=== PATIENT | female | born 1980 | race Caucasian/White ===

== ENCOUNTER 2022-11-21 17:46 | Inpatient (IN) | payer OTHER ==
[2022-11-21] MEDS ORDERED: LIDOCAINE 4% PATCH ONE (18:54)
--- NOTE | 2022-11-21 19:06 | RAD REPORT ---
EXAM DESCRIPTION: RAD - Lumbar Spine 3 Views - 11/21/2022 6:43 pm CLINICAL HISTORY: Pain, mid back, radiating to lower abdomen COMPARISON: None. FINDINGS: A three-view lumbar spine examination was performed. Lumbar bodies are normal in height and alignment. No fracture or acute bony process seen. No disc spa ce narrowing. No other significant findings. IMPRESSION: No acute abnormality of the lumbar spine.
[2022-11-21 19:25] LABS: Urine Blood Negative (Negative); Urine Glucose Negative (Negative); Urine Protein Trace (Negative); Urine Specific Gravity >=1.030 (1.005-1.030)
[2022-11-21] MEDS ORDERED: MORPHINE 4 MG/ML SYR ONE (19:28)
[2022-11-21] MEDS ORDERED: KETOROLAC 30 MG/ML INJ ONE (19:28)
[2022-11-21 19:56] LABS: Urine Bacteria <20 /HPF (<20); Urine Crystals Unidentified Few /HPF (None Seen); Urine Mucus 1+ /HPF (None Seen); Urine RBC <5 /HPF (None Seen)
[2022-11-21] MEDS ORDERED: NA CHLORIDE 0.9% 1,000 ML ONE (20:02)
[2022-11-21 20:29] LABS: Absolute Lymphocytes (CBC) 1.3 K/uL (0.7-4.9); Hematocrit 39.1 % (36.0-45.0); Lymphocytes % 6.7 % (15.3-44.8); MCV 84.4 fL (80-100); MPV 7.9 fL (7.6-11.3); RBC Red Blood Cell Count 4.63 M/uL (3.86-4.86)
[2022-11-21 20:44] LABS: Albumin 3.4 g/dL (3.4-5.0); Bilirubin Total 0.2 mg/dL (0.2-1.0); Potassium 4.1 mmol/L (3.5-5.1); Protein, Total 7.4 g/dL (6.4-8.2)
--- NOTE | 2022-11-21 21:32 | RAD REPORT ---
EXAM DESCRIPTION: CT - Abdomen Pelvis W Contrast - 11/21/2022 9:05 pm CLINICAL HISTORY: FLANK PAIN COMPARISON: CT ABD PELVIS W CONTRAST dated 03/09/2014; ABDOMEN 1 VIEW KUB dated 03/12/2014 TECHNIQUE: Thin cut axial CT imaging of the abdomen and pelvis was performed following intravenous a dministration of 95 mL Isovue 300. Multiplanar reformats were generated and reviewed. All CT scans are performed using dose optimization technique as appropriate and may include automated exposure control or mA/KV adjustment according to patient size. FINDINGS: Lobulated left lower lobe infrahilar centrally located 4.7 x 3.9 centimeter mass, incomple tely included. A calcified posterior left lower lobe 12 millimeter granuloma is stable. The liver demonstrates at least 2 hypoattenuating parenchymal lesions, the largest involving segment 4B anteriorly, measuring 2 centimeter in greatest axial diameter. The spleen demonstrates 2 subcapsul ar hypoattenuating small lesions, the largest near the inferior pole measuring 1 centimeter. The panc reas show no suspicious findings. Status post cholecystectomy. No evidence of intra or extrahepatic b iliary ductal dilation. . Symmetric renal function is seen with no hydronephrosis or suspicious renal mass. No dilated bowel loops or bowel wall thickening. No free air, free fluid or inflammatory stranding. N o hernia, mass or bulky lymphadenopathy. The urinary bladder is without significant finding. No suspicious bony findings. Linear sclerotic focus along the lateral left eighth rib is stable. IMPRESSION: Left lower lobe infrahilar 4.7 centimeter mass, incompletely imaged, concerning for a domonique ng malignancy. At least 2 hypoattenuating hepatic lesions, concerning for metastatic disease. Two splenic hypoattenuating lesions, indeterminate, although they could also represent metastatic les ions. The findings were communicated to Kevin Sylvester on 11/21/2022 at 21:25 hours.
--- NOTE | 2022-11-21 21:41 | EDPHYS ---
Physician Documentation [facility] Name: Mike Cornejo Age: 42 yrs Sex: Female : 1980 Arrival Date: 11/21/2022 Time: 17:47 Bed 2 Private MD: ED Physician Rohit Pope HPI: 11/21 18:25 This 42 yrs old Female presents to ER via Wheelchair with complaints of Low Back Pain. cp 18:25 The patient presents with pain that is acute, with no known mechanism of injury. The cp symptoms are located in the low back. The pain radiates to the lower abdomen bilaterally. The problem was sustained from unknown cause. 18:25 Onset: The symptoms/episode began/occurred this morning, and became worse today. cp 18:25 Associated signs and symptoms: Pertinent positives: lower abdomen pain, Pertinent cp negatives: constipation, fever, incontinence, numbness, tingling, urinary retention, weakness. Severity of symptoms: in the emergency department the symptoms are unchanged, despite home interventions. 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 - Social history:: Smoking status: Patient reports the use of cigarette tobacco products, smokes one-half pack cigarettes per day, Patient uses street drugs, marijuana, Patient/guardian denies using alcohol. ROS: 18:30 Constitutional: Negative for body aches, chills, fever, poor PO intake. cp 18:30 Eyes: Negative for injury, pain, redness, and discharge. cp 18:30 ENT: Negative for drainage from ear(s), ear pain, sore throat, difficulty swallowing, difficulty handling secretions. 18:30 Cardiovascular: Negative for chest pain, edema, palpitations. 18:30 Respiratory: Negative for cough, shortness of breath, wheezing. 18:30 Abdomen/GI: Positive for radiating pain to lower abdomen bilaterally, Negative for vomiting, diarrhea, constipation, bowel incontinence. 18:30 Back: Positive for pain at rest, pain with movement, of the low back area. 18:30 : Negative for urinary symptoms, difficulty urinating, bladder incontinence. 18:30 Neuro: Negative for altered mental status, dizziness, headache, numbness, tingling, weakness. 18:30 All other systems are negative. cp Exam: 18:45 Constitutional: The patient appears in no acute distress, alert, awake, non-toxic, well cp developed, well nourished, uncomfortable. 18:45 Head/Face: Normocephalic, atraumatic. cp 18:45 Eyes: Periorbital structures: appear normal, Conjunctiva: normal, Sclera: no appreciated abnormality, Lids and lashes: appear normal, bilaterally. 18:45 ENT: External ear(s): are unremarkable, Nose: is normal, Mouth: Lips: moist, Oral mucosa: moist, Posterior pharynx: is normal, airway is patent, no erythema, no exudate. 18:45 Neck: ROM/movement: is normal, is supple, without pain, no range of motions limitations. 18:45 Chest/axilla: Inspection: normal. 18:45 Cardiovascular: Rate: tachycardic, Rhythm: regular, Edema: is not appreciated, JVD: is not appreciated. 18:45 Respiratory: the patient does not display signs of respiratory distress, Respirations: normal, no use of accessory muscles, no retractions, labored breathing, is not present, Breath sounds: are clear throughout, no decreased breath sounds, no stridor, no wheezing. 18:45 Abdomen/GI: Inspection: abdomen appears normal, Bowel sounds: active, all quadrants, Palpation: soft, in all quadrants, moderate abdominal tenderness, in the right lower quadrant and left lower quadrant. 18:45 Back: pain, that is severe, of the low back area, ROM is painful, with all movement. 18:45 Skin: cellulitis, is not appreciated, no rash present. 18:45 Neuro: Orientation: to person, place \T\ time. Mentation: is normal, Motor: moves all fours, strength is normal, Sensation: is normal, Deep tendon reflexes are 2+ (normal) in the right patellar, right Achilles, left patellar and left Achilles. Vital Signs: 17:54 BP 146 / 117; Pulse 112; Resp 18; Temp 98.5(TE); Pulse Ox 99% on R/A; Weight 64.41 kg; ld1 Height 5 ft. 2 in. (157.48 cm); Pain 10/10; 18:43 BP 128 / 96; Pulse 89; Pulse Ox 100% on R/A; ap3 19:34 BP 133 / 86; Pulse 96; Resp 18 S; Pulse Ox 100% on R/A; as6 21:29 BP 131 / 91; Pulse 100; Resp 17 S; Pulse Ox 98% on R/A; as6 22:30 BP 129 / 87; Pulse 84; Resp 17; Pulse Ox 100% on R/A; ll3 17:54 Body Mass Index 25.97 (64.41 kg, 157.48 cm) ld1 MDM: 18:01 Patient medically screened. 21:40 Data reviewed: vital signs, nurses notes. 21:40 I considered the following discharge prescriptions or medication management in the emergency department Medications were administered in the Emergency Department. See NOV. 11/21 18:18 Order name: Urine Microscopic Only; Complete Time: 20:23 11/21 20:23 Interpretation: Reviewed. 11/21 19:25 Order name: Urine Dipstick-Ancillary; Complete Time: 19:39 [facility] 11/21 19:39 Interpretation: Normal except: UKET Trace; UPROT Trace; UNIT Positive. 11/21 19:47 Order name: CBC with Diff; Complete Time: 20:53 11/21 20:54 Interpretation: Reviewed. 11/21 19:47 Order name: CMP 11/21 19:47 Order name: Lipase 11/21 20:54 Interpretation: Abnormal: LIP 396. 11/21 21:38 Order name: SARS RAPID ds4 11/21 18:18 Order name: XRAY Lumbar Spine (3 Views); Complete Time: 19:39 11/21 19:47 Order name: CT Abd/Pelvis - IV Contrast Only; Complete Time: 21:37 11/21 21:39 Order name: COVID-19/FLU A+B 11/21 22:38 Order name: Lipid Profile EDSC 11/21 18:18 Order name: Urine Dipstick-Ancillary (obtain specimen); Complete Time: 19:26 11/21 18:18 Order name: Urine Test (obtain specimen); Complete Time: 19:26 11/21 19:47 Order name: IV Saline Lock; Complete Time: 20:12 cp 11/21 19:47 Order name: Labs collected and sent; Complete Time: 20:12 cp Administered Medications: 18:52 Drug: Lidoderm Patch 5 % (700 mg/patch) 1 patches Route: Topical; Site: affected area; ap3 19:30 Drug: Ketorolac 30 mg Route: IM; Site: left ventrogluteal; as6 22:53 Follow up: Response: No adverse reaction; Marked relief of symptoms ll3 19:30 Drug: morphine 4 mg Route: IM; Site: left ventrogluteal; as6 22:53 Follow up: Response: No adverse reaction ll3 20:13 Drug: NS 0.9% 1000 ml Route: IV; Rate: 1 bolus; Site: left antecubital; ll3 22:12 Drug: Rocephin (cefTRIAXone) 1 grams Route: IV; Rate: calculated rate; Site: left ll3 antecubital; 22:43 Drug: NS 0.9% 1000 ml Route: IV; Rate: 1 bolus; Site: left antecubital; ll3 22:43 Drug: NS 0.9% 1000 ml Route: IV; Rate: 1000 ml; Site: left antecubital; ll3 Disposition: 11/22 09:54 Co-signature as Attending Physician, Rohit SAUCEDO was immediately available on-site ms3 in the Emergency Department for consultation in the care of the patient. Disposition Summary: 11/21/22 21:40 Hospitalization Ordered Hospitalization Status: Inpatient Admission cp Location: Telemetry/[facility] (Inpatient) cp Condition: Fair cp Problem: new cp Symptoms: have improved cp Bed/Room Type: Standard cp Room Assignment: [facility](11/21/22 22:38) Provider: Ld Neal(11/22/22 00:19) cp Diagnosis - Other acute pancreatitis without necrosis or infection cp Forms: - Medication Reconciliation Form cp - SBAR form cp Signatures: Dispatcher [employer] Meenu Shelley RN RN mw Attema, Lee, ENGINEERING AID-C ENGINEERING AID-Cla1 Candelario Meeks PA PA cp Eveline Holm RN RN ap3 Rohit Pope DO DO ms3 Yani Solo RN RN ld1 Vicente Diamond RN RN as6 Loubet, Lynsea, RN RN ll3 Corrections: (The following items were deleted from the chart) 11/21 22:38 22:31 LIPID PROFILE+C.LAB.GEOFFZ ordered. EDMS EDMS 22:38 21:40 cp mw 11/22 00:19 11/21 21:40 Parveen Carrasco cp cp
--- NOTE | 2022-11-21 21:41 | ER ---
Nurse's Notes [facility] Name: Mike Cornejo Age: 42 yrs Sex: Female : 1980 Arrival Date: 11/21/2022 Time: 17:47 Bed 2 Private MD: Diagnosis: Other acute pancreatitis without necrosis or infection Presentation: 11/21 17:54 Chief complaint: Patient states: Went to urgent care last night for bronchitis - ld1 received steroid shot. Pt c/o pain to mid back - radiates to lower abdomen. Pt states "I wonder if this is related to the steroid shot I got.". Coronavirus screen: At this time, the client does not indicate any symptoms associated with coronavirus-19. Ebola Screen: No symptoms or risks identified at this time. Initial Sepsis Screen: Does the patient meet any 2 criteria? No. Patient's initial sepsis screen is negative. Does the patient have a suspected source of infection? No. Patient's initial sepsis screen is negative. Risk Assessment: Do you want to hurt yourself or someone else? Patient reports no desire to harm self or others. Onset of symptoms was November 21, 2022. 17:54 Method Of Arrival: Wheelchair ld1 17:54 Acuity: YING 4 ld1 Triage Assessment: 17:58 General: Appears in no apparent distress. uncomfortable, Behavior is cooperative, ld1 anxious. Pain: Complains of pain in lumbar area Pain radiates to right lower quadrant and left lower quadrant Pain currently is 10 out of 10 on a pain scale. Quality of pain is described as throbbing, Pain began 1 day ago. Is intermittent. EENT: No signs and/or symptoms were reported regarding the EENT system. Neuro: Level of Consciousness is awake, alert, obeys commands, Oriented to person, place, time, situation. Cardiovascular: Capillary refill < 3 seconds Patient's skin is warm and dry. Rhythm is sinus tachycardia. Respiratory: Airway is patent Respiratory effort is even, unlabored. GI: Abdomen is flat, non-distended. : No signs and/or symptoms were reported regarding the genitourinary system. Derm: No signs and/or symptoms reported regarding the dermatologic system. Musculoskeletal: No signs and/or symptoms reported regarding the musculoskeletal system. 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 - Social history:: Smoking status: Patient reports the use of cigarette tobacco products, smokes one-half pack cigarettes per day, Patient uses street drugs, marijuana, Patient/guardian denies using alcohol. Screenin:11 [facility] ED Fall Risk Assessment (Adult) History of falling in the last 3 months, ap3 including since admission No falls in past 3 months (0 pts). Abuse screen: Denies threats or abuse. Nutritional screening: No deficits noted. Tuberculosis screening: No symptoms or risk factors identified. Assessment: 18:16 General: Appears uncomfortable, Behavior is crying, restless. Pain: Complains of pain ap3 in low back area Pain radiates to right lower quadrant and left lower quadrant Pain began gradually, 1 day ago. Neuro: Level of Consciousness is awake, alert, obeys commands, Oriented to person, place, time, situation. Cardiovascular: Patient's skin is warm and dry. Respiratory: Airway is patent Respiratory effort is even, unlabored, Respiratory pattern is regular, symmetrical. 19:34 Pain: Complains of pain in low back area and left lower quadrant and right lower as6 quadrant and back and lumbar area. Respiratory: Respiratory effort is even, unlabored. Vital Signs: 17:54 BP 146 / 117; Pulse 112; Resp 18; Temp 98.5(TE); Pulse Ox 99% on R/A; Weight 64.41 kg; ld1 Height 5 ft. 2 in. (157.48 cm); Pain 10/10; 18:43 BP 128 / 96; Pulse 89; Pulse Ox 100% on R/A; ap3 19:34 BP 133 / 86; Pulse 96; Resp 18 S; Pulse Ox 100% on R/A; as6 21:29 BP 131 / 91; Pulse 100; Resp 17 S; Pulse Ox 98% on R/A; as6 22:30 BP 129 / 87; Pulse 84; Resp 17; Pulse Ox 100% on R/A; ll3 17:54 Body Mass Index 25.97 (64.41 kg, 157.48 cm) ld1 ED Course: 17:47 Patient arrived in ED. am2 17:52 Candelario Meeks PA is PHCP. cp 17:52 Rohit Pope DO is Attending Physician. cp 17:58 Triage completed. ld1 17:58 Arm band placed on right wrist. ld1 18:00 Eveline Holm, RN is Primary Nurse. ap3 18:11 Patient has correct armband on for positive identification. Bed in low position. Call ap3 light in reach. Side rails up X 1. Adult w/ patient. Pulse ox on. NIBP on. 18:50 XRAY Lumbar Spine (3 Views) In Process Unspecified. EDMS 20:12 Initial lab(s) drawn, by me, sent to lab. Inserted saline lock: 20 gauge in left ll3 antecubital area, using aseptic technique. Blood collected. Missed attempt(s): 20 gauge in right antecubital area. 21:07 CT Abd/Pelvis - IV Contrast Only In Process Unspecified. EDMS 21:39 Parveen Carrasco FNP-C is Hospitalizing Provider. cp 23:04 No provider procedures requiring assistance completed. Patient admitted, IV remains in ll3 place. 11/22 00:19 Ld Neal MD is Hospitalizing Provider. cp Administered Medications: 02 18:52 Drug: Lidoderm Patch 5 % (700 mg/patch) 1 patches Route: Topical; Site: affected area; ap3 19:30 Drug: Ketorolac 30 mg Route: IM; Site: left ventrogluteal; as6 22:53 Follow up: Response: No adverse reaction; Marked relief of symptoms ll3 19:30 Drug: morphine 4 mg Route: IM; Site: left ventrogluteal; as6 22:53 Follow up: Response: No adverse reaction ll3 20:13 Drug: NS 0.9% 1000 ml Route: IV; Rate: 1 bolus; Site: left antecubital; ll3 22:12 Drug: Rocephin (cefTRIAXone) 1 grams Route: IV; Rate: calculated rate; Site: left ll3 antecubital; 22:43 Drug: NS 0.9% 1000 ml Route: IV; Rate: 1 bolus; Site: left antecubital; ll3 22:43 Drug: NS 0.9% 1000 ml Route: IV; Rate: 1000 ml; Site: left antecubital; ll3 Medication: 18:11 VIS not applicable for this client. ap3 Outcome: 21:40 Decision to Hospitalize by Provider. cp 23:04 Admitted to Tele accompanied by nurse, via wheelchair, room 430, with chart, Report ll3 called to JAE Bautista 23:04 Condition: stable 23:04 Instructed on the need for admit, Demonstrated understanding of instructions. 23:31 Patient left the ED. ll3 11/22 00:21 Patient left the ED. kd3 Signatures: Dispatcher [employer] EDMS Candelario Meeks PA PA cp Eveline Garg am2 Eveline Holm RN RN ap3 Yani Solo RN RN ld1 Vicente Diamond RN RN as6 Tushar Cook RN RN ll3 Yuly Foster RN RN kd3 Corrections: (The following items were deleted from the chart) 11/21 17:59 17:54 BP 204 / 179; Pulse 112bpm; Resp 18bpm; Pulse Ox 99% RA; Temp 98.5F Temporal; ld1 64.41 kg; Height 5 ft. 2 in.; BMI: 25.9; Pain 10/10; ld1
[2022-11-21] MEDS ORDERED: CEFTRIAXONE 1000 MG/VIAL ONE (22:11)
[2022-11-21 22:31] LABS: SARS-COV-2 RT PCR NEGATIVE (NEGATIVE)
--- NOTE | 2022-11-21 22:42 | P.HP ---
Certification for Inpatient Patient admitted to: Observation With expected LOS: <2 Midnights Patient will require the following post-hospital care: None Practitioner: I am a practitioner with admitting privileges, knowledge of patient current condition, hospital course, and medical plan of care. Services: Services provided to patient in accordance with Admission requirements found in Title 42 Section 412.3 of the Code of Federal Regulations Patient History Date of Service: 11/21/22 Reason for admission: Acute pancreatitis, lung mass History of Present Illness: 42-year-old female with history of previous brain tumor with excision which was determined to be benign presented to the emergency department today with complaints of back pain radiating to lower abdomen. She reports that she was seen yesterday in urgent care and prescribed oral antibiotics for otitis media/sinus infection, began having back/abdominal pain today. She was evaluated here in the emergency department her labs were significant for moderate elevation in lipase 396normal range 13-75 leukocytosis with blood cell count 18.9 CT abdomen pelvis was performed with IV contrast which revealed left lower lobe infrahilar 4.7 cm mass, incompletely imaged, concerning for lung malignancy. At least 2 hypoattenuating hepatic lesions concerning for metastatic disease. 2 splenic hypoattenuating lesions indeterminate although they could also represent metastatic disease. On exam patient has mild upper abdominal tenderness, lipase greater than 3 times upper limit of normal. ED provider wishes to admit under observation for acute pancreatitis. Patient denies alcohol use, has had previous cholecystectomy. No intrahepatic dilatation noted on CT, LFTs normal. Will obtain lipid panel, admit under observation. Discussed abnormal CT findings including suspected metastatic lung cancer at length with patient, will obtain dedicated CT of chest for further evaluation, consult pulmonology during hospitalization. Allergies sulfamethoxazole [From Bactrim] Allergy (Mild, Verified 03/03/12 10:40) Hives/Rash trimethoprim [From Bactrim] Allergy (Mild, Verified 03/03/12 10:40) Hives/Rash tramadol Allergy (Verified 03/12/14 15:55) Hives/Rash Home Medications: Ibuprofen 800 mg PO TIDP PRN 03/12/14 Ciprofloxacin HCl [Cipro] 500 mg PO BID #20 tablet 03/18/14 Hydrocodone 5/APAP 325 [[place] 5/325*] 1 - 2 tab PO Q6HP PRN #30 tab 03/18/14 metroNIDAZOLE [Flagyl*] 500 mg PO QID #40 tablet 03/18/14 - Past Medical/Surgical History Diabetic: No -: ovarian cyst -: uterine fibroids -: endometriosis -: Brain massbenign -: appy -: tito -: tonsillectomy -: D&C -: right knee sx -: Brain massbenign Psychosocial/ Personal History: Patient is employed at a [employer], lives at home with her boyfriend. - Family History Mother Notes: COPD - Social History Smoking Status: Current every day smoker Counseled patient to stop smoking for: less than 10 minutes Alcohol use: Yes CD- Drugs: No Caffeine use: No Place of Residence: Home Review of Systems 10-point ROS is otherwise unremarkable Gastrointestinal: Abdominal Pain Musculoskeletal: Back Pain Physical Examination - Physical Exam General: Alert, In no apparent distress, Oriented x3 HEENT: Atraumatic, PERRLA, Mucous membr. moist/pink, EOMI, Sclerae nonicteric Neck: Supple, 2+ carotid pulse no bruit, No LAD, Without JVD or thyroid abnormality Respiratory: Clear to auscultation bilaterally, Normal air movement Cardiovascular: Regular rate/rhythm, Normal S1 S2 Gastrointestinal: Tenderness (Mild epigastric tenderness) Musculoskeletal: No tenderness Integumentary: No rashes Neurological: Normal speech, Normal strength at 5/5 x4 extr, Normal tone, Normal affect - Studies Laboratory Data (last 24 hrs) 11/21/22 22:30: Triglycerides Cancelled, Cholesterol Cancelled, HDL Cholesterol Cancelled, Cholesterol/HDL Ratio Cancelled 11/21/22 20:08: Sodium 138, Potassium 4.1, BUN 17, Creatinine 0.95, Glucose 146 H, Total Bilirubin 0.2, AST 22, ALT 25, Alkaline Phosphatase 99, Lipase 396 H 11/21/22 20:08: WBC 18.90 H, Hgb 13.2, Hct 39.1, Plt Count 314 Assessment and Plan - Plan Assessment: Epigastric pain, concern for acute pancreatitis Incidental CT findings concerning for metastatic lung disease Plan: Epigastric pain, concern for acute pancreatitis NPO, IVF, as needed pain medications, trend lipase. Patient with previous cholecystectomy, denies alcohol use. Obtain lipid panel. Mild tenderness on exam no CT findings indicating acute pancreatitis. Likely advance diet as tolerated tomorrow. Incidental CT findings concerning for metastatic lung disease Discussed at length with patient, provided with results from CT scan, pulmonology to be consulted. Dedicated CT chest ordered. DVT PPX: Lovenox Code status: Full Discharge Plan: Home Plan to discharge in: 24 Hours - Advance Directives Does patient have a Living Will: No Does patient have a Durable POA for Healthcare: No - Code Status/Comfort Care Code Status Assessed: Yes (Full code) Critical Care: No Time Spent Managing Pts Care (In Minutes): 70
[2022-11-21] MEDS ORDERED: NA CHLORIDE 0.9% 2,000 ML ONE (22:43)
[2022-11-21] MEDS ORDERED: MORPHINE 2 MG/ML SYR IV PRN (23:09)
[2022-11-21 23:44] VITALS: BMI 28.8
[2022-11-21] MEDS: Ringers Lactate 1,000 ML IV SCH (23:46)
[2022-11-22] MEDS: MORPHINE 2 MG/ML SYR IV PRN ×5 (00:07→18:41)
[2022-11-22] MEDS: Ringers Lactate 1,000 ML IV SCH ×3 (05:51→19:05)
[2022-11-22 05:57] LABS: Absolute Lymphocytes (CBC) 1.5 K/uL (0.7-4.9); Hematocrit 34.3 % (36.0-45.0); Lymphocytes % 9.5 % (15.3-44.8); MCV 84.9 fL (80-100); MPV 7.9 fL (7.6-11.3); RBC Red Blood Cell Count 4.04 M/uL (3.86-4.86)
[2022-11-22 06:25] LABS: Albumin 2.7 g/dL (3.4-5.0); Bilirubin Total 0.2 mg/dL (0.2-1.0); Potassium 4.1 mmol/L (3.5-5.1); Protein, Total 6.1 g/dL (6.4-8.2); Thyroid Stimulating Hormone 0.515 uIU/mL (0.358-3.740)
[2022-11-22] MEDS ORDERED: INFLUENZA VACCINE (for 6+ mo) 0.5 ML DOSE IMVAC ONE (08:00)
--- NOTE | 2022-11-22 08:19 | RAD REPORT ---
EXAM DESCRIPTION: CT - Thorax Wo Con - 11/21/2022 11:25 pm CLINICAL HISTORY: Eval lung mass COMPARISON: Abdomen Pelvis W Contrast dated 11/21/2022; CT ABD PELVIS W CONTRAST dated 03/09/2014 TECHNIQUE: Axial thin cut images of the chest were obtained without IV contrast. Multiplanar reforma ts were generated and reviewed. All CT scans are performed using dose optimization technique as appropriate and may include automated exposure control or mA/KV adjustment according to patient size. FINDINGS: Re- demonstration of a dominant lobulated left infrahilar 4.8 centimeter mass. Focus of ca lcification present along its medial margin. Segmental atelectasis of the left lower lobe at the base . A nodular peripheral left lower lobe 1.8 centimeter nodule is noted. Both findings are new since a prior abdominal CT of 2013. No pleural thickening or pleural effusion. No pneumothorax. No significant aortic or pulmonary artery findings. Assessment is limited in the absence of IV contra st, however moderately bulky left hilar nodes are suspected, associated with some dystrophic calcific ations. The left perihilar 8 millimeter calcific nodule is also noted. Prominent mediastinal lymph no kwadwo, the largest in the subcarinal zone, measuring 3.8 x 2.7 centimeter. Additional bulky nodes in th e pretracheal and prevascular zones, with the largest latter zone michele mass measuring 3.4 x 2.1 cent imeter. No chest wall mass or abnormal axillary lymphadenopathy. Evaluation of the solid abdominal structures again reveals hypoattenuating lesions of the liver, bett er evaluated on the preceding contrast-enhanced abdominal CT. Contrast excretion is seen in the upper urinary tracts. Status post cholecystectomy. . IMPRESSION: Re- demonstration of a dominant left infrahilar 4.8 centimeter mass. Bulky left hilar and mediastinal adenopathy as above. A left lower lobe 1.8 centimeter satellite nodu lar opacity is also noted. Findings raise concern for a primary lung malignancy with metastatic adenopathy, although evaluation is somewhat limited by absence of IV contrast. The presence of coarse calcifications in the vicinity of the masses and lymph nodes would also raise concern for calcifying metastases, granulomas, and oth er benign neoplastic processes, as differential considerations. Given the central location of the jeanette rivera mass, please consider soft tissue sampling through a bronchoscopic approach. Upper abdominal structures were evaluated separately noted a preceding CT abdomen and pelvis of the s marily day.
[2022-11-22] MEDS ORDERED: ENOXAPARIN 40 MG/0.4 ML SQ SCH (09:00)
[2022-11-22 09:48] LABS: Protime INR 1.08
--- NOTE | 2022-11-22 12:16 | P.CNS ---
Date of Consult: 11/22/22 Chief Complaint: Acute pancreatitis, lung mass History of Present Illness: Patient is 42 years of age admitted with cough was found to have a left lower lobe mass possible mets to the liver and active smoker she also complained of lower abdominal discomfort no prior history of cardiopulmonary problem Allergies sulfamethoxazole [From Bactrim] Allergy (Mild, Verified 11/21/22 23:48) Hives/Rash trimethoprim [From Bactrim] Allergy (Mild, Verified 11/21/22 23:48) Hives/Rash tramadol Allergy (Verified 11/21/22 23:48) Hives/Rash Home Medications: NK [No Home Meds] 11/21/22 - Past Medical/Surgical History Diabetic: No -: ovarian cyst -: uterine fibroids -: endometriosis -: Brain massbenign -: appy -: tito -: tonsillectomy -: D&C -: right knee sx -: Brain massbenign Psychosocial/ Personal History: Patient is employed at a [employer], lives at home with her boyfriend. - Family History Mother Notes: COPD - Social History Smoking Status: Current every day smoker Alcohol use: No CD- Drugs: No Caffeine use: No Place of Residence: Home Review of Systems 10-point ROS is otherwise unremarkable Gastrointestinal: Abdominal Pain (Dominantly lower) Physical Examination Temp Pulse Resp BP Pulse Ox 97.2 F 76 17 133/80 97 11/22/22 08:00 11/22/22 08:00 11/22/22 09:18 11/22/22 08:00 11/22/22 09:18 General: Alert, In no apparent distress, Oriented x3 Neck: Supple Respiratory: Clear to auscultation bilaterally Cardiovascular: No edema, Regular rate/rhythm, Normal S1 S2 Gastrointestinal: Tenderness (Minimal tenderness in the epigastric) Laboratory Data (last 24 hrs) 11/21/22 22:30: Triglycerides Cancelled, Cholesterol Cancelled, HDL Cholesterol Cancelled, Cholesterol/HDL Ratio Cancelled 11/21/22 20:08: Sodium 138, Potassium 4.1, BUN 17, Creatinine 0.95, Glucose 146 H, Total Bilirubin 0.2, AST 22, ALT 25, Alkaline Phosphatase 99, Triglycerides 116, Cholesterol 153, HDL Cholesterol 44, Cholesterol/HDL Ratio 3.48, Lipase 396 H 02/27/23 20:08: WBC 18.90 H, Hgb 13.2, Hct 39.1, Plt Count 314 - Problems (1) Lung cancer Current Visit: Yes Status: Acute Plan: Patient is a very large left lower lobe mass with possible mets to the liver recommend liver biopsy first if nondiagnostic and proceed to bronchoscopy patient has acute symptoms of cough may have an underlying infection agree with antibiotics her white count is elevated recently went to urgent care and was treated with antibiotic and steroid Kristin's reviewed mildly elevated lipase no evidence of pancreatitis on the CT scan can advance to liquid diet vital signs stable patient was prescribed Augmentin and promethazine Qualifiers: Laterality: left
[2022-11-22] MEDS: AMOX/K CLAV 500 MG TAB PO SCH ×2 (13:26→19:50)
--- NOTE | 2022-11-22 13:43 | RAD REPORT ---
EXAM DESCRIPTION: US - Liver Only - 11/22/2022 1:12 pm CLINICAL HISTORY: Liver mass FINDINGS: Examination was performed to assess if an ultrasound-guided liver biopsy can be performed. 2.4 centimeter hypo to isoechoic lesion is present within the medial segment left lobe corresponding to the CT abnormality. IMPRESSION: 2.4 centimeter hepatic mass likely metastasis. Ultrasound-guided core biopsy will be per formed November 23, 2022
[2022-11-22] MEDS: ONDANSETRON 4 MG/2 ML VIAL IV PRN (14:41)
[2022-11-22] MEDS: HYDROCODONE/APAP 5/325 MG TAB PO PRN (14:45)
[2022-11-22] MEDS ORDERED: HYDROMORPHONE HCL 0.5 MG/0.5 ML INJ IV ONE (19:38)
--- NOTE | 2022-11-22 22:50 | P.PN ---
Date of Service: 11/22/22 Subjective: no significant change continues with lower abdominal pain mild epigastric tenderness ROS: A complete review of systems was performed and is negative except as mentioned above Physical Exam: Gen: AOx3, uncomfortable appearing HEENT: normal conjunctiva, sclera anicteric CV: regular rate & rhythm, no edema Pulm: non-labored respirations, clear bilaterally Abd: soft, mild TTP in epigastrium MSK: mild TTP in b/l paraspinal muscles Neuro: normal speech, normal affect, moves all extremities vitals reviewed Problem List Epigastric pain, concern for acute pancreatitis Incidental CT findings concerning for metastatic lung disease Epigastric pain, concern for acute pancreatitis IVF, as needed pain medications, trend lipase. Patient with previous cholecystectomy, denies alcohol use. Obtain lipid panel. Mild tenderness on exam no CT findings indicating acute pancreatitis. Likely advance diet as tolerated tomorrow. Incidental CT findings concerning for metastatic lung disease Discussed at length with patient, provided with results from CT scan, pulmonology consulted. Dedicated CT chest ordered. liver mass biopsy ordered - to be done tomorrow Code: full Dispo: home, ~24-48hrs
[2022-11-23] MEDS: MORPHINE 2 MG/ML SYR IV PRN ×2 (00:03→05:14)
[2022-11-23] MEDS: ONDANSETRON 4 MG/2 ML VIAL IV PRN ×4 (00:03→19:24)
[2022-11-23] MEDS: Ringers Lactate 1,000 ML IV SCH ×3 (04:15→09:23)
[2022-11-23 05:22] LABS: Absolute Lymphocytes (CBC) 1.5 K/uL (0.7-4.9); Hematocrit 34.6 % (36.0-45.0); Lymphocytes % 19.1 % (15.3-44.8); MCV 84.2 fL (80-100); MPV 7.7 fL (7.6-11.3); RBC Red Blood Cell Count 4.11 M/uL (3.86-4.86)
[2022-11-23 05:42] LABS: Albumin 2.6 g/dL (3.4-5.0); Bilirubin Total 0.3 mg/dL (0.2-1.0); Potassium 3.8 mmol/L (3.5-5.1); Protein, Total 5.9 g/dL (6.4-8.2)
[2022-11-23] MEDS: AMOX/K CLAV 500 MG TAB PO SCH ×2 (08:35→19:29)
[2022-11-23] MEDS: MORPHINE 4 MG/ML SYR IV PRN ×3 (09:23→19:23)
--- NOTE | 2022-11-23 09:52 | P.PN ---
Date of Service: 11/23/22 Subjective: no significant change continues with lower abdominal pain mild epigastric tenderness lower back pain/tenderness ROS: A complete review of systems was performed and is negative except as mentioned above Physical Exam: Gen: AOx3, uncomfortable appearing HEENT: normal conjunctiva, sclera anicteric CV: regular rate & rhythm, no edema Pulm: non-labored respirations, clear bilaterally Abd: soft, mild TTP in epigastrium MSK: tendernes in SI joint area, CALLIE testing with worsening pain Neuro: normal speech, normal affect, moves all extremities vitals reviewed Problem List Epigastric pain, concern for acute pancreatitis Incidental CT findings concerning for metastatic lung disease SI Joint pain bilaterally vs sciatica elevated LFTs Epigastric pain, concern for acute pancreatitis IVF, as needed pain medications, trend lipase. Patient with previous cholecystectomy, denies alcohol use. Mild tenderness on exam no CT findings indicating acute pancreatitis less likely acute pancreatitis Incidental CT findings concerning for metastatic lung disease Discussed at length with patient, provided with results from CT scan, pulmonology consulted. Dedicated CT chest ordered. liver mass biopsy ordered - to be done tomorrow patient with bilateral tenderness in SI Joint area reports h/o sciatica - in past feels very similar to this, but currently is 5 times more severe than anytime before elevated LFTs likely from metastasis GI consulted Code: full Dispo: home, ~48hrs
[2022-11-23] MEDS ORDERED: LIDOCAINE 4% PATCH TOP ONE (19:38)
[2022-11-23] MEDS ORDERED: POTASSIUM CL SA 10 MEQ TAB PO ONE (21:00)
[2022-11-23] MEDS ORDERED: PROMETHAZINE INJ 25 MG/ML AMP IV ONE (23:02)
[2022-11-24] MEDS: MORPHINE 4 MG/ML SYR IV PRN ×4 (02:15→19:32)
[2022-11-24] MEDS: Ringers Lactate 1,000 ML IV SCH ×2 (02:17→23:38)
[2022-11-24 04:21] LABS: Absolute Lymphocytes (CBC) 1.1 K/uL (0.7-4.9); Hematocrit 36.9 % (36.0-45.0); Lymphocytes % 12.6 % (15.3-44.8); MCV 84.7 fL (80-100); MPV 8.3 fL (7.6-11.3); RBC Red Blood Cell Count 4.36 M/uL (3.86-4.86)
[2022-11-24 04:38] LABS: Albumin 2.6 g/dL (3.4-5.0); Bilirubin Total 1.6 mg/dL (0.2-1.0); Potassium 4.1 mmol/L (3.5-5.1); Protein, Total 6.2 g/dL (6.4-8.2)
[2022-11-24] MEDS: ONDANSETRON 4 MG/2 ML VIAL IV PRN (05:41)
[2022-11-24] MEDS ORDERED: MIDAZOLAM HCL 2 MG/2 ML INJ ONE (08:56)
[2022-11-24] MEDS ORDERED: FLUMAZENIL 0.1 MG/ML (5 mL VIAL) IV ONE (08:57)
[2022-11-24] MEDS ORDERED: NALOXONE 0.4 MG/ML VIAL ONE (08:57)
[2022-11-24] MEDS ORDERED: FENTANYL CITR 100 MCG/2 ML ONE (08:57)
[2022-11-24] MEDS: AMOX/K CLAV 500 MG TAB PO SCH (09:00)
[2022-11-24] MEDS ORDERED: NA CHLORIDE 0.9% 500 ML ONE (09:15)
--- NOTE | 2022-11-24 10:01 | RAD REPORT ---
EXAM DESCRIPTION: US - Liver Biopsy Procedure - 11/24/2022 9:42 am CLINICAL HISTORY: SUSPECTED MALIG. COMPARISON: Abdomen Pelvis W Contrast dated 11/21/2022 FINDINGS: Preoperative diagnosis: Liver mass. Post operative diagnosis: Same. Conscious Sedation: 2 milligram Versed, 50 microgram fentanyl. 30 minutes of bawr-rg-oats time Fluoroscopy time: None Contrast used: None Estimated blood loss: Minimal Specimens:5 core samples obtained Ultrasound-guided core biopsy of the suspicious mass in the left hepatic lobe. The lesion was difficu lt to appreciate on ultrasound and partially obscured by the overlying rib. Five samples were obtaine d. One sample in particular had a shi fragment that should be satisfactory for diagnosis. . IMPRESSION: Ultrasound-guided core biopsy of a suspicious left hepatic lobe lesion. No immediate com plications.
--- NOTE | 2022-11-24 12:27 | P.PN ---
Date of Service: 11/24/22 Subjective: no significant change continues with lower abdominal pain, lower back pain mild epigastric/RUQ tenderness Nausea, Hungry ROS: A complete review of systems was performed and is negative except as mentioned above Physical Exam: Gen: AOx3, uncomfortable appearing HEENT: normal conjunctiva, sclera anicteric CV: regular rate & rhythm, no edema Pulm: non-labored respirations, clear bilaterally Abd: soft, mild TTP in RUQ and epigastrium MSK: tendernes in SI joint area Neuro: normal speech, normal affect, moves all extremities vitals reviewed Problem List Epigastric pain, concern for acute pancreatitis Incidental CT findings concerning for metastatic lung disease SI Joint pain bilaterally vs sciatica elevated LFTs, hyperbilirubinemia Epigastric pain, concern for acute pancreatitis IVF, as needed pain medications, trend lipase. Patient with previous cholecystectomy, denies alcohol use. Mild tenderness on exam no CT findings indicating acute pancreatitis less likely acute pancreatitis advance diet lipase downtrending Incidental CT findings concerning for metastatic lung disease Discussed at length with patient, provided with results from CT scan, pulmonology consulted. Dedicated CT chest ordered. liver mass biopsy done 11/23 patient with bilateral tenderness in SI Joint area reports h/o sciatica - in past feels very similar to this, but currently is 5 times more severe than anytime before PT consulted MRI ordered elevated LFTs likely from augmentin, possibly metastasis GI consulted - agreed with dc'ing augmentin, no need for MRCP at this time Increased pain medication Code: full Dispo: home, ~48hrs
[2022-11-24] MEDS: HYDROCODONE/APAP 5/325 MG TAB PO PRN (23:19)
[2022-11-24 23:43] VITALS: O2SAT 95
[2022-11-25] MEDS: MORPHINE 4 MG/ML SYR IV PRN ×5 (02:23→21:41)
[2022-11-25] MEDS: ONDANSETRON 4 MG/2 ML VIAL IV PRN (02:25)
[2022-11-25 04:01] LABS: Protime INR 1.15
[2022-11-25 04:02] LABS: Absolute Lymphocytes (CBC) 1.3 K/uL (0.7-4.9); MCV 84.1 fL (80-100); MPV 8.2 fL (7.6-11.3); RBC Red Blood Cell Count 4.16 M/uL (3.86-4.86)
[2022-11-25 04:29] LABS: Albumin 2.4 g/dL (3.4-5.0); Bilirubin Direct 0.3 mg/dL (0-0.2); Bilirubin Total 0.6 mg/dL (0.2-1.0); Magnesium 1.9 mg/dL (1.6-2.4); Phosphorus 3.1 mg/dL (2.5-4.9); Potassium 3.7 mmol/L (3.5-5.1); Protein, Total 6.2 g/dL (6.4-8.2)
[2022-11-25] MEDS ORDERED: LORazepam 2 MG/ML VIAL IV PRN (05:56)
[2022-11-25] MEDS ORDERED: POTASSIUM CL SA 10 MEQ TAB PO ONE (08:00)
--- NOTE | 2022-11-25 09:56 | RAD REPORT ---
EXAM DESCRIPTION: MRI - Pelvis W/Wo Cont - 11/25/2022 9:43 am CLINICAL HISTORY: lower back pain, SI tenderness COMPARISON: No comparisons TECHNIQUE: MRI of the pelvis was obtained with without contrast. FINDINGS: Multiple osseous lesions are identified within the bony pelvis, spine, sacrum, and proxima l femurs. A left iliac lesion for example measures 3.1 cm. A right intertrochanteric femur lesion sneha sures 1.6 cm. A right femoral neck lesion measures 11 millimeters. A left femoral neck lesion measure s 18 millimeters. No fractures identified. Over 20 lesions are identified. No inguinal lymphadenopathy. No pelvic masses. No bowel obstruction identified. Bladder is unremarkab le. IMPRESSION: Numerous osseous metastatic lesions within the bony pelvis and proximal femurs. Lesions are present in both femoral necks that could predispose to pathologic fractures. No acute fracture id entified.
--- NOTE | 2022-11-25 10:04 | RAD REPORT ---
EXAM DESCRIPTION: MRI - Spine Lumbar W/Wo Cont - 11/25/2022 9:43 am CLINICAL HISTORY: back pain COMPARISON: CT dated 11/21/2022. TECHNIQUE: Sagittal T1-weighted, T2-weighted and T2-STIR weighted sequences were obtained. Axial T1- weighted and heavily T2-weighted sequences were obtained through the lumbar disc levels. Sagittal and axial post-contrast. T1-weighted images were obtained following 16ml on Gd contrast material. FINDINGS: No acute fractures identified. Osseous metastatic disease is identified. All of the L2 luis tebral body is involved. Additional lesions are present at L1, L3, L4, L5, and within the sacrum. A s mall broad-based disc bulge with posterior annular fissure and ligamentum flavum and facet hypertroph y is present at L4-5 that results in mild central spinal stenosis. No high-grade central spinal steno sis identified. No epidural extension of tumor. 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
--- NOTE | 2022-11-25 10:47 | P.PN ---
Date of Service: 11/25/22 Subjective: no significant change continues with lower abdominal pain, lower back pain R shoulder pain mild epigastric/RUQ tenderness Nausea, Hungry ROS: A complete review of systems was performed and is negative except as mentioned above Physical Exam: Gen: AOx3, uncomfortable appearing HEENT: normal conjunctiva, sclera anicteric CV: regular rate & rhythm, no edema Pulm: non-labored respirations, clear bilaterally Abd: soft, mild TTP in RUQ and epigastrium MSK: tenderness in SI joint area Neuro: normal speech, normal affect, moves all extremities vitals reviewed Problem List Epigastric pain, concern for acute pancreatitis abdominal and lower back pain, secondary to metastatic disease SI Joint pain bilaterally vs sciatica elevated LFTs, hyperbilirubinemia Epigastric pain, concern for acute pancreatitis IVF, as needed pain medications, trend lipase. Patient with previous cholecystectomy, denies alcohol use. less suspicious for acute pancreatitis, patient with minimal epigastric tenderness; lipase mildly elevated, improved advane diet as tolerated Incidental CT findings concerning for metastatic lung disease Discussed at length with patient, provided with results from CT scan, pulmonology consulted. Dedicated CT chest liver mass biopsy done 11/23 patient with bilateral tenderness in SI Joint area reports h/o sciatica - in past feels very similar to this, but currently is 5 times more severe than anytime before PT consulted MRI showed over 20 metastatic lesions in lumbar spine, bones, pelvis, lower back, femur Oncology consulted - recommends pain control f/u in office next week, nothing else to do at this time from oncology perspective beyond pain control until tissue results return recommends 25mcg fentanyl, ibuprofen scheduled uptitrate pain meds consider consult Dr. Mckeon if no improvement by monday elevated LFTs likely from augmentin, metastasis found GI consulted - agreed with dc'ing augmentin, no need for MRCP at this time Increased pain medication Code: full Dispo: home, ~48hrs
[2022-11-25] MEDS: HYDROCODONE/APAP 10/325 TAB PO PRN ×2 (11:20→23:57)
[2022-11-25] MEDS: Ringers Lactate 1,000 ML IV SCH (12:46)
[2022-11-25] MEDS ORDERED: FENTANYL 25 MCG/PATCH TD SCH (23:15)
[2022-11-26] MEDS: IBUPROFEN 400 MG TAB PO SCH ×4 (00:37→17:48)
[2022-11-26] MEDS: MORPHINE 4 MG/ML SYR IV PRN ×3 (00:39→10:22)
[2022-11-26 05:44] LABS: Albumin 2.2 g/dL (3.4-5.0); Bilirubin Total 0.3 mg/dL (0.2-1.0); Magnesium 1.9 mg/dL (1.6-2.4)
[2022-11-26] MEDS: HYDROCODONE/APAP 10/325 TAB PO PRN ×3 (06:05→21:16)
[2022-11-26] MEDS: Ringers Lactate 1,000 ML IV SCH ×2 (06:06→15:38)
--- NOTE | 2022-11-26 07:21 | P.PN ---
Date of Service: 11/26/22 Subjective: mild epigastric/RUQ tenderness lower abdominal pain manageable; described at 04/03 ambulatory this morning reports itchy skin "all over" ROS: A complete review of systems was performed and is negative except as mentioned above Physical Exam: Gen: AOx3, uncomfortable appearing HEENT: normal conjunctiva, sclera anicteric CV: regular rate & rhythm, no edema Pulm: non-labored respirations, clear bilaterally Abd: soft, mild TTP in RUQ and epigastrium MSK: tenderness in SI joint area Neuro: normal speech, normal affect, moves all extremities vitals reviewed Problem List Epigastric pain, concern for acute pancreatitis abdominal and lower back pain, secondary to metastatic disease SI Joint pain bilaterally vs sciatica elevated LFTs, hyperbilirubinemia Epigastric pain, concern for acute pancreatitis IVF, as needed pain medications, trend lipase. Patient with previous cholecystectomy, denies alcohol use. less suspicious for acute pancreatitis, patient with minimal epigastric tenderness; lipase mildly elevated, improved advance diet as tolerated Incidental CT findings concerning for metastatic lung disease Discussed at length with patient, provided with results from CT scan, pulmonology consulted. Dedicated CT chest liver mass biopsy done 11/23 patient with bilateral tenderness in SI Joint area reports h/o sciatica - in past feels very similar to this, but currently is 5 times more severe than anytime before PT consulted MRI showed over 20 metastatic lesions in lumbar spine, bones, pelvis, lower back, femur Oncology consulted - recommends pain control f/u in office next week, nothing else to do at this time from oncology perspective beyond pain control until tissue results return recommends 25mcg fentanyl, ibuprofen scheduled uptitrate pain meds consider consult Dr. Mckeon if no improvement by monday elevated LFTs likely from augmentin, metastasis found GI consulted - agreed with dc'ing augmentin, no need for MRCP at this time Increased pain medication Itchiness possibly from pain medicine Code: full Dispo: home, ~24hrs
[2022-11-26] MEDS: DIPHENHYDRAMINE 25 MG TAB/CAP PO PRN ×2 (11:52→18:47)
[2022-11-26] MEDS: POLYETHYL GLY 3350 17 GM/DOSE PO SCH (20:43)
[2022-11-27] MEDS: IBUPROFEN 400 MG TAB PO SCH ×2 (02:47→05:25)
[2022-11-27] MEDS: HYDROCODONE/APAP 10/325 TAB PO PRN ×2 (04:30→11:20)
[2022-11-27] MEDS: ONDANSETRON 4 MG/2 ML VIAL IV PRN (04:30)
[2022-11-27] MEDS: Ringers Lactate 1,000 ML IV SCH (04:35)
[2022-11-27] MEDS: POLYETHYL GLY 3350 17 GM/DOSE PO SCH (09:00)
[2022-11-27] MEDS ORDERED: POTASSIUM CL SA 10 MEQ TAB PO ONE (09:00)
[2022-11-27 09:10] VITALS: BP 93/60; TEMP 97.1
[2022-11-27] MEDS: DIPHENHYDRAMINE 25 MG TAB/CAP PO PRN (11:20)
--- NOTE | 2022-11-27 13:02 | P.DS ---
Admission Date: 11/22/22 Discharge Date: 11/27/22 Disposition: ROUTINE DISCHARGE Reason for Admission: Acute pancreatitis, lung mass Consultations: Oncology - Dr. Palacios Pulmonary - Dr. Quarles Gastrointestinal - Dr. Matthews Brief History of Present Illness: 42-year-old female with history of previous brain tumor with excision which was determined to be benign presented to the emergency department today with complaints of back pain radiating to lower abdomen. She reports that she was seen yesterday in urgent care and prescribed oral antibiotics for otitis media/sinus infection, began having back/abdominal pain today. She was evaluated here in the emergency department her labs were significant for moderate elevation in lipase 396normal range 13-75 leukocytosis with blood cell count 18.9 CT abdomen pelvis was performed with IV contrast which revealed left lower lobe infrahilar 4.7 cm mass, incompletely imaged, concerning for lung malignancy. At least 2 hypoattenuating hepatic lesions concerning for metastatic disease. 2 splenic hypoattenuating lesions indeterminate although they could also represent metastatic disease. On exam patient has mild upper abdominal tenderness, lipase greater than 3 times upper limit of normal. ED provider wishes to admit under observation for acute pancreatitis. Patient denies alcohol use, has had previous cholecystectomy. No intrahepatic dilatation noted on CT, LFTs normal. Will obtain lipid panel, admit under observation. Discussed abnormal CT findings including suspected metastatic lung cancer at length with patient, will obtain dedicated CT of chest for further evaluation, consult pulmonology during hospitalization. Hospital Course: Problem List Epigastric pain, concern for acute pancreatitis abdominal and lower back pain, secondary to metastatic disease SI Joint pain bilaterally vs sciatica elevated LFTs, hyperbilirubinemia Patient presented with nausea/abdominal pain and severe lower back pain. Initial concern for infection, however she was found to have a lung mass with metastatic lesions to liver, lumbar spine, pelvic bones, and femur. A biopsy of the liver lesion was performed and result pending. She had mild elevation of her LFTs which was felt secondary to Augmentin. Dr. Matthews (GI) was consulted. These levels improved after discontinuation of the Augmentin. Oncology (Dr. Nieto), was consulted. Advised follow up in her office later this week after biopsy results are back to further review options / treatment plan. Follow up: PCP within 3-[address] Nieto (Oncology) within the next 1-2 weeks. To review biopsy results GI - Dr. Matthews - in 1 month Prescriptions for Fentanyl patch, norco, and zofran were sent to her pharmacy. Recommend daily stool softer, +/- laxative as needed. Vital Signs/Physical Exam: Temp Pulse Resp BP Pulse Ox 97.1 F 84 16 93/60 97 11/27/22 08:00 11/27/22 08:00 11/27/22 11:20 11/27/22 08:00 11/27/22 11:20 Physical Exam: Gen: AOx3, uncomfortable appearing HEENT: normal conjunctiva, sclera anicteric CV: regular rate & rhythm, no edema Pulm: non-labored respirations, clear bilaterally Abd: soft, mild TTP in RUQ and epigastrium MSK: tenderness in SI joint area Neuro: normal speech, normal affect, moves all extremities Laboratory Data at Discharge: WBC 8.30 K/uL (4.3-10.9) 11/25/22 03:07 Hgb 11.9 g/dL (12.0-15.0) L 11/25/22 03:07 Hct 35.0 % (36.0-45.0) L 11/25/22 03:07 Plt Count 202 K/uL (152-406) 11/25/22 03:07 PT 12.6 SECONDS (9.5-12.5) H 11/25/22 03:07 INR 1.15 11/25/22 03:07 Sodium 136 mmol/L (136-145) 11/26/22 04:01 Potassium 3.9 mmol/L (3.5-5.1) 11/27/22 04:34 BUN 6 mg/dL (7-18) L 11/26/22 04:01 Creatinine 0.62 mg/dL (0.55-1.02) 11/26/22 04:01 Glucose 117 mg/dL (74-106) H 11/26/22 04:01 Phosphorus 4.0 mg/dL (2.5-4.9) 11/26/22 04:01 Magnesium 1.9 mg/dL (1.6-2.4) 11/26/22 04:01 Total Bilirubin 0.3 mg/dL (0.2-1.0) 11/26/22 04:01 AST 33 U/L (15-37) 11/26/22 04:01 ALT 110 U/L (13-56) H 11/26/22 04:01 Alkaline Phosphatase 245 U/L (45-117) H 11/26/22 04:01 Triglycerides Cancelled 11/21/22 22:30 Cholesterol Cancelled 11/21/22 22:30 HDL Cholesterol Cancelled 11/21/22 22:30 Cholesterol/HDL Ratio Cancelled 11/21/22 22:30 Lipase 171 U/L (13-75) H 11/24/22 03:19 Home Medications: Hydrocodone 10/APAP 325 [Gay 10/325*] 1 tab PO Q8H PRN 10 Days #30 tab 11/27/22 Ondansetron [Zofran] 4 mg PO Q8H PRN #30 tab 11/27/22 fentaNYL [Fentanyl] 25 mcg TD Q3D 30 Days #10 patch 11/27/22 New Medications: fentaNYL [Fentanyl] 25 mcg TD Q3D 30 Days #10 patch Hydrocodone 10/APAP 325 [Gay 10/325*] 1 tab PO Q8H PRN 10 Days #30 tab PRN Reason: Pain Scale 5-7 (Moderate) Ondansetron [Zofran] 4 mg PO Q8H PRN #30 tab PRN Reason: Nausea / Vomiting Physician Discharge Instructions: Patient presented with nausea/abdominal pain and severe lower back pain. Initial concern for infection, however she was found to have a lung mass with metastatic lesions to liver, lumbar spine, pelvic bones, and femur. A biopsy of the liver lesion was performed and result pending. She had mild elevation of her LFTs which was felt secondary to Augmentin. Dr. Matthews (GI) was consulted. These levels improved after discontinuation of the Augmentin. Oncology (Dr. Nieto), was consulted. Advised follow up in her office later this week after biopsy results are back to further review options / treatment plan. Follow up: PCP within 3-[address] Nieto (Oncology) within the next 1-2 weeks. To review biopsy results GI - Dr. Matthews - in 1 month Prescriptions for Fentanyl patch, norco, and zofran were sent to her pharmacy. Recommend daily stool softer, +/- laxative as needed. Followup: Rahel Jara MD [ACTIVE - CAN ADMIT] - (Call to schedule appointment) Scott Galan DO [Primary Care Provider] - (Call to schedule appointment) Ronald Matthews MD [ASSOCIATE-ACTIVE - CAN ADMIT] - (Call to schedule appointment) Time spent managing pt's care (in minutes): 45
== END 2022-11-27 12:00 | disposition home or self-care (01) | DRG 436 ==
LOC: ER 17:46 → 4TH 22:51 → OBSVTOIN 11-22 16:15
PROVIDERS: ADMIT Hospitalist; ATTEND Hospitalist
DX: C78.7 Secondary malignant neoplasm of liver and intrahepatic bile duct (principal); C34.32 Malignant neoplasm of lower lobe, left bronchus or lung; C79.51 Secondary malignant neoplasm of bone; C79.49 Secondary malignant neoplasm of other parts of nervous system; M54.32 Sciatica, left side; M54.31 Sciatica, right side; M89.9 Disorder of bone, unspecified; E80.6 Other disorders of bilirubin metabolism; F17.210 Nicotine dependence, cigarettes, uncomplicated; T36.0X5A Adverse effect of penicillins, initial encounter; T36.1X5A Adverse effect of cephalosporins and other beta-lactam antibiotics, initial encounter; R79.89 Other specified abnormal findings of blood chemistry; R91.8 Other nonspecific abnormal finding of lung field; Z88.5 Allergy status to narcotic agent; Z88.1 Allergy status to other antibiotic agents; Z90.49 Acquired absence of other specified parts of digestive tract; Z28.310 Unvaccinated for COVID-19; Z79.899 Other long term (current) drug therapy; Z20.822 Contact with and (suspected) exposure to COVID-19
CPT/HCPCS: 0240U; 36415; 47000; 71250; 72100; 72158; 72197; 74177; 76705; 80053; 80061; 81003; 81015; 82248; 83690; 83735; 84100; 84132; 84439; 84443; 85025; 85610; 88307; 96372; 96374; 97110; 97161; 99285; A9577; G0378; J1170; J1650; J2001; J2250; J2270; J2310; J2405; J2550; J3010; J7030; J7040; J7120; Q9967

== ENCOUNTER 2022-12-06 10:25 | Emergency (ER) | payer OTHER ==
--- OUTSIDE RECORDS SUMMARY | 2022-12-06 10:27 | XMS REPORT | Continuity of Care Document ---
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 94 ON 00:00:00 STANDARD Problems Condition Condition Condition Status Onset Resolution Last Treating Co mments Source Name Details Category Date Date Treatment Clinician Date Mass of Mass of Disease Active Maria Ines left lung left lung 3-10 Seyb old 00:00: - 00 Externa l 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 [facility] Allergies, Adverse Reactions, Alerts Allergy Allergy Status Severity Reaction(s) Onset Inactive Treating Comm ents Source Name Type Date Date Clinician Na Propensi Active Rash Maria Ines Benzoate ty to 5-27 Seybold -Sulfame adverse 00:00: - thoxazol reaction 00 Pain Management Specialist a e-Trimet s l hoprim Sulfamet Propensi Active Hives Maria Ines hoxazole ty to 1-25 Seybold adverse 00:00: - reaction 00 Externa s l Social History Social Habit Start Date Stop Date Quantity Comments Source History of tobacco Cigarette Smoker Maria Ines Baltazar - use External Cigarettes smoked 2022-12-02 2022-12-02 Maria Ines Ledesma - current (pack per 00:00:00 00:00:00 Externa l day) - Reported Cigarette 2022-12-02 2022-12-02 Maria Ines Ledesma - pack-years 00:00:00 00:00:00 External Tobacco use and 2022-12-02 2022-12-02 Smokeless tobacco Ke bar Manzanaresgueritajanette - exposure 00:00:00 00:00:00 non-user External Alcohol intake 2022-12-02 2022-12-02 Ex-drinker Maria Ines matamoros - 00:00:00 00:00:00 (finding) External Education 2022-12-02 2022-12-02 14 Maria Ines Ledesma - 00:00:00 00:00:00 External Sex [birth year] At [birth year] Maria Ines fonseca - 00:00:00 00:00:00 External Smoking Status Start Date Stop Date Source Ex-smoker 2022-12-02 00:00:00 2022-12-02 00:00:00 Maria Ines burch - External Medications Ordered Filled Start Stop Current Ordering Indication Dosage Frequency Signature Comments Components Source Medication Medication Date Date Medication? Clinician (SIG) Name Name Ondansetron Yes [id number] 4mg QD Take 1 Maria Ines (ZOFRAN) 4 3-10 tablet (4 Seyb old MG oral 00:00: mg total) - TABLET 00 by mouth Externa DISPERSIBLE daily as l needed for nausea HYDROcodone Yes [id number] 1{tbl} Q.5D Take 1 Maria Ines -Acetaminop 3-10 tablet by Riana matamoros hen 10-325 00:00: mouth 2 - MG oral 00 times Externa Tablet daily as l needed for pain Fentanyl 25 Yes [id number] 1{patch Place 1 Maria Ines MCG/HR 3-10 } patch onto Seybold transdermal 00:00: the skin - PATCH 72 HR 00 every 72 Exte rna hours l Cetirizine Yes [id number] 10mg Take 1 Maria Ines HCl (ZyrTEC 3-10 capsule Seybo ld Allergy) 10 00:00: (10 mg - MG oral 00 total) by Externa Capsule mouth l daily Famotidine Yes [id number] 20mg Take 1 Maria Ines (Pepcid) 20 3-10 tablet (20 Se ybold MG oral 00:00: mg total) - tablet 00 by mouth 2 Externa times l daily Fentanyl 25 2022- No APPLY 1 Ke lsey MCG/HR 3-06 03-10 PATCH TO Seybold transdermal 00:00: 00:00 SKIN EVERY - PATCH 72 HR 00 :00 3 DAYS FOR Ex terna CANCER l PAIN HYDROcodone 2022- No Kelse y -Acetaminop 3-05 03-10 Seybold hen 10-325 00:00: 00:00 - MG oral 00 :00 Externa Tablet l Ondansetron 2022- No Cinthya y (ZOFRAN) 4 3-05 03-10 Seybold MG oral 00:00: 00:00 - TABLET 00 :00 Externa DISPERSIBLE l Vital Signs Vital Name Observation Time Observation Value Comments Source Systolic blood 2022-12-02 22:08:00 134 mm[Hg] Maria Ines Manzanaresybold - pressure External Diastolic blood 2022-12-02 22:08:00 79 mm[Hg] Cinthya pitts Seybold - pressure External Heart rate 2022-12-02 22:08:00 90 /min Maria Ines burch - External Body temperature 2022-12-02 22:08:00 36.5 Anastasiia Anika breen Seybold - External Respiratory rate 2022-12-02 22:08:00 14 /min Anika Albertoold - External Body height 2022-12-02 22:08:00 157.5 cm Maria Ines burch - External Body weight 2022-12-02 22:08:00 72.394 kg Maria Ines burch - External BMI 2022-12-02 22:08:00 29.19 kg/m2 Maria Ines burch - External Oxygen saturation in 2022-12-02 22:08:00 99 /min Maria Ines Ledesma - Arterial blood by External Pulse oximetry Procedures This patient has no known procedures. Encounters Start End Encounter Admission Attending Care Care Encounter Source Date/Time Date/Time Type Type Clinicians Facility Department ID 2022-12-09 2022-12-09 Outpatient MARIA INES PIERCE [id number] Maria Ines 16:30:00 16:30:00 ESPINOZA Seybol d 2022-12-06 2022-12-06 Outpatient TJ RICHARDROBERSON [id number] Maria Ines 14:40:00 14:40:00 Seybol d 2022-12-06 2022-12-06 Outpatient GROUPMARIA INES [id number] Maria Ines 00:00:00 00:00:00 MARIA INES Seybol d 2022-12-06 2022-12-06 Outpatient MARIA INES PIERCE [id number] Maria Ines 00:00:00 00:00:00 ESPINOZA Seybol d 2022-12-05 2022-12-05 Outpatient MARIA INES PIERCE [id number] Maria Ines 00:00:00 00:00:00 ESPINOZA Seybol d 2022-12-05 2022-12-05 Outpatient MARIA INES SPANN [id number] Maria Ines 00:00:00 00:00:00 Seybol d 2022-12-05 2022-12-05 Outpatient MARIA INES PIERCE [id number] Maria Ines 00:00:00 00:00:00 ESPINOZA Seybol d 2022-12-02 2022-12-02 Outpatient MARIA INES PIERCE [id number] Maria Ines 16:30:00 16:30:00 ESPINOZA Seybol d 2022-11-30 2022-11-30 Outpatient MARIA INES PIERCE [id number] Maria Ines 00:00:00 00:00:00 ESPINOZA Seybol d 2022-11-28 2022-11-28 Outpatient MARIA INES SPANN [id number] Maria Ines 00:00:00 00:00:00 Seybol d 2022-11-25 2022-11-25 Outpatient MARIA INES PIERCE [id number] Maria Ines 00:00:00 00:00:00 ESPINOZA Seybol d 2022-11-25 2022-11-25 Outpatient MARIA INES SPANN [id number] Maria Ines 00:00:00 00:00:00 Seybol d 2022-11-24 2022-11-24 Outpatient MARIA INES PIERCE [id number] Maria Ines 00:00:00 00:00:00 ESPINOZA Seybol d 2022-11-23 2022-11-23 Outpatient MARIA INES SPANN [id number] Maria Ines 00:00:00 00:00:00 Seybol d 2022-11-22 2022-11-22 Outpatient GROUPMARIA INES [id number] Maria Ines 00:00:00 00:00:00 MARIA INES myles Results This patient has no known results.
[2022-12-06] MEDS ORDERED: MORPHINE 4 MG/ML SYR ONE (11:10)
[2022-12-06] MEDS ORDERED: ONDANSETRON 4 MG (ODT) TAB ONE (11:11)
[2022-12-06] MEDS ORDERED: KETOROLAC 30 MG/ML INJ ONE (11:24)
--- NOTE | 2022-12-06 12:53 | ER ---
Nurse's Notes [facility] Name: Mike Cornejo Age: 42 yrs Sex: Female : 1980 Arrival Date: 12/06/2022 Time: 10:26 Bed 14 Private MD: Scott Galan Diagnosis: Neoplasm related pain (acute) (chronic) Presentation: 12/06 10:32 Chief complaint: Bilateral hip and low back pain x 2 days. Coronavirus screen: At this hb time, the client does not indicate any symptoms associated with coronavirus-19. Ebola Screen: No symptoms or risks identified at this time. Initial Sepsis Screen: Does the patient meet any 2 criteria? No. Patient's initial sepsis screen is negative. Does the patient have a suspected source of infection? No. Patient's initial sepsis screen is negative. Risk Assessment: Do you want to hurt yourself or someone else? Patient reports no desire to harm self or others. Onset of symptoms was December 05, 2022. 10:32 Method Of Arrival: Ambulatory hb 10:34 Acuity: YING 4 hb Historical: - Allergies: 10:34 Bactrim; hb 11:25 Morphine; ph - PMHx: 10:34 BRAIN TUMOR; hb 11:25 Lung Mass; ph - PSHx: 10:34 Appendectomy; Brain tumor surgery; Cholecystectomy; Tonsillectomy; hb - Immunization history:: Adult Immunizations up to date. - Social history:: Smoking status: Patient reports the use of cigarette tobacco products. Screenin:30 [facility] ED Fall Risk Assessment (Adult) History of falling in the last 3 months, ph including since admission No falls in past 3 months (0 pts) Confusion or Disorientation No (0 pts) Intoxicated or Sedated No (0 pts). Abuse screen: Denies threats or abuse. Denies injuries from another. Nutritional screening: No deficits noted. Tuberculosis screening: No symptoms or risk factors identified. Assessment: 11:26 General: Appears in no apparent distress. uncomfortable, Behavior is calm, cooperative, ph appropriate for age. Pain: Complains of pain in back, left hip and right hip. Neuro: Level of Consciousness is awake, alert, obeys commands, Oriented to person, place, time, situation. 12:10 General: Appears in no apparent distress. uncomfortable, Behavior is calm, cooperative, eh3 appropriate for age. Pain: Complains of pain in lumbar area, left low back and right low back and right hip and left hip. Neuro: Level of Consciousness is awake, alert, obeys commands, Oriented to person, place, time, situation. Cardiovascular: Capillary refill < 3 seconds Patient's skin is warm and dry. Respiratory: Airway is patent Respiratory effort is even, unlabored, Respiratory pattern is regular, symmetrical. GI: No signs and/or symptoms were reported involving the gastrointestinal system. Abdomen is round non-distended. : No signs and/or symptoms were reported regarding the genitourinary system. EENT: No signs and/or symptoms were reported regarding the EENT system. Derm: Skin is pink, warm \T\ dry. Musculoskeletal: Circulation, motion, and sensation intact. Range of motion: intact in all extremities. Vital Signs: 10:32 BP 157 / 107; Pulse 125; Resp 18; Temp 97.1; Pulse Ox 100% on R/A; Weight 72.57 kg; hb Height 5 ft. 6 in. ; Pain 10/10; 11:28 BP 141 / 89; Pulse 118; Resp 18; Pulse Ox 98% on R/A; ph 12:10 BP 118 / 69; Pulse 80; Resp 18; Temp 98.4(O); Pulse Ox 96% on R/A; eh3 10:32 Body Mass Index 25.82 (72.57 kg, 167.64 cm) hb 10:32 Pain Scale: Adult hb ED Course: 10:26 Patient arrived in ED. mr 10:27 Scott Galan DO is Private Physician. mr 10:29 Mari[facility]-C [facility]. kb 10:29 John Neal MD is Attending Physician. kb 10:34 Triage completed. hb 10:34 Arm band placed on. hb 10:41 Alejandra Israel, JAE is Primary Nurse. ph 11:32 Patient has correct armband on for positive identification. Bed in low position. Call ph light in reach. Side rails up X 1. Pulse ox on. NIBP on. 12:10 Door closed. Noise minimized. Lights dimmed. Warm blanket given. eh3 Administered Medications: 11:18 Not Given (Patient Refused): morphine IM 4 mg IM once kb 11:26 Drug: Ondansetron PO 4 mg Route: PO; ph 12:45 Follow up: Response: No adverse reaction 3 11:26 Drug: Ketorolac IM 30 mg Route: IM; Site: left deltoid; ph 12:45 Follow up: Response: Pain is unchanged, physician notified eh3 Medication: 11:33 VIS not applicable for this client. ph Outcome: 12:53 Discharge ordered by MD. bowen Signatures: Mariama Méndez, JUANITA JARRETT-Juanita Hernandez Alejandra Israel RN RN Sarah Church RN RN Esperanza Israel RN RN 3
--- NOTE | 2022-12-06 12:53 | EDPHYS ---
Physician Documentation [facility] Name: Mike Cornejo Age: 42 yrs Sex: Female : 1980 Arrival Date: 12/06/2022 Time: 10:26 Bed 14 Private MD: Scott Galan ED Physician John Neal Historical: - Allergies: 12/06 10:34 Bactrim; hb 11:25 Morphine; ph - PMHx: 10:34 BRAIN TUMOR; hb 11:25 Lung Mass; ph - PSHx: 10:34 Appendectomy; Brain tumor surgery; Cholecystectomy; Tonsillectomy; hb - Immunization history:: Adult Immunizations up to date. - Social history:: Smoking status: Patient reports the use of cigarette tobacco products. Vital Signs: 10:32 BP 157 / 107; Pulse 125; Resp 18; Temp 97.1; Pulse Ox 100% on R/A; Weight 72.57 kg; hb Height 5 ft. 6 in. ; Pain 10/10; 11:28 BP 141 / 89; Pulse 118; Resp 18; Pulse Ox 98% on R/A; ph 12:10 BP 118 / 69; Pulse 80; Resp 18; Temp 98.4(O); Pulse Ox 96% on R/A; eh3 10:32 Body Mass Index 25.82 (72.57 kg, 167.64 cm) hb 10:32 Pain Scale: Adult hb MDM: 10:35 Patient medically screened. kb Administered Medications: 11:18 Not Given (Patient Refused): morphine IM 4 mg IM once kb 11:26 Drug: Ondansetron PO 4 mg Route: PO; ph 12:45 Follow up: Response: No adverse reaction 3 11:26 Drug: Ketorolac IM 30 mg Route: IM; Site: left deltoid; ph 12:45 Follow up: Response: Pain is unchanged, physician notified 3 Disposition Summary: 12/06/22 12:53 Discharge Ordered Location: Home kb Condition: Stable kb Diagnosis - Neoplasm related pain (acute) (chronic) kb Followup: kb - With: Emergency Department - When: As needed - Reason: Worsening of condition Followup: kb - With: Private Physician - When: 2 - 3 days - Reason: Recheck today's complaints, Continuance of care, Re-evaluation by your physician Discharge Instructions: - Discharge Summary Sheet kb - Musculoskeletal Pain kb Forms: - Medication Reconciliation Form kb - Thank You Letter kb - Antibiotic Education kb - Prescription Opioid Use kb Signatures: Mariama Méndez FNP-C FNP-Alejandra Sesay RN RN Sarah Church, RN RN Esperanza Israel RN eh3
[2022-12-06] MEDS ORDERED: DIAZEPAM 5 MG TABLET ONE (13:22)
[2022-12-06 18:05] VITALS: TEMP 98.4
[2022-12-06 18:54] VITALS: BP 115/68; O2SAT 97
== END 2022-12-06 13:28 | disposition home or self-care (01) ==
LOC: ER 10:25
DX: G89.3 Neoplasm related pain (acute) (chronic) (principal); Z72.0 Tobacco use; Z88.1 Allergy status to other antibiotic agents; Z88.5 Allergy status to narcotic agent
CPT/HCPCS: 96372; 99283; Q0162

== ENCOUNTER 2023-01-20 11:12 | Emergency (ER) | payer OTHER ==
--- OUTSIDE RECORDS SUMMARY | 2023-01-20 11:23 | XMS REPORT | Continuity of Care Document ---
:1980 Author Organization [facility] t Address [address] [facility] [address] [place] [address] Care Team Providers Name Role Phone ESPINOZA PIERCE Attending Clinician Unavailable MUKUND INTERIANO Attending Clinician Unavailable LAURA GRIFFIN Attending Clinician Unavailable LAB90 Attending Clinician Unavailable LAB39 Attending Clinician Unavailable RICHARD SPENCER Attending Clinician Unavailable [facility] Attending Clinician Unavailabl e Payers Payer Name Policy Type Policy Number Effective Date Expiration Date Gaby teresa [facility] 9 [id number] 2022 00:00:00 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 [facility] Allergies, Adverse Reactions, Alerts Allergy Allergy Status Severity Reaction(s) Onset Inactive Treating Comm ents Source Name Type Date Date Clinician Morphine Propensi Active Queenie ty to 3-14 Seybold adverse 00:00: - reaction 00 Externa s l Na Propensi Active Rash Queenie Benzoate ty to 5-27 Seybold -Sulfame adverse 00:00: - thoxazol reaction 00 [employer] a e-Trimet s l hoprim Sulfamet Propensi Active Hives Queenie hoxazole ty to 1-25 Seybold adverse 00:00: - reaction 00 Externa s l Social History Social Habit Start Date Stop Date Quantity Comments Source History of tobacco Cigarette Smoker Queenie Ledesma - use External Alcohol intake 2022-12-22 2022-12-22 Ex-drinker Queenie matamoros - 00:00:00 00:00:00 (finding) External Cigarettes smoked 2022-12-02 2022-12-02 Queenie Ledesma - current (pack per 00:00:00 00:00:00 Externa l day) - Reported Cigarette 2022-12-02 2022-12-02 Queenie Ledesma - pack-years 00:00:00 00:00:00 External Tobacco use and 2022-12-02 2022-12-02 Smokeless tobacco Ke bar Ledesma - exposure 00:00:00 00:00:00 non-user External Education 2022-12-02 2022-12-02 14 Queenie Ledesma - 00:00:00 00:00:00 External Sex Ass[birth year] At [birth year] Queenie fonseca - 00:00:00 00:00:00 External Smoking Status Start Date Stop Date Source Ex-smoker 2022-12-02 00:00:00 2022-12-02 00:00:00 Queenie burch - External Medications Ordered Filled Start Stop Current Ordering Indication Dosage Frequency Signature Comments Components Source Medication Medication Date Date Medication? Clinician (SIG) Name Name Sertraline Yes [id number] 25mg Take 1 K elsey HCl 25 MG 3-30 tablet (25 Seyb old oral Tablet 00:00: mg total) - 00 by mouth Externa daily l Dexamethaso Yes Queenie ne 3-20 Seybold (DECADRON) 00:00: - 4 MG oral 00 Externa tablet l Calcitonin, Yes 1{spray Use 1 Ke bar [place], 200 3-20 } spray in Seyb old UNIT/ACT 00:00: one - nasal 00 nostril Externa Solution daily l Naloxone Yes Use as Queenie (Narcan) 4 3-20 directed, Seyb old MG/0.1ML 00:00: May be - nasal 00 repeated Externa Liquid if needed l Calcitonin, Yes 1{spray Use 1 Ke abr [place], 200 3-20 } spray in Seyb old UNIT/ACT 00:00: one - nasal 00 nostril Externa Solution daily l Naloxone Yes Use as Queenie (Narcan) 4 3-20 directed, Seyb old MG/0.1ML 00:00: May be - nasal 00 repeated Externa Liquid if needed l Diclofenac Yes Queenie Sodium 75 3-14 Seybold MG oral 00:00: - Tablet 00 Externa Delayed l Response diazePAM 5 0 2022- No Queenie MG oral 3-14 03-30 Seybold Tablet 00:00: 00:00 - 00 :00 Externa l Ondansetron 0 Yes [id number] 4mg QD Take 1 Queenie (ZOFRAN) 4 3-10 tablet (4 Seyb old MG oral 00:00: mg total) - TABLET 00 by mouth Externa DISPERSIBLE daily as l needed for nausea HYDROcodone 0 Yes [id number] 1{tbl} Q.5D Take 1 Queenie -Acetaminop 3-10 tablet by Riana matamoros hen 10-325 00:00: mouth 2 - MG oral 00 times Externa Tablet daily as l needed for pain Fentanyl 25 Yes [id number] 1{patch Place 1 Queenie MCG/HR 3-10 } patch onto Seybold transdermal 00:00: the skin - PATCH 72 HR 00 every 72 Exte rna hours l Cetirizine 0 Yes [id number] 10mg Take 1 Queenie HCl (ZyrTEC 3-10 capsule Seybo ld Allergy) 10 00:00: (10 mg - MG oral 00 total) by Externa Capsule mouth l daily Famotidine 2022-0 Yes [id number] 20mg Take 1 Queenie (Pepcid) 20 3-10 tablet (20 Se ybold MG oral 00:00: mg total) - tablet 00 by mouth 2 Externa times l daily Ondansetron 2022-0 Yes [id number] 4mg QD Take 1 Queenie (ZOFRAN) 4 3-10 tablet (4 Seyb old MG oral 00:00: mg total) - TABLET 00 by mouth Externa DISPERSIBLE daily as l needed for nausea HYDROcodone 2022-0 Yes [id number] 1{tbl} Q.5D Take 1 Queenie -Acetaminop 3-10 tablet by [employer] hen 10-325 00:00: mouth 2 - MG oral 00 times Externa Tablet daily as l needed for pain Fentanyl 25 2022-0 Yes [id number] 1{patch Place 1 Queenie MCG/HR 3-10 } patch onto Seybold transdermal 00:00: the skin - PATCH 72 HR 00 every 72 Exte rna hours l Cetirizine 2022-0 Yes [id number] 10mg Take 1 Queenie HCl (ZyrTEC 3-10 capsule Seybo ld Allergy) 10 00:00: (10 mg - MG oral 00 total) by Externa Capsule mouth l daily Famotidine 2022-0 Yes [id number] 20mg Take 1 Queenie (Pepcid) 20 3-10 tablet (20 Se ybold MG oral 00:00: mg total) - tablet 00 by mouth 2 Externa times l daily Ondansetron 2022-0 Yes [id number] 4mg QD Take 1 Queenie (ZOFRAN) 4 3-10 tablet (4 Seyb old MG oral 00:00: mg total) - TABLET 00 by mouth Externa DISPERSIBLE daily as l needed for nausea HYDROcodone 2022-0 Yes [id number] 1{tbl} Q.5D Take 1 Queenie -Acetaminop 3-10 tablet by [employer] hen 10-325 00:00: mouth 2 - MG oral 00 times Externa Tablet daily as l needed for pain Fentanyl 25 2022-0 Yes [id number] 1{patch Place 1 Queenie MCG/HR 3-10 } patch onto Seybold transdermal 00:00: the skin - PATCH 72 HR 00 every 72 Exte rna hours l Cetirizine Yes [id number] 10mg Take 1 Queenie HCl (ZyrTEC 3-10 capsule Seybo ld Allergy) 10 00:00: (10 mg - MG oral 00 total) by Externa Capsule mouth l daily Famotidine Yes [id number] 20mg Take 1 Queenie (Pepcid) 20 3-10 tablet (20 Se ybold [...] :00 Externa Tablet l Ondansetron 2022- No Cabrerase y (ZOFRAN) 4 3-05 03-10 Seybold MG oral 00:00: 00:00 - TABLET 00 :00 Externa DISPERSIBLE l Vital Signs Vital Name Observation Time Observation Value Comments Source Systolic blood 2022-12-22 15:42:00 126 mm[Hg] Queenie Seybold - pressure External Diastolic blood 2022-12-22 15:42:00 73 mm[Hg] Cinthya pitts Seybold - pressure External Heart rate 2022-12-22 15:42:00 106 /min Queenie burch - External Body temperature 2022-12-22 15:42:00 36.44 Anastasiia Anika ey Seybold - External Respiratory rate 2022-12-22 15:42:00 14 /min Anika ey Seybold - External Body height 2022-12-22 15:42:00 157.5 cm Queenie breenbozee - External Body weight 2022-12-22 15:42:00 68.947 kg Queenie breenbold - External BMI 2022-12-22 15:42:00 27.80 kg/m2 Queenie burch - External Oxygen saturation in 2022-12-22 15:42:00 99 /min Queenie Ledesma - Arterial blood by External Pulse oximetry Systolic blood 2022-12-12 14:53:00 124 mm[Hg] Queenie Seybold - pressure External Diastolic blood 2022-12-12 14:53:00 82 mm[Hg] Kelse y Seybold - pressure External Heart rate 2022-12-12 14:53:00 72 /min Queenie S eybold - External Respiratory rate 2022-12-12 14:53:00 16 /min Anika ey Seybold - External Body height 2022-12-12 14:53:00 157.5 cm Queenie S eybold - External Body weight 2022-12-12 14:53:00 71.668 kg Queenie S eybold - External BMI 2022-12-12 14:53:00 28.90 kg/m2 Queenie S eybold - External Body height 2022-12-02 22:08:00 157.5 cm Queenie S eybold - External Body weight 2022-12-02 22:08:00 72.394 kg Queenie S eybold - External BMI 2022-12-02 22:08:00 29.19 kg/m2 Queenie S eybold - External Oxygen saturation in 2022-12-02 22:08:00 99 /min Queenie Ledesma - Arterial blood by External Pulse oximetry Systolic blood 2022-12-02 22:08:00 134 mm[Hg] Queenie Seybold - pressure External Diastolic blood 2022-12-02 22:08:00 79 mm[Hg] Cinthya y Seybold - pressure External Heart rate 2022-12-02 22:08:00 90 /min Queenie S eybold - External Body temperature 2022-12-02 22:08:00 36.5 Anastasiia Anika ey Seybold - External Respiratory rate 2022-12-02 22:08:00 14 /min Anika ey Seybold - External Procedures This patient has no known procedures. Encounters Start End Encounter Admission Attending Care Care Encounter Source Date/Time Date/Time Type Type Clinicians Facility Department ID 2023-02-14 2023-02-14 Outpatient QUEENIE PIERCE [id number] Queenie 14:45:00 14:45:00 ESPINOZA Seybol d 2023-02-14 2023-02-14 Outpatient JAYDON QUEENIE QUEENIE [id number] Queenie 09:15:00 09:15:00 AHMED Seybol d 2023-01-19 2023-01-19 Outpatient PREMIKE QUEENIE SPANN [id number] Queenie 15:15:00 15:15:00 ESPINOZA Seybol d 2023-01-16 2023-01-16 Outpatient JAYDON QUEENIE SPANN [id number] Queenie 00:00:00 00:00:00 AHMED Seybol d 2023-01-09 2023-01-09 Outpatient JAYDON QUEENIE SPANN [id number] Queenie 00:00:00 00:00:00 AHMED Seybol d 2023-01-02 2023-01-02 Outpatient PREMIKE QUEENIE SPANN [id number] Queenie 00:00:00 00:00:00 ESPINOZA Seybol d 2022-12-24 2022-12-24 Outpatient QUEENIE SPANN [id number] Queenie 00:00:00 00:00:00 Seybol d 2022-12-22 2022-12-22 Outpatient PREZAS QUEENIE SPANN [id number] Queenie 11:00:00 11:00:00 ESPINOZA Seybol d 2022-12-21 2022-12-21 Outpatient PREZAGaby QUEENIE SPANN [id number] Queenie 00:00:00 00:00:00 ESPINOZA Seybol d 2022-12-21 2022-12-21 Outpatient GRIFFINQUEENIE [id number] Queenie 00:00:00 00:00:00 ADRYENE Seybol d 2022-12-19 2022-12-19 Outpatient LAB90 QUEENIE SPANN [id number] Queenie 10:25:00 10:25:00 Seybol d 2022-12-14 2022-12-14 Outpatient PREZAQUEENIE Griffin [id number] Queenie 00:00:00 00:00:00 ESPINOZA Seybol d 2022-12-14 2022-12-14 Outpatient QUEENIE SPANN [id number] Queenie 00:00:00 00:00:00 Seybol d 2022-12-12 2022-12-12 Outpatient LAB39 QUEENIE SPANN [id number] Queenie 10:30:00 10:30:00 Seybol d 2022-12-12 2022-12-12 Outpatient JAYDON, QUEENIE SPANN [id number] Queenie 09:45:00 09:45:00 AHMED Seybol d 2022-12-09 2022-12-09 Outpatient PREZAS, QUEENIE SPANN [id number] Queenie 16:30:00 16:30:00 ESPINOZA Seybol d 2022-12-09 2022-12-09 Outpatient PREZAS, QUEENIE SPANN [id number] Queenie 00:00:00 00:00:00 ESPINOZA Seybol d 2022-12-07 2022-12-07 Outpatient QUEENIE SPANN [id number] Queenie 00:00:00 00:00:00 Seybol d 2022-12-06 2022-12-06 Outpatient RICHARD SPENCER [id number] Queenie 14:40:00 14:40:00 Seybol d 2022-12-06 2022-12-06 Outpatient GROUP, QUEENIE SPANN [id number] Queenie 00:00:00 00:00:00 QUEENIE Seybol d 2022-12-06 2022-12-06 Outpatient PREZAS, QUEENIE SPANN [id number] Queenie 00:00:00 00:00:00 ESPINOZA Seybol d 2022-12-06 2022-12-06 Outpatient ADMASERENAENRIQUE, QUEENIE SPANN [id number] Queenie 00:00:00 00:00:00 AHMED Seybol d 2022-12-05 2022-12-05 Outpatient PREZAS, QUEENIE SPANN [id number] Queenie 00:00:00 00:00:00 ESPINOZA Seybol d 2022-12-05 2022-12-05 Outpatient QUEENIE SPANN [id number] Queenie 00:00:00 00:00:00 Seybol d 2022-12-05 2022-12-05 Outpatient PREZAS, QUEENIE SPANN [id number] Queenie 00:00:00 00:00:00 ESPINOZA Seybol d 2022-12-02 2022-12-02 Outpatient QUEENIE PIERCE [id number] Queenie 16:30:00 16:30:00 ESPINOZA Seybol d 2022-11-30 2022-11-30 Outpatient QUEENIE PIERCE [id number] Queenie 00:00:00 00:00:00 ESPINOZA Seybol d 2022-11-28 2022-11-28 Outpatient QUEENIE SPANN [id number] Queenie 00:00:00 00:00:00 Seybol d 2022-11-25 2022-11-25 Outpatient QUEENIE PIERCE [id number] Queenie 00:00:00 00:00:00 ESPINOZA Seybol d 2022-11-25 2022-11-25 Outpatient QUEENIE SPANN [id number] Queenie 00:00:00 00:00:00 Seybol d 2022-11-24 2022-11-24 Outpatient QUEENIE PIERCE [id number] Queenie 00:00:00 00:00:00 ESPINOZA Seybol d 2022-11-23 2022-11-23 Outpatient QUEENIE SPANN [id number] Queenie 00:00:00 00:00:00 Seybol d 2022-11-22 2022-11-22 Outpatient GROUPQUEENIE [id number] Queenie 00:00:00 00:00:00 QUEENIE Manzanaresyblinh myles Results This patient has no known results.
[2023-01-20 12:14] LABS: Absolute Lymphocytes (CBC) 1.3 K/uL (0.7-4.9); Hematocrit 27.9 % (36.0-45.0); Lymphocytes % 10.1 % (15.3-44.8); MCV 83.4 fL (80-100); MPV 7.1 fL (7.6-11.3); RBC Red Blood Cell Count 3.35 M/uL (3.86-4.86)
[2023-01-20] MEDS ORDERED: NA CHLORIDE 0.9% 1,000 ML ONE (12:21)
[2023-01-20] MEDS ORDERED: ONDANSETRON 4 MG/2 ML VIAL ONE (12:21)
[2023-01-20] MEDS ORDERED: KETOROLAC 30 MG/ML INJ ONE (12:21)
--- NOTE | 2023-01-20 12:21 | RAD REPORT ---
EXAM DESCRIPTION: CT - Abdomen Pelvis W Contrast - 01/20/2023 12:10 pm CLINICAL HISTORY: NAUSEA / VOMITING COMPARISON: Abdomen Pelvis W Contrast dated 11/21/2022; CT ABD PELVIS W CONTRAST dated 03/09/2014 TECHNIQUE: Thin cut axial CT imaging of the abdomen and pelvis was performed following intravenous a dministration of 95 mL Isovue 300. Multiplanar reformats were generated and reviewed. All CT scans are performed using dose optimization technique as appropriate and may include automated exposure control or mA/KV adjustment according to patient size. FINDINGS: No suspicious findings in the lung bases. Calcified left lower lobe ovoid 1.7 centimeter n odule is stable. Thickening/atelectasis along the lower aspect of the left major fissure is stable. The liver demonstrates interval decrease in size of the anterior subcapsular segment 4B hypoattenuati ng lesion, now measuring 8 millimeter, previously measured 2 centimeter while the second subcapsular segment 4B hypoattenuating lesion measuring 1 centimeter more inferiorly and posteriorly on axial praveena ge 28 is stable. Adrenal glands, Spleen, and pancreas show no suspicious findings. A subcapsular flui d density 1 centimeter ovoid cystic lesion at the inferior margin of the spleen is stable. The puncta te hypoattenuating lesion in the subcapsular anterior aspect of the spleen is no longer visualized. G allbladder was surgically removed. No intra or extrahepatic biliary ductal dilation. Symmetric renal function is seen with no hydronephrosis or suspicious renal mass. No dilated bowel loops or bowel wall thickening. No free air, free fluid or inflammatory stranding. N o hernia, mass or bulky lymphadenopathy. The urinary bladder is without significant finding. No suspicious bony findings. IMPRESSION: No acute intra-abdominal process. Interval decrease in size of the largest segment 4B hepatic hypoattenuating lesion, now measuring 8 m illimeter. A 1 centimeter lesion more inferior to this is stable in size. An anterior sub centimeter hypoattenuating splenic lesion is no longer visualized. Other stable findings as above.
[2023-01-20 12:29] LABS: Albumin 3.5 g/dL (3.4-5.0); Bilirubin Total 0.5 mg/dL (0.2-1.0); Protein, Total 7.3 g/dL (6.4-8.2)
[2023-01-20 13:03] LABS: Blood Morphology Comment NOTED (NOT SEEN); Platelet Estimate ADEQ; Polychromasia 1+
[2023-01-20] MEDS ORDERED: PROMETHAZINE INJ 25 MG/ML AMP ONE (15:07)
--- NOTE | 2023-01-20 15:59 | ER ---
Nurse's Notes [facility] Name: Mike Cornejo Age: 42 yrs Sex: Female : 1980 Arrival Date: 01/20/2023 Time: 11:12 Bed 3 Private MD: Diagnosis: Dental infection;Nausea with vomiting, unspecified;Lung cancer Presentation: 01/20 11:35 Chief complaint: Patient states: N/V X 1 day. No fever. Unable to keep food and fluids ld1 down. Coronavirus screen: At this time, the client does not indicate any symptoms associated with coronavirus-19. Ebola Screen: No symptoms or risks identified at this time. Initial Sepsis Screen: Does the patient meet any 2 criteria? No. Patient's initial sepsis screen is negative. Does the patient have a suspected source of infection? No. Patient's initial sepsis screen is negative. Risk Assessment: Do you want to hurt yourself or someone else? Patient reports no desire to harm self or others. Onset of symptoms was January 20, 2023 at 11:36. 11:35 Method Of Arrival: Wheelchair ld1 11:35 Acuity: YING 3 ld1 Triage Assessment: 11:35 General: Appears in no apparent distress. comfortable, Behavior is calm, cooperative, ld1 appropriate for age. Pain: Denies pain. EENT: No signs and/or symptoms were reported regarding the EENT system. Neuro: Level of Consciousness is awake, alert, obeys commands, Oriented to person, place, time, situation. Cardiovascular: Capillary refill < 3 seconds Patient's skin is warm and dry. Rhythm is sinus tachycardia. Respiratory: Airway is patent Respiratory effort is even, unlabored. GI: Abdomen is round non-distended, Reports nausea, vomiting. : No signs and/or symptoms were reported regarding the genitourinary system. Derm: No signs and/or symptoms reported regarding the dermatologic system. Musculoskeletal: No signs and/or symptoms reported regarding the musculoskeletal system. Historical: - Allergies: 11:35 Bactrim; ld1 11:35 Morphine; ld1 11:35 tramadol; ld1 - PMHx: 11:35 BRAIN TUMOR; Lung mass; ld1 - PSHx: 11:35 Appendectomy; Brain tumor surgery; Cholecystectomy; Tonsillectomy; ld1 - Immunization history:: Adult Immunizations up to date, Client reports having NOT received the Covid vaccine. - Social history:: Smoking status: Patient denies any tobacco usage or history of. Patient/guardian denies using alcohol. Screenin:15 [facility] ED Fall Risk Assessment (Adult) History of falling in the last 3 months, bp including since admission No falls in past 3 months (0 pts). Abuse screen: Denies threats or abuse. Denies injuries from another. Nutritional screening: No deficits noted. Tuberculosis screening: No symptoms or risk factors identified. Assessment: 12:15 General: SEE TRIAGE NOTE. PT ARRIVED FROM CT. bp 14:54 Reassessment: Patient appears in no apparent distress at this time. Patient and/or ph family updated on plan of care and expected duration. Pain level reassessed. Pt asleep. 16:59 Reassessment: PT DC HOME VIA WC WITH FAMILY. bp Vital Signs: 11:35 BP 129 / 93; Pulse 111; Resp 18; Temp 97.7(O); Pulse Ox 100% on R/A; Weight 73.03 kg; ld1 Height 5 ft. 2 in. ; Pain 6/10; 12:15 BP 140 / 98; Pulse 90; Resp 16; Pulse Ox 98% ; bp 14:54 BP 144 / 94; Pulse 108; Resp 18; Pulse Ox 100% on R/A; ph 16:59 BP 112 / 81; Pulse 100; Resp 16; Pulse Ox 99% ; bp 11:35 Body Mass Index 29.45 (73.03 kg, 157.48 cm) ld1 11:35 Pain Scale: Adult ld1 ED Course: 11:14 Patient arrived in ED. ld1 11:17 Rohit Pope DO is Attending Physician. ms3 11:35 Arm band placed on right wrist. ld1 11:36 Triage completed. ld1 12:08 Note: pt in ct, 24 g diffusics to rt [employer] and labs collected and sent by nafisa in ct. 12:10 El Adam, RN is Primary Nurse. bp 12:13 CT Abd/Pelvis - IV Contrast Only In Process Unspecified. EDMS 12:15 Patient has correct armband on for positive identification. Bed in low position. Call bp light in reach. Side rails up X2. Adult w/ patient. 12:23 Inserted saline lock: 24 gauge in right forearm, using aseptic technique. Blood bp collected. 16:59 No provider procedures requiring assistance completed. IV discontinued, intact, bp bleeding controlled, No redness/swelling at site. Pressure dressing applied. Administered Medications: 12:22 Drug: NS 0.9% IV 1000 ml Route: IV; Rate: 1 bolus; Site: right forearm; bp 17:00 Follow up: IV Status: Completed infusion; IV Intake: 1000ml bp 12:22 Drug: TORadol - Ketorolac IVP 15 mg Route: IVP; Site: right forearm; bp 16:01 Follow up: Response: No adverse reaction bp 12:22 Drug: Ondansetron IVP 4 mg Route: IVP; Site: right forearm; bp 16:02 Follow up: Response: No adverse reaction bp 15:05 Drug: Promethazine IM 25 mg Route: IM; Site: left deltoid; bp 16:01 Follow up: Response: No adverse reaction bp Medication: 12:15 VIS not applicable for this client. bp Intake: 17:00 IV: 1000ml; Total: 1000ml. bp Outcome: 15:58 Discharge ordered by ms3 16:59 Discharged to home via wheelchair, with family. bp 16:59 Condition: stable 16:59 Discharge instructions given to patient, Instructed on discharge instructions, follow up and referral plans. medication usage, Demonstrated understanding of instructions, follow-up care, medications, Prescriptions given X 2. 17:00 Patient left the ED. bp Signatures: Dispatcher [employer] Nafisa Walker Patricia, RN RN ph Peltier, Brian, RN RN bp Rohit Pope DO DO ms3 Yani Pope RN RN ld1
--- NOTE | 2023-01-20 15:59 | EDPHYS ---
Physician Documentation [facility] Name: Mike Cornejo Age: 42 yrs Sex: Female : 1980 Arrival Date: 01/20/2023 Time: 11:12 Bed 3 Private MD: ED Physician Rohit Pope HPI: 01/20 11:40 This 42 yrs old Female presents to ER via Wheelchair with complaints of ms3 Nausea/Vomiting, Swelling All Over. 11:40 42-year-old female with past medical history of small cell lung cancer presents for ms3 nausea and vomiting that began yesterday. Patient also has noted swelling over hands, face, ankles. Patient states she saw Dr. Nieto yesterday and her hemoglobin was 8. Patient is also noted right-sided dental swelling that began 2 days ago. Patient denies pain. Patient states she is having severe nausea.. Historical: - Allergies: 11:35 Bactrim; ld1 11:35 Morphine; ld1 11:35 tramadol; ld1 - PMHx: 11:35 BRAIN TUMOR; Lung mass; ld1 - PSHx: 11:35 Appendectomy; Brain tumor surgery; Cholecystectomy; Tonsillectomy; ld1 - Immunization history:: Adult Immunizations up to date, Client reports having NOT received the Covid vaccine. - Social history:: Smoking status: Patient denies any tobacco usage or history of. Patient/guardian denies using alcohol. ROS: 11:40 Constitutional: Negative for fever, and chills. Neck: Negative for injury, pain, and ms3 swelling, Cardiovascular: Negative for chest pain, and palpitations. Respiratory: Negative for shortness of breath, cough, wheezing, and pleuritic chest pain. 11:40 MS/Extremity: Negative for injury and deformity, Skin: Negative for injury, rash, and discoloration. 11:40 Abdomen/GI: Positive for nausea, vomiting. 11:40 All other systems are negative. Exam: 11:40 Constitutional: This is a well developed, well nourished patient who is awake, alert, ms3 and in no acute distress. Head/Face: Normocephalic, atraumatic. Neck: Trachea midline, no cervical lymphadenopathy. Supple, full range of motion without nuchal rigidity, or vertebral point tenderness. No Meningismus. Chest/axilla: Normal chest wall appearance and motion. Nontender with no deformity. Respiratory: Lungs have equal breath sounds bilaterally, clear to auscultation and percussion. No rales, rhonchi or wheezes noted. No increased work of breathing, no retractions or nasal flaring. Abdomen/GI: Soft, non-tender, with normal bowel sounds. No distension or tympany. No guarding or rebound. No evidence of tenderness throughout. 11:40 Skin: Warm, dry with normal turgor. Normal color with no rashes, no lesions, and no evidence of cellulitis. MS/ Extremity: Pulses equal, no cyanosis. Neurovascular intact. Full, normal range of motion. 11:40 Cardiovascular: Rate: tachycardic, Rhythm: regular, Pulses: no pulse deficits are appreciated, Heart sounds: normal. Vital Signs: 11:35 BP 129 / 93; Pulse 111; Resp 18; Temp 97.7(O); Pulse Ox 100% on R/A; Weight 73.03 kg; ld1 Height 5 ft. 2 in. ; Pain 6/10; 12:15 BP 140 / 98; Pulse 90; Resp 16; Pulse Ox 98% ; bp 14:54 BP 144 / 94; Pulse 108; Resp 18; Pulse Ox 100% on R/A; ph 16:59 BP 112 / 81; Pulse 100; Resp 16; Pulse Ox 99% ; bp 11:35 Body Mass Index 29.45 (73.03 kg, 157.48 cm) ld1 11:35 Pain Scale: Adult ld1 MDM: 11:32 Patient medically screened. ms3 11:40 Differential diagnosis: Nonspecific abd pain, viral gastroenteritis, gastroenteritis, ms3 dehydration. 16:51 Data reviewed: vital signs, nurses notes, lab test result(s), radiologic studies, and ms3 as a result, I will discharge patient. I considered the following discharge prescriptions or medication management in the emergency department Medications were administered in the Emergency Department. See MAR. Independent interpretation of the following test(s) in the Emergency Department EKG: See my EKG interpretation above panel monitor: rate is 94 beats/min, Rhythm is normal sinus rhythm, regular, with no ectopy, Interpretation: normal rate, normal rhythm. Counseling: I had a detailed discussion with the patient and/or guardian regarding: the historical points, exam findings, and any diagnostic results supporting the discharge/admit diagnosis, lab results, radiology results, the need for outpatient follow up, to return to the emergency department if symptoms worsen or persist or if there are any questions or concerns that arise at home. ED course: On reevaluation patient is improved, alert and orient x4, no apparent distress, nontoxic-appearing. Patient to follow-up with her primary care physician in 2 to 3 days. Patient understands agrees with plan. All questions were answered. Return precautions discussed include worsening symptoms, or any other concerns. 01/20 11:31 Order name: CBC with Diff; Complete Time: 14:25 ms3 01/20 11:31 Order name: CMP; Complete Time: 12:32 ms3 01/20 11:31 Order name: Lipase; Complete Time: 12:32 ms3 01/20 12:16 Order name: Manual Differential; Complete Time: 14:25 EDMS 01/20 11:31 Order name: CT Abd/Pelvis - IV Contrast Only; Complete Time: 12:29 ms3 01/20 11:31 Order name: IV Saline Lock; Complete Time: 12:13 ms3 01/20 11:31 Order name: Labs collected and sent; Complete Time: 12:13 ms3 Administered Medications: 12:22 Drug: NS 0.9% IV 1000 ml Route: IV; Rate: 1 bolus; Site: right forearm; bp 17:00 Follow up: IV Status: Completed infusion; IV Intake: 1000ml bp 12:22 Drug: TORadol - Ketorolac IVP 15 mg Route: IVP; Site: right forearm; bp 16:01 Follow up: Response: No adverse reaction bp 12:22 Drug: Ondansetron IVP 4 mg Route: IVP; Site: right forearm; bp 16:02 Follow up: Response: No adverse reaction bp 15:05 Drug: Promethazine IM 25 mg Route: IM; Site: left deltoid; bp 16:01 Follow up: Response: No adverse reaction bp Disposition Summary: 01/20/23 15:58 Discharge Ordered Location: Home ms3 Condition: Stable ms3 Diagnosis - Dental infection ms3 - Nausea with vomiting, unspecified ms3 - Lung cancer ms3 Followup: ms3 - With: Private Physician - When: 2 - 3 days - Reason: Recheck today's complaints Discharge Instructions: - Discharge Summary Sheet ms3 Forms: - Medication Reconciliation Form ms3 - Thank You Letter ms3 - Antibiotic Education ms3 - Prescription Opioid Use ms3 Prescriptions: - promethazine 25 mg Rectal suppository - insert 1 suppository by RECTAL route every 4 to 6 hours as needed for nausea ms3 and vomiting; 15 suppository; Refills: 0, Product Selection Permitted - penicillin V potassium 500 mg Oral tablet - take 1 tablet by ORAL route 4 times per day for 10 days; 40 tablet; Refills: 0, ms3 Product Selection Permitted Signatures: Dispatcher MedHost lE Zapata, RN RN Rohit Claudio DO DO ms3 Yani Pope RN RN ld1
[2023-01-20 17:44] VITALS: TEMP 97.7
[2023-01-20 17:58] VITALS: BP 112/81; O2SAT 99
== END 2023-01-20 17:00 | disposition home or self-care (01) ==
LOC: ER 11:12
DX: K04.7 Periapical abscess without sinus (principal); C34.90 Malignant neoplasm of unspecified part of unspecified bronchus or lung; Z88.1 Allergy status to other antibiotic agents; Z88.5 Allergy status to narcotic agent
CPT/HCPCS: 85025; 36415; 83690; 80053; 74177; Q9967; J2550; J2405; J7030

== ENCOUNTER 2023-02-06 11:55 | Emergency (ER) | payer OTHER ==
--- OUTSIDE RECORDS SUMMARY | 2023-02-06 12:07 | XMS REPORT | Continuity of Care Document ---
:1980 Author Organization [facility] t Address [address] [place] [address] Care Team Providers Name Role Phone ESPINOZA PIERCE Attending Clinician Unavailable MUKUND INTERIANO Attending Clinician Unavailable LAURA GRIFFIN Attending Clinician Unavailable LAB90 Attending Clinician Unavailable LAB39 Attending Clinician Unavailable RICHARD SPENCER Attending Clinician Unavailable [facility]ENIE [facility] Attending Clinician Unavailabl e Payers Payer Name Policy Type Policy Number Effective Date Expiration Date aGby teresa [facility] 9 [id number] 2022 00:00:00 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 [facility] Allergies, Adverse Reactions, Alerts Allergy Allergy Status Severity Reaction(s) Onset Inactive Treating Comm ents Source Name Type Date Date Clinician Morphine Propensi Active Queenie ty to 3-14 Seybold adverse 00:00: - reaction 00 Externa s l Na Propensi Active Rash Queenie Benzoate ty to 5-27 Seybold -Sulfame adverse 00:00: - thoxazol reaction 00 Escrow Manager a e-Trimet s l hoprim Sulfamet Propensi [...] Medication? Clinician (SIG) Name Name Sertraline Yes [id number] 25mg Take 1 K elsey HCl 25 MG 3-30 tablet (25 Seyb old oral Tablet 00:00: mg total) - 00 by mouth Externa daily l Dexamethaso Yes Queenie ne 3-20 Seybold (DECADRON) 00:00: - 4 MG oral 00 Externa tablet l Calcitonin, Yes 1{spray Use 1 Ke bar [place], 200 3-20 } spray in Seyb old UNIT/ACT 00:00: one - nasal 00 nostril Externa Solution daily l Naloxone Yes Use as Queenie (Narcan) 4 3-20 directed, Seyb old MG/0.1ML 00:00: May be - nasal 00 repeated Externa Liquid if needed l Calcitonin, Yes 1{spray Use 1 Ke bar [place], 200 3-20 } spray in Seyb old [...] 00 :00 Externa l Ondansetron 0 Yes [id number] 4mg QD Take 1 Queenie (ZOFRAN) 4 3-10 tablet (4 Seyb old MG oral 00:00: mg total) - TABLET 00 by mouth Externa DISPERSIBLE daily as l needed for nausea HYDROcodone 0 Yes [id number] 1{tbl} Q.5D Take 1 Queenie -Acetaminop 3-10 tablet by Nelly matamoros hen 10-325 00:00: mouth 2 - MG oral 00 times Externa Tablet daily as l needed for pain Fentanyl 25 Yes [id number] 1{patch Place 1 Queenie MCG/HR 3-10 } patch onto Seybold transdermal 00:00: the skin - PATCH 72 HR 00 every 72 Exte rna hours l Cetirizine 0 Yes [id number] 10mg Take 1 Queenie HCl (ZyrTEC 3-10 capsule Seybo ld Allergy) 10 00:00: (10 mg - MG oral 00 total) by Externa Capsule mouth l daily Famotidine 2022-0 Yes [id number] 20mg Take 1 Queenie (Pepcid) 20 3-10 tablet (20 Se ybold MG oral 00:00: mg total) - tablet 00 by mouth 2 Externa times l daily Ondansetron 2022-0 Yes [id number] 4mg QD Take 1 Queenie (ZOFRAN) 4 3-10 tablet (4 Seyb old MG oral 00:00: mg total) - TABLET 00 by mouth Externa DISPERSIBLE daily as l needed for nausea HYDROcodone 2022-0 Yes [id number] 1{tbl} Q.5D Take 1 Queenie -Acetaminop 3-10 tablet by [employer] hen 10-325 00:00: mouth 2 - MG oral 00 times Externa Tablet daily as l needed for pain Fentanyl 25 2022-0 Yes [id number] 1{patch Place 1 Queenie MCG/HR 3-10 } patch onto Seybold transdermal 00:00: the skin - PATCH 72 HR 00 every 72 Exte rna hours l Cetirizine 2022-0 Yes [id number] 10mg Take 1 Queenie HCl (ZyrTEC 3-10 capsule Seybo ld Allergy) 10 00:00: (10 mg - MG oral 00 total) by Externa Capsule mouth l daily Famotidine 2022-0 Yes [id number] 20mg Take 1 Queenie (Pepcid) 20 3-10 tablet (20 Se ybold MG oral 00:00: mg total) - tablet 00 by mouth 2 Externa times l daily Ondansetron 2022-0 Yes [id number] 4mg QD Take 1 Queenie (ZOFRAN) 4 3-10 tablet (4 Seyb old MG oral 00:00: mg total) - TABLET 00 by mouth Externa DISPERSIBLE daily as l needed for nausea HYDROcodone 2022-0 Yes [id number] 1{tbl} Q.5D Take 1 Queenie -Acetaminop 3-10 tablet by [employer] hen 10-325 00:00: mouth 2 - MG oral 00 times Externa Tablet daily as l needed for pain Fentanyl 25 2022-0 Yes [id number] 1{patch Place 1 Queenie MCG/HR 3-10 } patch onto Seybold transdermal 00:00: the skin - PATCH 72 HR 00 every 72 Exte rna hours l Cetirizine Yes [id number] 10mg Take 1 Queenie HCl (ZyrTEC 3-10 capsule Seybo ld Allergy) 10 00:00: (10 mg - MG oral 00 total) by Externa Capsule mouth l daily Famotidine Yes [id number] 20mg Take 1 Queenie (Pepcid) 20 3-10 [...] saturation in 2022-12-22 15:42:00 99 /min Queenie Remyjanette - Arterial blood by External Pulse oximetry Systolic blood 2022-12-12 14:53:00 124 mm[Hg] Queenie Seybold - pressure External Diastolic blood 2022-12-12 14:53:00 82 mm[Hg] Cabrerase y Seybold - pressure External Heart rate 2022-12-12 14:53:00 72 /min Queenie S eybold - External Respiratory rate 2022-12-12 14:53:00 16 /min Anika ey Seybold - External Body height 2022-12-12 14:53:00 157.5 cm Queenie S eybold - External Body weight 2022-12-12 14:53:00 71.668 kg Queenie Griffin eybold - External BMI 2022-12-12 14:53:00 28.90 kg/m2 Queenie S eybold - External Diastolic blood 2022-12-02 22:08:00 79 mm[Hg] Cinthya y Seybold - pressure External Heart rate 2022-12-02 22:08:00 90 /min Queenie S eybold - External Body temperature 2022-12-02 22:08:00 36.5 Anastasiia Anika ey Seybold - External Respiratory rate 2022-12-02 22:08:00 14 /min Anika ey Seybold - External Body height 2022-12-02 22:08:00 157.5 cm Queenie S eybold - External Body weight 2022-12-02 22:08:00 72.394 kg Queenie Griffin eybold - External BMI 2022-12-02 22:08:00 29.19 kg/m2 Queenie Griffin eybold - External Oxygen saturation in 2022-12-02 22:08:00 99 /min Queenie Ledesma - Arterial blood by External Pulse oximetry Systolic blood 2022-12-02 22:08:00 134 mm[Hg] Queenie Ledesma - pressure External Procedures This patient has no known procedures. Encounters Start End Encounter Admission Attending Care Care Encounter Source Date/Time Date/Time Type Type Clinicians Facility Department ID 2023-02-14 2023-02-14 Outpatient QUEENIE PIERCE [id number] Queenie 14:45:00 14:45:00 ESPINOZA Seybol d 2023-02-14 2023-02-14 Outpatient SEWIELAM, QUEENIENELLY SPANN [id number] [place] 09:15:00 09:15:00 AHMED Seybol d 2023-02-05 2023-02-05 Outpatient PREZAS, QUEENIE SPANN [id number] [place] 00:00:00 00:00:00 ESPINOZA Seybol d 2023-01-31 2023-01-31 Outpatient SEWIELAM, QUEENIE SPANN [id number] [place] 00:00:00 00:00:00 AHMED Seybol d 2023-01-31 2023-01-31 Outpatient PREZAS, QUEENIE SPANN [id number] [place] 00:00:00 00:00:00 ESPINOZA Seybol d 2023-01-20 2023-01-20 Outpatient PREZAS, QUEENIE SPANN [id number] [place] 00:00:00 00:00:00 ESPINOZA Seybol d 2023-01-19 2023-01-19 Outpatient PREZAS, QUEENIE SPANN [id number] [place] 15:15:00 15:15:00 ESPINOZA Seybol d 2023-01-16 2023-01-16 Outpatient SEWIELAM, QUEENIE SPANN [id number] [place] 00:00:00 00:00:00 AHMED Seybol d 2023-01-09 2023-01-09 Outpatient SEWIELAM, QUEENIE SPANN [id number] [place] 00:00:00 00:00:00 AHMED Seybol d 2023-01-02 2023-01-02 Outpatient PREZAS, QUEENIE SPANN [id number] [place] 00:00:00 00:00:00 ESPINOZA Seybol d 2022-12-24 2022-12-24 Outpatient QUEENIE SPANN [id number] [place] 00:00:00 00:00:00 Seybol d 2022-12-22 2022-12-22 Outpatient PREZAS, QUEENIE SPANN [id number] [place] 11:00:00 11:00:00 ESPINOZA Seybol d 2022-12-21 2022-12-21 Outpatient PREZASQUEENIE [id number] [place] 00:00:00 00:00:00 ESPINOZA Seybol d 2022-12-21 2022-12-21 Outpatient GRIFFIN, QUEENIE SPANN [id number] [place] 00:00:00 00:00:00 ADRYENE Seybol d 2022-12-19 2022-12-19 Outpatient LAB90 QUEENIE SPANN [id number] [place] 10:25:00 10:25:00 Seybol d 2022-12-14 2022-12-14 Outpatient PREZAS, QUEENIE SPANN [id number] [place] 00:00:00 00:00:00 ESPINOZA Seybol d 2022-12-14 2022-12-14 Outpatient QUEENIE SPANN [id number] [place] 00:00:00 00:00:00 Seybol d 2022-12-12 2022-12-12 Outpatient LAB39 QUEENIE SPANN [id number] [place] 10:30:00 10:30:00 Seybol d 2022-12-12 2022-12-12 Outpatient [facility], QUEENIE SPANN [id number] [place] 09:45:00 09:45:00 AHMED Seybol d 2022-12-09 2022-12-09 Outpatient PREZAS, QUEENIE SPANN [id number] [place] 16:30:00 16:30:00 ESPINOZA Seybol d 2022-12-09 2022-12-09 Outpatient PREZAS, QUEENIE SPANN [id number] [place] 00:00:00 00:00:00 ESPINOZA Seybol d 2022-12-07 2022-12-07 Outpatient QUEENIE SPANN [id number] [place] 00:00:00 00:00:00 Seybol d 2022-12-06 2022-12-06 Outpatient RICHARD SPENCER [id number] [place] 14:40:00 14:40:00 Seybol d 2022-12-06 2022-12-06 Outpatient GROUP, QUEENIE SPANN [id number] [place] 00:00:00 00:00:00 QUEENIE Seybol d 2022-12-06 2022-12-06 Outpatient PREZAQUEENIE Griffin [id number] [place] 00:00:00 00:00:00 ESPINOZA Seybol d 2022-12-06 2022-12-06 Outpatient SEWIELAM, QUEENIE SPANN [id number] [place] 00:00:00 00:00:00 AHMED Seybol d 2022-12-05 2022-12-05 Outpatient PREZAS, QUEENIE SPANN [id number] [place] 00:00:00 00:00:00 ESPINOZA Seybol d 2022-12-05 2022-12-05 Outpatient QUEENIE SPANN [id number] [place] 00:00:00 00:00:00 Seybol d 2022-12-05 2022-12-05 Outpatient PREZAS, QUEENIE SPANN [id number] [place] 00:00:00 00:00:00 ESPINOZA Seybol d 2022-12-02 2022-12-02 Outpatient PREZAS, QUEENIE SPANN [id number] [place] 16:30:00 16:30:00 ESPINOZA Seybol d 2022-11-30 2022-11-30 Outpatient PREZAS, QUEENIE SPANN [id number] [place] 00:00:00 00:00:00 ESPINOZA Seybol d 2022-11-28 2022-11-28 Outpatient QUEENIE SPANN [id number] [place] 00:00:00 00:00:00 Seybol d 2022-11-25 2022-11-25 Outpatient PREZAS, QUEENIE SPANN [id number] [place] 00:00:00 00:00:00 ESPINOZA Seybol d 2022-11-25 2022-11-25 Outpatient QUEENIE SPANN [id number] [place] 00:00:00 00:00:00 Seybol d 2022-11-24 2022-11-24 Outpatient PREZAS, QUEENIE SPANN [id number] [place] 00:00:00 00:00:00 ESPINOZA Seybol d 2022-11-23 2022-11-23 Outpatient QUEENIE SPANN [id number] [place] 00:00:00 00:00:00 Seybol d 2022-11-22 2022-11-22 Outpatient GROUP, QUEENIE SPANN [id number] [place] 00:00:00 00:00:00 QUEENIE Seybol d Results This patient has no known results.
--- NOTE | 2023-02-06 13:08 | RAD REPORT ---
EXAM DESCRIPTION: RAD - Forearm Left - 02/06/2023 12:55 pm CLINICAL HISTORY: Pain;Swelling COMPARISON: No comparisons FINDINGS: Moderate soft tissue swelling affects the left forearm. No fracture, dislocation or aggres sive marrow lesion.
--- NOTE | 2023-02-06 13:10 | RAD REPORT ---
EXAM DESCRIPTION: US - Upper Ext Artery Uni Hebert - 02/06/2023 12:53 pm CLINICAL HISTORY: left arm swelling Pain and swelling COMPARISON: UPPER EXTREMITY VENOUS UNILATE dated 02/06/2023 FINDINGS: Arterial Doppler was performed of the left upper extremity arterial system. No significant flow abnormality seen. Left radial artery was somewhat limited in assessment. IMPRESSION: No significant arterial flow abnormality left upper extremity arterial system.
--- NOTE | 2023-02-06 13:11 | RAD REPORT ---
EXAM DESCRIPTION: US - Extremity Nonvascular Complete - 02/06/2023 12:53 pm CLINICAL HISTORY: left arm swelling COMPARISON: Upper Ext Artery Uni Hebert dated 02/06/2023 TECHNIQUE: Real-time sonographic evaluation of the area of interest was performed. FINDINGS: In the area of redness left posterior forearm there is a superficial thrombosed vein prese nt. Elsewhere no suspicious finding seen. IMPRESSION: Superficial thrombosed vein in the soft tissues at the area of interest. No pathologic fluid collections.
--- NOTE | 2023-02-06 13:16 | RAD REPORT ---
EXAM DESCRIPTION: US - UPPER EXTREMITY VENOUS UNILATE - 02/06/2023 12:53 pm CLINICAL HISTORY: Pain;Swelling Pain and swelling COMPARISON: No comparisons FINDINGS: Left upper extremity venous system was interrogated with Doppler technique. Normal flow, c ompressibility and augmentation was noted. There is no DVT present. IMPRESSION: No evidence of left upper extremity deep venous thrombosis.
[2023-02-06 13:20] LABS: Absolute Lymphocytes (CBC) 0.9 K/uL (0.7-4.9); Hematocrit 24.4 % (36.0-45.0); Lymphocytes % 20.9 % (15.3-44.8); MCV 88.3 fL (80-100); MPV 7.7 fL (7.6-11.3); RBC Red Blood Cell Count 2.76 M/uL (3.86-4.86)
[2023-02-06 13:41] LABS: Protime INR 0.92
[2023-02-06 13:53] LABS: White Blood Cell Scan OK (OK)
[2023-02-06 13:54] LABS: Anisocytosis 1+; Blood Morphology Comment NOTED (NOT SEEN); Platelet Estimate ADEQ
--- NOTE | 2023-02-06 13:56 | EDPHYS ---
Physician Documentation [facility] Name: Mike Cornejo Age: 42 yrs Sex: Female : 1980 Arrival Date: 02/06/2023 Time: 11:55 Bed 17 Private MD: ED Physician John Neal HPI: 02/06 12:10 This 42 yrs old Female presents to ER via Unassigned with complaints of Arm swelling. rn 12:10 The patient or guardian complains of pain, swelling. The complaints affect the dorsal rn aspect of left forearm. Onset: The symptoms/episode began/occurred 5 day(s) ago. Modifying factors: The symptoms are alleviated by nothing. the symptoms are aggravated by movement, touching area. Associated signs and symptoms: Pertinent positives: erythema, pain, swelling, Pertinent negatives: fever. Severity of symptoms: At their worst the symptoms were mild, in the emergency department the symptoms are unchanged. The patient has not experienced similar symptoms in the past. The patient has been recently seen by a physician:. Pt reports left arm swelling and redness, began last week, seen by Dr. Nieto and prescribed abx, not improving. No trauma. No hx of dvt/PE. . 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 - Social history:: Smoking status: . - Family history:: not pertinent. - Hospitalizations: : No recent hospitalization is reported. ROS: 12:10 Constitutional: Negative for fever, chills, and weight loss, Cardiovascular: Negative rn for chest pain, palpitations, and edema, Respiratory: Negative for shortness of breath, cough, wheezing, and pleuritic chest pain, Abdomen/GI: Negative for abdominal pain, nausea, vomiting, diarrhea, and constipation, MS/Extremity: + left arm swelling and pain Skin: + redness LUE Neuro: Negative for headache, weakness, numbness, tingling, and seizure. Exam: 12:10 Constitutional: This is a well developed, well nourished patient who is awake, alert, rn and in no acute distress. Head/Face: Normocephalic, atraumatic. Cardiovascular: Regular rate and rhythm. No pulse deficits. Respiratory: No increased work of breathing, no retractions or nasal flaring. Skin: + redness with induration left distal dorsal forearm, no fluctuance, no streaking MS/ Extremity: Pulses equal, no cyanosis. Neurovascular intact. No bony tenderness, + tender to palpation. Neuro: Awake and alert, GCS 15 Vital Signs: 12:22 BP 123 / 81; Pulse 95; Resp 16; Pulse Ox 100% on R/A; iw 14:55 BP 113 / 90; Pulse 92; Resp 16; Pulse Ox 100% on R/A; db MDM: 12:00 Patient medically screened. rn 13:53 Differential diagnosis: contusion, cellulitis, DVT, superficial thrombophlebitis. Data rn reviewed: vital signs, nurses notes, radiologic studies, plain films, ultrasound, and as a result, I will discharge patient. Counseling: I had a detailed discussion with the patient and/or guardian regarding: the historical points, exam findings, and any diagnostic results supporting the discharge/admit diagnosis, radiology results, the need for outpatient follow up, to return to the emergency department if symptoms worsen or persist or if there are any questions or concerns that arise at home. Special discussion: I discussed with the patient/guardian in detail that at this point there is no indication for admission to the hospital. It is understood, however, that if the symptoms persist or worsen the patient needs to return immediately for re-evaluation. ED course: U/S neg for DVT or arterial insufficiency. u/s shows superficial venous thrombus. No fracture. Patient reports blown vein at that location 3 weeks ago. Will dc home with heat and elevation, anti-inflammatories, and will complete abx given by Dr. Nieto. Return precautions given and understood. . 02/06 12:08 Order name: CBC with Diff; Complete Time: 13:56 rn 02/06 12:08 Order name: Basic Metabolic Panel; Complete Time: 13:56 rn 02/06 12:08 Order name: Protime (+inr); Complete Time: 13:56 rn 02/06 12:08 Order name: Ptt, Activated; Complete Time: 13:56 rn 02/06 13:24 Order name: CBC Smear Scan; Complete Time: 13:56 EDMS 02/06 12:13 Order name: XRAY Forearm LEFT; Complete Time: 13:26 rn 02/06 12:21 Order name: UPPER EXTREMITY VENOUS UNILATE; Complete Time: 13:26 EDMS 02/06 12:21 Order name: Upper Ext Artery Uni Hebert; Complete Time: 13:26 EDMS 02/06 12:22 Order name: Extremity Nonvascular Complete; Complete Time: 13:26 EDMS 02/06 12:08 Order name: IV Start; Complete Time: 13:13 rn Administered Medications: No medications were administered Disposition Summary: 02/06/23 13:55 Discharge Ordered Location: Home rn Problem: new rn Symptoms: have improved rn Condition: Stable rn Diagnosis - Acute embolism and thrombosis of superficial veins of left upper extremity rn Followup: rn - With: Private Physician - When: As needed - Reason: Recheck today's complaints, Re-evaluation by your physician Discharge Instructions: - Discharge Summary Sheet rn - Thrombophlebitis rn Forms: - Medication Reconciliation Form rn - Thank You Letter rn - Antibiotic nocturnist physician - Prescription Opioid Use rn Signatures: Dispatcher [employer] EDMS Lyudmila Dey RN John Sanchez MD MD rn Oliver, Kathy, RN RN ko1 Corrections: (The following items were deleted from the chart) 12:21 12:09 Extremity Venous Uni Ltd+US.RAD.BRZ ordered. EDMS EDMS 12: 12:09 Lower Extremity Artery Uni Ltd+US.RAD.BRZ ordered. EDMS EDMS 12: 12:09 Extrmty Nonvasular Limited+US.RAD.BRZ ordered. EDMS EDMS
--- NOTE | 2023-02-06 13:56 | ER ---
Nurse's Notes [facility] [place] Name: Mike Cornejo Age: 42 yrs Sex: Female : 1980 Arrival Date: 02/06/2023 Time: 11:55 Bed 17 Private MD: Diagnosis: Acute embolism and thrombosis of superficial veins of left upper extremity Presentation: 02/06 12:22 Chief complaint: Patient states: left arm pain and swelling since , has been on iw abx , not getting better, currently on chemo for lung cancer. Coronavirus screen: At this time, the client does not indicate any symptoms associated with coronavirus-19. Ebola Screen: Patient negative for fever greater than or equal to 101.5 degrees Fahrenheit, and additional compatible Ebola Virus Disease symptoms Patient denies exposure to infectious person. Patient denies travel to an Ebola-affected area in the 21 days before illness onset. No symptoms or risks identified at this time. Initial Sepsis Screen: Does the patient meet any 2 criteria? No. Patient's initial sepsis screen is negative. Does the patient have a suspected source of infection? No. Patient's initial sepsis screen is negative. Risk Assessment: Do you want to hurt yourself or someone else? Patient reports no desire to harm self or others. 12:22 Method Of Arrival: Ambulatory iw 12:22 Acuity: YING 3 iw 14:56 Onset of symptoms was February 02, 2023. 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 - Social history:: Smoking status: . - Family history:: not pertinent. - Hospitalizations: : No recent hospitalization is reported. Screenin:00 [facility] ED Fall Risk Assessment (Adult) History of falling in the last 3 months, ko1 including since admission No falls in past 3 months (0 pts) Confusion or Disorientation No (0 pts) Intoxicated or Sedated No (0 pts) Impaired Gait No (0 pts) Mobility Assist Device Used No (0 pt) Altered Elimination No (0 pt) Score/Fall Risk Level 0 - 2 = Low Risk Oriented to surroundings, Maintained a safe environment, Educated pt \T\ family on fall prevention, incl call for assistance when getting out of bed, Assessed \T\ reinforced patient's understanding of fall precautions, Provided non-skid footwear, Hourly rounding (assess needs \T\ fall precautionary measures) done, Used ambulatory aids as needed (educated on \T\ assisted with), Used gait belt as appropriate. Abuse screen: Denies threats or abuse. Denies injuries from another. Nutritional screening: No deficits noted. Tuberculosis screening: No symptoms or risk factors identified. Assessment: 13:00 General: Appears in no apparent distress. uncomfortable, Behavior is calm, cooperative, ko1 appropriate for age. Pain: Complains of pain in dorsal aspect of left forearm. Neuro: No deficits noted. Cardiovascular: No deficits noted. Respiratory: No deficits noted. GI: No deficits noted. : No deficits noted. EENT: No deficits noted. Derm: Reports pain. Musculoskeletal: No deficits noted. 14:55 Reassessment: Patient appears in no apparent distress at this time. Patient and/or db family updated on plan of care and expected duration. Pain level reassessed. Patient is alert, oriented x 3, equal unlabored respirations, skin warm/dry/pink. General: Appears in no apparent distress. comfortable. Vital Signs: 12:22 BP 123 / 81; Pulse 95; Resp 16; Pulse Ox 100% on R/A; iw 14:55 BP 113 / 90; Pulse 92; Resp 16; Pulse Ox 100% on R/A; db ED Course: 11:58 Patient arrived in ED. mr 12:00 John Neal MD is Attending Physician. rn 12:08 Lyudmila Dey, JAE is Primary Nurse. iw 12:23 Triage completed. iw 12:23 Arm band placed on. iw 12:55 UPPER EXTREMITY VENOUS UNILATE In Process Unspecified. EDMS 12:55 Upper Ext Artery Uni Hebert In Process Unspecified. EDMS 12:55 Extremity Nonvascular Complete In Process Unspecified. EDMS 12:56 XRAY Forearm LEFT In Process Unspecified. EDMS 13:00 Patient has correct armband on for positive identification. Bed in low position. Call ko1 light in reach. Side rails up X 1. Pulse ox on. NIBP on. Door closed. Noise minimized. Lights dimmed. Warm blanket given. 13:00 Missed attempt(s): 22 gauge in right forearm. Bleeding controlled, band aid applied, ko1 catheter tip intact. 13:13 Protime (+inr) Sent. ko1 13:13 Ptt, Activated Sent. ko1 13:13 Basic Metabolic Panel Sent. ko1 13:13 CBC with Diff Sent. ko1 14:55 Ijeoma Cherry, RN is Primary Nurse. db 14:55 No provider procedures requiring assistance completed. Patient did not have IV access db during this emergency room visit. Administered Medications: No medications were administered Medication: 14:55 VIS not applicable for this client. db Outcome: :55 Discharge ordered by . rn 14:55 Discharged to home ambulatory. db 14:55 Condition: stable 14:55 Discharge instructions given to patient, Instructed on discharge instructions, follow up and referral plans. 14:57 Patient left the ED. db Signatures: Dispatcher [employer] GAUTAMMT Juanita Razo Irene, RN John Sanchez MD MD rn Oliver, Kathy, RN RN ko Ijeoma Cherry, RN RN db
[2023-02-06 15:16] VITALS: O2SAT 100
[2023-02-06 15:17] VITALS: BP 113/90
== END 2023-02-06 14:57 | disposition home or self-care (01) ==
LOC: ER 11:55
DX: I82.612 Acute embolism and thrombosis of superficial veins of left upper extremity (principal); Z88.3 Allergy status to other anti-infective agents; Z88.5 Allergy status to narcotic agent; Z90.49 Acquired absence of other specified parts of digestive tract
CPT/HCPCS: 36415; 76881; 80048; 85025; 85610; 85730; 93931; 93971; 99284

== ENCOUNTER 2023-02-08 00:33 | Emergency (ER) | payer OTHER ==
--- OUTSIDE RECORDS SUMMARY | 2023-02-08 00:37 | XMS REPORT | Continuity of Care Document ---
:1980 Author Organization [facility] t Address [address] [place] [address] Care Team Providers Name Role Phone ESPINOZA PIERCE Attending Clinician Unavailable MUKUND INTERIANO Attending Clinician Unavailable LAURA GRIFFIN Attending Clinician Unavailable LAB90 Attending Clinician Unavailable LAB39 Attending Clinician Unavailable RICHARD SPENCER Attending Clinician Unavailable [facility]ENIE [facility] Attending Clinician Unavailabl e Payers Payer Name Policy Type Policy Number Effective Date Expiration Date Gaby teresa [facility] 9 [id number] 2022 00:00:00 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 [facility] Allergies, Adverse Reactions, Alerts Allergy Allergy Status Severity Reaction(s) Onset Inactive Treating Comm ents Source Name Type Date Date Clinician Morphine Propensi Active Queenie ty to 3-14 Seybold adverse 00:00: - reaction 00 Externa s l Na Propensi Active Rash Queenie Benzoate ty to 5-27 Seybold -Sulfame adverse 00:00: - thoxazol reaction 00 Non Destructive Testing Supervisor a e-Trimet s l hoprim Sulfamet Propensi [...] non-user External Education 2022-12-02 2022-12-02 14 Queenie Ledemsa - 00:00:00 00:00:00 External Sex Ass[birth year] At [birth year] Queenie fonseca - 00:00:00 00:00:00 External Smoking Status Start Date Stop Date Source Ex-smoker 2022-12-02 00:00:00 2022-12-02 00:00:00 Queenie burch - External Medications Ordered Filled Start Stop Current Ordering Indication Dosage Frequency Signature Comments Components Source Medication Medication Date Date Medication? Clinician (SIG) Name Name Sertraline Yes [id number] 25mg Take 1 K elsey HCl 25 MG 3-30 tablet (25 Seyb old oral Tablet 00:00: mg total) - 00 by mouth Externa daily l Dexamethaso Yes Queenie ne 3-20 Seybold (DECADRON) 00:00: - 4 MG oral 00 Externa tablet l Calcitonin, Yes 1{spray Use 1 Ke bar [place], 200 3-20 } spray in Seyb old UNIT/ACT 00:00: one - nasal 00 nostril Externa Solution daily l Naloxone Yes Use as Queenie (Narcan) 4 3-20 directed, Seyb old MG/0.1ML 00:00: May be - nasal 00 repeated Externa Liquid if needed l Calcitonin, Yes 1{spray Use 1 Ke bar [place], 200 3-20 } spray in Seyb old [...] l Response diazePAM 5 0 2022- No Uqeenie MG oral 3-14 03-30 Seybold Tablet 00:00: 00:00 - 00 :00 Externa l Ondansetron 0 Yes [id number] 4mg QD Take 1 Queenie (ZOFRAN) 4 3-10 tablet (4 Seyb old MG oral 00:00: mg total) - TABLET 00 by mouth Externa DISPERSIBLE daily as l needed for nausea HYDROcodone 0 Yes [id number] 1{tbl} Q.5D Take 1 Queenie -Acetaminop 3-10 tablet by Riana matamoros hen 10-325 00:00: mouth 2 - MG oral 00 times Externa Tablet daily as l needed for pain Fentanyl 25 Yes [id number] 1{patch Place 1 Queenie MCG/HR 3-10 } patch onto Seybold transdermal 00:00: the skin - PATCH 72 HR 00 every 72 Exte rna hours l Cetirizine 0 Yes [id number] 10mg Take 1 Queenie HCl (ZyrTEC 3-10 capsule Seybo ld Allergy) 10 00:00: (10 mg - MG oral 00 total) by Externa Capsule mouth l daily Famotidine 2022-0 Yes [id number] 20mg Take 1 Queenie (Pepcid) 20 3-10 tablet (20 Se ybold MG oral 00:00: mg total) - tablet 00 by mouth 2 Externa times l daily Ondansetron 2022-0 Yes [id number] 4mg QD Take 1 Queenie (ZOFRAN) 4 3-10 tablet (4 Seyb old MG oral 00:00: mg total) - TABLET 00 by mouth Externa DISPERSIBLE daily as l needed for nausea HYDROcodone 2022-0 Yes [id number] 1{tbl} Q.5D Take 1 Queenie -Acetaminop 3-10 tablet by [employer] hen 10-325 00:00: mouth 2 - MG oral 00 times Externa Tablet daily as l needed for pain Fentanyl 25 2022-0 Yes [id number] 1{patch Place 1 Queenie MCG/HR 3-10 } patch onto Seybold transdermal 00:00: the skin - PATCH 72 HR 00 every 72 Exte rna hours l Cetirizine 2022-0 Yes [id number] 10mg Take 1 Queenie HCl (ZyrTEC 3-10 capsule Seybo ld Allergy) 10 00:00: (10 mg - MG oral 00 total) by Externa Capsule mouth l daily Famotidine 2022-0 Yes [id number] 20mg Take 1 Queenie (Pepcid) 20 3-10 tablet (20 Se ybold MG oral 00:00: mg total) - tablet 00 by mouth 2 Externa times l daily Ondansetron 2022-0 Yes [id number] 4mg QD Take 1 Queenie (ZOFRAN) 4 3-10 tablet (4 Seyb old MG oral 00:00: mg total) - TABLET 00 by mouth Externa DISPERSIBLE daily as l needed for nausea HYDROcodone 2022-0 Yes [id number] 1{tbl} Q.5D Take 1 Queenie -Acetaminop 3-10 tablet by [employer] hen 10-325 00:00: mouth 2 - MG oral 00 times Externa Tablet daily as l needed for pain Fentanyl 25 2022-0 Yes [id number] 1{patch Place 1 Queenie MCG/HR 3-10 } patch onto Seybold transdermal 00:00: the skin - PATCH 72 HR 00 every 72 Exte rna hours l Cetirizine Yes [id number] 10mg Take 1 Queenie HCl (ZyrTEC 3-10 capsule Seybo ld Allergy) 10 00:00: (10 mg - MG oral 00 total) by Externa Capsule mouth l daily Famotidine Yes [id number] 20mg Take 1 Queenie (Pepcid) 20 3-10 [...] saturation in 2022-12-22 15:42:00 99 /min Queenie Manzanaresgueritajanette - Arterial blood by External Pulse oximetry Systolic blood 2022-12-12 14:53:00 124 mm[Hg] Queenie Seybold - pressure External Diastolic blood 2022-12-12 14:53:00 82 mm[Hg] Kelse y Seybold - pressure External Heart rate 2022-12-12 14:53:00 72 /min Queenie S eybold - External Respiratory rate 2022-12-12 14:53:00 16 /min Anika ey Seybold - External Body height 2022-12-12 14:53:00 157.5 cm Queenie Griffin eybold - External Body weight 2022-12-12 14:53:00 71.668 kg Queenie Griffin eybold - External BMI 2022-12-12 14:53:00 28.90 kg/m2 Queenie S eybold - External Systolic blood 2022-12-02 22:08:00 134 mm[Hg] Queenie Seybold - pressure External Diastolic blood 2022-12-02 22:08:00 79 mm[Hg] Cabrerase y Seybold - pressure External Heart rate 2022-12-02 22:08:00 90 /min Queenie Griffin eybold - External Body temperature 2022-12-02 22:08:00 36.5 Anastasiia Anika ey Seybold - External Respiratory rate 2022-12-02 22:08:00 14 /min Anika ey Seybold - External Body height 2022-12-02 22:08:00 157.5 cm Queenie Griffin eybold - External Body weight 2022-12-02 22:08:00 72.394 kg Queenie Griffin eybold - External BMI 2022-12-02 22:08:00 29.19 kg/m2 Queenie Griffin eybold - External Oxygen saturation in 2022-12-02 22:08:00 99 /min Queenie Albertojanette - Arterial blood by External Pulse oximetry Procedures This patient has no known procedures. Encounters Start End Encounter Admission Attending Care Care Encounter Source Date/Time Date/Time Type Type Clinicians Facility Department ID 2023-02-14 2023-02-14 Outpatient QUEENIE PIERCE [id number] Queenie 14:45:00 14:45:00 ESPINOZA Seybol d 2023-02-14 2023-02-14 Outpatient SEWIELAM, QUEENIE SPANN [id number] [place] 09:15:00 09:15:00 AHMED Seybol d 2023-02-07 2023-02-07 Outpatient PREZAS, QUEENIE SPANN [id number] [place] 00:00:00 00:00:00 ESPINOZA Seybol d 2023-02-05 2023-02-05 Outpatient PREZAS, QUEENIE SPANN [id number] [place] 00:00:00 00:00:00 ESPINOZA Seybol d 2023-01-31 2023-01-31 Outpatient SEWIELAM, QUEENIE SPANN [id number] [place] 00:00:00 00:00:00 AHMED Seybol d 2023-01-31 2023-01-31 Outpatient PREZAS, QUEENIE SPANN [id number] [place] 00:00:00 00:00:00 ESPINOZA Seybol d 2023-01-20 2023-01-20 Outpatient PREZAS, QUEENIE SPANN [id number] [place] 00:00:00 00:00:00 ESPINOZA Seybol d 2023-01-19 2023-01-19 Outpatient PREZAS, QUEENIE SPANN [id number] [place] 15:15:00 15:15:00 ESPINOZA Seybol d 2023-01-16 2023-01-16 Outpatient SEWIELAM, QUEENIE SPANN [id number] [place] 00:00:00 00:00:00 AHMED Seybol d 2023-01-09 2023-01-09 Outpatient SEWIELAM, QUEENIE SPANN [id number] [place] 00:00:00 00:00:00 AHMED Seybol d 2023-01-02 2023-01-02 Outpatient PREZAS, QUEENIE SPANN [id number] [place] 00:00:00 00:00:00 ESPINOZA Seybol d 2022-12-24 2022-12-24 Outpatient QUEENIE SPANN [id number] [place] 00:00:00 00:00:00 Seybol d 2022-12-22 2022-12-22 Outpatient PREZAS, QUEENIE SPANN [id number] [place] 11:00:00 11:00:00 ESPINOZA Seybol d 2022-12-21 2022-12-21 Outpatient PREZAS, QUEENIE SPANN [id number] [place] 00:00:00 00:00:00 ESPINOZA Seybol d 2022-12-21 2022-12-21 Outpatient GRIFFIN, QUEEINE SPANN [id number] [place] 00:00:00 00:00:00 ADRYENE Seybol d 2022-12-19 2022-12-19 Outpatient LAB90 QUEENIE SPANN [id number] [place] 10:25:00 10:25:00 Seybol d 2022-12-14 2022-12-14 Outpatient PREZAS, QUEENIE SPANN [id number] [place] 00:00:00 00:00:00 ESPINOZA Seybol d 2022-12-14 2022-12-14 Outpatient QUEENIE SPANN [id number] [place] 00:00:00 00:00:00 Seybol d 2022-12-12 2022-12-12 Outpatient LAB39 QUEENIE SPANN [id number] [place] 10:30:00 10:30:00 Seybol d 2022-12-12 2022-12-12 Outpatient [facility], QUEENIE SPANN [id number] [place] 09:45:00 09:45:00 AHMED Seybol d 2022-12-09 2022-12-09 Outpatient PREZAS, QUEENIE SPANN [id number] [place] 16:30:00 16:30:00 ESPINOZA Seybol d 2022-12-09 2022-12-09 Outpatient PREZASQUEENIE [id number] [place] 00:00:00 00:00:00 ESPINOZA Seybol d 2022-12-07 2022-12-07 Outpatient QUEENIE SPANN [id number] [place] 00:00:00 00:00:00 Seybol d 2022-12-06 2022-12-06 Outpatient RICHARD SPENCER [id number] [place] 14:40:00 14:40:00 Seybol d 2022-12-06 2022-12-06 Outpatient GROUP, QUEENIE SPANN [id number] [place] 00:00:00 00:00:00 QUEENIE Seybol d 2022-12-06 2022-12-06 Outpatient PREZAS QUEENIE SPANN [id number] [place] 00:00:00 00:00:00 ESPINOZA Seybol d 2022-12-06 2022-12-06 Outpatient SEWIELAM, QUEENIE SPANN [id number] [place] 00:00:00 00:00:00 AHMED Seybol d 2022-12-05 2022-12-05 Outpatient PREZASQUEENIE [id number] [place] 00:00:00 00:00:00 ESPINOZA Seybol d 2022-12-05 2022-12-05 Outpatient QUEENIE SPANN [id number] [place] 00:00:00 00:00:00 Seybol d 2022-12-05 2022-12-05 Outpatient PREZASQUEENIE [id number] [place] 00:00:00 00:00:00 ESPINOZA Seybol d 2022-12-02 2022-12-02 Outpatient PREZASQUEENIE [id number] [place] 16:30:00 16:30:00 ESPINOZA Seybol d 2022-11-30 2022-11-30 Outpatient PREZASQUEENIE [id number] [place] 00:00:00 00:00:00 ESPINOZA Seybol d 2022-11-28 2022-11-28 Outpatient QUEENIE SPANN [id number] [place] 00:00:00 00:00:00 Seybol d 2022-11-25 2022-11-25 Outpatient PREZASQUEENIE [id number] [place] 00:00:00 00:00:00 ESPINOZA Seybol d 2022-11-25 2022-11-25 Outpatient QUEENIE SPANN [id number] [place] 00:00:00 00:00:00 Seybol d 2022-11-24 2022-11-24 Outpatient PREZASQUEENIE [id number] [place] 00:00:00 00:00:00 ESPINOZA Seybol d 2022-11-23 2022-11-23 Outpatient QUEENIE SPANN [id number] [place] 00:00:00 00:00:00 Seybol d 2022-11-22 2022-11-22 Outpatient GROUP, QUEENIE SPANN [id number] [place] 00:00:00 00:00:00 QUEENIE myles Results This patient has no known results.
[2023-02-08] MEDS ORDERED: KETOROLAC 30 MG/ML INJ ONE (01:04)
[2023-02-08 01:35] LABS: Absolute Lymphocytes (CBC) 1.4 K/uL (0.7-4.9); Hematocrit 24.6 % (36.0-45.0); Lymphocytes % 20.9 % (15.3-44.8); MCV 89.5 fL (80-100); MPV 7.4 fL (7.6-11.3); RBC Red Blood Cell Count 2.75 M/uL (3.86-4.86)
[2023-02-08 02:04] LABS: Potassium 3.9 mEq/L (3.5-5.1)
--- NOTE | 2023-02-08 02:28 | ER ---
Nurse's Notes [facility] [place] Name: Mike Cornejo Age: 42 yrs Sex: Female : 1980 Arrival Date: 02/08/2023 Time: 00:33 Bed 18 Private MD: Diagnosis: Phlebitis and thrombophlebitis of other sites-left upper extremity;Anemia, unspecified Presentation: 02/08 00:51 Chief complaint: Patient states: My L arm hurts, I have some knots on it, they are aa9 hurting. I was DX with cellulitis on and started antibiotics that didn't work. I have some new knots that have developed this morning. Coronavirus screen: Vaccine status: Patient reports being unvaccinated. Ebola Screen: No symptoms or risks identified at this time. Initial Sepsis Screen: Does the patient meet any 2 criteria? No. Patient's initial sepsis screen is negative. Does the patient have a suspected source of infection? Yes: Other: skin. Risk Assessment: Do you want to hurt yourself or someone else? Patient reports no desire to harm self or others. Onset of symptoms was February 08, 2023. 00:51 Method Of Arrival: Ambulatory aa9 00:51 Acuity: YING 3 aa9 Triage Assessment: 00:54 General: Appears uncomfortable, ill, Behavior is calm, cooperative. Pain: Complains of aa9 pain in Left forearm Pain radiates to upper L arm Pain currently is 8 out of 10 on a pain scale. Neuro: Level of Consciousness is awake, alert, obeys commands, Oriented to person, place, time, situation. Cardiovascular: Patient's skin is warm and dry. Respiratory: Airway is patent Respiratory effort is even, unlabored. GI: No signs and/or symptoms were reported involving the gastrointestinal system. Derm: Skin is intact, is healthy with good turgor, Skin temperature is left forearm is warm to touch. Musculoskeletal: Swelling present in left forearm. Historical: - Allergies: 00:53 Bactrim; aa9 00:53 Morphine; aa9 00:53 tramadol; aa9 - PMHx: 00:53 BRAIN TUMOR; Lung mass; aa9 - PSHx: 00:53 Appendectomy; Brain tumor surgery; Cholecystectomy; Tonsillectomy; aa9 - Immunization history:: Client reports having NOT received the Covid vaccine. - Social history:: Smoking status: Patient denies any tobacco usage or history of. Screenin:43 [facility] ED Fall Risk Assessment (Adult) History of falling in the last 3 months, aa9 including since admission No falls in past 3 months (0 pts). Abuse screen: Denies threats or abuse. Denies injuries from another. Nutritional screening: No deficits noted. Tuberculosis screening: No symptoms or risk factors identified. Assessment: 01:18 Reassessment: Patient appears in no apparent distress at this time. Patient and/or aa9 family updated on plan of care and expected duration. Pain level reassessed. Patient is alert, oriented x 3, equal unlabored respirations, skin warm/dry/pink. 02:43 Reassessment: Patient appears in no apparent distress at this time. Patient and/or aa9 family updated on plan of care and expected duration. Pain level reassessed. Patient is alert, oriented x 3, equal unlabored respirations, skin warm/dry/pink. Vital Signs: 00:51 BP 170 / 94; Pulse 97; Resp 18; Temp 99; Pulse Ox 100% on R/A; Weight 71.21 kg (R); aa9 Height 5 ft. 2 in. (R); Pain 8/10; 01:18 BP 139 / 95; Pulse 95; Pulse Ox 100% on R/A; aa9 02:43 BP 132 / 85; Pulse 92; Resp 18; Temp 98.9; Pulse Ox 99% on R/A; aa9 00:51 Body Mass Index 28.72 (71.21 kg, 157.48 cm) aa9 00:51 Pain Scale: Adult aa9 ED Course: 00:36 Patient arrived in ED. ja2 00:38 Candelario Meeks PA is PHCP. cp 00:38 Ovidio Sandoval MD is Attending Physician. cp 00:51 Liya Spence RN is Primary Nurse. aa9 00:53 Triage completed. aa9 00:56 Arm band placed on. aa9 01:15 Missed attempt(s): 22 gauge in right forearm. aa9 01:18 Patient has correct armband on for positive identification. Call light in reach. Side aa9 rails up X 1. Pulse ox on. NIBP on. 01:18 Basic Metabolic Panel Sent. aa9 01:18 CBC with Diff Sent. aa9 02:02 Inserted saline lock: 20 gauge in right upper arm, using aseptic technique. Blood as6 collected. ultrasound guided, long catheter. 02:08 UPPER EXTREMITY VENOUS UNILATE In Process Unspecified. EDMS 02:08 PT-INR Sent. aa9 02:08 Manual Differential Sent. aa9 02:43 No provider procedures requiring assistance completed. IV discontinued, intact, aa9 bleeding controlled, No redness/swelling at site. Pressure dressing applied. Administered Medications: 02:08 Drug: Ketorolac IVP 15 mg Route: IVP; Site: right upper arm; aa9 02:30 Follow up: Response: No adverse reaction aa9 Medication: 02:43 VIS not applicable for this client. aa9 Outcome: 02:28 Discharge ordered by . cp 02:43 Discharged to home ambulatory. aa9 02:43 Condition: stable 02:43 Discharge instructions given to patient, Instructed on discharge instructions, follow up and referral plans. Demonstrated understanding of instructions, follow-up care. 02:44 Patient left the ED. aa9 Signatures: Dispatcher [employer] EDMS Candelario Meeks PA PA cp Alexander, Jessica ja2 Slawson, Ashby, RN RN as6 Liya Spence, RN RN aa9
--- NOTE | 2023-02-08 02:29 | EDPHYS ---
Physician Documentation [facility] Name: Mike Cornejo Age: 42 yrs Sex: Female : 1980 Arrival Date: 02/08/2023 Time: 00:33 Bed 18 Private MD: ED Physician Ovidio Sandoval HPI: 02/08 00:55 This 42 yrs old Female presents to ER via Ambulatory with complaints of ARM SWELLING. cp 00:55 The patient or guardian complains of pain, that is acute, swelling, tenderness. The cp complaints affect the left forearm. Context: resulted from unknown cause. Onset: The symptoms/episode began/occurred last week. 00:55 Patient reports with initial swelling she was seen by pcp who prescribed Keflex cp antibiotic due to concern for cellulitis. No improvement so she was seen in this ED yesterday and US performed that showed superficial thrombus. Patient concerned that swelling worse today. Historical: - Allergies: 00:53 Bactrim; aa9 00:53 Morphine; aa9 00:53 tramadol; aa9 - PMHx: 00:53 BRAIN TUMOR; Lung mass; aa9 - PSHx: 00:53 Appendectomy; Brain tumor surgery; Cholecystectomy; Tonsillectomy; aa9 - Immunization history:: Client reports having NOT received the Covid vaccine. - Social history:: Smoking status: Patient denies any tobacco usage or history of. ROS: 01:00 MS/extremity: Positive for erythema, pain, swelling, tenderness, of the left forearm, cp Negative for injury or acute deformity, decreased range of motion. 01:00 Constitutional: Negative for body aches, chills, fever, poor PO intake. cp 01:00 Cardiovascular: Negative for chest pain, palpitations. 01:00 Respiratory: Negative for cough, shortness of breath, wheezing. 01:00 Neuro: Negative for altered mental status, headache, weakness. cp 01:00 All other systems are negative. cp Exam: 01:05 Constitutional: The patient appears in no acute distress, alert, awake, non-toxic, well cp developed, well nourished, uncomfortable. 01:05 Head/Face: Normocephalic, atraumatic. cp 01:05 Eyes: Periorbital structures: appear normal, Conjunctiva: normal, no exudate, no injection, Sclera: no appreciated abnormality, Lids and lashes: appear normal, bilaterally. 01:05 ENT: External ear(s): are unremarkable, Nose: is normal, Mouth: Lips: moist, Oral mucosa: moist, Posterior pharynx: is normal, airway is patent, no erythema, no exudate. 01:05 Chest/axilla: Inspection: normal. 01:05 Cardiovascular: Rate: normal, Pulses: Pulses are 2+ in left radial artery. 01:05 Respiratory: the patient does not display signs of respiratory distress, Respirations: normal, no use of accessory muscles, no retractions, labored breathing, is not present, Breath sounds: are clear throughout, no decreased breath sounds, no stridor, no wheezing. 01:05 Abdomen/GI: Exam negative for discomfort, distension, guarding, Inspection: abdomen appears normal. 01:05 Musculoskeletal/extremity: Extremities: noted in the left forearm: pain, swelling, tenderness, the left hand and left forearm Sensation intact. 01:05 Skin: mild erythema noted left forearm. Vital Signs: 00:51 BP 170 / 94; Pulse 97; Resp 18; Temp 99; Pulse Ox 100% on R/A; Weight 71.21 kg (R); aa9 Height 5 ft. 2 in. (R); Pain 8/10; 01:18 BP 139 / 95; Pulse 95; Pulse Ox 100% on R/A; aa9 02:43 BP 132 / 85; Pulse 92; Resp 18; Temp 98.9; Pulse Ox 99% on R/A; aa9 00:51 Body Mass Index 28.72 (71.21 kg, 157.48 cm) aa9 00:51 Pain Scale: Adult aa9 MDM: 00:48 Patient medically screened. cp 02:28 Data reviewed: vital signs, nurses notes, lab test result(s), radiologic studies, cp ultrasound. 02:28 Differential diagnosis: dvt, cellulitis, abscess. Consideration of cp Admission/Observation Escalation of care including admission/observation considered. I considered the following discharge prescriptions or medication management in the emergency department Medications were administered in the Emergency Department. See MAR. Care significantly affected by the following chronic conditions: Cancer. Counseling: I had a detailed discussion with the patient and/or guardian regarding: the historical points, exam findings, and any diagnostic results supporting the discharge/admit diagnosis, lab results, radiology results, to return to the emergency department if symptoms worsen or persist or if there are any questions or concerns that arise at home. Response to treatment: the patient's symptoms have markedly improved after treatment. ED course: tech reports no change noted with today's US vs yesterday. Continue current treatment and f/u with PCP. 02/08 00:55 Order name: Basic Metabolic Panel; Complete Time: 02:21 cp 02/08 02:28 Interpretation: Normal except: CL 108; GFR 82. cp 02/08 00:55 Order name: CBC with Diff cp 02/08 02:28 Interpretation: Normal except: RBC 2.75; HGB 8.2; HCT 24.6; PLT 140; RDW 21.3; MPV 7.4. 02/08 01:40 Order name: Manual Differential EDOH 02/08 01:40 Order name: PT-INR cp 02/08 00:55 Order name: US Extremity Venous Unilateral Ltd cp 02/08 00:58 Order name: UPPER EXTREMITY VENOUS UNILATE EDOH 02/08 00:55 Order name: EKG; Complete Time: 00:55 cp 02/08 00:55 Order name: Cardiac monitoring; Complete Time: 01:18 cp 02/08 00:55 Order name: EKG - Nurse/Tech; Complete Time: 01:17 cp 02/08 00:55 Order name: IV Saline Lock; Complete Time: 02:02 cp 02/08 00:55 Order name: Labs collected and sent; Complete Time: 01:17 cp 02/08 00:55 Order name: O2 Per Protocol; Complete Time: 01:18 cp 02/08 00:55 Order name: O2 Sat Monitoring; Complete Time: 01:18 cp 02/08 02:28 Order name: Sling; Complete Time: 02:43 cp Administered Medications: 02:08 Drug: Ketorolac IVP 15 mg Route: IVP; Site: right upper arm; aa9 02:30 Follow up: Response: No adverse reaction aa9 Disposition: 01:33 Co-signature as Attending Physician, Ovidio Sandoval MD I agree with the assessment sp4 and plan of care. I reviewed the patient's care provided by the Advanced Practice Provider and agree with the diagnosis and treatment plan. Disposition Summary: 02/08/23 02:28 Discharge Ordered Location: Home cp Problem: an ongoing problem cp Symptoms: have improved cp Condition: Stable cp Diagnosis - Phlebitis and thrombophlebitis of other sites - left upper extremity cp - Anemia, unspecified cp Followup: cp - With: Private Physician - When: 1 - 2 days - Reason: Recheck today's complaints Discharge Instructions: - Discharge Summary Sheet cp - Anemia cp - Thrombophlebitis cp Forms: - Medication Reconciliation Form cp - Thank You Letter cp - Antibiotic Education cp - Prescription Opioid Use cp Signatures: Dispatcher [employer] EDMS Candelario Meeks PA PA cp Avalos, Aylin RN RN aa9 Ovidio Sandoval MD MD sp4
[2023-02-08 02:52] LABS: Protime INR 0.93
[2023-02-08 02:54] LABS: Anisocytosis 1+; Blood Morphology Comment NOTED (NOT SEEN); Platelet Estimate ADEQ; Polychromasia 1+
[2023-02-08 03:28] VITALS: BP 132/85; TEMP 98.9; O2SAT 99
--- NOTE | 2023-02-08 10:31 | RAD REPORT ---
EXAM DESCRIPTION: US Duplex Left Upper Extremity Veins CLINICAL HISTORY: Pain; Swelling TECHNIQUE: Real-time duplex ultrasound scan of the left upper extremity veins integrating B-mode two -dimensional vascular structure, Doppler spectral analysis, color flow Doppler imaging and compressio n. COMPARISON: No relevant prior studies available. FINDINGS: Deep veins: Unremarkable. No DVT in the internal jugular, subclavian, axillary, brachi al, radial or ulnar veins. The veins demonstrate normal color flow, are normally compressible, with normal phasic flow and/or augmentation response. Superficial veins: Intraluminal thrombus with lack of compressibility and no flow involving a later al superficial forearm vein, presumably the cephalic. The remaining portions of the cephalic vein a s well as the basilic vein are patent. Soft tissues: No acute findings. IMPRESSION: 1. No evidence for deep venous thrombosis within the left upper extremity. 2. Superficial thrombosis at the level of the forearm. Electronically signed by: Kushal Balderas MD 02/08/2023 2:48 AM CDT Due to temporary technical issues with the PACS/Fluency reporting system, reports are being signed by the in house radiologist without review as a courtesy to ensure prompt reporting. The interpreting r adiologist is fully responsible for the content of the report.
--- NOTE | 2023-02-08 11:45 | EKG ---
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
== END 2023-02-08 02:44 | disposition home or self-care (01) ==
LOC: ER 00:33
DX: I80.8 Phlebitis and thrombophlebitis of other sites (principal); D64.9 Anemia, unspecified; Z88.1 Allergy status to other antibiotic agents; Z88.5 Allergy status to narcotic agent
CPT/HCPCS: 36415; 80048; 85025; 85610; 93005; 93971

== ENCOUNTER 2023-02-21 10:24 | Day surgery (SDC) | payer OTHER ==
[2023-02-21 11:30] LABS: Potassium 3.6 mEq/L (3.5-5.1)
[2023-02-21] MEDS ORDERED: Ringers Lactate 1,000 ML IV ONE (11:32)
[2023-02-21] MEDS ORDERED: CEFAZOLIN SODIUM 1 GM/VIAL ONE (11:32)
--- NOTE | 2023-02-21 12:42 | RAD REPORT ---
EXAM DESCRIPTION: US - UPPER EXTREMITY VENOUS UNILATE - 02/21/2023 12:18 pm CLINICAL HISTORY: left arm swelling. COMPARISON: February 08, 2023 FINDINGS: Partial resolution in the cephalic vein thrombus forearm since the prior exam Left internal jugular vein, left subclavian vein, left axillary vein, left brachial vein, left basil ic, left ulnar and left radial veins demonstrate phasic signal. The veins are compressible. Doppler demonstrates good flow. Grayscale, color and spectral analysis performed on all vessels IMPRESSION: Partial resolution in the cephalic vein thrombus
[2023-02-21] MEDS ORDERED: BUPIVACAINE 0.25% PF 10 ML VIAL ONE (13:10)
[2023-02-21] MEDS ORDERED: NS 0.9% VIAL 20 ML ONE (13:10)
[2023-02-21] MEDS ORDERED: HEPARIN 5000 UNIT/ML 1 ML VIAL ONE (13:10)
[2023-02-21] MEDS ORDERED: FENTANYL CITR 100 MCG/2 ML ONE (13:15)
[2023-02-21] MEDS ORDERED: propofoL 200 MG/20 ML VIAL IV ONE (13:15)
[2023-02-21] MEDS ORDERED: ONDANSETRON 4 MG/2 ML VIAL ONE (13:15)
[2023-02-21] MEDS ORDERED: LIDOCAINE 2% MPF 5 ML VIAL ONE (13:15)
[2023-02-21] MEDS ORDERED: MIDAZOLAM HCL 2 MG/2 ML INJ ONE (13:16)
--- NOTE | 2023-02-21 14:38 | P.OP ---
Preoperative diagnosis: Need for Chemotherapy Postoperative diagnosis: Need for Chemotherapy Primary procedure: Placement of RIGHT internal jugular port a cath Secondary procedure: ultrasound and flouroscopy used with interpretation Anesthesia: GETA + Local, Estimated blood loss: <10cc Specimen: None Findings: Dark nonpulsatile blood returned, position confirmed Complications: None Implants: Port a cath Transferred to: Recovery Room Condition: Good
[2023-02-21] MEDS ORDERED: dexAMETHasone 10 MG/ML VIAL ONE (14:44)
[2023-02-21] MEDS ORDERED: KETOROLAC 30 MG/ML INJ ONE (14:44)
--- NOTE | 2023-02-21 15:01 | RAD REPORT ---
EXAM DESCRIPTION: RAD - Fluoroscopy <1 Hour - 02/21/2023 2:42 pm CLINICAL HISTORY: Device placement central venous catheter placement FINDINGS: A central venous catheter was placed into the superior vena cava. 20 fluoroscopic spot praveena ges are submitted. Fluoroscopy time .4 minutes The examination was performed by Dr. Shannon
[2023-02-21] MEDS: HYDROMORPHONE HCL 1 MG/ML INJ ONE ×4 (15:04→15:27)
--- NOTE | 2023-02-21 15:11 | RAD REPORT ---
EXAM DESCRIPTION: LIENShabbirt Single View02/21/2023 3:02 pm CLINICAL HISTORY: Device placement/central venous catheter placement IMPRESSION: Central venous catheter with its tip in the superior vena cava No pneumothorax
--- NOTE | 2023-02-21 15:22 | OP ---
Date of Procedure: 02/21/2023 Surgeon: Pio Shannon MD, Preoperative Diagnosis: Need for chemotherapy/small cell lung cancer. Postoperative Diagnosis: Need for chemotherapy/small cell lung cancer. Procedure Performed: Placement of a right internal jugular Port-A-Cath using ultrasound fluoroscopic guidance with interpretation intraoperatively. Anesthesia: General endotracheal plus local with 0.25% Marcaine. Estimated Blood Loss: Less than 10 cc. Specimen: None. Findings: 1.Dark nonpulsatile blood return. 2.Position confirmed with fluoroscopy. Complications: None. Implants: The patient has had implant of a Port-A-Cath. Disposition: The patient was transferred to the recovery room in good condition. Procedure In Detail: After informed consent was obtained, the patient was brought to the operating r oom, prepped and draped in the usual sterile fashion after adequate anesthesia was achieved. The pat ient was placed in steep Trendelenburg position. Ultrasound was utilized to cannulate the right inte rnal jugular vein using a microintroducer set and a microwire was advanced at this point. Position w as confirmed on fluoroscopy into the superior vena cava and into the right atrium. At this point, I made a small piyush incision overlying the insertion point. I then placed the microintroducer sheath a nd removed the microwire at this point and under fluoroscopic guidance, I advanced a guidewire quite easily without evidence of complication. The wire remained in place at this point and the introducer sheath position was confirmed using fluoroscopic guidance. At this point, I anesthetized the tract on the right chest wall including an area for placement of the Port-A-Cath down through subcutaneous tissues using 0.25% Marcaine at the mid incision in this area of the chest wall and using a tunneling device to tunnel the catheter over the collarbone and through the insertion site of the right neck. At this point, the catheter was clipped into place and I sized it appropriately at this point. I th en introduced the introducer sheath using Seldinger technique over the wire after removing the microi ntroducer sheath at this point and under fluoroscopic guidance advanced the catheter into the right a trium. At this point, the catheter remained in place and under fluoroscopic guidance, I pulled the c atheter back after the introducer sheath was removed to the position of the SVC at this point. I the n trimmed the catheter appropriately with the lock collar on and attached the appropriate Port-A-Cath port. At this point, I flushed it with saline, which was flushed quite easily. At this point, posi tion was confirmed once again under fluoroscopic guidance. I then secured the Port-A-Cath to the jamari st wall using 2-0 Prolene sutures in an interrupted fashion. I then irrigated the area, confirmed po sition 1 last time, and flushed the port with 3 cc of heparin super flush at this point and flushed q uite easily at this point and was functional. At this point, the area of the neck and the port was i rrigated copiously and the neck incision was closed with a single interrupted nylon suture and a ster ile dressing placed over top. The Port-A-Cath site was then irrigated once again and closed with int errupted 3-0 Vicryl suture in a deep dermal plane as well as subcutaneous 4-0 Monocryl in a running f ashion. Dermabond placed over top. The patient tolerated the procedure well without evidence of com plication and transferred to PACU in good condition. All counts were correct at the end of the case. ROSA/ALTONL Voice ID: [id number] Report ID: [id number]
[2023-02-21] MEDS ORDERED: HYDROCODONE/APAP 7.5/325 MG TAB ONE (16:05)
[2023-02-21 17:23] VITALS: BP 111/84; TEMP 96.8; O2SAT 100
--- NOTE | 2023-02-22 07:07 | EKG ---
Test Date: 2023-02-21 Test Time: 10:48:18 Security Agent: GEOFF MEASUREMENT RESULTS: Intervals: Rate: 95 NV: 102 QRSD: 70 QT: 356 QTc: 447 [place]: P: 25 NV: 102 QRS: 34 T: 48 INTERPRETIVE STATEMENTS: Sinus rhythm with short NV Possible Left atrial enlargement Borderline ECG Compared to ECG 02/08/2023 01:04:29 Short NV interval now present ST (T wave) deviation no longer present Electronically Signed On 02-22-23 07:06:34 CDT by Abdirahman Geller
== END 2023-02-21 17:00 | disposition home or self-care (01) ==
LOC: OR 10:24
PROVIDERS: ATTEND Surgery
PROC: 0JH60WZ Insertion of Totally Implantable Vascular Access Device into Chest Subcutaneous Tissue and Fascia, Open Approach (ICD-10-PCS; principal; 2023-02-21 13:00)
DX: C34.32 Malignant neoplasm of lower lobe, left bronchus or lung (principal); D64.9 Anemia, unspecified; H91.8X1 Other specified hearing loss, right ear; Z79.01 Long term (current) use of anticoagulants; Z79.899 Other long term (current) drug therapy; Z88.2 Allergy status to sulfonamides; Z88.5 Allergy status to narcotic agent; Z87.891 Personal history of nicotine dependence
CPT/HCPCS: 93005; 80048; 36415; 81025; 71045; 76000; 93971; 36561; J1644 ×2; A4216; J2704; J2001; J2250; J3010; J1100; J1170 ×2; J2405; J7120; J0690; C1788

== ENCOUNTER 2023-03-14 12:01 | Emergency (ER) | payer OTHER ==
--- OUTSIDE RECORDS SUMMARY | 2023-03-14 12:08 | XMS REPORT | Continuity of Care Document ---
:1980 Author Organization [facility] t Address [address] [place] [address] Care Team Providers Name Role Phone ESPINOZA PIERCE Attending Clinician Unavailable MUKUND INTERIANO Attending Clinician Unavailable LAURA GRIFFIN Attending Clinician Unavailable LAB90 Attending Clinician Unavailable LAB39 Attending Clinician Unavailable RICHARD SPENCER Attending Clinician Unavailable [facility] Attending Clinician Unavailabl e Payers Payer Name Policy Type Policy Number Effective Date Expiration Date Gaby teresa [facility] 9 [id number] 2022 00:00:00 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 [facility] Allergies, Adverse Reactions, Alerts Allergy Allergy Status Severity Reaction(s) Onset Inactive Treating Comm ents Source Name Type Date Date Clinician Morphine Propensi Active Queenie ty to 3-14 Seybold adverse 00:00: - reaction 00 Externa s l Na Propensi Active Rash Queenie Benzoate ty to 5-27 Seybold -Sulfame adverse 00:00: - thoxazol reaction 00 International Controller a e-Trimet s l hoprim Sulfamet Propensi [...] Medication? Clinician (SIG) Name Name Sertraline Yes [id number] 25mg Take 1 K elsey HCl 25 MG 3-30 tablet (25 Seyb old oral Tablet 00:00: mg total) - 00 by mouth Externa daily l Dexamethaso Yes Queenie ne 3-20 Seybold (DECADRON) 00:00: - 4 MG oral 00 Externa tablet l Calcitonin, Yes 1{spray Use 1 Ke bar [place], 200 3-20 } spray in Seyb old UNIT/ACT 00:00: one - nasal 00 nostril Externa Solution daily l Naloxone Yes Use as Queenie (Narcan) 4 3-20 directed, Seyb old MG/0.1ML 00:00: May be - nasal 00 repeated Externa Liquid if needed l Calcitonin, Yes 1{spray Use 1 Ke bar [place], 200 3-20 } spray in Seyb old [...] 00 :00 Externa l Ondansetron 0 Yes [id number] 4mg QD Take 1 Queenie (ZOFRAN) 4 3-10 tablet (4 Seyb old MG oral 00:00: mg total) - TABLET 00 by mouth Externa DISPERSIBLE daily as l needed for nausea HYDROcodone 0 Yes [id number] 1{tbl} Q.5D Take 1 Queenie -Acetaminop 3-10 tablet by Ej matamoros hen 10-325 00:00: mouth 2 - MG oral 00 times Externa Tablet daily as l needed for pain Fentanyl 25 Yes [id number] 1{patch Place 1 Queenie MCG/HR 3-10 } patch onto Seybold transdermal 00:00: the skin - PATCH 72 HR 00 every 72 Exte rna hours l Cetirizine 0 Yes [id number] 10mg Take 1 Queenie HCl (ZyrTEC 3-10 capsule Seybo ld Allergy) 10 00:00: (10 mg - MG oral 00 total) by Externa Capsule mouth l daily Famotidine 2022-0 Yes [id number] 20mg Take 1 Queenie (Pepcid) 20 3-10 tablet (20 Se ybold MG oral 00:00: mg total) - tablet 00 by mouth 2 Externa times l daily Ondansetron 2022-0 Yes [id number] 4mg QD Take 1 Queenie (ZOFRAN) 4 3-10 tablet (4 Seyb old MG oral 00:00: mg total) - TABLET 00 by mouth Externa DISPERSIBLE daily as l needed for nausea HYDROcodone 2022-0 Yes [id number] 1{tbl} Q.5D Take 1 Queenie -Acetaminop 3-10 tablet by [employer] Desktop hen 10-325 00:00: mouth 2 - MG oral 00 times Externa Tablet daily as l needed for pain Fentanyl 25 2022-0 Yes [id number] 1{patch Place 1 Queenie MCG/HR 3-10 } patch onto Seybold transdermal 00:00: the skin - PATCH 72 HR 00 every 72 Exte rna hours l Cetirizine 2022-0 Yes [id number] 10mg Take 1 Queenie HCl (ZyrTEC 3-10 capsule Seybo ld Allergy) 10 00:00: (10 mg - MG oral 00 total) by Externa Capsule mouth l daily Famotidine 2022-0 Yes [id number] 20mg Take 1 Queenie (Pepcid) 20 3-10 tablet (20 Se ybold MG oral 00:00: mg total) - tablet 00 by mouth 2 Externa times l daily Ondansetron 2022-0 Yes [id number] 4mg QD Take 1 Queenie (ZOFRAN) 4 3-10 tablet (4 Seyb old MG oral 00:00: mg total) - TABLET 00 by mouth Externa DISPERSIBLE daily as l needed for nausea HYDROcodone 2022-0 Yes [id number] 1{tbl} Q.5D Take 1 Queenie -Acetaminop 3-10 tablet by [employer] Desktop hen 10-325 00:00: mouth 2 - MG oral 00 times Externa Tablet daily as l needed for pain Fentanyl 25 2022-0 Yes [id number] 1{patch Place 1 Queenie MCG/HR 3-10 } patch onto Seybold transdermal 00:00: the skin - PATCH 72 HR 00 every 72 Exte rna hours l Cetirizine Yes [id number] 10mg Take 1 Queenie HCl (ZyrTEC 3-10 capsule Seybo ld Allergy) 10 00:00: (10 mg - MG oral 00 total) by Externa Capsule mouth l daily Famotidine Yes [id number] 20mg Take 1 Queenie (Pepcid) 20 3-10 [...] saturation in 2022-12-22 15:42:00 99 /min Queenie Segueritajanette - Arterial blood by External Pulse oximetry [...] Date/Time Type Type Clinicians Facility Department ID 2023-03-14 2023-03-14 Outpatient QUEENIE PIERCE [id number] Queenie 14:15:00 14:15:00 ESPINOZA Seybol d 2023-02-17 2023-02-17 Outpatient SEWIELAM, QUEENIE SPANN [id number] [place] 00:00:00 00:00:00 AHMED Seybol d 2023-02-14 2023-02-14 Outpatient PREZAS, QUEENIE SPANN [id number] [place] 14:45:00 14:45:00 ESPINOZA Seybol d 2023-02-14 2023-02-14 Outpatient SEWIELAM, QUEENIE SPANN [id number] [place] 09:15:00 09:15:00 AHMED Seybol d 2023-02-13 2023-02-13 Outpatient PREZAS, QUEENIE SPANN [id number] [place] 00:00:00 00:00:00 ESPINOZA Seybol d 2023-02-10 2023-02-10 Outpatient PREZAS, QUEENIE SPANN [id number] [place] 00:00:00 00:00:00 ESPINOZA Seybol d 2023-02-10 2023-02-10 Outpatient PREZAS, QUEENIE SPANN [id number] [place] 00:00:00 00:00:00 ESPINOZA Seybol d 2023-02-10 2023-02-10 Outpatient PREZAS, QUENEIE SPANN [id number] [place] 00:00:00 00:00:00 ESPINOZA Seybol d 2023-02-10 2023-02-10 Outpatient QUEENIE SPANN [id number] [place] 00:00:00 00:00:00 Seybol d 2023-02-07 2023-02-07 Outpatient PREZAS, QUEENIE SPANN [id number] [place] 00:00:00 00:00:00 ESPINOZA Seybol d 2023-02-05 2023-02-05 Outpatient PREZAS, QUEENIE SPANN [id number] [place] 00:00:00 00:00:00 ESPINOZA Seybol d 2023-01-31 2023-01-31 Outpatient SEWIELAM, QUEENIE SPANN [id number] [place] 00:00:00 00:00:00 AHMED Seybol d 2023-01-31 2023-01-31 Outpatient PREZAS, QUEENIE SPANN [id number] [place] 00:00:00 00:00:00 ESPINOZA Seybol d 2023-01-20 2023-01-20 Outpatient PREZAQUEENIE Griffin [id number] [place] 00:00:00 00:00:00 ESPINOZA Seybol d 2023-01-19 2023-01-19 Outpatient PREZAQUEENIE Griffin [id number] [place] 15:15:00 15:15:00 ESPINOZA Seybol d 2023-01-16 2023-01-16 Outpatient SEWQUEENIE FREITAS [id number] [place] 00:00:00 00:00:00 AHMED Seybol d 2023-01-09 2023-01-09 Outpatient QUEENIE INTERIANO [id number] [place] 00:00:00 00:00:00 AHMED Seybol d 2023-01-02 2023-01-02 Outpatient PREZAQUEENIE Griffin [id number] [place] 00:00:00 00:00:00 ESPINOZA Seybol d 2022-12-24 2022-12-24 Outpatient QUEENIE SPANN [id number] [place] 00:00:00 00:00:00 Seybol d 2022-12-22 2022-12-22 Outpatient PREZAQUEENIE Griffin [id number] [place] 11:00:00 11:00:00 ESPINOZA Seybol d 2022-12-21 2022-12-21 Outpatient PREZAQUEENIE Griffin [id number] [place] 00:00:00 00:00:00 ESPINOZA Seybol d 2022-12-21 2022-12-21 Outpatient GRIFFINQUEENIE [id number] [place] 00:00:00 00:00:00 ADRYENE Seybol d 2022-12-19 2022-12-19 Outpatient LAB90 QUEENIE SPANN [id number] [place] 10:25:00 10:25:00 Seybol d 2022-12-14 2022-12-14 Outpatient PREZAQUEENIE Griffin [id number] [place] 00:00:00 00:00:00 ESPINOZA Seybol d 2022-12-14 2022-12-14 Outpatient QUEENIE SPANN [id number] [place] 00:00:00 00:00:00 Seybol d 2022-12-12 2022-12-12 Outpatient LAB39 QUEENIE SPANN [id number] [place] 10:30:00 10:30:00 Seybol d 2022-12-12 2022-12-12 Outpatient SEWIELAM, QUEENIE SPANN [id number] [place] 09:45:00 09:45:00 AHMED Seybol d 2022-12-09 2022-12-09 Outpatient PREZAS, QUEENIE SPANN [id number] [place] 16:30:00 16:30:00 ESPINOZA Seybol d 2022-12-09 2022-12-09 Outpatient PREZASQUEENIE [id number] [place] 00:00:00 00:00:00 ESPINOZA Seybol d 2022-12-07 2022-12-07 Outpatient QUEENIE SPANN [id number] [place] 00:00:00 00:00:00 Seybol d 2022-12-06 2022-12-06 Outpatient RICHARD SPENCER [id number] [place] 14:40:00 14:40:00 Seybol d 2022-12-06 2022-12-06 Outpatient GROUP, QUEENIE SPANN [id number] [place] 00:00:00 00:00:00 QUEENIE Seybol d 2022-12-06 2022-12-06 Outpatient PREZAS, QUEENIE SPANN [id number] [place] 00:00:00 00:00:00 ESPINOZA Seybol d 2022-12-06 2022-12-06 Outpatient SEWIELAM, QUEENIE SPANN [id number] [place] 00:00:00 00:00:00 AHMED Seybol d 2022-12-05 2022-12-05 Outpatient PREZAS, QUEENIE SPANN [id number] [place] 00:00:00 00:00:00 ESPINOZA Seybol d 2022-12-05 2022-12-05 Outpatient QUEENIE SPANN [id number] [place] 00:00:00 00:00:00 Seybol d 2022-12-05 2022-12-05 Outpatient PREZAS, QUEENIE SPANN [id number] [place] 00:00:00 00:00:00 ESPINOZA Seybol d 2022-12-02 2022-12-02 Outpatient QUEENIE PIERCE [id number] [place] 16:30:00 16:30:00 ESPINOZA Seybol d 2022-11-30 2022-11-30 Outpatient QUEENIE PIERCE [id number] [place] 00:00:00 00:00:00 ESPINOZA Seybol d 2022-11-28 2022-11-28 Outpatient QUEENIE SPANN [id number] [place] 00:00:00 00:00:00 Seybol d 2022-11-25 2022-11-25 Outpatient QUEENIE PIERCE [id number] [place] 00:00:00 00:00:00 ESPINOZA Seybol d 2022-11-25 2022-11-25 Outpatient QUEENIE SPANN [id number] [place] 00:00:00 00:00:00 Seybol d 2022-11-24 2022-11-24 Outpatient QUEENIE PIERCE [id number] [place] 00:00:00 00:00:00 ESPINOZA Seybol d 2022-11-23 2022-11-23 Outpatient QUEENIE SPANN [id number] [place] 00:00:00 00:00:00 Seybol d 2022-11-22 2022-11-22 Outpatient GROUPQUEENIE [id number] [place] 00:00:00 00:00:00 QUEENIE Seybol d Results This patient has no known results.
[2023-03-14] MEDS ORDERED: ACETAMINOPHEN 500 MG TAB ONE (12:57)
[2023-03-14] MEDS ORDERED: NA CHLORIDE 0.9% 1,000 ML ONE (12:57)
[2023-03-14] MEDS ORDERED: ONDANSETRON 4 MG/2 ML VIAL ONE ×2 (12:57→19:30)
[2023-03-14 13:07] LABS: Absolute Lymphocytes (CBC) 1.1 K/uL (0.7-4.9); Hematocrit 30.9 % (36.0-45.0); Lymphocytes % 24.6 % (15.3-44.8); MCV 91.1 fL (80-100); MPV 6.5 fL (7.6-11.3); RBC Red Blood Cell Count 3.39 M/uL (3.86-4.86)
[2023-03-14 13:26] LABS: Albumin 3.6 g/dL (3.4-5.0); Bilirubin Total 0.3 mg/dL (0.2-1.0); Protein, Total 7.2 g/dL (6.4-8.2)
[2023-03-14 13:28] LABS: Potassium 3.7 mEq/L (3.5-5.1)
[2023-03-14] MEDS ORDERED: THIAMINE HCL 100 MG, FOLIC ACID 1 MG, MULTIVITAMINS INJ 10 ML in NA CHLORIDE 0.9% 1,000 ML IV ONE (16:00)
[2023-03-14] MEDS ORDERED: KETOROLAC 30 MG/ML INJ ONE (16:29)
--- NOTE | 2023-03-14 17:49 | ER ---
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 Coronavirus screen: At this time, the client does not indicate any symptoms associated with coronavirus-19. Ebola Screen: Patient negative for fever greater than or equal to 101.5 degrees Fahrenheit, and additional compatible Ebola Virus Disease symptoms Patient denies exposure to infectious person. Patient denies travel to an Ebola-affected area in the 21 days before illness onset. No symptoms or risks identified at this time. Initial Sepsis Screen: Does the patient meet any 2 criteria? No. Patient's initial sepsis screen is negative. Does the patient have a suspected source of infection? No. Patient's initial sepsis screen is negative. Risk Assessment: Do you want to hurt yourself or someone else? Patient reports no desire to harm self or others. Onset of symptoms was March 13, 2023. 12:09 Method Of Arrival: Wheelchair iw 12:09 Acuity: YING 3 iw Historical: - Allergies: 12:10 Bactrim; iw 12:10 Morphine; iw 12:10 tramadol; iw - PMHx: 12:10 BRAIN TUMOR; Lung mass; iw - PSHx: 12:10 Appendectomy; Brain tumor surgery; Cholecystectomy; Tonsillectomy; iw - Immunization history:: Adult Immunizations unknown. - Social history:: Smoking status: . Screenin:48 [facility] ED Fall Risk Assessment (Adult) History of falling in the last 3 months, db including since admission No falls in past 3 months (0 pts) Confusion or Disorientation No (0 pts) Intoxicated or Sedated No (0 pts) Impaired Gait No (0 pts) Mobility Assist Device Used No (0 pt) Altered Elimination No (0 pt) Score/Fall Risk Level 0 - 2 = Low Risk Oriented to surroundings, Maintained a safe environment. Abuse screen: Denies threats or abuse. Denies injuries from another. Nutritional screening: No deficits noted. Tuberculosis screening: No symptoms or risk factors identified. Assessment: 13:30 Reassessment: Patient appears in no apparent distress at this time. Patient and/or db family updated on plan of care and expected duration. Pain level reassessed. Patient is alert, oriented x 3, equal unlabored respirations, skin warm/dry/pink. General: Appears in no apparent distress. comfortable, Behavior is calm, cooperative. Neuro: Level of Consciousness is awake, alert, obeys commands, Oriented to person, place, time, situation. 14:44 Reassessment: Patient appears in no apparent distress at this time. Patient and/or db family updated on plan of care and expected duration. Pain level reassessed. Patient is alert, oriented x 3, equal unlabored respirations, skin warm/dry/pink. pending pharmacy for banana bag medication. Pain:. 19:15 General: Appears comfortable, Behavior is calm, cooperative. Pain: Denies pain. Neuro: ha1 Level of Consciousness is awake, alert, obeys commands, Oriented to person, place, time, situation. Cardiovascular: Patient's skin is warm and dry. Respiratory: Airway is patent Respiratory effort is even, unlabored, Respiratory pattern is regular, symmetrical. GI: Abdomen is flat, non-distended, Reports nausea. : No signs and/or symptoms were reported regarding the genitourinary system. Derm: Skin is pink, warm \T\ dry. Musculoskeletal: Circulation, motion, and sensation intact. Range of motion: intact in all extremities. 20:15 Reassessment: Patient and/or family updated on plan of care and expected duration. Pain ha1 level reassessed. Patient is alert, oriented x 3, equal unlabored respirations, skin warm/dry/pink. Patient states feeling better. Patient states symptoms have improved. Vital Signs: 12:09 BP 133 / 105; Pulse 106; Resp 19; Pulse Ox 100% on R/A; Weight 72.57 kg; Height 5 ft. 2 iw in. ; Pain 8/10; 13:30 BP 138 / 91; Pulse 84; Resp 16; Pulse Ox 100% on R/A; db 14:00 BP 138 / 7; Pulse 85; Resp 16; Pulse Ox 100% on R/A; db 14:30 BP 134 / 88; Pulse 96; Resp 16; Pulse Ox 100% on R/A; db 15:30 BP 144 / 98; Pulse 104; Resp 18; Temp 98.8(O); Pulse Ox 100% on R/A; db 16:00 BP 131 / 94; Pulse 88; Resp 18; Pulse Ox 100% ; db 17:00 BP 131 / 85; Pulse 93; Resp 18; Pulse Ox 100% on R/A; db 19:00 BP 152 / 106; Pulse 98; Resp 20 S; Pulse Ox 100% on R/A; ha1 20:15 BP 156 / 100; Pulse 90; Resp 19 S; Pulse Ox 100% on R/A; ha1 12:09 Body Mass Index 29.26 (72.57 kg, 157.48 cm) iw 12:09 Pain Scale: Adult iw ED Course: 12:02 Patient arrived in ED. am2 12:05 Ramy Spence MD is Attending Physician. kdr 12:10 Triage completed. iw 12:10 Arm band placed on. iw 12:55 Inserted saline lock: 22 gauge in right forearm, using aseptic technique. Blood mb9 collected. 13:02 CMP Sent. mb9 13:02 CBC with Diff Sent. mb9 14:37 Ijeoma Cherry, RN is Primary Nurse. db 14:48 Patient has correct armband on for positive identification. Bed in low position. Call db light in reach. Side rails up X 1. Pulse ox on. NIBP on. 18:08 CT Head Brain wo Cont In Process Unspecified. EDMS 18:49 Attending Physician role handed off by Ramy Spence MD [facility] 18:49 Candelario Bustamante MD is Attending Physician. [facility] 19:05 Initial transfer [facility]. Dr Bustamante spoke with Kathryn Begum. [facility] 19:13 Physician and Hospital approval by Dr. Lakeshia Bynum and Esperanza Begum, [facility]. 4B room 1 4018. 19:47 Contacted [facility]. Stated that the ETA would be an hour. 1 19:47 Contacted [facility] stated that the EA would be 20-30 mins. ah1 20:34 No provider procedures requiring assistance completed. Patient transferred, IV remains ha1 in place. Administered Medications: 12:55 Drug: NS 0.9% IV 1000 ml Route: IV; Rate: 1 bolus; Site: right forearm; mb9 12:56 Drug: Ondansetron IVP 4 mg Route: IVP; Site: right forearm; mb9 12:58 Drug: Acetaminophen PO 1000 mg Route: PO; mb9 16:20 Drug: Banana Bag - (NS 0.9% IV 1000 ml, foLIC Acid IVPB 1 mg, Thiamine IV 100 mg, db Multivitamin IV 1 amp) Route: IV; Rate: calculated rate; Site: right forearm; 16:27 Drug: Ketorolac IVP 15 mg Route: IVP; Site: right forearm; db 18:31 Drug: [place] PO 10 mg-325 mg 1 tabs Route: PO; db 19:27 Drug: Ondansetron IVP 4 mg Route: IVP; Site: right forearm; ha1 20:36 Follow up: Response: No adverse reaction; Nausea is decreased ha1 19:35 Drug: Decadron - Dexamethasone IVP 10 mg Route: IVP; Site: right forearm; nj1 20:36 Follow up: Response: No adverse reaction ha1 19:35 Drug: Famotidine IVP 20 mg Route: IVP; Site: right forearm; nj1 20:36 Follow up: Response: No adverse reaction ha1 Medication: 20:35 VIS not applicable for this client. ha1 Outcome: 17:48 Discharge ordered by MD. kdr 18:55 ER care complete, transfer ordered by MD. [facility] 20:34 Transferred by ground EMS Transfer form completed. Note: [facility]. ha1 20:34 Condition: stable 20:34 Discharge instructions given to patient, family, Instructed on the need for transfer, Demonstrated understanding of instructions. 20:36 Patient left the ED. ha1 Signatures: Dispatcher [employer] EDCandelario Garzon MD MD cha Rittger, Kevin, MD MD kdr Williams, Irene RN Eveline Perkins Heidy, RN RN ha1 Ijeoma Cherry RN RN db Breneman, Mary Beth, RN RN mb9 Renetta Oneal RN RN nj1 Ramon Mike [facility] Corrections: (The following items were deleted from the chart) 13:03 12:55 NS 0.9% IV 1000 ml IV at 1 bolus in left forearm mb9 mb9
--- NOTE | 2023-03-14 17:49 | EDPHYS ---
Physician Documentation [facility] Name: Mike Cornejo Age: 42 yrs Sex: Female : 1980 Arrival Date: 03/14/2023 Time: 12:01 Bed 20 Private MD: ED Physician Candelario Bustamante HPI: 03/14 13:57 This 42 yrs old Female presents to ER via Wheelchair with complaints of dehydration. kdr 13:57 Patient states that she has been vomiting and unable to keep anything down for the last kdr 24 hours. She states she feels very dehydrated. She also complains of a slight headache. Otherwise she is awake and alert and appropriate and nontoxic-appearing. Onset: The symptoms/episode began/occurred yesterday. Severity of symptoms: At their worst the symptoms were moderate severe just prior to arrival, in the emergency department the symptoms are unchanged. The patient has experienced similar episodes in the past, a few times. The patient has not recently seen a physician. Historical: - Allergies: 12:10 Bactrim; iw 12:10 Morphine; iw 12:10 tramadol; iw - PMHx: 12:10 BRAIN TUMOR; Lung mass; iw - PSHx: 12:10 Appendectomy; Brain tumor surgery; Cholecystectomy; Tonsillectomy; iw - Immunization history:: Adult Immunizations unknown. - Social history:: Smoking status: . ROS: 13:57 Constitutional: Negative for fever, chills, and weight loss, Eyes: Negative for injury, kdr pain, redness, and discharge, ENT: Negative for injury, pain, and discharge, Neck: Negative for injury, pain, and swelling, Cardiovascular: Negative for chest pain, palpitations, and edema, Respiratory: Negative for shortness of breath, cough, wheezing, and pleuritic chest pain, Abdomen/GI: Negative for abdominal pain, nausea, vomiting, diarrhea, and constipation, Back: Negative for injury and pain, : Negative for injury, bleeding, discharge, and swelling, MS/Extremity: Negative for injury and deformity, Skin: Negative for injury, rash, and discoloration, Psych: Negative for depression, anxiety, suicide ideation, homicidal ideation, and hallucinations, Allergy/Immunology: Negative for hives, rash, and allergies, Endocrine: Negative for neck swelling, polydipsia, polyuria, polyphagia, and marked weight changes, Hematologic/Lymphatic: Negative for swollen nodes, abnormal bleeding, and unusual bruising. 13:57 Abdomen/GI: Positive for nausea and vomiting, nausea, vomiting, abdominal cramps, Negative for diarrhea, constipation, abdominal distension. 13:57 Neuro: Positive for weakness. Exam: 13:57 Constitutional: This is a well developed, well nourished patient who is awake, alert, kdr and in no acute distress. Head/Face: Normocephalic, atraumatic. Eyes: Pupils equal round and reactive to light, extra-ocular motions intact. Lids and lashes normal. Conjunctiva and sclera are non-icteric and not injected. Cornea within normal limits. Periorbital areas with no swelling, redness, or edema. Neck: Trachea midline, no thyromegaly or masses palpated, and no cervical lymphadenopathy. Supple, full range of motion without nuchal rigidity, or vertebral point tenderness. No Meningismus. Chest/axilla: Normal chest wall appearance and motion. Nontender with no deformity. No lesions are appreciated. Cardiovascular: Regular rate and rhythm with a normal S1 and S2. No gallops, murmurs, or rubs. Normal PMI, no JVD. No pulse deficits. Respiratory: Lungs have equal breath sounds bilaterally, clear to auscultation and percussion. No rales, rhonchi or wheezes noted. No increased work of breathing, no retractions or nasal flaring. Abdomen/GI: Soft, non-tender, with normal bowel sounds. No distension or tympany. No guarding or rebound. No evidence of tenderness throughout. Back: No spinal tenderness. No costovertebral tenderness. Full range of motion. Skin: Warm, dry with normal turgor. Normal color with no rashes, no lesions, and no evidence of cellulitis. MS/ Extremity: Pulses equal, no cyanosis. Neurovascular intact. Full, normal range of motion. Neuro: Awake and alert, GCS 15, oriented to person, place, time, and situation. Cranial nerves II-XII grossly intact. Motor strength 5/5 in all extremities. Sensory grossly intact. Cerebellar exam normal. Normal gait. Psych: Awake, alert, with orientation to person, place and time. Behavior, mood, and affect are within normal limits. 13:57 Chest/axilla: Inspection: Patient has a well-healed access port in her right anterior upper chest wall. Vital Signs: 12:09 BP 133 / 105; Pulse 106; Resp 19; Pulse Ox 100% on R/A; Weight 72.57 kg; Height 5 ft. 2 iw in. ; Pain 8/10; 13:30 BP 138 / 91; Pulse 84; Resp 16; Pulse Ox 100% on R/A; db 14:00 BP 138 / 7; Pulse 85; Resp 16; Pulse Ox 100% on R/A; db 14:30 BP 134 / 88; Pulse 96; Resp 16; Pulse Ox 100% on R/A; db 15:30 BP 144 / 98; Pulse 104; Resp 18; Temp 98.8(O); Pulse Ox 100% on R/A; db 16:00 BP 131 / 94; Pulse 88; Resp 18; Pulse Ox 100% ; db 17:00 BP 131 / 85; Pulse 93; Resp 18; Pulse Ox 100% on R/A; db 19:00 BP 152 / 106; Pulse 98; Resp 20 S; Pulse Ox 100% on R/A; ha1 20:15 BP 156 / 100; Pulse 90; Resp 19 S; Pulse Ox 100% on R/A; ha1 12:09 Body Mass Index 29.26 (72.57 kg, 157.48 cm) iw 12:09 Pain Scale: Adult iw MDM: 13:57 Data reviewed: vital signs, nurses notes, lab test result(s). kdr 17:48 Patient medically screened. kdr 03/14 12:35 Order name: CBC with Diff; Complete Time: 15:42 kdr 03/14 12:35 Order name: CMP; Complete Time: 15:42 kdr 03/14 17:33 Order name: CT Head Brain wo Cont; Complete Time: 18:45 kdr Administered Medications: 12:55 Drug: NS 0.9% IV 1000 ml Route: IV; Rate: 1 bolus; Site: right forearm; mb9 12:56 Drug: Ondansetron IVP 4 mg Route: IVP; Site: right forearm; mb9 12:58 Drug: Acetaminophen PO 1000 mg Route: PO; mb9 16:20 Drug: Banana Bag - (NS 0.9% IV 1000 ml, foLIC Acid IVPB 1 mg, Thiamine IV 100 mg, db Multivitamin IV 1 amp) Route: IV; Rate: calculated rate; Site: right forearm; 16:27 Drug: Ketorolac IVP 15 mg Route: IVP; Site: right forearm; db 18:31 Drug: [place] PO 10 mg-325 mg 1 tabs Route: PO; db 19:27 Drug: Ondansetron IVP 4 mg Route: IVP; Site: right forearm; ha1 20:36 Follow up: Response: No adverse reaction; Nausea is decreased ha1 19:35 Drug: Decadron - Dexamethasone IVP 10 mg Route: IVP; Site: right forearm; nj1 20:36 Follow up: Response: No adverse reaction ha1 19:35 Drug: Famotidine IVP 20 mg Route: IVP; Site: right forearm; nj1 20:36 Follow up: Response: No adverse reaction ha1 Disposition Summary: 03/14/23 18:55 Transfer Ordered Reason: Higher level of care miguel a Condition: Fair(03/14/23 18:55) miguel a Problem: new(03/14/23 18:55) miguel a Symptoms: have worsened(03/14/23 18:55) miguel a Transfer Location: [facility]-System(03/14/23 19:05) miguel a Accepting Physician: TO [facility], NEURO(03/14/23 20:36) ha1 Diagnosis - Headache miguel a - Abnormal brain scan - RIGHT CEREBELLAR PONTINE ANGLE MASS WITH BRAINSTEM miguel a COMPRESSION WITH MILD HYDROCEPHALUS - Vomiting(03/14/23 18:55) miguel a Forms: - Medication Reconciliation Form miguel a - SBAR form miguel a Signatures: Dispatcher [employer] EDMS Mariama Méndez, JUANITA CRIMPING MACHINE OPERATOR FOR [employer] Candelario Bustamante MD MD cha Rittger, Kevin, MD MD kdr Williams, Irene, RN RN iw Ayala, Heidy RN RN ha1 Ijeoma Cherry RN RN Juanita Paz RN RN mb9 Renetta Oneal RN RN nj1 Corrections: (The following items were deleted from the chart) 18:49 17:48 Home kdr miguel a 18:49 17:48 new kdr miguel a 18:49 17:48 have improved kdr miguel a 18:49 17:48 Stable kdr miguel a 18:49 17:48 Dehydration kdr miguel a 18:49 17:48 Vomiting kdr miguel a 18:49 17:48 Weakness kdr miguel a 18:55 18:55 TO [facility], NEURO miguel a miguel a 19:05 18:55 [facility] miguel a miguel a 19:05 18:55 TO [facility], NEURO miguel a miguel a 20:36 19:05 TO [facility], NEURO miguel a ha1
[2023-03-14] MEDS ORDERED: HYDROCODONE/APAP 10/325 TAB ONE (18:06)
--- NOTE | 2023-03-14 18:18 | RAD REPORT ---
EXAM DESCRIPTION: CT - Head Brain Wo Cont - 03/14/2023 6:06 pm CLINICAL HISTORY: Headache December 2022 COMPARISON: December 2022 TECHNIQUE: Computed axial tomography of the head was obtained. IV contrast was not requested. All CT scans are performed using dose optimization technique as appropriate and may include automated exposure control or mA/KV adjustment according to patient size. FINDINGS: An intracranial bleed is not seen Postsurgical changes right skull Patient has a known enlarged right cerebellar pontine angle mass. It compresses the brainstem, fourth ventricle and aqueduct of Sylvius. Mild dilatation of third and lateral ventricles No extra-axial fluid collection Fluid within the sinuses/ mastoids is not seen. 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
[2023-03-14] MEDS ORDERED: FAMOTIDINE 20 MG/2 ML VIAL IV ONE (19:37)
[2023-03-14] MEDS ORDERED: dexAMETHasone 10 MG/ML VIAL ONE (19:37)
[2023-03-14 21:13] VITALS: O2SAT 100
[2023-03-14 21:21] VITALS: TEMP 98.8
[2023-03-14 21:29] VITALS: BP 156/100
== END 2023-03-14 20:36 | disposition short-term general hospital (02) ==
LOC: ER 12:01
DX: R94.02 Abnormal brain scan (principal); G93.5 Compression of brain; G93.89 Other specified disorders of brain; R11.2 Nausea with vomiting, unspecified; Z86.011 Personal history of benign neoplasm of the brain; Z88.1 Allergy status to other antibiotic agents; Z88.5 Allergy status to narcotic agent
CPT/HCPCS: 85025; 36415; 80053; 70450; J3411; J1100; J2405 ×2; J7030 ×2

== ENCOUNTER 2023-07-22 02:43 | Emergency (ER) | payer OTHER ==
[~2023-07-22 02:43] MED LIST: MIDAZOLAM HCL 2 MG/2 ML INJ ONE
--- OUTSIDE RECORDS SUMMARY | 2023-07-22 02:55 | XMS REPORT | Continuity of Care Document ---
:1980 Author Organization [facility] t Address [address] [facility] [address] [place] [address] Care Team Providers Name Role Phone Scott Galan Primary Care Physician ARTURO IBARRA Attending Clinician Unavailable ARTURO IBARRA Attending Clinician Unavailable DONNA LLANOS I. Attending Clinician Unavailable George Pickens MD Attending Clinician GEORGE PICKENS Attending Clinician Unavailable MUKUND INTERIANO Attending Clinician Unavailable Doctor Unassigned, [place] Attending Clinician Unavailable SCOTT GALAN Attending Clinician Unavailable Alida CALHOUN, Lyla Martinez Attending Clinician [phone] MD EDITH Attending Clinician Unavailable EL SILVA Attending Clinician Unavailable GRANT CURTIS Attending Clinician Unavailable QUEENIE DE LEÓN MEDICAL Attending Clinician Unavailpatricia Silva MD, El Attending Clinician Hieu GERARDO, Barrera Eldridge Attending Clinician Nicole Jennings LVN Attending Clinician JOSEFA CHAVES Attending Clinician Unavailable JOSEFA CHAVES Attending Clinician Unavailable Sophia GERARDO, Riana Attending Clinician Praveen GERARDO, Jonathan Attending Clinician Shari GERARDO, Wing Attending Clinician Call, [facility] Phone Attending Clinician Unavailable Nicolas ROWE, Carlota Sands Attending Clinician LAURA GRIFFIN Attending Clinician Unavailable LAB90 Attending Clinician Unavailable LAB39 Attending Clinician Unavailable RICHARD SPENCER Attending Clinician Unavailable MIKALA CHASE Attending Clinician Unavailable PRAVEEN BASILIO Attending Clinician Unavailable ARTURO IBARRA Admitting Clinician Unavailable DONNA LLANOS I. 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 00:00:00 [place] [facility] [facility] [place] [id number] 2018 2019 WOMEN 00:00:00 00:00:00 MEDICAID SSI PENDING 2019 2019 PENDING 00:00:00 00:00:00 MEDICAID 365 [id number] 2018 2018 VENDOR 00:00:00 00:00:00 Problems Condition Condition Condition Status Onset Resolution Last Treating Co mments Source Name Details Category Date Date Treatment Clinician Date Metastasis Metastasis Disease Active 2022-[address] [facility]11 [facility]: [place] [address] Center Acute Acute Disease Active Univers intractabl intractabl 7-08 it y of e e 00:00: [place] headache, headache, 00 [facility] carmen unspecifie unspecifie Br anch d headache d headache type type Obesity Obesity Disease Active Univers (BMI (BMI 7-08 ity of 30-39.9) 30-39.9) 00:00: [place] [address] Medical Branch 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 [facility] Allergies, Adverse Reactions, Alerts Allergy Allergy Status Severity Reaction(s) Onset Inactive Treating Comm ents Source Name Type Date Date Clinician Sulfamet Propensi Active 2022-[address] [facility] [address] hoxazole ty to 0-04 [facility] -Trimeth adverse 00:00: Medical oprim reaction 00 Center s Morphine Propensi Active 2022-[address] [facility] ty to 0-04 [facility] adverse 00:00: Medical reaction 00 Center s Tramadol Propensi Active 2022-[address] [facility] ty to 0-04 [facility] adverse 00:00: Medical reaction 00 Center s SULFAMET Allergy Active 2022-[address] [facility] HOXAZOLE 0-04 [facility] -TRIMETH 00:00: Medical OPRIM 00 Center MORPHINE Allergy Active 2022-[address] [facility] 0-04 [facility] 00:[facility]: Medical 00 Center TRAMADOL Allergy Active 2022-[address] 0-04 [facility] 00:[facility]: Medical 00 Center TRAMADOL DRUG Active Hives 2022- Univers INGREDI 6-20 ity of 00:00: [place] 00 Medical Branch MORPHINE DRUG Active Hives 2022- Univers INGREDI 6-20 ity of 00:00: [place] 00 Medical Branch Morphine Propensi Active Hives 0 Univer s ty to 6-20 ity of adverse 00:00: [place] reaction 00 Medical s Branch Tramadol Propensi Active Hives Univer s ty to 6-20 ity of adverse 00:00: [place] reaction 00 Medical s Branch Morphine Propensi Active Queenie ty to 3-14 Seybold adverse 00:00: - reaction 00 Externa s l Na Propensi Active Rash [place] Benzoate ty to 5-27 Seybold -Sulfame adverse 00:00: - thoxazol reaction 00 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 Maintenance a e-Trimet s l hoprim Sulfamet Propensi Active Hives 2019-0 [place] hoxazole ty to 1-25 Seybold adverse 00:00: - reaction 00 Externa s l SULFAMET DRUG Active Med Hives 2019-0 Univers HOXAZOLE INGREDI -25 ity of 00:00: [place] 00 Medical Branch Sulfamet Drug Active Hives 2019-0 Univers hoxazole Allergy -25 ity of 00:00: [place] 00 Medical Branch Social History Social Habit Start Date Stop Date Quantity Comments Source Gender identity [facility] [place] [facility] Sexual orientation [facility] [place] [facility] History of tobacco Passive smoker Un iversity of use [place] [facility] History SDOH University o f Alcohol Std Drinks [place] [facility] History SDOH University o f Alcohol Binge [place] [facility] al Branch History SDOH Social Unive rsity of Connections Get [place] Med ical Together Branch History SDOH Social Unive rsity of Connections [facility] Medical Branch History SDOH Social Unive rsity of Connections [place] [facility] Membership Branch History SDOH Social Unive rsity of Connections [place] [facility] Meetings Branch History SDOH 2023-03-16 2023-03-16 1 University o f Alcohol Frequency 00:00:00 00:00:00 [place] M edical Branch History SDOH Social 2023-03-16 2023-03-16 5 Unive rsity of Connections Phone 00:00:00 00:00:00 [place] M edical Branch History SDOH Social 2023-03-16 2023-03-16 8 Unive rsity of Connections Living 00:00:00 00:00:00 [place] [facility] History SDOH 2023-03-16 2023-03-16 0 University o f Physical Activity 00:00:00 00:00:00 [place] M edical DPW Branch History SDOH 2023-03-16 2023-03-16 0 University o f Physical Activity 00:00:00 00:00:00 [facility] edical MPS Branch History SDOH 2023-03-16 2023-03-16 5 University o f Financial 00:00:00 00:00:00 [place] [facility] History SDOH Food 2023-03-16 2023-03-16 1 Univers ity of Worry 00:00:00 00:00:00 [place] [facility] History SDGA Food 2023-03-16 2023-03-16 1 Univers ity of Scarcity 00:00:00 00:00:00 [place] [facility] History SDGA 2023-03-16 2023-03-16 2 University o f Transport Med 00:00:00 00:00:00 [place] Medic al Branch History SDGA 2023-03-16 2023-03-16 2 University o f Transport Non-Med 00:00:00 00:00:00 [place] M edical Branch History SDGA 2023-03-16 2023-03-16 2 University o f Housing Unable to 00:00:00 00:00:00 [place] M edical Pay Branch History [facility] 2023-03-16 2023-03-16 1 University o f Housing Places 00:00:00 00:00:00 [place] Medi carmen Lived Branch History [facility] 2023-03-16 2023-03-16 2 University o f Housing Homeless 00:00:00 00:00:00 [place] Me dical Last Year Branch Tobacco use and 2023-03-14 2023-03-14 Smokeless Universit y of exposure 00:00:00 00:00:00 tobacco non-user [facility] dical Branch Alcohol intake 2022-12-22 2022-12-22 Ex-drinker Queenie matamoros - 00:00:00 00:00:00 (finding) External Cigarettes smoked 2022-12-02 2022-12-02 Queenie Ledesma - current (pack per 00:00:00 00:00:00 Externa l day) - Reported Cigarette 2022-12-02 2022-12-02 Queenie Ledesma - pack-years 00:00:00 00:00:00 External Education 2022-12-02 2022-12-02 14 Queenie Ledesma - 00:00:00 00:00:00 External History of Social 2019-04-04 2019-04-04 Univers ity of function 00:00:00 00:00:00 [facility] Sex Assigned At [address] [facility] [address] [facility] 00:00:00 00:00:00 Medical Center Smoking Status Start Date Stop Date Source Ex-smoker 2023-03-14 00:00:00 2023-03-14 00:00:00 [facility] Medications Ordered Filled Start Stop Current Ordering Indication Dosage Frequency Signature Comments Components Source Medication Medication Date Date Medication? Clinician (SIG) Name Name Hong 2022-09- Yes Take [address] [facility] [address] ne 0-25 11-04 tablet (6 [facility] (DECADRON) 00:00: 23:59 mg total) M edical 6 MG tablet 00 :00 by mouth Cent er daily with breakfast for 5 days, THEN 0.5 tablets (3 mg total) daily with breakfast for 5 days. dexAMETHaso 2022-09- No Metastasis 6mg Take [address] [facility] [address] ne 0-18 10-25 to brain tablet (6 [facility] (DECADRON) 00:00: 00:00 (HCC) mg total) Medical 6 MG tablet 00 :00 by mouth 2 Ce nter (two) times daily with breakfast and dinner. memantine 2022-09 Yes Metastasis 5mg Take [address] [facility] (NAMENDA) 5 0-12 to brain tablet (5 [facility] MG tablet 00:00: (HCC) mg total) Nc dical 00 by mouth Center as directed Start by taking one tablet by mouth a day for one week. Week 2 take one tablet by mouth twice a day for one week. Week 3 Take one table by mouth in the morning and two tablets in the evening for one week.. dexAMETHaso 2022-09 No Metastasis 4mg Take [address] [facility] ne 0-11 10-18 to brain tablet (4 [facility] (DECADRON) 00:00: 00:00 (HCC) mg total) Medical 4 MG tablet 00 :00 by mouth 2 Ce nter (two) times daily with breakfast and dinner. memantine 2022-09- No Metastasis 5mg Take [address] [facility] (NAMENDA) 5 0-11 10-12 to brain tablet (5 [facility] MG tablet 00:00: 00:00 (HCC) mg total) M edical 00 :00 by mouth Center as directed for 21 days Take 1 tablet by mouth for one week. Week 2: Take one tablet by mouth twice a day for a week. Week 3: Take one tablet by mouth in the morning and two tablets in the evening for one week.. LORazepam 2023-0 Yes Patient to [facility] (ATIVAN) 1 06-20 take one [facility] MG tablet 00:00: tablet Medica l [address] [place] [address] simon 30 minutes prior to radiation therapy or MRI for claustroph obia.. docusate 0 Yes Take by Univer s sodium 8-11 mouth ity of (COLACE 08:22: daily. [place] ORAL) 54 Medical Branch butalb/acet 0 Yes Take by Uni vers aminophen/c 8-11 mouth ity of affeine 08:22: every 4 [place] (FIORICET 54 (four) Medical ORAL) hours as Branch needed. VITAMIN E 0 Yes Take by Unive rs ACETATE 8-11 mouth. ity of ORAL 08:22: [place] [address] Medical Branch FENBENDAZOL Yes Univer s E, BULK, 8-11 ity of MISC 08:22: [place] [address] Medical Branch turmeric Yes Univers (CURCUMIN 8-11 ity of MISC) 08:22: [place] [address] Medical Branch docusate 0 Yes Take by Univer s sodium 8-11 mouth ity of (COLACE 08:22: daily. [place] ORAL) 54 Medical Branch butalb/acet 0 Yes Take by Uni vers aminophen/c 8-11 mouth ity of affeine 08:22: every 4 [place] (FIORICET 54 (four) Medical ORAL) hours as Branch needed. VITAMIN E 0 Yes Take by Unive rs ACETATE 8-11 mouth. ity of ORAL 08:22: [place] [address] Medical Branch FENBENDAZOL 0 Yes Univer s E, BULK, 8-11 ity of MISC 08:22: [place] [address] Medical Branch turmeric 0 Yes Univers (CURCUMIN 8-11 ity of MISC) 08:22: [place] [address] Medical Branch docusate 0 Yes Take by Univer s sodium 8-11 mouth ity of (COLACE 08:22: daily. [place] ORAL) 54 Medical Branch butalb/acet 0 Yes Take by Uni vers aminophen/c 8-11 mouth ity of affeine 08:22: every 4 [place] (FIORICET 54 (four) Medical ORAL) hours as Branch needed. VITAMIN E 2023-0 Yes Take by Unive rs ACETATE 8-11 mouth. ity of ORAL 08:22: [place] [address] Medical Branch FENBENDAZOL Yes Univer s E, BULK, 8-11 ity of MISC 08:22: [place] [address] Medical Branch turmeric Yes Univers (CURCUMIN 8-11 ity of MISC) 08:22: [place] [address] Medical Branch docusate Yes Take by Univer s sodium 8-11 mouth ity of (COLACE 08:22: daily. [place] ORAL) Medical Branch butalb/acet Yes Take by Uni vers aminophen/c 8-11 mouth ity of affeine 08:22: every 4 [place] (FIORICET 54 (four) Medical ORAL) hours as Branch needed. VITAMIN E Yes Take by Unive rs ACETATE 8-11 mouth. ity of ORAL 08:22: [place] [address] Medical Branch FENBENDAZOL Yes Univer s E, BULK, 8-11 ity of MISC 08:22: [place] [address] Medical Branch turmeric Yes Univers (CURCUMIN 8-11 ity of MISC) 08:22: [place] [address] Medical Branch white Yes [id number] .5[in_u Place 0.5 Univers petrolatum- 8-11 100 s] Inches in ity of mineral oiL 00:00: [place] 83-15 % 00 at Medical ophthalmic bedtime. Branc h ointment artificial Yes [id number] 1[drp] Place 1 Univers tears, 8-11 100 Drop in ity of hypromellos 00:00: [place] e, 0.3 % 00 every 8 Medical ophthalmic (eight) Branch gel hours. white Yes [id number] .5[in_u Place 0.5 Univers petrolatum- 8-11 100 s] Inches in ity of mineral oiL 00:00: right [place] 83-15 % 00 at Medical ophthalmic bedtime. Branc h ointment artificial Yes [id number] 1[drp] Place 1 Univers tears, 8-11 100 Drop in ity of hypromellos 00:00: [place] e, 0.3 % 00 every 8 Medical ophthalmic (eight) Branch gel hours. white Yes [id number] .5[in_u Place 0.5 Univers petrolatum- 8-11 100 s] Inches in ity of mineral oiL 00:00: right [place] 83-15 % 00 at Medical ophthalmic bedtime. Branc h ointment artificial Yes [id number] 1[drp] Place 1 Univers tears, 811 100 Drop in ity of hypromellos 00:00: [place] e, 0.3 % 00 every 8 Medical ophthalmic (eight) Branch gel hours. rivaroxaban Yes 1477 20mg Take 2 Univ ers (XARELTO) 7-24 tablets by ity of 10 mg 00:00: mouth in [place] tablet 00 the Medical morning. Branch Indication s: blood clots in deep veins and in blood vessel of the lung rivaroxaban Yes 1477 20mg Take 2 Univ ers (XARELTO) 7-24 tablets by ity of 10 mg 00:00: mouth in [place] tablet 00 the Medical morning. Branch Indication s: blood clots in deep veins and in blood vessel of the lung rivaroxaban Yes 1477 20mg Take 2 Univ ers (XARELTO) 7-24 tablets by ity of 10 mg 00:00: mouth in [place] tablet 00 the Medical morning. Branch Indication s: blood clots in deep veins and in blood vessel of the lung rivaroxaban Yes 1477 20mg Take 2 Univ ers (XARELTO) 7-24 tablets by ity of 10 mg 00:00: mouth in [place] tablet 00 the Medical morning. Branch Indication s: blood clots in deep veins and in blood vessel of the lung rivaroxaban 0 Yes 1477 20mg Take 2 Univ ers (XARELTO) 7-24 tablets by ity of 10 mg 00:00: mouth in [place] tablet 00 the Medical morning. Branch Indication s: blood clots in deep veins and in blood vessel of the lung rivaroxaban 0 Yes 1477 20mg Take 2 Univ ers (XARELTO) 7-24 tablets by ity of 10 mg 00:00: mouth in [place] tablet 00 the Medical morning. Branch Indication s: blood clots in deep veins and in blood vessel of the lung rivaroxaban 2022-0 Yes 1477 20mg Take 2 Univ ers (XARELTO) 7-24 tablets by ity of 10 mg 00:00: mouth in [place] tablet 00 the Medical morning. Branch Indication s: blood clots in deep veins and in blood vessel of the lung rivaroxaban 2022-0 Yes 1477 20mg Take 2 Univ ers (XARELTO) 7-24 tablets by ity of 10 mg 00:00: mouth in [place] tablet 00 the Medical morning. Branch Indication s: blood clots in deep veins and in blood vessel of the lung rivaroxaban 0 Yes 1477 20mg Take 2 Univ ers (XARELTO) 7-24 tablets by ity of 10 mg 00:00: mouth in [place] tablet 00 the Medical morning. Branch Indication s: blood clots in deep veins and in blood vessel of the lung rivaroxaban 2022-0 Yes 1477 20mg Take 2 Univ ers (XARELTO) 7-24 tablets by ity of 10 mg 00:00: mouth in [place] tablet 00 the Medical morning. Branch Indication s: blood clots in deep veins and in blood vessel of the lung heparin 2022-0 2022- No 5mL 500 Units [facility] ers lock flush 04-12- (5 mL), IV it y of (HEPARIN 21:45: 21:22 Push, [place] LOCKFLUSH(P 00 :00 ONCE, 1 Medic al ORCINE)(PF) dose, On Bran ch ) 100 Wed unit/mL 04/12/23 at injection 1645, 500 Units Routine pantoprazol 0 Yes 40mg 40 mg, Univ ers e 04-12 Oral, ity of (PROTONIX) 18:45: DAILY, [place] EC tablet 00 First dose Medi carmen 40 mg on Wed Branch 04/12/23 at 1345, Until Discontinu ed, Routine docusate 0 Yes Take by Univer s sodium 04-12 mouth ity of (COLACE 17:26: daily. [place] ORAL) 27 Medical Branch butalb/acet 0 Yes Take by Uni vers aminophen/c 04-12 mouth ity of affeine 17:26: every 4 [place] (FIORICET 27 (four) Medical ORAL) hours as Branch needed. VITAMIN E 0 Yes Take by Unive rs ACETATE 7-19 mouth. ity of ORAL 17:26: [address] Branch FENBENDAZOL Yes Univer s E, BULK, 7-19 ity of MISC 17:26: [address] Branch turmeric Yes Univers (CURCUMIN 7-19 ity of MISC) 17:26: [address] Branch docusate Yes Take by Univer s sodium 7-19 mouth ity of (COLACE 17:26: daily. [place] ORAL) Medical Branch butalb/acet Yes Take by Uni vers aminophen/c 7-19 mouth ity of affeine 17:26: every 4 [place] (FIORICET 27 (four) Medical ORAL) hours as Branch needed. VITAMIN E Yes Take by Unive rs ACETATE 7-19 mouth. ity of ORAL 17:26: [address] Branch FENBENDAZOL Yes Univer s E, BULK, 7-19 ity of MISC 17:26: [address] Branch turmeric Yes Univers (CURCUMIN 7-19 ity of MISC) 17:26: [address] Branch docusate Yes Take by Univer s sodium 7-19 mouth ity of (COLACE 17:26: daily. [place] ORAL) Medical Branch butalb/acet Yes Take by Uni vers aminophen/c 7-19 mouth ity of affeine 17:26: every 4 [place] (FIORICET 27 (four) Medical ORAL) hours as Branch needed. VITAMIN E Yes Take by Unive rs ACETATE 7-19 mouth. ity of ORAL 17:26: [address] Branch FENBENDAZOL Yes Univer s E, BULK, 7-19 ity of MISC 17:26: [address] Branch turmeric Yes Univers (CURCUMIN 7-19 ity of MISC) 17:26: [address] Branch docusate Yes Take by Univer s sodium 7-19 mouth ity of (COLACE 17:26: daily. [place] ORAL) Medical Branch butalb/acet Yes Take by Uni vers aminophen/c 7-19 mouth ity of affeine 17:26: every 4 [place] (FIORICET 27 (four) Medical ORAL) hours as Branch needed. VITAMIN E 0 Yes Take by Unive rs ACETATE 7-19 mouth. ity of ORAL 17:26: [address] Branch FENBENDAZOL 0 Yes Univer s E, BULK, 7-19 ity of MISC 17:26: [address] Branch turmeric Yes Univers (CURCUMIN 7-19 ity of MISC) 17:26: [address] Branch docusate 0 Yes Take by Univer s sodium 7-19 mouth ity of (COLACE 17:26: daily. [place] ORAL) Medical Branch butalb/acet 0 Yes Take by Uni vers aminophen/c 7-19 mouth ity of affeine 17:26: every 4 [place] (FIORICET 27 (four) Medical ORAL) hours as Branch needed. VITAMIN E 2022-0 Yes Take by Unive rs ACETATE 7-19 mouth. ity of ORAL 17:26: [address] Branch FENBENDAZOL Yes Univer s E, BULK, 7-19 ity of MISC 17:26: [address] Branch turmeric Yes Univers (CURCUMIN 7-19 ity of MISC) 17:26: [address] Branch docusate 0 Yes Take by Univer s sodium 7-19 mouth ity of (COLACE 17:26: daily. [place] ORAL) Medical Branch butalb/acet 0 Yes Take by Uni vers aminophen/c 7-19 mouth ity of affeine 17:26: every 4 [place] (FIORICET 27 (four) Medical ORAL) hours as Branch needed. VITAMIN E 2022-0 Yes Take by Unive rs ACETATE 7-19 mouth. ity of ORAL 17:26: [address] Branch FENBENDAZOL 0 Yes Univer s E, BULK, 7-19 ity of MISC 17:26: [address] Branch turmeric 0 Yes Univers (CURCUMIN 7-19 ity of MISC) 17:26: [address] Branch docusate 0 Yes Take by Univer s sodium 7-19 mouth ity of (COLACE 17:26: daily. [place] ORAL) Medical Branch butalb/acet Yes Take by Uni vers aminophen/c 7-19 mouth ity of affeine 17:26: every 4 [place] (FIORICET 27 (four) Medical ORAL) hours as Branch needed. VITAMIN E Yes Take by Unive rs ACETATE 7-19 mouth. ity of ORAL 17:26: [address] FENBENDAZOL Yes Univer s E, BULK, 7-19 ity of MISC 17:26: [address] turmeric Yes Univers (CURCUMIN 7-19 ity of MISC) 17:26: [address] docusate Yes Take by Univer s sodium 7-19 mouth ity of (COLACE 17:26: daily. [place] ORAL) [address] [place] [address] butalb/acet Yes Take by Uni vers aminophen/c 7-19 mouth ity of affeine 17:26: every 4 [place] (FIORICET 27 (four) Medical ORAL) hours as Branch needed. VITAMIN E Yes Take by Unive rs ACETATE 7-19 mouth. ity of ORAL 17:26: [address] FENBENDAZOL Yes Univer s E, BULK, 7-19 ity of MISC 17:26: [address] turmeric Yes Univers (CURCUMIN 7-19 ity of MISC) 17:26: [address] rivaroxaban 2022- No Take by Un sonja (XARELTO) 7-19 07-19 mouth ity of 10 mg 11:08: 00:00 daily. [place] tablet 57 :00 [facility] rivaroxaban 2022- No Take by Un sonja (XARELTO) 7-19 07-19 mouth ity of 10 mg 11:08: 00:00 daily. [place] tablet 57 :00 [facility] aloe vera Yes Topical, Univ ers (DERMAIDE 7-19 TID, First ity of ALOE) cream 01:00: dose on Emiliano as Mon Medical 04/11/23 at Branch 1999, Until Discontinu ed, Routine amLODIPine Yes [id number] 10mg Take 1 Univers 10 mg 7-19 tablet by ity of tablet 00:00: mouth in [place] the Medical morning. Branch amLODIPine 2023-0 Yes [id number] 10mg Take 1 Univers 10 mg 7-19 tablet by ity of tablet 00:00: mouth in [place] the Medical morning. Branch amLODIPine 2023-0 Yes [id number] 10mg Take 1 Univers 10 mg 7-19 tablet by ity of tablet 00:00: mouth in [place] the Medical morning. Branch amLODIPine 2023-0 Yes [id number] 10mg Take 1 Univers 10 mg 7-19 tablet by ity of tablet 00:00: mouth in [place] the Medical morning. Branch amLODIPine 2023-0 Yes [id number] 10mg Take 1 Univers 10 mg 7-19 tablet by ity of tablet 00:00: mouth in [place] the Medical morning. Branch amLODIPine 2023-0 Yes [id number] 10mg Take 1 Univers 10 mg 7-19 tablet by ity of tablet 00:00: mouth in [place] the Medical morning. Branch amLODIPine 3-0 Yes [id number] 10mg Take 1 Univers 10 mg 7-19 tablet by ity of tablet 00:00: mouth in [place] the Medical morning. Branch amLODIPine 3-0 Yes [id number] 10mg Take 1 Univers 10 mg 7-19 tablet by ity of tablet 00:00: mouth in [place] the Medical morning. Branch amLODIPine 3-0 Yes [id number] 10mg Take 1 Univers 10 mg 7-19 tablet by ity of tablet 00:00: mouth in [place] the Medical morning. Branch amLODIPine 3-0 Yes [id number] 10mg Take 1 Univers 10 mg 7-19 tablet by ity of tablet 00:00: mouth in [place] the Medical morning. Branch HYDROcodone 2022-0 2022- No 1{tbl} Take 1 U nivers -acetaminop 7-18 07-18 tablet by it y of hen 5-325 11:26: 00:00 mouth [place] mg tablet 42 :00 every 6 Medical (six) Branch hours as needed. HYDROcodone 2022-0 2022- No 1{tbl} Take 1 U nivers -acetaminop 7-18 07-18 tablet by it y of hen 5-325 11:26: 00:00 mouth [place] mg tablet 42 :00 every 6 Medical (six) Branch hours as needed. dexAMETHaso 2022-0 202- No 2mg 2 mg, Univ ers ne 7-18 07-18 Enteral, ity of (DECADRON) 01:00: 03:02 Q12H, 1 [place]iano as tablet 2 mg 00 :00 dose, Medical First dose Branch on Mon04/10/23 at 1999, Routine HYDROcodone 2022-0 Yes [id number] 1{tbl} Take 1 Un sonja -acetaminop 7-18 tablet by ity of hen 5-325 00:00: mouth [place] mg tablet 00 every 6 Medical (six) Branch hours as needed for Pain (scale 4-6). Indication s: acute pain HYDROcodone 2022-0 Yes [id number] 1{tbl} Take 1 Un sonja -acetaminop 7-18 tablet by ity of hen 5-325 00:00: mouth [place] mg tablet 00 every 6 Medical (six) Branch hours as needed for Pain (scale 4-6). Indication s: acute pain HYDROcodone 2022-0 Yes [id number] 1{tbl} Take 1 Un sonja -acetaminop 7-18 tablet by ity of hen 5-325 00:00: mouth [place] mg tablet 00 every 6 Medical (six) Branch hours as needed for Pain (scale 4-6). Indication s: acute pain HYDROcodone 2022-0 Yes 4647 1{tbl} Take 1 Un sonja -acetaminop 7-18 tablet by ity of hen 5-325 00:00: mouth [place] mg tablet 00 every 6 Medical (six) Branch hours as needed for Pain (scale 4-6). Indication s: acute pain HYDROcodone 2022-0 Yes 4647 1{tbl} Take 1 [facility] son[facility] -acetaminop 7-18 tablet by ity of hen 5-325 00:00: mouth [place] mg tablet 00 every 6 Medical (six) Branch hours as needed for Pain (scale 4-6). Indication s: acute pain HYDROcodone 2022-0 Yes 4647 1{tbl} Take 1 [facility] sonja -acetaminop 7-18 tablet by ity of hen 5-325 00:00: mouth [place] mg tablet 00 every 6 Medical (six) Branch hours as needed for Pain (scale 4-6). Indication s: acute pain HYDROcodone 2022-0 Yes 4647 1{tbl} Take 1 [facility] son[facility] -acetaminop 7-18 tablet by ity of hen 5-325 00:00: mouth [place] mg tablet 00 every 6 Medical (six) Branch hours as needed for Pain (scale 4-6). Indication s: acute pain HYDROcodone 2022-0 Yes 4647 1{tbl} Take 1 [facility] [place] -acetaminop 7-18 tablet by ity of hen 5-325 00:00: mouth [place] mg tablet 00 every 6 Medical (six) Branch hours as needed for Pain (scale 4-6). Indication s: acute pain HYDROcodone 2022-0 Yes 4647 1{tbl} Take 1 [place] -acetaminop 7-18 tablet by ity of hen 5-325 00:00: mouth [place] mg tablet 00 every 6 Medical (six) Branch hours as needed for Pain (scale 4-6). Indication s: acute pain HYDROcodone 2022-0 Yes 4647 1{tbl} Take 1 [place] -acetaminop 7-18 tablet by ity of hen 5-325 00:00: mouth [place] mg tablet 00 every 6 Medical (six) Branch hours as needed for Pain (scale 4-6). Indication s: acute pain artificial 2022-0 Yes 1[drp] 1 Drop, [facility] tears(hypro 7-17 Both Eyes, it y of mellose) 22:15: Q8H, First [place] as (ISOPTO-TEA 00 dose on Medic al RS) 0.5 % Mon Branch ophthalmic 04/10/23 at drops 1 1715, Drop Until Discontinu ed, Routine labetaloL 0 Yes 20mg 20 mg, Univer s (NORMODYNE) 7-17 Slow IV ity o f injection 18:51: Push, [place] 20 mg 17 Q15MIN Medical PRN, Branch Starting on Mon04/10/23 at 1351, Until Discontinu ed, Routine, SBP goal <130 mmHg and HR <100 ondansetron 2022-0 Yes 4mg 4 mg, Slow Univers (ZOFRAN 7-17 IV Push, ity of (PF)) 15:30: Q6HPRN, [place] injection 4 00 Nausea and Me dical mg Vomiting Branch (N/V), Starting on Mon04/10/23 at 1030
Do ses of ondansetro n 16 mg and above need to be administer ed via IV piggyback. For Dose >=24mg ECG monitoring is advisable.
enoxaparin 3-0 Yes 40mg 40 mg, Unive rs (LOVENOX) 04-10 Subcutaneo ity of injection 03:00: us, Q24H, [place] as 40 mg 00 First dose Medical (after Branch last modificati on) on Mon04/09/23 at 2200, Until Discontinu ed, Routine enoxaparin 2022-0 2023- No 40mg 40 mg, Univ ers (LOVENOX) 04-08 Subcutaneo ity of injection 14:45: 13:17 [place], Q24H, [place] 40 [place] 00 :04 First dose Medical on [facility] 04/08/23 at 0945, Until Discontinu ed, Routine bisacodyL 2022-0 2022- No 10mg 10 mg, Unive rs (DULCOLAX) 04-07 Rectal, ity o f suppository 15:45: 15:48 ONCE, 1 [place] 10 mg 00 :00 dose, On Medical Mon [place] 04/07/23 at 1045, Routine dexamethaso 2022-0 2022- No 2mg 2 mg, Univ ers ne 04-06 Intravenou ity of (DECADRON 13:00: 15:22 s, Q12H, [place] PHOSPHATE) 00 :49 10 doses, Medi carmen injection 2 First dose Br anch mg (after last modificati on) on Mon04/06/23 at 0800, Last dose on Mon04/10/23 at 2000, 1 mL dexamethaso 3-0 Yes 4mg 4 mg, Unive rs ne 04-06 Intravenou ity of (DECADRON 01:00: s, Q12H, [place] PHOSPHATE) 00 First dose Med ical injection 4 (after Branch mg last modificati on) on Mon04/05/23 at 2000, Until Discontinu ed, 1 mL dexamethaso 2023-0 2023- No 4mg 4 mg, Univ ers ne 04-06 Intravenou ity of (DECADRON 01:00: 12:23 s, Q12H, [place] as PHOSPHATE) 00 :03 First dose Med ical injection 4 (after Branch mg last modificati on) on Mon04/05/23 at 2000, Until Discontinu ed, 1 mL ketorolac 2022- No 15mg 15 mg, Unive rs (TORADOL) 04-05 Slow IV ity of injection 21:46: 21:45 Push, [place] 15 mg 00 :00 Q8HPRN, 8 Medical doses, Branch Starting on Mon04/05/23 at 1646, Until Mon04/10/23 at 1645, Routine, Pain (scale 7-10), severe pain; can alternate with fentanyl amLODIPine 0 Yes [id number] 10mg 10 mg, Univers (NORVASC) 04-05 Oral, ity of tablet 10 14:45: DAILY, [place] mg 00 First dose Medical on Mon04/05/23 at 0945, Until Discontinu ed, Routine amLODIPine 0 Yes [id number] 10mg 10 mg, Univers (NORVASC) 04-05 Oral, ity of tablet 10 14:45: DAILY, [place] mg 00 First dose Medical on Mon04/05/23 at 0945, Until Discontinu ed, Routine magnesium 2022-0 2022- No [id number] 2g 2 g, IV Univers sulfate in 04-05 Piggyback, it y of water 2 13:30: 15:01 Administer [place] gram/50 mL 00 :00 over 60 Medica l (4 %) Minutes, Branch infusion 2 ONCE, 1 g dose, On Mon04/05/23 at 0830, Routine FENTanyl 0 Yes 1{patch 1 Patch, [place] (DURAGESIC) 04-04 } Transderma it y of 12 mcg/hr 22:15: l (Apply [place] patch 1 00 To Skin), Medical Patch Administer Branch over 72 Hours, Q72H, First dose on Mon04/04/23 at 1715, Until Discontinu ed, Routine FENTanyl 2022-0 Yes 1{patch 1 Patch, [place] (DURAGESIC) 04-04 } Transderma it y of 12 mcg/hr 22:15: l (Apply [place] patch 1 00 To Skin), Medical Patch Administer Branch over 72 Hours, Q72H, First dose on 7/11/23 at 1715, Until Discontinu ed, Routine FENTanyl 2022-0 Yes 1{patch 1 Patch, [place] (DURAGESIC) 04-04 } Transderma it y of 12 mcg/hr 22:15: l (Apply [place] patch 1 00 To Skin), Medical Patch Administer Branch over 72 Hours, Q72H, First dose on Mon04/04/23 at 1715, Until Discontinu ed, Routine diazePAM 2022-0 Yes 5mg 5 mg, Univers (VALIUM) 04-04 Intravenou ity o f injection 5 22:13: s, TIDPRN, [place] mg 51 Starting Medical on Mon Branch 04/04/23 at 1713, Until Discontinu ed, Routine, spasms diazePAM 2022-0 Yes 5mg 5 mg, Univers (VALIUM) 04-04 Intravenou ity o f injection 5 22:13: s, TIDPRN, [place] mg 51 Starting Medical on Mon Branch 04/04/23 at 1713, Until Discontinu ed, Routine, spasms gadoteridol 2022-0 2022- No [id number] .2mL/kg 15.34 mL Univers (PROHANCE-1 04-0411 (0.2 mL/kg i ty of 5 mL) 21:45: 21:45 ?76.7 kg), [place] injection 00 :00 Intravenou Medi carmen 15.34 mL s, ONCE, 1 Branc h dose, On Mon04/04/23 at 1645, Routine HYDROcodone 2022-0 Yes 1{tbl} 1 tablet, Univers -acetaminop 7-11 Oral, ity of hen (NORCO 21:41: Q6HPRN, [place] 5) 5-325 mg 59 Starting Medi carmen tablet 1 on Mon Branch tablet 04/04/23 at 1641, Until Discontinu ed, Routine, Pain (scale 4-6) HYDROcodone 2022-0 Yes 1{tbl} 1 tablet, Univers -acetaminop 7-11 Oral, ity of hen (NORCO 21:41: Q6HPRN, [place] 5) 5-325 mg 59 Starting Medi carmen tablet 1 on Mon Branch tablet 04/04/23 at 1641, Until Discontinu ed, Routine, Pain (scale 4-6) HYDROcodone 2023-0 Yes 1{tbl} 1 tablet, Univers -acetaminop 04-04 Oral, ity of hen (NORCO 21:41: Q6HPRN, [place] 5) 5-325 mg 59 Starting Medi carmen tablet 1 on [facility] tablet 04/04/23 at 1641, Until Discontinu ed, Routine, Pain (scale 4-6) midazolam 2022- No 2mg 2 mg, IV Uni vers (VERSED) 04-04 Push, ity of injection 2 18:00: 20:35 ONCE, 1 [place] mg 00 :00 dose, On Medical [facility] Branch 04/04/23 at 1300, Routine FENTanyl PF 2022- No 25ug 25 mcg, Un sonja (SUBLIMAZE 04-04 Slow IV ity o f (PF)) 16:45: 16:10 Push, [place] injection 00 :00 ONCE, 1 Medical 25 mcg dose, On [facility] 04/04/23 at 1145, Routine dexMEDEtomi Yes [id number] .2ug/kg 0.2-1.5 Univers dine 200 7-11 /h mcg/kg/hr ity of mcg in 0.9 14:16: ?76.7 kg [place] as % NaCl 50 23 (3.835-28. Medi carmen mL 7625 Branch (PRECEDEX) mL/hr, RTU IV rounded to infusion 3.84-28.76 mL/hr), IV Infusion, TITRATE, Sedation-R ASS score (0 to -1), Starting on Mon04/04/23 at 0916
In itiate infusion at 0.2 mcg/kg/hr and titrate by 0.1 mcg/kg/hr every 30 minutes to goal sedation score. Maximum dose = 1.5 mcg/kg/hr. If goal not maintained at maximum allowed dose, contact prescriber .
dexMEDEtomi Yes [id number] .2ug/kg 0.2-1.5 Univers dine 200 7-11 /h mcg/kg/hr ity of mcg in 0.9 14:16: ?76.7 kg [place] as % NaCl 50 23 (3.835-28. Medi carmen mL 7625 Branch (PRECEDEX) mL/hr, RTU IV rounded to infusion 3.84-28.76 mL/hr), IV Infusion, TITRATE, Sedation-R ASS score (0 to -1), Starting on Mon04/04/23 at 0916
In itiate infusion at 0.2 mcg/kg/hr and titrate by 0.1 mcg/kg/hr every 30 minutes to goal sedation score. Maximum dose = 1.5 mcg/kg/hr. If goal not maintained at maximum allowed dose, contact prescriber .
dexMEDEtomi 2022- No [id number] .2ug/kg 0.2-1.5 Univers dine 200 04-04 07-17 /h mcg/kg/hr ity o f mcg in 0.9 14:16: 15:23 ?76.7 kg [place] % NaCl 50 23 :05 (3.835-28. Medi carmen mL 7625 Branch (PRECEDEX) mL/hr, RTU IV rounded to infusion 3.84-28.76 mL/hr), IV Infusion, TITRATE, Sedation-R ASS score (0 to -1), Starting on Mon04/04/23 at 0916
In itiate infusion at 0.2 mcg/kg/hr and titrate by 0.1 mcg/kg/hr every 30 minutes to goal sedation score. Maximum dose = 1.5 mcg/kg/hr. If goal not maintained at maximum allowed dose, contact prescriber .
propofoL IV 2022- No 5ug/kg/ 5-50 Un sonja infusion 04-04-11 min mcg/kg/min ity of 07:47: 21:35 ?76.7 kg [place] 45 :25 (2.301-23. Medical 01 mL/hr, Branch rounded to 2.3-23.01 mL/hr), IV Infusion, TITRATE, Sedation-R ASS score (-2 to -3), Starting on Mon04/04/23 at 0247
In itiate infusion at 10 mcg/kg/min and titrate by 5 mcg/kg/min every 30 seconds to 10 minutes to goal sedation score. Maximum dose = 50 mcg/kg/min . If goal not maintained at maximum allowed dose, contact prescriber . &nbs p;Tubing and unused portions of vials should be discarded after 12 hours.
fentaNYL PF 2022-0 2022- No 25ug/h 25-200 U nivers (SUBLIMAZE) 04-04 07-11 mcg/hr ity o f STD 2,500 07:17: 21:34 (2.5-20 [place] mcg in NaCl 03 :50 mL/hr), IV Me dical 0.9% (NS) Infusion, Branc h 250 mL TITRATE, infusion CPOT/Pain RTU Scale Goals Determined by Provider, Starting on Mon04/04/23 at 0217
In itiate infusion at 25 mcg/hr. Titrate by 50 mcg/hr every 1 minute to 15 minutes to identified goal pain and/or sedation scores. Maximum dose = 200 mcg/hr. If goal not maintained at maximum allowed dose, contact prescriber .
propofoL IV 2022- No 5ug/kg/ 5-50 Un sonja infusion 04-04-11 min mcg/kg/min ity of 06:58: 07:48 ?76.7 kg [place] 53 :51 (2.301-23. Medical 01 mL/hr, Branch rounded to 2.3-23.01 mL/hr), IV Infusion, TITRATE, Sedation-R ASS score (0 to -1), Starting on Mon04/04/23 at 0158
In itiate infusion at 10 mcg/kg/min and titrate by 5 mcg/kg/min every 30 seconds to 10 minutes to goal sedation score. Maximum dose = 50 mcg/kg/min . If goal not maintained at maximum allowed dose, contact prescriber . &nbs p;Tubing and unused portions of vials should be discarded after 12 hours.
hydralAZINE 2022-0 Yes 10mg 10 mg, Univ ers (APRESOLINE 7-11 Slow IV ity o f ) injection 05:51: Push, [place] 10 mg 52 Q2HPRN, Medical Starting Branch on Mon04/04/23 at 0051, Until Discontinu ed, Routine, SBP>130 hydralAZINE 2022-0 Yes 10mg 10 mg, Univ ers (APRESOLINE 7-11 Slow IV ity o f ) injection 05:51: Push, [place] 10 mg 52 Q2HPRN, Medical Starting Branch on Mon04/04/23 at 0051, Until Discontinu ed, Routine, SBP>130 hydralAZINE 3-0 Yes 10mg 10 mg, Univ ers (APRESOLINE 04-04 Slow IV ity o f ) injection 05:51: Push, [place] 10 mg 52 Q2HPRN, Medical Starting Branch on Mon04/04/23 at 0051, Until Discontinu ed, Routine, SBP>130 labetaloL 2022-0 Yes 20mg 20 mg, Univer s (NORMODYNE) 04-04 Slow IV ity o f injection 05:51: Push, [place] 20 mg 30 Q15MIN Medical PRN, Branch Starting on Mon04/04/23 at 0051, Until Discontinu ed, Routine, SBP goal <130 mmHg labetaloL 2022-0 Yes 20mg 20 mg, Univer s (NORMODYNE) 04-04 Slow IV ity o f injection 05:51: Push, [place] 20 mg 30 Q15MIN Medical PRN, Branch Starting on Mon04/04/23 at 0051, Until Discontinu ed, Routine, SBP goal <130 mmHg labetaloL 3-0 2022- No 20mg 20 mg, Unive rs (NORMODYNE) 04-04 0717 Slow IV ity of injection 05:51: 18:51 Push, [place] 20 mg 30 :50 Q15MIN Medical PRN, Branch Starting on Mon04/04/23 at 0051, Until Mon04/10/23 at 1351, Routine, SBP goal <130 mmHg mupirocin 2022-0 Yes Intra-op Univ ers (BACTROBAN 7-11 ity of OINT) 2 % 05:05: skin 00 Medical ointment Branch mupirocin 2022-0 Yes Intra-op Univ ers (BACTROBAN 7-11 ity of OINT) 2 % 05:05: skin 00 Medical ointment Branch vancomycin 2022-0 Yes PRN, Univers (VANCOCIN) 04-04 Starting ity o f injection 04:30: on Mon04/03/23 at Medical 2330, Branch Until Discontinu ed, SAMANTA, Intra-op vancomycin 2022-0 Yes PRN, Univers (VANCOCIN) 04-04 Starting ity o f injection 04:30: on Mon04/03/23 at Medical 2330, Branch Until Discontinu ed, SAMANTA, Intra-op ondansetron 3-0 Yes 4mg 4 mg, Slow Univers (ZOFRAN 7-11 IV Push, ity of (PF)) 03:00: Q8H, First [place] injection 4 00 dose Medical mg (after Branch last modificati on) on Mon04/03/23 at 2200
Do ses of ondansetro n 16 mg and above need to be administer ed via IV piggyback. For Dose >=24mg ECG monitoring is advisable.
ondansetron 2023-0 Yes 4mg 4 mg, Slow Univers (ZOFRAN 7-11 IV Push, ity of (PF)) 03:00: Q8H, First [place] injection 4 00 dose Medical mg (after Branch last modificati on) on Mon04/03/23 at 2200
Do ses of ondansetro n 16 mg and above need to be administer ed via IV piggyback. For Dose >=24mg ECG monitoring is advisable.
ondansetron 2023-0 2023- No 4mg 4 mg, Slow Univers (ZOFRAN 11 07-17 IV Push, ity of (PF)) 03:00: 15:23 Q8H, First [place] injection 4 00 :05 dose Medical mg (after Branch last modificati on) on Mon04/03/23 at 2200
Do ses of ondansetro n 16 mg and above need to be administer ed via IV piggyback. For Dose >=24mg ECG monitoring is advisable.
acetaminoph 2023-0 2023- No 1000mg 1,000 mg, Univers en ADULT 04-0411 IV ity of (OFIRMEV) 03:00: 22:34 Infusion, [place] injection 00 :00 at 400 Medical 1,000 mg mL/hr Branch Administer over 15 Minutes, Q8H, 3 doses, First dose on Mon04/03/23 at 2200, Last dose on Mon04/04/23 at 1400, Routine
Indicatio n: Perioperat leana Patient niCARdipine 2022-0 Yes 2.5mg/h 2.5-15 U nivers (CARDENE 7-10 mg/hr ity of I.V.) 40 mg 22:12: (12.5-75 [place] in NaCL 200 14 mL/hr), IV Me dical mL (RTU) Infusion, Branch infusion TITRATE, SBP >140, Starting on Mon04/03/23 at 1712
Initiate infusion at 2.5 mg/hr.&nbs p; Ti trate by 2.5 mg/hr every 5 minutes to 15 minutes as needed to achieve and maintain goal blood pressure. Maximum dose = 15 mg/hr. If goal not maintained at maximum allowed dose, contact prescriber .
niCARdipine 0 Yes 2.5mg/h 2.5-15 U nivers (CARDENE 7-10 mg/hr ity of I.V.) 40 mg 22:12: (12.5-75 [place] in NaCL 200 14 mL/hr), IV Me dical mL (RTU) Infusion, Branch infusion TITRATE, SBP >140, Starting on Mon04/03/23 at 1712
Initiate infusion at 2.5 mg/hr.&nbs p; Ti trate by 2.5 mg/hr every 5 minutes to 15 minutes as needed to achieve and maintain goal blood pressure. Maximum dose = 15 mg/hr. If goal not maintained at maximum allowed dose, contact prescriber .
niCARdipine 0 2022- No 2.5mg/h 2.5-15 Univers (CARDENE 7-10 07-17 mg/hr ity of I.V.) 40 mg 22:12: 15:18 (12.5-75 [place] in NaCL 200 14 :18 mL/hr), IV Me dical mL (RTU) Infusion, Branch infusion TITRATE, SBP >140, Starting on Mon04/03/23 at 1712
Initiate infusion at 2.5 mg/hr.&nbs p; Ti trate by 2.5 mg/hr every 5 minutes to 15 minutes as needed to achieve and maintain goal blood pressure. Maximum dose = 15 mg/hr. If goal not maintained at maximum allowed dose, contact prescriber .
NaCl 0.9% 0 Yes 1000mL at 100 Univ ers (NS) IV 7-10 mL/hr, IV ity of infusion 21:15: Infusion, [place] 1,000 mL 00 CONTINUOUS Medic al , Starting Branch on Mon04/03/23 at 1615, Until Discontinu ed, Routine NaCl 0.9% 3-0 Yes 1000mL at 100 Univ ers (NS) IV 7-10 mL/hr, IV ity of infusion 21:15: Infusion, [place] 1,000 mL 00 CONTINUOUS Medic al , Starting Branch on Mon04/03/23 at 1615, Until Discontinu ed, Routine NaCl 0.9% 2023-0 2023- No 1000mL at 100 Uni vers (NS) IV 7-10 07-16 mL/hr, IV ity of infusion 21:15: 13:17 Infusion, [place] as 1,000 mL 00 :28 CONTINUOUS Medic al , Starting Branch on Mon04/03/23 at 1615, Until Mon04/09/23 at 0817, Routine FENTanyl PF 2022-0 Yes 25ug 25 mcg, Uni vers (SUBLIMAZE 7-10 Slow IV ity of (PF)) 21:10: Push, [place] injection 50 Q2HPRN, Medical 25 mcg Starting Branch on Mon04/03/23 at 1610, Until Discontinu ed, Routine, breakthrou gh pain scale 4-10 FENTanyl PF 2022-0 Yes 25ug 25 mcg, Uni vers (SUBLIMAZE 7-10 Slow IV ity of (PF)) 21:10: Push, [place] injection 50 Q2HPRN, Medical 25 mcg Starting Branch on Mon04/03/23 at 1610, Until Discontinu ed, Routine, breakthrou gh pain scale 4-10 FENTanyl PF 3-0 Yes 25ug 25 mcg, Uni vers (SUBLIMAZE 7-10 Slow IV ity of (PF)) 21:10: Push, [place] injection 50 Q2HPRN, Medical 25 mcg Starting Branch on Mon04/03/23 at 1610, Until Discontinu ed, Routine, breakthrou gh pain scale 4-10 oxyCODONE 2022-0 Yes 10mg 10 mg, Univer s immediate 7-10 Oral, ity of release 21:10: Q4HPRN, [place] tablet 10 33 Starting Medica l mg on Mon Branch 04/03/23 at 1610, Until Discontinu ed, Routine, Pain (scale 7-10)<b r>solar crew member approving Restricted medication : ARTURO IBARRA oxyCODONE 2022-0 Yes 10mg 10 mg, Univer s immediate 7-10 Oral, ity of release 21:10: Q4HPRN, [place] tablet 10 33 Starting Medica l mg on Mon [place] 04/03/23 at 1610, Until Discontinu ed, Routine, Pain (scale 7-10)<b r>solar crew member approving Restricted medication : ARTURO IBARRA oxyCODONE 2022-0 Yes 10mg 10 mg, Univer s immediate 7-10 Oral, ity of release 21:10: Q4HPRN, [place] tablet 10 33 Starting Medica l mg on Mon [place] 04/03/23 at 1610, Until Discontinu ed, Routine, Pain (scale 7-10)<b r>solar crew member approving Restricted medication : ARTURO IBARRA thrombin 2022-0 Yes PRN, Univers topical 7-10 Starting ity of solution 15:30: on Mon [place] 04/03/[address] Until Discontinu ed, Routine, Intra-op thrombin 2022-0 Yes PRN, Univers topical 7-10 Starting ity of solution 15:30: on Mon [place] 04/03/[address] Until Discontinu ed, Routine, Intra-op lidocaine-e 2022-0 Yes [facility]-10 Starting ity o f (XYLOCAINE 14:29: on Mon [place] WITH 04/03/23 at Medical EPINEPHRINE 0929[facility] ) 0.5 Until %-1:200,000 Discontinu injection ed, Routine, Intra-op lidocaine-e 2022-0 Yes PRN, Univer s pinephrine 7-10 Starting ity o f (XYLOCAINE 14:29: on Mon [place] WITH 04/03/23 at Medical EPINEPHRINE 0929, [place] ) 0.5 Until %-1:200,000 Discontinu injection ed, Routine, Intra-op benzonatate 2022-0 Yes 100mg 100 mg, Un sonja (TESSALON 7-10 Oral, ity of PERLES) 06:09: Q8HPRN, [place] capsule 100 54 Starting Medi carmen mg on Mon [place] 04/03/23 at 0109, Until Discontinu ed, Routine, Cough benzonatate 2023-0 Yes 100mg 100 mg, Un sonja (TESSALON 7-10 Oral, ity of PERLES) 06:09: Q8HPRN, [place] capsule 100 54 Starting Medi carmen mg on Mon Branch 04/03/23 at 0109, Until Discontinu ed, Routine, Cough benzonatate 2023-0 Yes 100mg 100 mg, Un sonja (TESSALON 7-10 Oral, ity of PERLES) 06:09: Q8HPRN, [place] capsule 100 54 Starting Medi carmen mg on Mon Branch 04/03/23 at 0109, Until Discontinu ed, Routine, Cough ceFAZolin 2023-0 2023- No 1000mg 1,000 mg, Univers (ANCEF) 04-02 IV ity of 1,000 mg in 20:30: 20:29 [place], [place] NaCl 0.9% 00 :00 Q8H ABX, Medica l (NS) 100 mL 21 doses, Bra nch MINI-BAG First dose on 04/02/23 at 1530, Last dose on 04/09/23 at 0730, Administer over 30 Minutes, 100 mL
Reas on for Anti-Infec tive: Surgical Prophylaxi s
Surgi carmen Prophylaxi s: Neurosurge ry
Dura tion of therapy: within 24 hours of surgery ceFAZolin 3-0 2023- No 1000mg 1,000 mg, Univers (ANCEF) 04-02 IV ity of 1,000 mg in 20:30: 20:29 [place] NaCl 0.9% 00 :00 Q8H ABX, Medica l (NS) 100 mL 21 doses, Bra nch MINI-BAG First dose on 04/02/23 at 1530, Last dose on 04/09/23 at 0730, Administer over 30 Minutes, 100 mL
Reas on for Anti-Infec tive: Surgical Prophylaxi s
Surgi carmen Prophylaxi s: Neurosurge ry
Dura tion of therapy: within 24 hours of surgery ceFAZolin 2023-0 2023- No 1000mg 1,000 mg, Univers (ANCEF) 04-02 IV ity of 1,000 mg in 20:30: 20:29 [place], [place] NaCl 0.9% 00 :00 Q8H ABX, Medica l (NS) 100 mL 21 doses, Bra nch MINI-BAG First dose on 04/02/23 at 1530, Last dose on 04/09/23 at 0730, Administer over 30 Minutes, 100 mL
Reas on for Anti-Infec tive: Surgical Prophylaxi s
Surgi carmen Prophylaxi s: Neurosurge ry
Dura tion of therapy: within 24 hours of surgery midazolam 2022- No 2mg 2 mg, IV Uni vers (VERSED) 04-02 Push, ity of injection 2 17:30: 19:55 ONCE, 1 [place] mg 00 :00 dose, On Medical 04/02/23 Branch at 1230, Routine FENTanyl PF 2022-2022- No 50ug 50 mcg, Un sonja (SUBLIMAZE 04-02 Slow IV ity o f (PF)) 17:30: 18:45 Push, [place] injection 00 :00 ONCE, 1 Medical 50 mcg dose, On Branch 04/02/23 at 1230, Routine sennosides- 2022-0 Yes 1{tbl} 1 tablet, [facility] docusate 04-02 Enteral, ity of sodium 14:00: DAILY, [place] (SENOKOT-S) 00 First dose Me dical 8.6-50 mg on [place] Branch per tablet 04/02/23 at 1 tablet 0900, Until Discontinu ed, Routine sennosides- 2022-0 Yes 1{tbl} 1 tablet, Univers docusate 04-02 Enteral, ity of sodium 14:00: DAILY, [place] (SENOKOT-S) 00 First dose Me dical 8.6-50 mg on [place] Branch per tablet 04/02/23 at 1 tablet 0900, Until Discontinu ed, Routine sennosides- 2022-0 Yes 1{tbl} 1 tablet, [facility] docusate 04-02 Enteral, ity of sodium 14:00: DAILY, [place] (SENOKOT-S) 00 First dose Me dical 8.6-50 mg on [place] Branch per tablet 04/02/23 at 1 tablet 0900, Until Discontinu ed, Routine sodium 2023-0 Yes 10mL 10 mL, Univers chloride 7-09 Intravenou ity o f (NS) 12:51: s, PRN - [place] injection 16 SEE Medical 10 mL INSTRUCTIO Branch NS, Starting on 04/02/23 at 0751, Until Discontinu ed, Routine, IV line flushing sodium 2023-0 Yes 10mL 10 mL, Univers chloride 7-09 Intravenou ity o f (NS) 12:51: s, PRN - [place] injection 16 SEE Medical 10 mL INSTRUCTIO Branch NS, Starting on 04/02/23 at 0751, Until Discontinu ed, Routine, IV line flushing sodium 2023-0 Yes 10mL 10 mL, Univers chloride 7-09 Intravenou ity o f (NS) 12:51: s, PRN - [place] injection 16 SEE Medical 10 mL INSTRUCTIO Branch NS, Starting on 04/02/23 at 0751, Until Discontinu ed, Routine, IV line flushing heparin 2023-0 Yes 5mL 500 Units Unive rs lock flush 7-09 (5 mL), ity of (HEP-LOCK) 12:51: Catheter [place] as 100 unit/mL 15 Dwell, PRN Me dical injection - SEE Branch 500 Units INSTRUCTIO NS, Starting on 04/02/23 at 0751, Until Discontinu ed, Routine, To maintain line patency upon de-accessi ng implanted port. heparin 2023-0 Yes 5mL 500 Units Unive rs lock flush 7-09 (5 mL), ity of (HEP-LOCK) 12:51: Catheter [place] as 100 unit/mL 15 Dwell, PRN Me dical injection - SEE Branch 500 Units INSTRUCTIO NS, Starting on 04/02/23 at 0751, Until Discontinu ed, Routine, To maintain line patency upon de-accessi ng implanted port. heparin 2023-0 Yes 5mL 500 Units Unive rs lock flush 7-09 (5 mL), ity of (HEP-LOCK) 12:51: Catheter [place] as 100 unit/mL 15 Dwell, PRN Me dical injection - SEE Branch 500 Units INSTRUCTIO NS, Starting on 04/02/23 at 0751, Until Discontinu ed, Routine, To maintain line patency upon de-accessi ng implanted port. NaCl 0.9% 2022-0 2022- No 1000mL at 42 Univ ers (NS) IV 04-02 07-10 mL/hr, IV ity of infusion 11:15: 21:12 Infusion, [place]iliano as 1,000 mL 00 :40 CONTINUOUS Medic al , Starting Branch on 04/02/23 at 0615, Until 04/03/23 at 1612, Routine dexamethaso 3-0 Yes 8mg 8 mg, Unive rs ne sod phos 04-02 Intravenou it y of PF 01:00: s, Q12H, [place] injection 8 00 First dose Me dical mg on Sat Branch 04/01/23 at 2000, Until Discontinu ed, 1 mL dexamethaso 3-0 2022- No 8mg 8 mg, Univ ers ne sod phos 04-02 07-12 Intravenou i ty of PF 01:00: 13:54 s, Q12H, [place] injection 8 00 :25 First dose Me dical mg on Sat Branch 04/01/23 at 2000, Until Discontinu ed, 1 mL Sliding 2023-0 Yes Subcutaneo Univ ers Scale 7-08 us, Q6H, ity of Insulin - 23:00: First dose [place] Lispro 00 (after Medical (HumaLOG) last Branch modificati on) on 04/01/23 at 1800, Until Discontinu ed, Routine chlorhexidi 2023-0 Yes 15mL 15 mL, Univ ers ne 7-08 Oral ity of (PERIDEX) 23:00: ([place] 0.12 % 00 Spit Out), Medical mouthwash Q6H, First Bran ch 15 mL dose on 04/01/23 at 1800, Until Discontinu ed, Routine Sliding 2023-0 Yes Subcutaneo [employer] [facility] [facility] ers Scale 7-08 us, Q6H, ity of Insulin - 23:00: [place] dose [place] Lispro 00 (after Medical (HumaLOG) last Branch modificati on) on 04/01/23 at 1800, Until Discontinu ed, Routine chlorhexidi 2023-0 Yes 15mL 15 mL, Univ ers ne 7-08 Oral ity of (PERIDEX) 23:00: ([place] 0.12 % 00 Spit Out), Medical mouthwash Q6H, First Bran ch 15 mL dose on 04/01/23 at 1800, Until Discontinu ed, Routine Sliding 2022-0 Yes Subcutaneo [facility] ers Scale 7-08 us, Q6H, ity of Insulin - 23:00: First dose [place] Lispro 00 (after Medical (HumaLOG) last Branch modificati on) on 04/01/23 at 1800, Until Discontinu ed, Routine chlorhexidi 2022-0 Yes 15mL 15 mL, [facility] ers ne 7-08 Oral ity of (PERIDEX) 23:00: ([place] 0.12 % 00 Spit Out), Medical mouthwash Q6H, First Bran ch 15 mL dose on 04/01/23 at 1800, Until Discontinu ed, Routine NaCl 0.9% 2022-0 2022- No 1000mL at 100 Uni vers (NS) IV 04-01 07-09 mL/hr, IV ity of infusion 21:15: 11:14 Infusion, [place] as 1,000 mL 00 :59 CONTINUOUS Medic al , Starting Branch on 04/01/23 at 1615, Until 04/02/23 at 0614, Routine NaCl 0.9% 2022-0 2022- No 1000mL at 42 Univ ers (NS) IV 04-01 07-08 mL/hr, IV ity of infusion 21:15: 20:58 Infusion, [place] as 1,000 mL 00 :07 CONTINUOUS Medic al , Starting Branch on 04/01/23 at 1615, Until 04/01/23 at 1558, Routine HYDROcodone 2022-0 2022- No 1{tbl} 1 tablet, Univers -acetaminop 04-01 07-10 Oral, ity of hen (NORCO) 19:15: 21:12 Q6HPRN, [place] 10-325 mg 29 :40 Starting Medica l tablet 1 on Sat Branch tablet 04/01/23 at 1415, Until 04/03/23 at 1612, Routine, Pain (scale 7-10) pantoprazol 2022-0 Yes 40mg 40 mg, [facility] ers e 7-08 Slow IV ity of (PROTONIX) 19:00: Push, [place] injection 00 Q24H, Medical 40 mg First dose Branch on 04/01/23 at 1400, Until Discontinu ed pantoprazol 2022-0 Yes 40mg 40 mg, Univ ers e 04-01 Slow IV ity of (PROTONIX) 19:00: Push, [place] injection 00 Q24H, Medical 40 mg First dose Branch on 04/01/23 at 1400, Until Discontinu ed pantoprazol 2022-0 2022- No 40mg 40 mg, Uni vers e 04-01 Slow IV ity of (PROTONIX) 19:00: 15:23 Push, [place] injection 00 :05 Q24H, Medical 40 mg First dose Branch on 04/01/23 at 1400, Until Discontinu ed butalbital- 2022-0 2022- No 1{tbl} 1 tablet, Univers acetaminoph 04-01 Oral, ity of en-caff 18:28: 21:12 Q4HPRN, [place] (ESGIC) 09 :40 Starting Medical 50-325-40 on Sat Branch mg tablet 1 04/01/23 at tablet 1328, Until 04/03/23 at 1612, Routine, Pain (scale 7-10), Pain (scale 4-6) enoxaparin 2022-0 2022- No 40mg 40 mg, Univ ers (LOVENOX) 04-01 Subcutaneo ity of injection 18:15: 19:25 us, ONCE, [place] 40 mg 00 :00 1 dose, On Medical 04/01/23 Branch at 1315, Routine glucagon 2022-0 Yes 1mg 1 mg, Univers (GLUCAGEN 04-01 Intramuscu ity of DIAGNOSTIC 17:52: lar, PRN, [place] KIT) 24 Starting Medical injection 1 on Sat Branch mg 04/01/23 at 1252, Until Discontinu ed, SAMANTA, Blood Glucose < or = 70 mg/dL and patient is NPO, unable to swallow or has mental changes. dextrose 50 2022-0 Yes 25mL 25 mL, Univ ers % in water 04-01 Slow IV ity of (D50W) 17:52: Push, PRN, [place] injection 24 Starting Medica l 25 mL on Sat Branch 04/01/23 at 1252, Until Discontinu ed, SAMANTA, Blood Glucose < or = 70 mg/dL and patient is NPO, unable to swallow or has mental status changes. glucagon 2022-0 Yes 1mg 1 mg, Univers (GLUCAGEN 04-01 Intramuscu ity of DIAGNOSTIC 17:52: lar, PRN, [place] KIT) 24 Starting Medical injection 1 on Sat Branch mg 04/01/23 at 1252, Until Discontinu ed, SAMANTA, Blood Glucose < or = 70 mg/dL and patient is NPO, unable to swallow or has mental changes. dextrose 50 2022-0 Yes 25mL 25 mL, Univ ers % in water 04-01 Slow IV ity of (D50W) 17:52: Push, PRN, [place] injection 24 Starting Medica l 25 mL on Sat Branch 04/01/23 at 1252, Until Discontinu ed, SAMANTA, Blood Glucose < or = 70 mg/dL and patient is NPO, unable to swallow or has mental status changes. glucagon 2022-0 Yes 1mg 1 mg, Univers (GLUCAGEN 04-01 Intramuscu ity of DIAGNOSTIC 17:52: lar, PRN, [place] KIT) 24 Starting Medical injection 1 on Sat Branch mg 04/01/23 at 1252, Until Discontinu ed, SAMANTA, Blood Glucose < or = 70 mg/dL and patient is NPO, unable to swallow or has mental changes. dextrose 50 2022-0 Yes 25mL 25 mL, Univ ers % in water 08 Slow IV ity of (D50W) 17:52: Push, PRN, [place] injection 24 Starting Medica l 25 mL on Sat Branch 04/01/23 at 1252, Until Discontinu ed, SAMANTA, Blood Glucose < or = 70 mg/dL and patient is NPO, unable to swallow or has mental status changes. diphenhydrA 2022- No 25mg 25 mg, Uni vers MINE 04-01 Intravenou ity of (BENADRYL) 16:30: 16:45 s, ONCE, 1 [place] injection 00 :00 dose, On Medica l 25 mg 04/01/23 Branch at 1130, SAMANTA metoclopram 2022-0 2022- No 10mg 10 mg, Uni vers josie HCl 7-08 07-08 Slow IV ity of (REGLAN) 16:30: 16:52 Push, [place] injection 00 :00 ONCE, 1 Medical 10 mg dose, On Branch 04/01/23 at 1130, SAMANTA dexamethaso 2022- No 10mg 10 mg, Uni vers ne sod phos 7- 07-08 Slow IV ity of PF 16:30: 16:48 Push, [place] injection 00 :00 ONCE, 1 Medical 10 mg dose, On Branch 04/01/23 at 1130, 1 mL HYDROcodone 0 Yes 1{tbl} Take 1 Un sonja -acetaminop 7-08 tablet by ity of hen 5-325 13:32: mouth [place] mg tablet 17 every 6 Medical (six) Branch hours as needed. docusate 0 Yes Take by Univer s sodium 7-08 mouth ity of (COLACE 13:32: daily. [place] ORAL) 17 Medical Branch butalb/acet 0 Yes Take by Uni vers aminophen/c 7-08 mouth ity of affeine 13:32: every 4 [place] (FIORICET 17 (four) Medical ORAL) hours as Branch needed. HYDROcodone 0 Yes 1{tbl} Take 1 Un sonja -acetaminop 7-08 tablet by ity of hen 5-325 13:32: mouth [place] mg tablet 17 every 6 Medical (six) Branch hours as needed. docusate 0 Yes Take by Univer s sodium 7-08 mouth ity of (COLACE 13:32: daily. [place] ORAL) 17 Medical Branch butalb/acet 0 Yes Take by Uni vers aminophen/c 7-08 mouth ity of affeine 13:32: every 4 [place] (FIORICET 17 (four) Medical ORAL) hours as Branch needed. HYDROcodone 0 Yes 1{tbl} Take 1 Un sonja -acetaminop 7-08 tablet by ity of hen 5-325 13:32: mouth [place] mg tablet 17 every 6 Medical (six) Branch hours as needed. docusate 0 Yes Take by Univer s sodium 7-08 mouth ity of (COLACE 13:32: daily. [place] ORAL) 17 Medical Branch butalb/acet 2022-0 Yes Take by Uni vers aminophen/c 7-08 mouth ity of affeine 13:32: every 4 [place] (FIORICET 17 (four) Medical ORAL) hours as Branch needed. rivaroxaban Yes Take by Uni vers (XARELTO) 7-08 mouth ity of 10 mg 13:09: daily. [place] tablet 21 Medical Branch VITAMIN E Yes Take by Unive rs ACETATE 7-08 mouth. ity of ORAL 13:09: [place] 21 Medical Branch FENBENDAZOL Yes Univer s E, BULK, 7-08 ity of MISC 13:09: [place] [address] Medical Branch turmeric Yes Univers (CURCUMIN 7-08 ity of MISC) 13:09: [place] [address] Medical Branch rivaroxaban Yes Take by Uni vers (XARELTO) 7-08 mouth ity of 10 mg 13:09: daily. [place] tablet 21 Medical Branch VITAMIN E Yes Take by Unive rs ACETATE 7-08 mouth. ity of ORAL 13:09: [place] 21 Medical Branch FENBENDAZOL Yes Univer s E, BULK, 7-08 ity of MISC 13:09: [place] 21 Medical Branch turmeric Yes Univers (CURCUMIN 7-08 ity of MISC) 13:09: [place] [address] Medical Branch rivaroxaban Yes Take by Uni vers (XARELTO) 7-08 mouth ity of 10 mg 13:09: daily. [place] tablet 21 Medical Branch VITAMIN E Yes Take by Unive rs ACETATE 7-08 mouth. ity of ORAL 13:09: [place] [address] Medical Branch FENBENDAZOL Yes Univer s E, BULK, 7-08 ity of MISC 13:09: [place] [address] Medical Branch turmeric Yes Univers (CURCUMIN 7-08 ity of MISC) 13:09: [place] [address] Medical Branch rivaroxaban Yes Take by Uni vers (XARELTO) 6-26 mouth ity of 10 mg 15:59: daily. [place] tablet 23 Medical Branch HYDROcodone Yes 1{tbl} Take 1 Un sonja -acetaminop 6-26 tablet by ity of hen 5-325 15:59: mouth [place] mg tablet 23 every 6 Medical (six) Branch hours as needed. docusate 0 Yes Take by Univer s sodium 6-26 mouth. ity of (COLACE 15:59: [place] ORAL) 23 Medical Branch butalb/acet Yes Take by Uni vers aminophen/c 6-26 mouth. ity of affeine 15:59: [place] (FIORICET 23 Medical ORAL) Branch VITAMIN E Yes Take by Unive rs ACETATE 6-26 mouth. ity of ORAL 15:59: [address] Branch FENBENDAZOL Yes Univer s E, BULK, 6-26 ity of MISC 15:59: [address] Branch turmeric Yes Univers (CURCUMIN 6-26 ity of MISC) 15:59: [address] Branch rivaroxaban Yes Take by Uni vers (XARELTO) 6-26 mouth ity of 10 mg 15:59: daily. [place] tablet 23 Medical Branch HYDROcodone Yes 1{tbl} Take 1 Un sonja -acetaminop 6-26 tablet by ity of hen 5-325 15:59: mouth [place] mg tablet 23 every 6 Medical (six) Branch hours as needed. docusate Yes Take by Univer s sodium 6-26 mouth. ity of (COLACE 15:59: [place] ORAL) 23 Medical Branch butalb/acet Yes Take by Uni vers aminophen/c 6-26 mouth. ity of affeine 15:59: [place] (FIORICET 23 Medical ORAL) Branch VITAMIN E Yes Take by Unive rs ACETATE 6-26 mouth. ity of ORAL 15:59: [address] Branch FENBENDAZOL Yes Univer s E, BULK, 6-26 ity of MISC 15:59: [address] Branch turmeric 0 Yes Univers (CURCUMIN 6-26 ity of MISC) 15:59: [address] Branch rivaroxaban 0 Yes Take by Uni vers (XARELTO) 6-26 mouth ity of 10 mg 15:59: daily. [place] tablet 23 Medical Branch HYDROcodone 0 Yes 1{tbl} Take 1 Un sonja -acetaminop 6-26 tablet by ity of hen 5-325 15:59: mouth [place] mg tablet 23 every 6 Medical (six) Branch hours as needed. docusate Yes Take by Univer s sodium 03-20 mouth. ity of (COLACE 15:59: [place] ORAL) 23 Medical Branch butalb/acet Yes Take by Uni vers aminophen/c 03-20 mouth. ity of affeine 15:59: [place] (FIORICET 23 Medical ORAL) [place] VITAMIN E Yes Take by Unive rs ACETATE 03-20 mouth. ity of ORAL 15:59: [place] [address] Medical Branch FENBENDAZOL Yes Univer s E, BULK, 03-20 ity of MISC 15:59: [place] [address] Medical Branch turmeric Yes Univers (CURCUMIN 03-20 ity of MISC) 15:59: [place] [address] Medical Branch pantoprazol Yes [id number] 40mg Take 1 Univers e 40 mg EC 6-24 tablet by ity of tablet 00:00: mouth in [place] 00 the Medical morning. Branch pantoprazol Yes [id number] 40mg Take 1 Univers e 40 mg EC 6-24 tablet by ity of tablet 00:00: mouth in [place] 00 the Medical morning. Branch pantoprazol Yes [id number] 40mg Take 1 Univers e 40 mg EC 6-24 tablet by ity of tablet 00:00: mouth in [place] 00 the Medical morning. Branch pantoprazol Yes [id number] 40mg Take 1 Univers e 40 mg EC 6-24 tablet by ity of tablet 00:00: mouth in [place] 00 the Medical morning. Branch pantoprazol Yes [id number] 40mg Take 1 Univers e 40 mg EC 6-24 tablet by ity of tablet 00:00: mouth in [place] 00 the Medical morning. Branch pantoprazol Yes [id number] 40mg Take 1 Univers e 40 mg EC 6-24 tablet by ity of tablet 00:00: mouth in [place] 00 the Medical morning. Branch pantoprazol Yes [id number] 40mg Take 1 Univers e 40 mg EC 6-24 tablet by ity of tablet 00:00: mouth in [place] 00 the Medical morning. Branch pantoprazol Yes [id number] 40mg Take 1 Univers e 40 mg EC 6-24 tablet by ity of tablet 00:00: mouth in [place] 00 the Medical morning. Branch pantoprazol 3-0 Yes [id number] 40mg Take 1 Univers e 40 mg EC 6-24 tablet by ity of tablet 00:00: mouth in [place] the Medical morning. Branch pantoprazol 2023-0 Yes [id number] 40mg Take 1 Univers e 40 mg EC 6-24 tablet by ity of tablet 00:00: mouth in [place] 00 the Medical morning. Branch pantoprazol 3-0 Yes [id number] 40mg Take 1 Univers e 40 mg EC 6-24 tablet by ity of tablet 00:00: mouth in [place] 00 the Medical morning. Branch pantoprazol 3-0 Yes [id number] 40mg Take 1 Univers e 40 mg EC 6-24 tablet by ity of tablet 00:00: mouth in [place] the Medical morning. Branch pantoprazol 3-0 Yes [id number] 40mg Take 1 Univers e 40 mg EC 6-24 tablet by ity of tablet 00:00: mouth in [place] the Medical morning. Branch pantoprazol 3-0 Yes [id number] 40mg Take 1 Univers e 40 mg EC 6-24 tablet by ity of tablet 00:00: mouth in [place] the Medical morning. Branch pantoprazol 3-0 Yes [id number] 40mg Take 1 Univers e 40 mg EC 6-24 tablet by ity of tablet 00:00: mouth in [place] the Medical morning. Branch pantoprazol 3-0 Yes [id number] 40mg Take 1 Univers e 40 mg EC 6-24 tablet by ity of tablet 00:00: mouth in [place] the Medical morning. Branch pantoprazol 3-0 Yes [id number] 40mg Take 1 Univers e 40 mg EC 6-24 tablet by ity of tablet 00:00: mouth in [place] 00 the Medical morning. Branch pantoprazol 2023-0 Yes [id number] 40mg Take 1 Univers e 40 mg EC 6-24 tablet by ity of tablet 00:00: mouth in [place] 00 the Medical morning. Branch pantoprazol 2023-0 Yes [id number] 40mg Take 1 Univers e 40 mg EC 6-24 tablet by ity of tablet 00:00: mouth in [place] 00 the Medical morning. Branch pantoprazol 2022- Yes [id number] 40mg Take 1 Univers e 40 mg EC 6-24 tablet by ity of tablet 00:00: mouth in [place] 00 the Medical morning. Branch dexAMETHaso 2022-0 2022- No [id number] Take 3 Univers ne 2 mg 6-23 07-01 tablets by ity o f tablet 00:00: 04:59 mouth 2 [place] 00 :00 (two) Medical times Branch daily with meals for 3 days, THEN 2 tablets 2 (two) times daily with meals for 3 days, THEN 1 tablet 2 (two) times daily with meals for 1 day. dexAMETHaso 2022-0 2022- No [id number] Take 3 Univers ne 2 mg 6-23 07- tablets by ity o f tablet 00:00: 04:59 mouth 2 [place] 00 :00 (two) Medical times Branch daily with meals for 3 days, THEN 2 tablets 2 (two) times daily with meals for 3 days, THEN 1 tablet 2 (two) times daily with meals for 1 day. dexAMETHaso 2022-0 2022- No [id number] Take 3 Univers ne 2 mg 6-23 07- tablets by ity o f tablet 00:00: 04:59 mouth 2 [place] 00 :00 (two) Medical times Branch daily with meals for 3 days, THEN 2 tablets 2 (two) times daily with meals for 3 days, THEN 1 tablet 2 (two) times daily with meals for 1 day. dexAMETHaso 2022-0 2022- No [id number] Take 3 Univers ne 2 mg 6-23 07-01 tablets by ity o f tablet 00:00: 04:59 mouth 2 [place] 00 :00 (two) Medical times Branch daily with meals for 3 days, THEN 2 tablets 2 (two) times daily with meals for 3 days, THEN 1 tablet 2 (two) times daily with meals for 1 day. dexAMETHaso 2022-0 2022- No [id number] Take 3 Univers ne 2 mg 6-23 07-01 tablets by ity o f tablet 00:00: 04:59 mouth 2 [place] 00 :00 (two) Medical times Branch daily with meals for 3 days, THEN 2 tablets 2 (two) times daily with meals for 3 days, THEN 1 tablet 2 (two) times daily with meals for 1 day. gadoteridol 2022-0 2022- No [id number] .2mL/kg 14.78 mL Univers (PROHANCE-1 03-16 (0.2 mL/kg i ty of 5 mL) 02:45: 02:45 ?73.9 kg), [place] injection 00 :00 Intravenou Medi carmen 14.78 mL s, ONCE, 1 Branc h dose, On Mon03/15/23 at 2145, Routine LORazepam 2022-0 2022- No 1mg 1 mg, Slow U nivers (ATIVAN) 03-16 IV Push, ity of injection 1 01:45: 01:38 ONCE, 1 [place] mg 00 :00 dose, On [facility] Branch 03/15/23 at 2045, Routine docusate 2022-0 Yes 100mg 100 mg, Unive rs (COLACE) 03-15 Oral, BID, ity o f capsule 100 14:30: First dose [place] mg 00 on Mon Medical 03/15/23 at Branch 0930, Until Discontinu ed, Routine HYDROcodone 2022-0 Yes 1{tbl} 1 tablet, Univers -acetaminop 03-15 Oral, ity of hen (NORCO) 14:26: Q6HPRN, [place] as 10-325 mg 44 Starting Medica l tablet 1 on Mon Branch tablet 03/15/23 at 0926, Until Discontinu ed, Routine, pain scale 4-10 butalbital- 2022-0 Yes 1{tbl} 1 tablet, Univers acetaminoph 03-15 Oral, ity of en-caff 14:26: Q4HPRN, [place] (ESGIC) 35 Starting Medical 50-325-40 on Mon mg tablet 1 03/15/23 at tablet 0926, Until Discontinu ed, Routine, headache pantoprazol 2022-0 Yes 40mg 40 mg, Univ ers e 03-15 Oral, ity of (PROTONIX) 14:00: DAILY, [place] EC tablet 00 First dose Medi carmen 40 mg on Mon Branch 03/15/23 at 0900, Until Discontinu ed, Routine enoxaparin 2022-0 Yes 40mg 40 mg, Unive rs (LOVENOX) 03-15 Subcutaneo ity of injection 14:00: us, DAILY, [place] 40 mg 00 First dose Medical on Mon03/15/23 at 0900, Until Discontinu ed, Routine Sliding 0 Yes Subcutaneo Univ ers Scale 03-15 us, TID ity of Insulin - 13:00: MEALS+HS, [place] Lispro 00 First dose Medical (HumaLOG) on Mon03/15/23 at 0800, Until Discontinu ed, Routine dexamethaso 0 Yes 8mg 8 mg, Unive rs ne sod phos 03-15 Intravenou it y of PF 04:15: s, Q12H, [place] injection 8 00 First dose Me dical mg on Mon Branch 03/14/23 at 2315, Until Discontinu ed, 1 mL dextrose 0 Yes 250mL 250 mL, IV Un sonja 10% (D10W) 03-15 Infusion, ity of bolus 04:06: PRN - SEE [place] infusion 20 INSTRUCTIO Medic al 250 mL NS, Branch Administer over 60 Minutes, Other, If blood glucose is < or = 70 mg/dL and patient is unable to swallow or has mental status changes, Starting on Mon03/14/23 at 2306
If blood glucose is < or = 70 mg/dL and patient is unable to swallow or has mental status changes (Give glucagon order if patient needs fluid restrictio n): IF IV access available: Dextrose 10%. 1. 125 mL (? bag) of D10W IV infusion - equivalent to 12.5 g dextrose 2. Blood glucose - draw blood glucose 15 minutes after D10W Administra tion. 3. If blood glucose is < 80 mg/dL, repeat.
HYDROmorpho 2022-0 2022- No 2mg 2 mg, Univ ers ne 03-15 Oral, ity of (DILAUDID) 03:54: 14:27 Q6HPRN, [place] as tablet 2 mg 46 :09 Starting Medi carmen on Mon Branch 03/14/23 at 2254, Until Mon03/15/23 at 0927, Routine, Pain (scale 7-10) famotidine 0 Yes 20mg 20 mg, Unive rs (PEPCID AC) 6-21 Oral, ity of tablet 20 03:53: [id number], [place] mg 33 Starting Medical on [facility] 03/14/23 at 2253, Until Discontinu ed, Routine, Indigestio n, Heartburn glucagon 2022-0 Yes 1mg 1 mg, Univers (GLUCAGEN 03-15 Intramuscu ity of DIAGNOSTIC 03:53: lar, PRN, [place] KIT) 33 Starting Medical injection 1 on [facility] mg 03/14/23 at 2253, Until Discontinu ed, SAMANTA, Blood Glucose < or = 70 mg/dL and patient is NPO, unable to swallow or has mental changes. ondansetron 0 Yes 4mg 4 mg, Slow Univers (ZOFRAN 03-15 IV Push, ity of (PF)) 03:53: Q6HPRN, [place] injection 4 33 Starting Medi carmen mg on [facility] 03/14/23 at 2253, Until Discontinu ed, Routine, Nausea and Vomiting (N/V) bisacodyL 0 Yes 10mg 10 mg, Univer s (DULCOLAX) 03-15 Oral, ity of tablet 10 03:53: QDAILYPRN, [place] mg 33 Starting Medical on [facility] 03/14/23 at 2253, Until Discontinu ed, Routine, Constipati on acetaminoph 0 Yes 650mg 650 mg, Un sonja en 03-15 Oral, ity of (TYLENOL) 03:53: Q6HPRN, [place] tablet 650 33 Starting Medic al mg on [facility] 03/14/23 at 2253, Until Discontinu ed, Routine, Pain (scale 1-3) Sertraline 2022-0 Yes [id number] 25mg Take 1 K elsey HCl 25 MG 3-30 tablet (25 Seyb old oral Tablet 00:00: mg total) - 00 by mouth Externa daily l Dexamethaso Yes Queenie phipsp 3-20 Seybold (DECADRON) 00:00: - 4 MG oral 00 Externa tablet l Calcitonin, 2022-0 Yes 1{spray Use 1 Ke [place], 200 3-20 } spray in Seyb old UNIT/ACT 00:00: one - nasal 00 nostril Externa Solution daily l Naloxone 2023-0 Yes Use as Queenie (Narcan) 4 3-20 directed, Seyb old MG/0.1ML 00:00: May be - nasal 00 repeated Externa Liquid if needed l Calcitonin, Yes 1{spray Use 1 Matt Giral[place], 200 3-20 } spray in Seyb old UNIT/ACT 00:00: one - nasal 00 nostril Externa Solution daily l Naloxone Yes Use as Queenie (Narcan) 4 3-20 directed, Seyb old MG/0.1ML 00:00: May be - nasal 00 repeated Externa Liquid if needed l Diclofenac Yes Queenie Sodium 75 3-14 Seybold MG oral 00:00: - Tablet 00 Externa Delayed l Response diazePAM 5 2022- No Queenie MG oral 3-14 03-30 [facility] Tablet 00:00: 00:00 - 00 :00 Externa l Ondansetron Yes [id number] 4mg QD Take 1 Queenie (ZOFRAN) 4 3-10 tablet (4 Seyb old MG oral 00:00: mg total) - TABLET 00 by mouth Externa DISPERSIBLE daily as l needed for nausea HYDROcodone Yes [id number] 1{tbl} Q.5D Take 1 [place]ie -Acetaminop 3-10 tablet by Riana carrizales 10325 00:00: mouth 2 - MG oral 00 times Externa Tablet daily as l needed for pain Fentanyl 25 2022-0 Yes [id number] 1{patch Place 1 Queenie MCG/HR 3-10 } patch onto Seybold transdermal 00:00: the skin - PATCH 72 HR 00 every 72 Exte rna hours l Cetirizine 0 Yes [id number] 10mg Take 1 Queenie HCl (ZyrTEC 3-10 capsule Seybo ld Allergy) 10 00:00: (10 mg - MG oral 00 total) by Externa Capsule mouth l daily Famotidine Yes [id number] 20mg Take 1 Queenie (Pepcid) 20 3-10 tablet (20 Se ybold MG oral 00:00: mg total) - tablet 00 by mouth 2 Externa times l daily Ondansetron 2022-0 Yes [id number] 4mg QD Take 1 Queenie (ZOFRAN) 4 3-10 tablet (4 Seyb old MG oral 00:00: mg total) - TABLET 00 by mouth Externa DISPERSIBLE daily as l needed for nausea HYDROcodone 2022-0 Yes [id number] 1{tbl} Q.5D Take 1 Queenie -Acetaminop 3-[address] Z all 10325 00:00: mouth 2 - MG oral 00 times Externa Tablet daily as l needed for pain Fentanyl 25 2022-0 Yes [id number] 1{patch Place 1 [place] MCG/HR 3-10 } patch onto Seybold transdermal 00:00: the skin - PATCH 72 HR 00 every 72 Exte rna hours l Cetirizine 2022-0 Yes [id number] 10mg Take 1 [place] HCl (ZyrTEC 3-10 capsule Seybo ld Allergy) 10 00:00: (10 mg - MG oral 00 total) by Externa Capsule mouth l daily Famotidine 2022-0 Yes [id number] 20mg Take 1 Queenie (Pepcid) 20 3-10 tablet (20 Se ybold MG oral 00:00: mg total) - tablet 00 by mouth 2 Externa times l daily Ondansetron 2022-0 Yes [id number] 4mg QD Take 1 [place] (ZOFRAN) 4 3-10 tablet (4 Seyb old MG oral 00:00: mg total) - TABLET 00 by mouth Externa DISPERSIBLE daily as l needed for nausea HYDROcodone 2022-0 Yes [id number] 1{tbl} Q.5D Take 1 [place] -Acetaminop 3-10 tablet by [employer] all 10 00:00: mouth 2 - MG oral 00 times Externa Tablet daily as l needed for pain Fentanyl 25 2022-0 Yes [id number] 1{patch Place 1 [place] MCG/HR 3-10 } patch onto Seybold transdermal 00:00: the skin - PATCH 72 HR 00 every 72 Exte rna hours l Cetirizine 3-0 Yes [id number] 10mg Take 1 [place] HCl (ZyrTEC 3-10 capsule Seybo ld Allergy) 10 00:00: (10 mg - MG oral 00 total) by Externa Capsule mouth l daily Famotidine 2022-0 Yes [id number] 20mg Take 1 [place] (Pepcid) 20 3-10 tablet (20 Se ybold MG oral 00:00: mg total) - tablet 00 by mouth 2 Externa times l daily Fentanyl 25 2022- No APPLY 1 Ke l[place] MCG/HR 11-28-10 PATCH TO Seybold transdermal 00:00: 00:00 SKIN EVERY - PATCH 72 HR 00 :00 3 DAYS FOR Ex terna CANCER l PAIN HYDROcodone 2022- No Kelse y -Acetaminop 11-27-10 [place] hen 10-325 00:00: 00:00 - MG oral 00 :00 Externa Tablet l Ondansetron 2022- No Kelse y (ZOFRAN) 4 3-01 25-10 Seybold MG oral 00:00: 00:00 - TABLET 00 :00 Externa DISPERSIBLE l butalbital- 2022- No [id number] 1{tbl} Take 1 Univers acetaminoph 10-18-20 tablet by it y of en-caff 00:00: 00:00 mouth [place] 50-325-40 00 :00 every 6 Medical mg tablet (six) Branch hours as needed for Pain (scale 7-10). traMADOL 50 2022- No [id number] 50mg Take 1 Univers mg tablet 03-07-20 tablet by ity of 00:00: 00:00 mouth [place] 00 :00 every 6 Medical (six) Branch hours as needed for Pain (scale 4-6). naproxen 2022- No [id number] 500mg Take 1 U nivers (NAPROSYN) 03-07-20 tablet by ity of 500 mg 00:00: 00:00 mouth 2 [place] tablet 00 :00 (two) Medical times Branch daily with meals. metaxalone 2022- No [id number] 800mg Take 1 Univers (SKELAXIN) 03-07-20 tablet by ity of 800 mg 00:00: 00:00 mouth 3 [place] tablet 00 :00 (three) Medical times Branch daily. Vital Signs Vital Name Observation Time Observation Value Comments Source WEIGHT 2023-07-19 09:05:00 78.019 kg WEIGHT 2023-07-19 09:05:00 78.019 kg WEIGHT 2023-07-12 09:05:00 76.839 kg WEIGHT 2023-07-12 09:05:00 76.839 kg Body height 2023-05-05 13:21:00 157.5 cm [facility] [place] [facility] Body weight 2023-05-05 13:21:00 73.936 kg [facility] [place] [facility] BMI 2023-05-05 13:21:00 29.81 kg/m2 [facility] [place] [facility] Systolic blood 2023-04-27 15:47:00 127 mm[Hg] [facility]iver sity of pressure [place] [facility] Diastolic blood 2023-04-27 15:47:00 81 mm[Hg] Unive rsity of pressure [place] [facility] Heart rate 2023-04-27 15:47:00 113 /min [facility] [place] [facility] Body temperature 2023-04-27 15:47:00 36.67 Anastasiia [facility] [place] [facility] Respiratory rate 2023-04-27 15:47:00 16 /min [facility] [place] [facility] Body height 2023-04-27 15:47:00 157.5 cm [facility] [place] [facility] Body weight 2023-04-27 15:47:00 72.576 kg [facility] [place] [facility] BMI 2023-04-27 15:47:00 29.26 kg/m2 [facility] Oxygen saturation in 2023-04-27 15:47:00 98 /min [facility] Arterial blood by [facility] Pulse oximetry Branch Systolic blood 2023-04-12 20:24:00 126 mm[Hg] [facility] Diastolic blood 2023-04-12 20:24:00 85 mm[Hg] [facility] Heart rate 2023-04-12 20:24:00 112 /min [facility] Body temperature 2023-04-12 20:24:00 36.44 Anastasiia [facility] Respiratory rate 2023-04-12 20:24:00 18 /min [facility] Oxygen saturation in 2023-04-12 20:24:00 100 /min [facility] Arterial blood by [facility] Pulse oximetry Branch Body weight 2023-04-06 11:00:00 74.072 kg [facility] BMI 2023-04-06 11:00:00 29.87 kg/m2 [facility] Body height 2023-04-01 15:35:00 157.5 cm [facility] Heart rate 2023-04-03 12:45:00 80 /min [facility] Body temperature 2023-04-03 12:45:00 36.39 Anastasiia [facility] Respiratory rate 2023-04-03 12:45:00 22 /min [facility] Oxygen saturation in 2023-04-03 12:45:00 98 /min [facility] Arterial blood by [facility] Pulse oximetry Branch Systolic blood 2023-04-03 12:00:00 139 mm[Hg] [facility] Diastolic blood 2023-04-03 12:00:00 75 mm[Hg] [facility] Body weight 2023-04-01 18:25:00 76.658 kg [facility] BMI 2023-04-01 18:25:00 30.91 kg/m2 [facility] Body height 2023-04-01 15:35:00 157.5 cm [facility] Body height 2023-03-20 20:10:00 160 cm [facility] Body weight 2023-03-20 20:10:00 73.936 kg [facility] BMI 2023-03-20 20:10:00 28.87 kg/m2 [facility] Oxygen saturation in 2023-03-17 16:14:00 99 /min [facility] Arterial blood by [facility] carmen Pulse oximetry Branch Systolic blood 2023-03-17 16:14:00 123 mm[Hg] [facility] Diastolic blood 2023-03-17 16:14:00 84 mm[Hg] [facility] Heart rate 2023-03-17 16:14:00 93 /min [facility] Body temperature 2023-03-17 16:14:00 36.83 Anastasiia [facility] Respiratory rate 2023-03-17 16:14:00 18 /min [facility] Body weight 2023-03-16 17:00:00 73.936 kg [facility] BMI 2023-03-16 17:00:00 28.87 kg/m2 [facility] Body height 2023-03-15 02:56:00 160 cm [facility] Systolic blood 2022-12-22 15:42:00 126 mm[Hg] Queenie Seybold - pressure External Diastolic blood 2022-12-22 15:42:00 73 mm[Hg] Cabrerase y Seybold - pressure External Heart rate 2022-12-22 15:42:00 106 /min Queenie S eybold - External Body temperature 2022-12-22 15:42:00 36.44 Anastasiia Anika ey Seybold - External Respiratory rate 2022-12-22 15:42:00 14 /min Anika ey Seybold - External Body height 2022-12-22 15:42:00 157.5 cm Queenie S eybold - External Body weight 2022-12-22 15:42:00 68.947 kg Queenie S eybold - External BMI 2022-12-22 15:42:00 27.80 kg/m2 Queenie S eybold - External Oxygen saturation in 2022-12-22 15:42:00 99 /min Queenie Ledesma - Arterial blood by External Pulse oximetry Systolic blood 2022-12-12 14:53:00 124 mm[Hg] Queenie Seybold - pressure External Diastolic blood 2022-12-12 14:53:00 82 mm[Hg] Cinthya y Seybold - pressure External [...] Heart rate 2022-12-02 22:08:00 90 /min Queenie breenbozee - External Body temperature 2022-12-02 22:08:00 36.5 Anastasiia Anika breen Seybold - External Respiratory rate 2022-12-02 22:08:00 14 /min Anika breen Seybold - External Body height 2022-12-02 22:08:00 157.5 cm Queenie breenbold - External Body weight 2022-12-02 22:08:00 72.394 kg Queenie breenbold - External BMI 2022-12-02 22:08:00 29.19 kg/m2 Queenie breenbozee - External Oxygen saturation in 2022-12-02 22:08:00 99 /min Queenie Ledesma - Arterial blood by External Pulse oximetry Systolic blood 2023-07-19 09:10:00 153 mm[Hg] [facility] Diastolic blood 2023-07-19 09:10:00 97 mm[Hg] [facility] Heart rate 2023-07-19 09:05:00 114 /min [facility] Body temperature 2023-07-19 09:05:00 36.17 Anastasiia [facility] Respiratory rate 2023-07-19 09:05:00 18 /min [facility] Body weight 2023-07-19 09:05:00 78.019 kg [facility] Oxygen saturation in 2023-07-19 09:05:00 98 /min [facility] Arterial blood by Medical Ce nter Pulse oximetry Procedures Procedure Date / Time Performing Clinician Source Performed RAD ONC ARIA SESSION 2023-07-19 08:59:43 Provider, Default [facility] Scanning [place] EXTERNAL PROVIDER RECORDS 2023-07-19 05:01:00 Doctor Unassigned, [facility] [place] [facility] RAD ONC ARIA SESSION 2023-07-18 08:36:56 Provider, Default [facility] [place] RAD ONC ARIA SESSION 2023-07-17 08:37:38 Provider, Default [facility] RAD ONC ARIA SESSION 2023-07-14 08:30:40 Provider, [facility] Medical SUMMARY Scanning Center RAD ONC ARIA SESSION 2023-07-13 10:19:23 Provider, [facility] Medical SUMMARY Scanning Center RAD ONC ARIA SESSION 2023-07-12 08:47:42 Provider, [facility] SUMMARY Scanning Center RAD ONC ARIA SESSION 2023-07-11 09:04:45 Provider, [facility] Medical SUMMARY Scanning Center RAD ONC ARIA SESSION 2023-07-10 08:49:52 Provider, [facility] SUMMARY Scanning Center RAD ONC ARIA SESSION 2023-07-07 10:02:29 Provider, [facility] Scanning Center RAD ONC ARIA SESSION 2023-07-06 16:01:02 Provider, [facility] Scanning Center MR BRAIN WITH & WITHOUT 2023-06-28 14:18:25 Ramy Ledesma [facility] IV CONTRAST Center AUTHORIZATION FOR RELEASE 2023-04-24 05:01:00 Doctor Unassigned, [facility] [place] [facility] POCT GLUCOSE (AUTOMATED) 2023-04-12 20:24:00 [facility] 2023-04-12 16:24:00 Phalak, [facility]) 2023-04-12 12:25:00 [facility]alak, [facility] (AUTOMATED) 2023-04-12 10:56:00 Phalvernon, [facility] BASIC METABOLIC PANEL 2023-04-12 09:37:00 Shawn Pereira [facility] (NA, K, CL, CO2, GLUCOSE, Medica l Branch BUN, CREATININE, CA) POCT GLUCOSE (AUTOMATED) 2023-04-12 06:33:00 Chantel, [facility]SE (AUTOMATED) 2023-04-12 02:45:00 Phalak, [facility]SE (AUTOMATED) 2023-04-11 20:22:00 Phalak, [facility] PO[facility]SE (AUTOMATED) 2023-04-11 16:23:00 Phalak, [facility] Uni [facility] CBC WITH DIFF 2023-04-11 14:00:00 Randall [facility] o f [facility] BASIC METABOLIC PANEL 2023-04-11 12:57:00 Ligia Demarco [facility] (NA, K, CL, CO2, GLUCOSE, Medica l Branch BUN, CREATININE, CA) POCT GLUCOSE (AUTOMATED) 2023-04-11 12:29:00 Phalak, [facility] PO[facility]UCOSE (AUTOMATED) 2023-04-11 09:32:00 Phalak, [facility] PO[facility]UCOSE (AUTOMATED) 2023-04-11 04:38:00 Phalak, [facility] PO[facility]UCOSE (AUTOMATED) 2023-04-10 23:32:00 Praveen, [facility] PO[facility]SE (AUTOMATED) 2023-04-10 16:52:00 Praveen, [facility] POCT [facility]UCOSE (AUTOMATED) 2023-04-10 11:15:00 Praveen, Jonathan Uni [facility] BASIC METABOLIC PANEL 2023-04-10 10:51:00 Usama Jean-Baptiste [facility] (NA, K, CL, CO2, GLUCOSE, Medica l Branch BUN, CREATININE, CA) CBC WITH DIFF 2023-04-10 10:51:00 Usama Jean-Baptiste [facility] POCT GLUCOSE (AUTOMATED) 2023-04-10 05:12:00 Praveen, [facility] PO[facility]SE (AUTOMATED) 2023-04-10 03:36:00 Praveen, [facility] PO[facility]UCOSE (AUTOMATED) 2023-04-09 22:04:00 Praveen, [facility] PO[facility]UCOSE (AUTOMATED) 2023-04-09 16:36:00 Praveen, [facility] POCT GLUCOSE (AUTOMATED) 2023-04-09 10:26:00 Praveen, Jonathan [facility] BASIC METABOLIC PANEL 2023-04-09 09:37:00 Usama Jean-Baptiste [facility] (NA, K, CL, CO2, GLUCOSE, Medica l Branch BUN, CREATININE, CA) CBC WITH DIFF 2023-04-09 09:37:00 Estiven [facility] POCT GLUCOSE (AUTOMATED) 2023-04-09 04:43:00 Jonathan Morton [facility] SODIUM 2023-04-09 03:16:00 Aquilino [facility] POCT GLUCOSE (AUTOMATED) 2023-04-08 22:12:00 Praveen Jonathan [facility] POCT GLUCOSE (AUTOMATED) 2023-04-08 16:45:00 Jonathan Morton [facility] SODIUM 2023-04-08 14:02:00 [facility]SE (AUTOMATED) 2023-04-08 10:50:00 Jonathan Morton [facility] CT HEAD WO CONTRAST 2023-04-08 09:25:45 Usama Jean-Baptiste [facility] MAGNESIUM 2023-04-08 08:42:00 [facility] BASIC METABOLIC PANEL 2023-04-08 08:42:00 Dav, [facility] (NA, K, CL, CO2, GLUCOSE, Medica l Branch BUN, CREATININE, CA) CBC WITH DIFF 2023-04-08 08:42:00 Estiven [facility] POCT GLUCOSE (AUTOMATED) 2023-04-08 05:18:00 Jonathan Morton [facility] SODIUM 2023-04-07 22:58:[facility] 2023-04-07 22:58:00 Usama Jean-Baptiste [facility] (NA, K, CL, CO2, GLUCOSE, Medica l Branch BUN, CREATININE, CA) CBC WITH DIFF 2023-04-07 22:56:00 Marquez Cheung [facility] POCT GLUCOSE (AUTOMATED) 2023-04-07 22:05:00 Praveen, [facility] POCT GLUCOSE (AUTOMATED) 2023-04-07 16:38:00 Praveen, [facility] POCT GLUCOSE (AUTOMATED) 2023-04-07 10:52:00 Praveen, [facility] MAGNESIUM 2023-04-07 06:06:00 [facility]IC PANEL 2023-04-07 06:06:00 Dav [facility] (NA, K, CL, CO2, GLUCOSE, Medica l Branch BUN, CREATININE, CA) POCT GLUCOSE (AUTOMATED) 2023-04-07 05:34:00 Praveen, [facility] POCT GLUCOSE (AUTOMATED) 2023-04-06 22:18:00 Praveen Jonathan [facility] FL MODIFIED BARIUM 2023-04-06 19:47:05 Davi Vallecillo [facility] POCT GLUCOSE (AUTOMATED) 2023-04-06 16:56:00 Praveen, [facility] IONIZED CALCIUM 2023-04-06 11:14:[address] [facility] POCT GLUCOSE (AUTOMATED) 2023-04-06 10:47:00 Praveen [facility] MAGNESIUM 2023-04-06 08:16:[address] [facility] BASIC METABOLIC PANEL 2023-04-06 08:16:00 Dav [facility] (NA, K, CL, CO2, GLUCOSE, Medica l Branch BUN, CREATININE, CA) CBC WITH DIFF 2023-04-06 08:16:[address] [facility] POCT GLUCOSE (AUTOMATED) 2023-04-06 05:31:00 Praveen, [facility] POCT GLUCOSE (AUTOMATED) 2023-04-05 22:47:00 Praveen, [facility] POCT GLUCOSE (AUTOMATED) 2023-04-05 17:02:00 Praveen, [facility] POCT GLUCOSE (AUTOMATED) 2023-04-05 17:02:[address] [facility] MAGNESIUM 2023-04-05 10:16:[address] [facility] BASIC METABOLIC PANEL 2023-04-05 10:16:00 [facility] (NA, K, CL, CO2, GLUCOSE, Medica l Branch BUN, CREATININE, CA) CBC WITH DIFF 2023-04-05 10:16:00 [facility] 2023-04-05 10:16:00 [facility] BASIC METABOLIC PANEL 2023-04-05 10:16:00 [facility] (NA, K, CL, CO2, GLUCOSE, Medica l Branch BUN, CREATININE, CA) CBC WITH DIFF 2023-04-05 10:16:[address] [facility] POCT GLUCOSE (AUTOMATED) 2023-04-05 04:32:[address] [facility] POCT GLUCOSE (AUTOMATED) 2023-04-05 04:32:00 Praveen Jonathan [facility] XR KUB 2023-04-05 01:03:25 Fred [facility] XR KUB 2023-04-05 01:03:25 Fred [facility] POCT GLUCOSE (AUTOMATED) 2023-04-04 22:30:[address] [facility] POCT GLUCOSE (AUTOMATED) 2023-04-04 22:30:00 Jonathan Morton [facility] MR BRAIN W WO CONTRAST 2023-04-04 21:31:00 Abbie [facility]RAIN W WO CONTRAST 2023-04-04 21:31:00 Abbie Mora [facility] SODIUM 2023-04-04 17:01:00 Aquilino [facility] SODIUM 2023-04-04 17:01:00 Rolle [facility] POCT GLUCOSE (AUTOMATED) 2023-04-04 16:41:00 Jonathan Morton [facility] POCT GLUCOSE (AUTOMATED) 2023-04-04 16:41:00 Jonathan Morton [facility] BASIC METABOLIC PANEL 2023-04-04 09:29:00 [facility] (NA, K, CL, CO2, GLUCOSE, Antoinette Medica l Branch BUN, CREATININE, CA) CBC WITH DIFF 2023-04-04 09:29:00 [facility] BASIC METABOLIC PANEL 2023-04-04 09:29:00 [facility] (NA, K, CL, CO2, GLUCOSE, Antoinette Medica l Branch BUN, CREATININE, CA) CBC WITH DIFF 2023-04-04 09:29:00 [facility] CT HEAD WO CONTRAST 2023-04-04 08:56:00 D'Carrie [facility] CT HEAD WO CONTRAST 2023-04-04 08:56:00 DDiana [facility] AC ABG + LACTIC ACID 2023-04-04 08:31:00 Dav [facility] AC ABG + LACTIC ACID 2023-04-04 08:31:00 Abigail Demarco [facility] POCT GLUCOSE (AUTOMATED) 2023-04-04 06:37:00 Jonathan Morton [facility] POCT GLUCOSE (AUTOMATED) 2023-04-04 06:37:00 Jonathan Morton [facility] XR CHEST 1 VW 2023-04-04 06:20:00 Abigail Demarco [facility] XR CHEST 1 VW 2023-04-04 06:20:00 Abigail Demarco [place] [facility] 2023-04-04 02:26:[address] [facility] 2023-04-04 02:26:[address] [facility] BASIC METABOLIC PANEL 2023-04-03 22:50:00 Emiri, [facility] (NA, K, CL, CO2, GLUCOSE, Medica l Branch BUN, CREATININE, CA) CBC WITHOUT DIFF 2023-04-03 22:50:00 Nimesh [facility] BASIC METABOLIC PANEL 2023-04-03 22:50:00 [facility] (NA, K, CL, CO2, GLUCOSE, Medica l Branch BUN, CREATININE, CA) CBC WITHOUT DIFF 2023-04-03 22:50:00 Nimesh [facility] ACUTE CARE VENOUS 2023-04-03 22:49:00 Jonathan Morton [facility] 2023-04-03 22:49:00 Jonathan Morton [facility] ACUTE CARE ARTERIAL 2023-04-03 21:27:00 Jonathan Morton [facility] ACUTE CARE ARTERIAL 2023-04-03 21:27:00 Jonathan Morton Un [facility]ity [facility] SURGICAL PATHOLOGY EXAM 2023-04-03 17:16:00 Arturo Ibarra [facility] 2023-04-03 17:16:00 Arturo Ibarra [facility] 2023-04-03 14:33:00 Jonathan Morton [facility] ACUTE CARE ARTERIAL 2023-04-03 14:33:00 Jonathan Morton Un iversity of [facility] CRANIOTOMY RESECTION 2023-04-03 12:45:00 Arturo Ibarra [facility] TUMOR WITH NAVIGATION Medical Br anch ACOUSTIC NEUROMA EXCISION 2023-04-03 12:45:00 El Silva Un [facility]ity of [facility] CRANIOTOMY RESECTION 2023-04-03 12:45:00 Arturo Ibarra [facility] TUMOR WITH NAVIGATION Medical Br anch ACOUSTIC NEUROMA EXCISION 2023-04-03 12:45:00 El Silva Un iversity [facility] BASIC METABOLIC PANEL 2023-04-03 08:32:00 Steven Rolle [facility] (NA, K, CL, CO2, GLUCOSE, Shan Medica l Branch BUN, CREATININE, CA) CBC WITH DIFF 2023-04-03 08:32:00 Steven Rolle [facility] PROTHROMBIN TIME / INR 2023-04-03 08:32:00 [facility] 2023-04-03 08:32:00 Steven Rolle [facility] BASIC METABOLIC PANEL 2023-04-03 08:32:00 Steven Rolle [facility] (NA, K, CL, CO2, GLUCOSE, Shan Medica l Branch BUN, CREATININE, CA) CBC WITH DIFF 2023-04-03 08:32:00 Steven Rolle [facility] PROTHROMBIN TIME / INR 2023-04-03 08:32:00 [facility] 2023-04-03 08:32:00 Steven Rolle [facility] POCT GLUCOSE (AUTOMATED) 2023-04-03 04:52:[address] [facility] POCT GLUCOSE (AUTOMATED) 2023-04-03 04:52:[address] [facility] POCT GLUCOSE (AUTOMATED) 2023-04-02 22:37:00 [facility] PO[facility] GLUCOSE (AUTOMATED) 2023-04-02 22:37:[address] [facility] CT HEAD WO CONTRAST 2023-04-02 20:27:06 Steven Rolle [facility] CT HEAD WO CONTRAST 2023-04-02 20:27:06 Steven Rolle [facility] XR CHEST 1 VW 2023-04-02 18:09:00 Steven Rolle [facility] XR CHEST 1 VW 2023-04-02 18:09:00 Steven Rolle [facility] POCT GLUCOSE (AUTOMATED) 2023-04-02 16:32:[address] [facility] POCT GLUCOSE (AUTOMATED) 2023-04-02 16:32:00 Jonathan Morton [facility] BASIC METABOLIC PANEL 2023-04-02 10:56:00 Shari [facility] (NA, K, CL, CO2, GLUCOSE, Medica l Branch BUN, CREATININE, CA) CBC WITH DIFF 2023-04-02 10:56:00 Shari, [facility] BASIC METABOLIC PANEL 2023-04-02 10:56:00 Shari [facility] (NA, K, CL, CO2, GLUCOSE, Medica l Branch BUN, CREATININE, CA) CBC WITH DIFF 2023-04-02 10:56:00 Shari [facility] PREPARE PACKED RBC 2023-04-02 08:08:47 Praveen [facility] POCT GLUCOSE (AUTOMATED) 2023-04-02 05:20:00 Jonathan Morton [facility] POCT GLUCOSE (AUTOMATED) 2023-04-02 05:20:00 Jonathan Morton [facility] XR CHEST 1 VW 2023-04-01 22:30:35 [facility]ST 1 VW 2023-04-01 22:30:35 Ruth Ann [facility] POCT GLUCOSE (AUTOMATED) 2023-04-01 22:24:00 Praveen Jonathan [facility] POCT GLUCOSE (AUTOMATED) 2023-04-01 22:24:00 Jonathan Morton [facility] POCT GLUCOSE (AUTOMATED) 2023-04-01 21:25:00 Praveen Jonathan [facility] POCT GLUCOSE (AUTOMATED) 2023-04-01 21:25:00 Praveen Jonathan [facility] PANEL IDENTIFICATION 2023-04-01 20:26:00 Jonathan Morton [facility] PATIENT RH ANTIGEN TYPING 2023-04-01 20:26:00 Jonathan Morton [facility] EXTRA TUBE LAV (BLOOD 2023-04-01 20:26:00 Jonathan Morton [facility]) Medical Branch PANEL IDENTIFICATION 2023-04-01 20:26:00 Jonathan Morton [facility] PATIENT RH ANTIGEN TYPING 2023-04-01 20:26:[address] [facility] EXTRA TUBE LAV (BLOOD 2023-04-01 20:26:00 Jonathan Morton [facility]) Medical Branch MRSA / MSSA SCREEN BY 2023-04-01 18:54:00 Davi Vallecillo [facility] PCR, [facility] ABORH CONFIRMATION (LAB 2023-04-01 18:54:00 Fred [facility] ONLY) Medical Branch MRSA / MSSA SCREEN BY 2023-04-01 18:54:00 Davi Vallecillo [facility] PCR, [facility] ABORH CONFIRMATION (LAB 2023-04-01 18:54:00 Fred [facility] ONLY) Medical Branch TEST, SERUM 2023-04-01 17:55:00 [facility] PROT[facility]OMBIN [facility] / INR 2023-04-01 17:55:00 Steven Rolle [facility] ACTIVATED PARTIAL 2023-04-01 17:55:00 Steven Rolle [facility] HB ABO GROUPING 2023-04-01 17:55:00 Steven Rolle [facility] TEST, SERUM 2023-04-01 17:55:00 [facility] PROTHROMBIN TIME / INR 2023-04-01 17:55:00 [facility] 2023-04-01 17:55:00 Steven Rolle [facility] HB ABO GROUPING 2023-04-01 17:55:00 Steven Rolle [facility] CT HEAD WO CONTRAST 2023-04-01 16:44:38 Christian, [facility] CT HEAD WO CONTRAST 2023-04-01 16:44:38 Christian, [facility] Medical Branch MAGNESIUM 2023-04-01 16:27:00 Ruth Ann [facility] COMP. METABOLIC PANEL 2023-04-01 16:27:00 [facility] ([id number]) Medical Branch CBC WITH DIFF 2023-04-01 16:27:00 [facility] MAGNESIUM 2023-04-01 16:27:00 Ruth Ann [facility] COMP. METABOLIC PANEL 2023-04-01 16:27:00 [facility] ([id number]) [facility] CBC WITH DIFF 2023-04-01 16:27:00 [facility] CONSENT/REFUSAL FOR 2023-04-01 15:32:19 Doctor Unassigned, [facility] DIAGNOSIS AND TREATMENT [place] [facility] CONSENT/REFUSAL FOR 2023-04-01 15:32:19 Doctor Unassigned, [facility] DIAGNOSIS AND TREATMENT [place] [facility] EXTERNAL PROVIDER RECORDS 2023-03-21 05:01:00 Doctor Unassigned, [facility] [place] [facility] POCT GLUCOSE (AUTOMATED) 2023-03-17 16:13:00 Phalak, Josefa Uni [facility] POCT GLUCOSE (AUTOMATED) 2023-03-17 12:48:00 Phalak, Josefa Uni [facility] POCT GLUCOSE (AUTOMATED) 2023-03-17 01:45:00 Phalak, Josefa [facility] POCT GLUCOSE (AUTOMATED) 2023-03-16 21:05:00 Phalak, Josefa [facility] POCT GLUCOSE (AUTOMATED) 2023-03-16 16:43:00 Phalak, Josefa Uni [facility] POCT GLUCOSE (AUTOMATED) 2023-03-16 12:26:00 [facility]alak, [facility]IN W WO CONTRAST 2023-03-16 02:39:00 Jen Gaines [facility] POCT GLUCOSE (AUTOMATED) 2023-03-16 01:27:00 Phalak, [facility] PO[facility]SE (AUTOMATED) 2023-03-15 22:00:00 Chantel [facility] POCT GLUCOSE (AUTOMATED) 2023-03-15 16:43:00 Chantel [facility] POCT GLUCOSE (AUTOMATED) 2023-03-15 13:39:00 Chantel [facility] MAGNESIUM 2023-03-15 09:30:00 Chantel [facility] HEPATIC FUNCTION PANEL 2023-03-15 09:30:00 Ivananh [facility] ([id number]) (ALB,T.PRO,BILI [facility] T,BU/BC,ALT,AST,ALK PHOS) BASIC METABOLIC PANEL 2023-03-15 09:30:00 Chantel [facility] (NA, K, CL, CO2, GLUCOSE, Medica l Branch BUN, CREATININE, CA) CBC WITH DIFF 2023-03-15 09:30[facility]00 [facility] PROTHROMBIN TIME / INR 2023-03-15 09:30:00 Ivananh [facility] Plan of Care Planned Activity Planned Date Details Comments Source Future Scheduled 2023-05-26 Influenza Vaccine (#1) [facility] Test 00:00:00 [code = Influenza Vaccine [facility] (#1)] Future Scheduled 2022-09-[address] [facility] Test 00:00:00 (12+) [code = DEPRESSION Med [facility] SCREENING (12+)] Future Scheduled 2000 Screening for malignant [facility] Test 00:00:00 neoplasm of cervix Medical C enter (procedure) [code = 471035122] Future Scheduled 1998 DTAP/TDAP/TD VACCINES ([address] [facility] Test 00:00:00 - Tdap) [code = Medical Cent er DTAP/TDAP/TD VACCINES (1 - Tdap)] Future Scheduled 1997 HEPATITIS C [facility]CRE[facility]ING [facility] Test 00:00:00 [code = HEPATITIS C Medical Center SCREENING] Future Scheduled [address] [facility] Test 00:00:00 virus screening Medical Cent er (procedure) [code = 257402851] Future Scheduled [address] [facility] Test 00:00:00 Counseling and Screening [facility] (12+) [code = Tobacco Cessation Counseling and Screening (12+)] Future Scheduled 1985 Pneumococcal Vaccine: [facility] Test 00:00:00 0-64 Years (1 - PCV) Medical Center [code = Pneumococcal Vaccine: 0-64 Years (1 - PCV)] Future Scheduled 1980-01-31 COVID-19 VACCINE (#1) [facility] Test 00:00:00 [code = COVID-19 VACCINE [facility] (#1)] Medication 2023-07-26 memantine (NAMENDA) [address] [facility] 00:00:00 tablet [code = 597839] Medic [place] Center Encounters Start End Encounter Admission Attending Care Care Encounter Source Date/Time Date/Time Type Type Clinicians Facility Department ID 2023-03-17 Inpatient ARTURO HUMMEL [facility] [id number] Univers 11:14:24 ARTURO IBARRA [facility] 2023-03-14 Inpatient ER MARY GRACEMARIOISHMAELOMEGA [facility] Neuro ICU [id number] 18:54:06 [facility] 2023-08-01 2023-08-01 Outpatient ARTURO HUMMEL [facility] [id number] [facility] 11:20:00 11:20:00 ARTURO IBARRA [facility] 2023-07-19 2023-07-19 Office Nelia [facility] [id number] 09:00:00 09:15:00 Visit George [facility] 2023-07-19 2023-07-19 [facility] [id number] SLE 09:02:13 09:02:13 GEORGE 2023-07-19 2023-07-19 Outpatient [facility] [id number] SLE 08:49:47 08:59:44 2023-07-19 2023-07-19 Outpatient QUEENIE INTERIANO [id number] [place] 00:00:00 00:00:00 MUKUND myles 2023-07-19 2023-07-19 Outpatient QUEENIE INTERIANO [id number] [place] 00:00:00 00:00:00 MUKUND myles 2023-07-19 2023-07-19 Orders [facility] [id number] 00:00:00 00:00:00 Only [facility] 2023-07-19 2023-07-19 Orders Doctor STONER 1.2.840.114 [id number] [facility] 00:00:00 00:00:00 Only Unassigned, DELBERT 350.1.13.10 ity of [place] [facility] 4.2.7.2.686 Emiliano as [phone] Medi carmen [address] 2023-07-18 2023-07-18 Outpatient SFA [facility] [id number] 10:56:19 10:56:19 [id number] F Basilio 2023-07-18 2023-07-18 Outpatient EL [facility] [id number] [facility] 08:22:16 08:36:57 2023-07-18 2023-07-18 Outpatient QUEENIE GALAN [id number] [place] 00:00:00 00:00:00 SCOTT myles 2023-07-18 2023-07-18 Orders [facility] [id number] 00:00:00 00:00:00 Only [facility] 2023-07-17 2023-07-17 Outpatient EL [facility] [id number] [facility] 08:29:00 08:37:39 2023-07-17 2023-07-17 Orders [facility] [id number] 00:00:00 00:00:00 Only [facility] 2023-07-14 2023-07-14 Outpatient EL [facility]H [facility]H [id number] [facility]H 08:21:44 08:30:41 2023-07-14 2023-07-14 Orders [facility] [id number] 00:00:00 00:00:00 Only [facility] 2023-07-13 2023-07-13 Outpatient EL SLEH [facility] [id number] [facility] 10:09:33 10:19:26 2023-07-13 2023-07-13 Orders [facility] [id number] 00:00:00 00:00:00 Only [facility] 2023-07-12 2023-07-12 Office Nelia [facility] [id number] 09:00:00 09:15:00 Visit George [facility] 2023-07-12 2023-07-12 Outpatient EL DAMON PICKENS SLE [id number] SLEH 08:54:27 08:54:27 GEORGE 2023-07-12 2023-07-12 Outpatient EL [facility]H SLEH [id number] [facility]H 08:39:22 08:47:42 2023-07-12 2023-07-12 Orders [facility] [id number] 00:00:00 00:00:00 Only [facility] 2023-07-11 2023-07-11 Outpatient EL SLEH SLEH [id number] [facility]H 08:52:37 09:04:47 2023-07-11 2023-07-11 Orders [facility] [id number] 00:00:00 00:00:00 Only [facility] 2023-07-10 2023-07-10 Outpatient EL SLEH SLEH [id number] [facility]H 08:39:53 08:49:54 2023-07-10 2023-07-10 Orders [facility] [id number] 00:00:00 00:00:00 [facility] 2023-07-07 2023-07-07 Outpatient EL SLEH SLEH [id number] [facility]H 09:18:58 10:02:34 2023-07-07 2023-07-07 Orders [facility] [id number] 00:00:00 00:00:00 Only [facility] 2023-07-06 2023-07-06 Outpatient EL SLEH SLEH [id number] [facility]H 00:00:00 00:00:00 2023-07-06 2023-07-06 [facility] [id number] 00:00:00 00:00:00 Only [facility] 2023-07-06 2023-07-06 Telephone Alida, [facility] [id number] 00:00:00 00:00:00 [facility] 2023-07-06 2023-07-06 Telephone Irwin, [facility] [id number] 00:00:00 00:00:00 [facility] 2023-07-06 2023-07-06 Orders Irwin, [facility] [id number] 00:00:00 00:00:00 Only [facility] 2023-07-05 2023-07-05 [facility] [id number] 14:00:00 14:30:00 Visit [facility] 2023-07-05 2023-07-05 Outpatient [facility] [id number] SLEH 13:24:36 14:19:15 2023-07-05 2023-07-05 Outpatient [facility] [id number] SLE 13:44:56 13:44:56 [facility] 2023-07-05 2023-07-05 Orders Alida, [facility] [id number] 00:00:00 00:00:00 Only [facility] 2023-06-28 2023-06-28 [facility] [id number] 13:21:56 23:59:00 Encounter [facility] 2023-06-28 2023-06-28 Outpatient EL [facility] SLE [id number] SLEH 13:21:56 23:59:00 GEORGE 2023-06-24 2023-06-24 Outpatient QUEENIE SPANN [id number] [place] 00:00:00 00:00:00 ybol shameka 2023-06-21 2023-06-21 Outpatient ROGELIO SPANN [id number] [place] 00:00:00 00:00:00 MD ORESTES Seybol d 2023-06-20 2023-06-20 Procedure Nelia [facility] [id number] [facility] 13:00:00 14:00:00 visit George [facility] 2023-06-20 2023-06-20 Outpatient QUEENIE INTERIANO [id number] [place] 00:00:00 00:00:00 AHMED Seybol d 2023-06-20 2023-06-20 Outpatient QUEENIE SPANN [id number] [place] 00:00:00 00:00:00 Seybol d 2023-06-15 2023-06-15 Outpatient QUEENIE SPANN [id number] [place] 00:00:00 00:00:00 Seybol d 2023-06-13 2023-06-13 [facility] [id number] [facility] 14:45:14 14:45:14 GEORGE 2023-06-12 2023-06-12 Outpatient QUEENIE GALAN [id number] [place] 00:00:00 00:00:00 SCOTT Seybol d 2023-06-10 2023-06-10 Outpatient QUEENIE SPANN [id number] [place] 00:00:00 00:00:00 Seybol d 2023-06-07 2023-06-07 Outpatient QUEENIE SPANN [id number] [place] 00:00:00 00:00:00 Seybol d 2023-05-31 2023-05-31 Outpatient QUEENIE CURTIS [id number] [place] 11:00:00 11:00:00 GRANT Seybol d 2023-05-22 2023-05-22 Outpatient QUEENIE DE LEÓN [id number] [place] 00:00:00 00:00:00 QUEENIE Seybol d 2023-05-22 2023-05-22 Outpatient QUEENIE SPANN [id number] [place] 00:00:00 00:00:00 Seybol d 2023-05-17 2023-05-17 Outpatient QUEENIE INTERIANO [id number] [place] 00:00:00 00:00:00 AHMED Seybol d 2023-05-16 2023-05-16 Outpatient R [facility] [id number] Univers 10:45:00 10:45:00 ity of [facility] 2023-05-11 2023-05-11 Outpatient QUEENIE SPANN [id number] [place] 00:00:00 00:00:00 Seybol d 2023-05-11 2023-05-11 Outpatient QUEENIE SPANN [id number] [place] 00:00:00 00:00:00 Seybol d 2023-05-11 2023-05-11 Outpatient ROGELIO QUEENIE SPANN [id number] [place] 00:00:00 00:00:00 MD ORESTES Seybol d 2023-05-10 2023-05-10 Outpatient QUEENIE GALAN [id number] [place] 00:00:00 00:00:00 SCOTT Seybol d 2023-05-10 2023-05-10 Outpatient QUEENIE SPANN [id number] [place] 00:00:00 00:00:00 Seybol d 2023-05-10 2023-05-10 Outpatient QUEENIE SPANN [id number] [place] 00:00:00 00:00:00 Seybol d 2023-05-05 2023-05-05 [facility] [id number] Univers 08:45:00 09:00:00 Visit El GINETTE 350.1.13.10 i [place] [phone] [address] 2023-05-05 2023-05-05 Outpatient R RICARDO [facility] [id number] Univers 08:45:00 08:45:00 EL itgisselle of [facility] 2023-05-02 2023-05-02 Patient Fred [facility] 1.2.840.114 [id number] Univers 00:00:00 00:00:00 Secure [facility] 350.1.13.10 [place] [phone] [place] [address] [address] OFFICE BUILDING 2023-04-27 2023-04-27 Outpatient ARTURO HUMMEL [facility] [id number] Univers 10:40:00 11:28:59 ARTURO IBARRA ity of [facility] 2023-04-27 2023-04-27 Office Fred [facility] 1.2.840.114 [id number] Univers 10:40:00 11:28:59 Visit Arturo STEARNS 350.1.13.10 it y [place] [phone] [place] [address] [address] OFFICE BUILDING 2023-04-24 2023-04-24 Orders Doctor GEORGIANA 1.2.840.114 [id number] Univers 00:00:00 00:00:00 Only Unassigned, DELBERT 350.1.13.10 ity of [place] [facility] 4.2.7.2.686 Emiliano as [phone] [facility] [address] 2023-04-21 2023-04-21 Outpatient SFA [facility] [id number] Edgar 11:15:05 11:15:05 [id number] F Basilio 2023-04-18 2023-04-18 Outpatient QUEENIE NITERIANO [id number] [place] 00:00:00 00:00:00 MUKUND myles 2023-04-18 2023-04-18 Multidisci TOMMY Hagen 1.2.840.114 [id number] Univers 00:00:00 00:00:00 plinary Barrera Flower 350.1.13.10 ity of [place] BUILDING 4.2.7.2.686 [place] [phone] [facility] [address] 2023-04-13 2023-04-13 Transition ANTONIO Jennings 1.2.840.114 [id number] Univers 00:00:00 00:00:00 of Care Nicole DUNCAN 350.1.13.10 [place] [phone] [facility] [address] 2023-04-01 2023-04-12 Inpatient X JOSEFA CHAVES [facility] LB 1 [id number] Univers 10:36:00 17:00:00 JOSEFA CHAVES ity of [facility] 2023-04-01 2023-04-12 [facility] Riana Cortes [facility] 1.2.840.114 [id number] Univers 10:36:00 17:00:00 Encounter Jonathan Morton 350.1.13.10 ity of [place] 4.2.7.2.686 [place] [phone] [address] ([facility]) 2023-04-03 2023-04-03 Surgery Fred [facility] 1.2.840.114 [id number] Univers 07:30:00 20:54:00 Arturo HEALTH 350.1.13.10 it [place] [phone] [address] ([facility]) 2023-04-01 2023-04-01 Prep For GEORGIANA Ibarra 1.2.840.114 [id number] Univers 00:00:00 00:00:00 Surgery Arturo MANDUJANO 350.1.13.10 it y of HOSPITAL 4.2.7.2.686 [place] [phone] [place] [address] [address] 2023-03-31 2023-03-31 Outpatient R [facility] [id number] Univers 14:00:00 14:00:00 ity of [facility] 2023-03-31 2023-03-31 Telephone Fred [facility] 1.2.241.767 [id number] Univers 00:00:00 00:00:00 Arturo STEARNS 350.1.13.10 it y of [place] 4.2.7.2.686 [place] [phone] [address] OFFICE BUILDING 2023-03-30 2023-03-30 Outpatient R FREDARTURO [facility] [id number] Univers 11:20:00 11:20:00 FRED ARTURO magali of [facility] 2023-03-27 2023-03-27 Outpatient QUEENIE GALAN [id number] [place] 00:00:00 00:00:00 SCOTT myles 2023-03-24 2023-03-24 Pre-Anesth Call, [facility] 1.2.840.114 [id number] Univers 07:20:00 07:25:00 lashay [facility] Phone HEALTH 350.1.13.10 ity of [place].2.[place] [phone] [facility] [address] ([facility]) 2023-03-22 2023-03-22 Outpatient QUEENIE SPANN [id number] [place] 00:00:00 00:00:00 Oscar myles 2023-03-21 2023-03-21 Orders Doctor GEORGIANA 1.2.840.114 [id number] Univers 00:00:00 00:00:00 Only Unassigned, DELBERT 350.1.13.10 ity of [place] [facility]OSPITAL 4.2.7.2.686 Emiliano as [phone] [facility] [address] 2023-03-20 2023-03-20 Pre-Anesth Call, [facility] 1.2.840.114 [id number] Univers 15:05:00 15:10:00 esia [facility] Phone HEALTH 350.1.13.10 ity of [place] [phone] [facility] [address] ([facility]) 2023-03-20 2023-03-20 Outpatient QUEENIE INTERIANO [id number] [place] 00:00:00 00:00:00 MUKUND myles 2023-03-20 2023-03-20 Transition ANTONIO Valenzuela 1.2.840.114 [id number] Univers 00:00:00 00:00:00 of Care Carlota HEMPHILLY 350.1.13.10 i ty [place] [phone] [facility] [address] 2023-03-14 2023-03-17 Hospital Chantel [facility] 1.2.840.114 [id number] Univers 21:40:00 13:40:00 Encounter Josefa HEALTH 350.1.13.10 ity of [place] [id number] [facility] [address] ([facility]) 2023-03-14 2023-03-17 Inpatient U JOSEFA CHAVES [facility] LB 1 [id number] Univers 21:40:00 13:40:00 JOSEFA CHAVES [facility] 2023-03-17 2023-03-17 Prep For GEORGIANA Ibarra 1.2.840.114 [id number] Univers 00:00:00 00:00:00 Surgery Arturo MANDUJANO 350.1.13.10 [facility] 4.2.7.2.686 [place] [phone] [address] 2023-03-16 2023-03-16 Outpatient QUEENIE SPANN [id number] [place] 00:00:00 00:00:00 Seybol d 2023-03-15 2023-03-15 Outpatient QUEENIE GALAN [id number] [place] 00:00:00 00:00:00 SCOTT Seybol d 2023-03-14 2023-03-14 Outpatient QUEENIE GALAN [id number] [place] 14:15:00 14:15:00 SCOTT Seybol d 2023-02-17 2023-02-17 Outpatient QUEENIE INTERIANO [id number] [place] 00:00:00 00:00:00 AHMED Seybol d 2023-02-14 2023-02-14 Outpatient QUEENIE GALAN [id number] [place] 14:45:00 14:45:00 SCOTT Seybol d 2023-02-14 2023-02-14 Outpatient QUEENIE INTERIANO [id number] [place] 09:15:00 09:15:00 AHMED Seybol d 2023-02-13 2023-02-13 Outpatient QUEENIE GALAN [id number] [place] 00:00:00 00:00:00 SCOTT Seybol d 2023-02-10 2023-02-10 Outpatient QUEENIE GALAN [id number] [place] 00:00:00 00:00:00 SCOTT Seybol d 2023-02-10 2023-02-10 Outpatient QUEENIE GALAN [id number] [place] 00:00:00 00:00:00 SCOTT Seybol d 2023-02-10 2023-02-10 Outpatient QUEENIE SPANN [id number] [place] 00:00:00 00:00:00 Seybol d 2023-02-10 2023-02-10 Outpatient PREZAS, QUEENIE SPANN [id number] [place] 00:00:00 00:00:00 SCOTT Seybol d 2023-02-07 2023-02-07 Outpatient PREZAS, QUEENIE SPANN [id number] [place] 00:00:00 00:00:00 SCOTT Seybol d 2023-02-05 2023-02-05 Outpatient PREZAS, QUEENIE SPANN [id number] [place] 00:00:00 00:00:00 SCOTT Seybol d 2023-01-31 2023-01-31 Outpatient SEWIELAM, QUEENIE SPANN [id number] [place] 00:00:00 00:00:00 AHMED Seybol d 2023-01-31 2023-01-31 Outpatient PREZAS, QUEENIE SPANN [id number] [place] 00:00:00 00:00:00 SCOTT Seybol d 2023-01-20 2023-01-20 Outpatient PREZAS, QUEENIE SPANN [id number] [place] 00:00:00 00:00:00 SCOTT Seybol d 2023-01-19 2023-01-19 Outpatient PREZAS, QUEENIE SPANN [id number] [place] 15:15:00 15:15:00 SCOTT Seybol d 2023-01-16 2023-01-16 Outpatient SEWIELAM, QUEENIE SPANN [id number] [place] 00:00:00 00:00:00 AHMED Seybol d 2023-01-09 2023-01-09 Outpatient SEWIELAM, QUEENIE SPANN [id number] [place] 00:00:00 00:00:00 AHMED Seybol d 2023-01-02 2023-01-02 Outpatient PREZAS, QUEENIE SPANN [id number] [place] 00:00:00 00:00:00 SCOTT Seybol d 2022-12-24 2022-12-24 Outpatient QUEENIE SPANN [id number] [place] 00:00:00 00:00:00 Seybol d 2022-12-22 2022-12-22 Outpatient PREZAS, QUEENIE SPANN [id number] Quee[place] 11:00:00 11:00:00 SCOTT Seybol d 2022-12-21 2022-12-21 Outpatient PREZAS, QUEENIE SPANN [id number] [place] 00:00:00 00:00:00 SCOTT Seybol d 2022-12-21 2022-12-21 Outpatient GRIFFIN, QUEENIE SPANN [id number] [place] 00:00:00 00:00:00 ADRYENE Seybol d 2022-12-19 2022-12-19 Outpatient LAB90 QUEENIE SPANN [id number] [place] 10:25:00 10:25:00 Seybol d 2022-12-14 2022-12-14 Outpatient PREZAS, QUEENIE SPANN [id number] [place] 00:00:00 00:00:00 SCOTT Seybol d 2022-12-14 2022-12-14 Outpatient QUEENIE SPANN [id number] [place] 00:00:00 00:00:00 Seybol d 2022-12-12 2022-12-12 Outpatient LAB39 QUEENIE SPANN [id number] [place] 10:30:00 10:30:00 Seybol d 2022-12-12 2022-12-12 Outpatient SEWIELAM, QUEENIE SPANN [id number] [place] 09:45:00 09:45:00 AHMED Seybol d 2022-12-09 2022-12-09 Outpatient PREZAS, QUEENIE SPANN [id number] [place] 16:30:00 16:30:00 SCOTT Seybol d 2022-12-09 2022-12-09 Outpatient PREZAS, QUEENIE SPANN [id number] [place] 00:00:00 00:00:00 SCOTT Seybol d 2022-12-07 2022-12-07 Outpatient QUEENIE SPANN [id number] [place] 00:00:00 00:00:00 Seybol d 2022-12-06 2022-12-06 Outpatient RICHARD SPENCER [id number] [place] 14:40:00 14:40:00 Seybol d 2022-12-06 2022-12-06 Outpatient GROUP, QUEENIE SPANN [id number] [place] 00:00:00 00:00:00 QUEENIE Seybol d 2022-12-06 2022-12-06 Outpatient PREZAGaby QUEENIE SPANN [id number] [place] 00:00:00 00:00:00 SCOTT Seybol d 2022-12-06 2022-12-06 Outpatient JAYDON QUENEIE SPANN [id number] [place] 00:00:00 00:00:00 AHMED Seybol d 2022-12-05 2022-12-05 Outpatient PREZAGabyQUEENIE [id number] [place] 00:00:00 00:00:00 SCOTT Seybol d 2022-12-05 2022-12-05 Outpatient QUEENIE SPANN [id number] [place] 00:00:00 00:00:00 Seybol d 2022-12-05 2022-12-05 Outpatient PREZASQUEENIE [id number] [place] 00:00:00 00:00:00 SCOTT Seybol d 2022-12-02 2022-12-02 Outpatient PREQUEENIE MCKEON [id number] [place] 16:30:00 16:30:00 SCOTT Seybol d 2022-11-30 2022-11-30 Outpatient PREZASQUEENIE [id number] [place] 00:00:00 00:00:00 SCOTT Seybol d 2022-11-28 2022-11-28 Outpatient QUEENIE SPANN [id number] [place] 00:00:00 00:00:00 Seybol d 2022-11-25 2022-11-25 Outpatient PREQUEENIE MCKEON [id number] [place] 00:00:00 00:00:00 SCOTT Seybol d 2022-11-25 2022-11-25 Outpatient QUEENIE SPANN [id number] [place] 00:00:00 00:00:00 Seybol d 2022-11-24 2022-11-24 Outpatient PREQUEENIE MCKEON [id number] [place] 00:00:00 00:00:00 SCOTT Seybol d 2022-11-23 2022-11-23 Outpatient QUEENIE SPANN [id number] [place] 00:00:00 00:00:00 Seybol d 2022-11-222022-11-22 Outpatient GROUP, QUEENIE SPANN [id number] [place] 00:00:00 00:00:00 QUEENIE myles 2019-10-18 2019-10-18 Emergency X RENA [facility] ERT [id number] Univers 14:07:55 16:49:00 MIKALA [facility] 2018-10-19 2018-10-26 Inpatient U PRAVEEN BASILIO [facility] SNS [id number] Univers 20:00:00 11:23:00 [facility] Results Test Description Test Time Test Comments Results Result Comments Source Rad Onc Aria Session Summary 2023-07-19 08:59:43 Test Item Value Reference Range Interpretation Comme nts Course ID (ARIA) (test code = 95517) C1 Course Intent (test code = 08148) Curative Course Start Date(ARIA) (test code = 45285) 06/20/2023 6:30 PM Session Number (test code = 97415) 10 Course First Treatment (ARIA) (test code = 53995) 07/06/2023 3:57 P M Course Last Treatment Date (ARIA) (test code = 25859) 07/19/2023 8: 58 AM Course Elapsed Treatment Days (ARIA) (test code = 71160) 13 Reference Point ID (ARIA) (test code = 66811) rx Plan id (ARIA) (test code = 04121) WBRT Plan Fractions Treated to Date (ARIA) (test code = 32558) 10 Plan Total Fractions (ARIA) (test code = 35278) 10 Plan Prescribed Dose per Fraction (ARIA) (test code = 62881) 3 Gy Plan Total Prescribed Dose (ARIA) (test code = 42383) 3000 cGy Plan Primary Refernce Point (test code = 45688) [facility] [id number] 08:36:56 Test Item Value Reference Range Interpretation Comments Course ID (ARIA) (test C1 code = 39536) Course Intent (test code = Curative 99920) Course Start Date(ARIA) 06/20/2023 6:30 PM (test code = 83538) Session Number (test code 9 = 46078) Course First Treatment 07/06/2023 3:57 PM (ARIA) (test code = 98024) Course Last Treatment Date 07/18/2023 8:35 AM (ARIA) (test code = 09591) Course Elapsed Treatment 12 Days (ARIA) (test code = 74209) Reference Point ID (ARIA) rx (test code = 89409) Plan id (ARIA) (test code WBRT = 10947) Plan Fractions Treated to 9 Date (ARIA) (test code = 01515) Plan Total Fractions 10 (ARIA) (test code = 39783) Plan Prescribed Dose per 3 Gy Fraction (ARIA) (test code = 25180) Plan Total Prescribed Dose 3000 cGy (ARIA) (test code = 76310) Plan Primary Refernce rx Point (test code = 51096) [facility] [id number] 08:37:38 Test Item Value Reference Range Interpretation Comments Course ID (ARIA) (test C1 code = 90815) Course Intent (test code = Curative 45504) Course Start Date(ARIA) 06/20/2023 6:30 PM (test code = 85689) Session Number (test code 8 = 61468) Course First Treatment 07/06/2023 3:57 PM (ARIA) (test code = 94907) Course Last Treatment Date 07/17/2023 8:36 AM (ARIA) (test code = 34053) Course Elapsed Treatment 11 Days (ARIA) (test code = 52508) Reference Point ID (ARIA) rx (test code = 18049) Plan id (ARIA) (test code WBRT = 02625) Plan Fractions Treated to 8 Date (ARIA) (test code = 23020) Plan Total Fractions 10 (ARIA) (test code = 28551) Plan Prescribed Dose per 3 Gy Fraction (ARIA) (test code = 50687) Plan Total Prescribed Dose 3000 cGy (ARIA) (test code = 84387) Plan Primary Refernce rx Point (test code = 94105) [facility] [id number] 08:30:40 Test Item Value Reference Range Interpretation Comments Course ID (ARIA) (test C1 code = 10931) Course Intent (test code = Curative 71284) Course Start Date(ARIA) 06/20/2023 6:30 PM (test code = 23568) Session Number (test code 7 = 50410) Course First Treatment 07/06/2023 3:57 PM (ARIA) (test code = 70754) Course Last Treatment Date 07/14/2023 8:29 AM (ARIA) (test code = 35116) Course Elapsed Treatment 8 Days (ARIA) (test code = 36010) Reference Point ID (ARIA) rx (test code = 03170) Plan id (ARIA) (test code WBRT = 65052) Plan Fractions Treated to 7 Date (ARIA) (test code = 87914) Plan Total Fractions 10 (ARIA) (test code = 95934) Plan Prescribed Dose per 3 Gy Fraction (ARIA) (test code = 34375) Plan Total Prescribed Dose 3000 cGy (ARIA) (test code = 60120) Plan Primary Refernce rx Point (test code = 91905) [facility] [id number] 10:19:23 Test Item Value Reference Range Interpretation Comments Course ID (ARIA) (test C1 code = 34968) Course Intent (test code Curative = 83994) Course Start Date(ARIA) 06/20/2023 6:30 PM (test code = 19140) Session Number (test code 6 = 00142) Course First Treatment 07/06/2023 3:57 PM (ARIA) (test code = 09601) Course Last Treatment 07/13/2023 10:17 AM Date (ARIA) (test code = 22941) Course Elapsed Treatment 7 Days (ARIA) (test code = 09247) Reference Point ID (ARIA) rx (test code = 41407) Plan id (ARIA) (test code WBRT = 83109) Plan Fractions Treated to 6 Date (ARIA) (test code = 18084) Plan Total Fractions 10 (ARIA) (test code = 04916) Plan Prescribed Dose per 3 Gy Fraction (ARIA) (test code = 82718) Plan Total Prescribed 3000 cGy Dose (ARIA) (test code = 23840) Plan Primary Refernce rx Point (test code = 44844) [facility] [id number] 08:47:42 Test Item Value Reference Range Interpretation Comments Course ID (ARIA) (test C1 code = 72213) Course Intent (test code = Curative 09192) Course Start Date(ARIA) 06/20/2023 6:30 PM (test code = 48940) Session Number (test code 5 = 88669) Course First Treatment 07/06/2023 3:57 PM (ARIA) (test code = 63189) Course Last Treatment Date 07/12/2023 8:46 AM (ARIA) (test code = 49566) Course Elapsed Treatment 6 Days (ARIA) (test code = 90561) Reference Point ID (ARIA) rx (test code = 15551) Plan id (ARIA) (test code WBRT = 60926) Plan Fractions Treated to 5 Date (ARIA) (test code = 50981) Plan Total Fractions 10 (ARIA) (test code = 53906) Plan Prescribed Dose per 3 Gy Fraction (ARIA) (test code = 57280) Plan Total Prescribed Dose 3000 cGy (ARIA) (test code = 29390) Plan Primary Refernce rx Point (test code = 50481) [facility] [id number] 09:04:45 Test Item Value Reference Range Interpretation Comments Course ID (ARIA) (test C1 code = 17939) Course Intent (test code = Curative 83131) Course Start Date(ARIA) 06/20/2023 6:30 PM (test code = 39748) Session Number (test code 4 = 33134) Course First Treatment 07/06/2023 3:57 PM (ARIA) (test code = 60265) Course Last Treatment Date 07/11/2023 9:02 AM (ARIA) (test code = 36559) Course Elapsed Treatment 5 Days (ARIA) (test code = 61387) Reference Point ID (ARIA) rx (test code = 46138) Plan id (ARIA) (test code WBRT = 83125) Plan Fractions Treated to 4 Date (ARIA) (test code = 26306) Plan Total Fractions 10 (ARIA) (test code = 15462) Plan Prescribed Dose per 3 Gy Fraction (ARIA) (test code = 43136) Plan Total Prescribed Dose 3000 cGy (ARIA) (test code = 14405) Plan Primary Refernce rx Point (test code = 80693) [facility] [id number] 08:49:52 Test Item Value Reference Range Interpretation Comments Course ID (ARIA) (test C1 code = 11807) Course Intent (test code = Curative 00304) Course Start Date(ARIA) 06/20/2023 6:30 PM (test code = 78593) Session Number (test code 3 = 64881) Course First Treatment 07/06/2023 3:57 PM (ARIA) (test code = 37890) Course Last Treatment Date 07/10/2023 8:48 AM (ARIA) (test code = 31455) Course Elapsed Treatment 4 Days (ARIA) (test code = 76449) Reference Point ID (ARIA) rx (test code = 28578) Reference Point Dosage 9 Gy Given to Date (test code = 45932) Ref Point Session Dosage 3 Gy Given (ARIA) (test code = 75047) Plan id (ARIA) (test code WBRT = 70579) Plan Fractions Treated to 3 Date (ARIA) (test code = 74785) Plan Total Fractions 10 (ARIA) (test code = 40416) Plan Prescribed Dose per 3 Gy Fraction (ARIA) (test code = 67191) Plan Total Prescribed Dose 3000 cGy (ARIA) (test code = 75705) Plan Primary Refernce rx Point (test code = 20404) [facility] [id number] 10:02:29 Test Item Value Reference Range Interpretation Comments Course ID (ARIA) (test C1 code = 36289) Course Intent (test code = Curative 47387) Course Start Date(ARIA) 06/20/2023 6:30 PM (test code = 30300) Session Number (test code 2 = 28166) Course First Treatment 07/06/2023 3:57 PM (ARIA) (test code = 21734) Course Last Treatment Date 07/07/2023 9:59 AM (ARIA) (test code = 91259) Course Elapsed Treatment 1 Days (ARIA) (test code = 65516) Reference Point ID (ARIA) rx (test code = 11432) Reference Point Dosage 6 Gy Given to Date (test code = 43281) Ref Point Session Dosage 3 Gy Given (ARIA) (test code = 79956) Plan id (ARIA) (test code WBRT = 00326) Plan Fractions Treated to 2 Date (ARIA) (test code = 31701) Plan Total Fractions 10 (ARIA) (test code = 88272) Plan Prescribed Dose per 3 Gy Fraction (ARIA) (test code = 98832) Plan Total Prescribed Dose 3000 cGy (ARIA) (test code = 58154) Plan Primary Refernce rx Point (test code = 64116) [facility] [id number] 16:01:02 Test Item Value Reference Range Interpretation Comments Course ID (ARIA) (test C1 code = 54608) Course Intent (test code = Curative 94683) Course Start Date(ARIA) 06/20/2023 6:30 PM (test code = 96193) Session Number (test code 1 = 17782) Course First Treatment 07/06/2023 3:57 PM (ARIA) (test code = 48297) Course Last Treatment Date 07/06/2023 3:58 PM (ARIA) (test code = 20756) Course Elapsed Treatment 0 Days (ARIA) (test code = 55144) Reference Point ID (ARIA) rx (test code = 86143) Reference Point Dosage 3 Gy Given to Date (test code = 15613) Ref Point Session Dosage 3 Gy Given (ARIA) (test code = 61195) Plan id (ARIA) (test code WBRT = 83547) Plan Fractions Treated to 1 Date (ARIA) (test code = 42763) Plan Total Fractions 10 (ARIA) (test code = 99974) Plan Prescribed Dose per 3 Gy Fraction (ARIA) (test code = 83940) Plan Total Prescribed Dose 3000 cGy (ARIA) (test code = 19365) Plan Primary Refernce rx Point (test code = 40697) [facility] [id number] 15:17:13[facility] : 1980 Sex: FMRI Brain with and without contrastCLINICAL HISTORY: Neoplasm, cerebellopontine angle (CPA) or brainstemBrain/[employer] ATTENDANT neoplasm, stagingTechnique: Multiplanar, multisequence MRI images of the brain obtainedwith and without IV contrast.Comparisons: MRI brain March 08, 2023 outside imagingFindings:Numerous supratentorial and infratentorial ring-enhancing and solidlesions. Lesions are predominantly intra-axialbut left frontalextra-axial dural based lesion measuring 2.1 x 1.6 x 1.7 cm, indents theleft frontallobe with mild perilesional edema.Intra-axial lesions include left cerebellar 2.1 x 1.8 x 1.4 cm lesion,right midbrain pontine junction 1 cm spherical lesion, left thalamic 1.3x 1.3 x 1.0 cm lesion andright frontal lobe 0.9 x 1.1 x 1.1 cm lesion,axial image 129. These lesions are new compared to comparison imagingJun2022. There is is suggestion of right frontal bone pam holecraniotomy suggesting prior right frontal ventriculostomy or biopsytract. Right cerebellar pontine angle avidly enhancing mass seen onprior examination is without gross recurrence. There is regional volumeloss and T2 hyperintensity of the right middle cerebellar pedunclenoted. There is enhancing dural thickening along the right tentorialedge extending toward the right porus acusticus within the resectionsite. Subtle enhancement of the left 7th/8th nerve complex with in theleft IAC noted on axial image 47, coronal image 17 of series 16 and 17respectively.Numerous lesions demonstrate DWI hyperintensity and SWI hypointensitybut no acute cortical infarct or acute acute intracranial hemorrhage. Nohydrocephalus or midlineshift. Calvarial enhancing lesions measuringless than 1 cm noted within the calvarium on axial , 146, 99seen within the right parietal bone, right frontal bone and left frontalbone.IMPRESSION:Innumerable enhancing lesions compatible with metastasis. Most areintra-axial with several extra-axial in location. 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 Bone scancorrelation or PET/CT should be would be helpful for staging purposes.Electronically Signed By: Frank Veliz06/28/2023 15:19 CDTWorkstation Name: [id number] GLUCOSE (AUTOMATED)2023-04-12 20:25:29 Test Item Value Reference Range Interpretation Comments POCT GLU (test code = 7039276854) 97 mg/dL 70-110 Lab Interpretation (test code = Normal 29325-7) [facility] GLUCOSE (AUTOMATED)2023-04-12 16:25:36 Test Item Value Reference Range Interpretation Comments POCT GLU (test code = 8748792037) 130 mg/dL 70-110 H Lab Interpretation (test code = Abnormal 31537-9) [facility] GLUCOSE (AUTOMATED)2023-04-12 12:26:12 Test Item Value Reference Range Interpretation Comments POCT GLU (test code = 8990579057) 86 mg/dL 70-110 Lab Interpretation (test code = Normal 23969-5) [facility] GLUCOSE (AUTOMATED)2023-04-12 10:57:58 Test Item Value Reference Range Interpretation Comments POCT GLU (test code = 9400346534) 95 mg/dL 70-110 Lab Interpretation (test code = Normal 71657-0) [facility] METABOLIC PANEL (NA, K, CL, CO2, GLUCOSE, BUN, CREATININE, CA)2023-04-12 10:12:13 Test Item Value Reference Range Interpretation Comments NA (test code = 135 mmol/L 135-145 0835147545) K (test code = 4.2 mmol/L 3.5-5.0 5689330292) CL (test code = 93 mmol/L 98-108 L 6873402504) CO2 TOTAL (test code = 37 mmol/L 23-31 H 6341157126) AGAP (test code = 5 2-16 6766914726) BUN (test code = 22 mg/dL 7-23 4063846363) GLUCOSE (test code = 89 mg/dL 70-110 4802019889) CREATININE (test code = 0.65 mg/dL 0.50-1.04 3423613375) CALCIUM (test code = 8.8 mg/dL 8.6-10.6 5267286316) eGFR (test code = 99.5 mL/min/1.73m2 1869499127) GOYO (test code = GOYO) Association of Glomerular Filtration Rate (GFR) and Staging of Kidney Disease* + --+ --+ ------+| GFR (mL/min/1.73 m2) ?| With Kidney Damage ?| ?Without Kidney Damage+ --------+ --------+ +| ?>90 ?| ?Stage one ?| ? Normal ?+ ---+ ---+ -------+| ?60-89 ?| ?Stage two ?| ? Decreased GFR ? + --+ --+ ------+| ?30-59 ?| ?Stage three ?| ? Stage three ? + --+ --+ ------+| ?15-29 ?| ?Stage four ? | ? Stage four ?+ ---+ ---+ -------+| ?<15 (or dialysis) ? ?| ?Stage five ? | ? Stage five ?+ ---+ ---+ -------+ *Each stage assumes the associated GFR level has been in effect for at least three months. ?Stages 1 to 5, with or without kidney disease, indicate chronic kidney disease. Notes: Determination of stages one and two (with eGFR >59mL/min/1.73 m2) requires estimation of kidney damage for at least three months as defined by structural or functional abnormalities of the kidney, manifested by either:Pathological abnormalities or Markers of kidney damage (including abnormalities in the composition of the blood or urine or abnormalities in imaging tests). Lab Interpretation Abnormal (test code = 53547-5) [facility] GLUCOSE (AUTOMATED)2023-04-12 06:35:01 Test Item Value Reference Range Interpretation Comments POCT GLU (test code = 3519688240) 103 mg/dL 70-110 Lab Interpretation (test code = Normal 21020-8) [facility] GLUCOSE (AUTOMATED)2023-04-12 02:46:21 Test Item Value Reference Range Interpretation Comments POCT GLU (test code = 7775546893) 123 mg/dL 70-110 H Lab Interpretation (test code = Abnormal 59139-2) [facility] GLUCOSE (AUTOMATED)2023-04-11 20:23:39 Test Item Value Reference Range Interpretation Comments POCT GLU (test code = 0790350961) 96 mg/dL 70-110 Lab Interpretation (test code = Normal 86702-9) [facility] GLUCOSE (AUTOMATED)2023-04-11 16:24:20 Test Item Value Reference Range Interpretation Comments POCT GLU (test code = 7289717908) 82 mg/dL 70-110 Lab Interpretation (test code = Normal 03784-8) [facility] GLUCOSE (AUTOMATED)2023-04-11 12:30:21 Test Item Value Reference Range Interpretation Comments POCT GLU (test code = 6819231028) 125 mg/dL 70-110 H Lab Interpretation (test code = Abnormal 61369-6) [facility] GLUCOSE (AUTOMATED)2023-04-11 09:33:44 Test Item Value Reference Range Interpretation Comments POCT GLU (test code = 1477675723) 119 mg/dL 70-110 H Lab Interpretation (test code = Abnormal 87441-3) [facility] GLUCOSE (AUTOMATED)2023-04-11 04:39:30 Test Item Value Reference Range Interpretation Comments POCT GLU (test code = 0486739189) 140 mg/dL 70-110 H Lab Interpretation (test code = Abnormal 33448-0) [facility] GLUCOSE (AUTOMATED)2023-04-10 23:33:02 Test Item Value Reference Range Interpretation Comments POCT GLU (test code = 8857391140) 136 mg/dL 70-110 H Lab Interpretation (test code = Abnormal 13781-7) [facility] GLUCOSE (AUTOMATED)2023-04-10 16:53:08 Test Item Value Reference Range Interpretation Comments POCT GLU (test code = 8097251830) 106 mg/dL 70-110 Lab Interpretation (test code = Normal 89097-1) [facility] WITH [id number] 11:26:06 Test Item Value Reference Range Interpretation Comments WBC (test code = 8.22 See_Comment [Automated 6690-2) message] The sy stem which generated this result transmitted reference range : 4.30 - 11.10 10*3/?L. The reference range was not used to interpret this result as normal/abnormal . RBC (test code = 3.85 See_Comment L [Automated 789-8) message] The sy stem which generated this result transmitted reference range : 3.93 - 5.25 10*6/?L. The reference range was not used to interpret this result as normal/abnormal . HGB (test code = 11.6 g/dL 11.6-15.0 718-7) HCT (test code = 33.8 % 35.7-45.2 L 4544-3) MCV (test code = 87.8 fL 80.6-95.5 787-2) MCH (test code = 30.1 pg 25.9-32.8 785-6) MCHC (test code = 34.3 g/dL 31.6-35.1 786-4) RDW-SD (test code = 42.9 fL 39.0-49.9 88782-4) RDW-CV (test code = 13.4 % 12.0-15.5 788-0) PLT (test code = 248 See_Comment [Automated 777-3) message] The sy stem which generated this result transmitted reference range : 166 - 358 10*3/ ?L. The reference r skyler was not used to interpret this result as normal/abnormal . MPV (test code = 8.5 fL 9.5-12.9 L 24957-7) NRBC/100 WBC (test 0.0 See_Comment [Automat ed code = 4090059384) message] The system which generated this result transmitted reference range : 0.0 - 10.0 /100 WBCs. The refer ence range was not u sed to interpret th is result as normal/abnormal . NRBC x10^3 (test code See_Comment [Auto mated = 8926967696) message] The s ystem which generated this result transmitted reference range : 10*3/?L. The reference range was not used to interpret this result as normal/abnormal . GRAN MAT (NEUT) % 69.3 % (test code = 770-8) IMM GRAN % (test code 2.60 % = 7782161196) LYMPH % (test code = 20.8 % 736-9) MONO % (test code = 6.3 % 5905-5) EOS % (test code = 0.6 % 713-8) BASO % (test code = 0.4 % 706-2) GRAN MAT x10^3(ANC) 5.70 10*3/uL 1.88-7.09 (test code = 8350062541) IMM GRAN x10^3 (test 0.21 10*3/uL 0.00-0.06 H code = 9301492246) LYMPH x10^3 (test code 1.71 10*3/uL 1.32-3.29 = 731-0) MONO x10^3 (test code 0.52 10*3/uL 0.33-0.92 = 742-7) EOS x10^3 (test code = 0.05 10*3/uL 0.03-0.39 711-2) BASO x10^3 (test code 0.03 10*3/uL 0.01-0.07 = 704-7) TOXIC CHANGES (test Present A code = 803-7) Lab Interpretation Abnormal (test code = 06672-8) [facility]10 11:17:07 Test Item Value Reference Range Interpretation Comments POCT GLU (test code = 0554707796) 102 mg/dL 70-110 Lab Interpretation (test code = Normal 83863-5) [facility] METABOLIC PANEL (NA, K, CL, CO2, GLUCOSE, BUN, CREATININE, CA)2023-04-10 11:11:25 Test Item Value Reference Range Interpretation Comments NA (test code = 133 mmol/L 135-145 L 3226973375) K (test code = 4.6 mmol/L 3.5-5.0 6014151844) CL (test code = 98 mmol/L 98-108 7990420771) CO2 TOTAL (test code = 28 mmol/L 23-31 8686984186) AGAP (test code = 7 2-16 4667353873) BUN (test code = 19 mg/dL 7-23 9197401496) GLUCOSE (test code = 99 mg/dL 70-110 6179504377) CREATININE (test code = 0.53 mg/dL 0.50-1.04 0332370094) CALCIUM (test code = 8.5 mg/dL 8.6-10.6 L 0904100410) eGFR (test code = 125.9 mL/min/1.73m2 7036259587) GOYO (test code = GOYO) Association of Glomerular Filtration Rate (GFR) and Staging of Kidney Disease* + --+ --+ ------+| GFR (mL/min/1.73 m2) ?| With Kidney Damage ?| ?Without Kidney Damage+ --------+ --------+ +| ?>90 ?| ?Stage one ?| ? Normal ?+ ---+ ---+ -------+| ?60-89 ?| ?Stage two ?| ? Decreased GFR ? + --+ --+ ------+| ?30-59 ?| ?Stage three ?| ? Stage three ? + --+ --+ ------+| ?15-29 ?| ?Stage four ? | ? Stage four ?+ ---+ ---+ -------+| ?<15 (or dialysis) ? ?| ?Stage five ? | ? Stage five ?+ ---+ ---+ -------+ *Each stage assumes the associated GFR level has been in effect for at least three months. ?Stages 1 to 5, with or without kidney disease, indicate chronic kidney disease. Notes: Determination of stages one and two (with eGFR >59mL/min/1.73 m2) requires estimation of kidney damage for at least three months as defined by structural or functional abnormalities of the kidney, manifested by either:Pathological abnormalities or Markers of kidney damage (including abnormalities in the composition of the blood or urine or abnormalities in imaging tests). Lab Interpretation Abnormal (test code = 60710-5) [facility] GLUCOSE (AUTOMATED)2023-04-10 05:14:11 Test Item Value Reference Range Interpretation Comments POCT GLU (test code = 3258338088) 121 mg/dL 70-110 H Lab Interpretation (test code = Abnormal 02357-0) [facility] GLUCOSE (AUTOMATED)2023-04-10 03:37:59 Test Item Value Reference Range Interpretation Comments POCT GLU (test code = 1403311857) 118 mg/dL 70-110 H Lab Interpretation (test code = Abnormal 82266-7) [facility] GLUCOSE (AUTOMATED)2023-04-09 22:05:11 Test Item Value Reference Range Interpretation Comments POCT GLU (test code = 97 mg/dL 70-110 Notifi ed Provider [id number]) Lab Interpretation (test Normal code = 34867-2) [facility] GLUCOSE (AUTOMATED)2023-04-09 16:38:21 Test Item Value Reference Range Interpretation Comments POCT GLU (test code = 137 mg/dL 70-110 H Notifi ed Provider [id number]) Lab Interpretation (test Abnormal code = 26167-9) [facility] GLUCOSE (AUTOMATED)2023-04-09 10:27:06 Test Item Value Reference Range Interpretation Comments POCT GLU (test code = 3475882510) 104 mg/dL 70-110 Lab Interpretation (test code = Normal 05023-7) [facility] WITH [id number] 10:11:04 Test Item Value Reference Range Interpretation Comments WBC (test code = 7.44 See_Comment [Automated 6690-2) message] The sy stem which generated this result transmitted reference range : 4.30 - 11.10 10*3/?L. The reference range was not used to interpret this result as normal/abnormal . RBC (test code = 3.61 See_Comment L [Automated 789-8) message] The sy stem which generated this result transmitted reference range : 3.93 - 5.25 10*6/?L. The reference range was not used to interpret this result as normal/abnormal . HGB (test code = 11.0 g/dL 11.6-15.0 L 718-7) HCT (test code = 32.1 % 35.7-45.2 L 4544-3) MCV (test code = 88.9 fL 80.6-95.5 787-2) MCH (test code = 30.5 pg 25.9-32.8 785-6) MCHC (test code = 34.3 g/dL 31.6-35.1 786-4) RDW-SD (test code = 43.8 fL 39.0-49.9 45062-3) RDW-CV (test code = 13.3 % 12.0-15.5 788-0) PLT (test code = 238 See_Comment [Automated 777-3) message] The sy stem which generated this result transmitted reference range : 166 - 358 10*3/ ?L. The reference r skyler was not used to interpret this result as normal/abnormal . MPV (test code = 9.1 fL 9.5-12.9 L 51299-5) NRBC/100 WBC (test 0.0 See_Comment [Automat ed code = 5971461421) message] The system which generated this result transmitted reference range : 0.0 - 10.0 /100 WBCs. The refer ence range was not u sed to interpret th is result as normal/abnormal . NRBC x10^3 (test code See_Comment [Auto mated = 5013085293) message] The s ystem which generated this result transmitted reference range : 10*3/?L. The reference range was not used to interpret this result as normal/abnormal . GRAN MAT (NEUT) % 78.0 % (test code = 770-8) IMM GRAN % (test code 2.80 % = 4539132646) LYMPH % (test code = 14.8 % 736-9) MONO % (test code = 4.0 % 5905-5) EOS % (test code = 0.1 % 713-8) BASO % (test code = 0.3 % 706-2) GRAN MAT x10^3(ANC) 5.80 10*3/uL 1.88-7.09 (test code = 1438250386) IMM GRAN x10^3 (test 0.21 10*3/uL 0.00-0.06 H code = 9047304256) LYMPH x10^3 (test code 1.10 10*3/uL 1.32-3.29 L = 731-0) MONO x10^3 (test code 0.30 10*3/uL 0.33-0.92 L = 742-7) EOS x10^3 (test code = 0.03-0.39 L 711-2) BASO x10^3 (test code 0.01-0.07 = 704-7) TOXIC CHANGES (test Present A code = 803-7) GIANT PLATELETS (test Present See_Comment A [Auto mated code = 5908-9) message] The system which generated this result transmitted reference range : (none). The reference range was not used to interpret this result as normal/abnormal . Lab Interpretation Abnormal (test code = 44396-6) [facility] METABOLIC PANEL (NA, K, CL, CO2, GLUCOSE, BUN, CREATININE, CA)2023-04-09 10:05:21 Test Item Value Reference Range Interpretation Comments NA (test code = 133 mmol/L 135-145 L 0232785773) K (test code = 4.7 mmol/L 3.5-5.0 3837407325) CL (test code = 102 mmol/L 98-108 7567537333) CO2 TOTAL (test code = 26 mmol/L 23-31 2565374602) AGAP (test code = 5 2-16 5551084944) BUN (test code = 15 mg/dL 7-23 0967608144) GLUCOSE (test code = 104 mg/dL 70-110 6606766669) CREATININE (test code = 0.50 mg/dL 0.50-1.04 2761810512) CALCIUM (test code = 7.6 mg/dL 8.6-10.6 L 9537212936) eGFR (test code = 134.7 mL/min/1.73m2 4898497881) GOYO (test code = GOYO) Association of Glomerular Filtration Rate (GFR) and Staging of Kidney Disease* + --+ --+ ------+| GFR (mL/min/1.73 m2) ?| With Kidney Damage ?| ?Without Kidney Damage+ --------+ --------+ +| ?>90 ?| ?Stage one ?| ? Normal ?+ ---+ ---+ -------+| ?60-89 ?| ?Stage two ?| ? Decreased GFR ? + --+ --+ ------+| ?30-59 ?| ?Stage three ?| ? Stage three ? + --+ --+ ------+| ?15-29 ?| ?Stage four ? | ? Stage four ?+ ---+ ---+ -------+| ?<15 (or dialysis) ? ?| ?Stage five ? | ? Stage five ?+ ---+ ---+ -------+ *Each stage assumes the associated GFR level has been in effect for at least three months. ?Stages 1 to 5, with or without kidney disease, indicate chronic kidney disease. Notes: Determination of stages one and two (with eGFR >59mL/min/1.73 m2) requires estimation of kidney damage for at least three months as defined by structural or functional abnormalities of the kidney, manifested by either:Pathological abnormalities or Markers of kidney damage (including abnormalities in the composition of the blood or urine or abnormalities in imaging tests). Lab Interpretation Abnormal (test code = 08980-0) [facility] GLUCOSE (AUTOMATED)2023-04-09 04:45:10 Test Item Value Reference Range Interpretation Comments POCT GLU (test code = 0072259493) 107 mg/dL 70-110 Lab Interpretation (test code = Normal 07356-1) [facility]2023-07-16 03:36:02 Test Item Value Reference Range Interpretation Comments NA (test code = 6220739210) 131 mmol/L 135-145 L Lab Interpretation (test code = Abnormal 71199-7) [facility] GLUCOSE (AUTOMATED)2023-04-08 22:14:57 Test Item Value Reference Range Interpretation Comments POCT GLU (test code = 84 mg/dL 70-110 Notifi ed Provider [id number]) Lab Interpretation (test Normal code = 43440-5) [facility] GLUCOSE (AUTOMATED)2023-04-08 16:47:06 Test Item Value Reference Range Interpretation Comments POCT GLU (test code = 100 mg/dL 70-110 Notifi ed Provider [id number]) Lab Interpretation (test Normal code = 90901-1) [facility]2023-07-15 15:03:57 Test Item Value Reference Range Interpretation Comments NA (test code = 5043001593) 133 mmol/L 135-145 L Lab Interpretation (test code = Abnormal 20014-0) [facility] GLUCOSE (AUTOMATED)2023-04-08 10:51:18 Test Item Value Reference Range Interpretation Comments POCT GLU (test code = 2528863489) 75 mg/dL 70-110 Lab Interpretation (test code = Normal 17594-0) [facility] Test Item Value Reference Range Interpretation Comments MAGNESIUM (test code = 1843207490) 2.5 mg/dL 1.7-2.4 H Lab Interpretation (test code = Abnormal 75135-1) [facility] (NA, K, CL, CO2, GLUCOSE, BUN, CREATININE, CA)2023-04-08 09:08:09 Test Item Value Reference Range Interpretation Comments NA (test code = 135 mmol/L 135-145 5963969667) K (test code = 4.3 mmol/L 3.5-5.0 5265577263) CL (test code = 103 mmol/L 98-108 3410046744) CO2 TOTAL (test code = 24 mmol/L 23-31 5235339759) AGAP (test code = 8 2-16 1981032775) BUN (test code = 14 mg/dL 7-23 4538168449) GLUCOSE (test code = 87 mg/dL 70-110 0585483016) CREATININE (test code = 0.64 mg/dL 0.50-1.04 [id number]) CALCIUM (test code = 6.9 mg/dL 8.6-10.6 L 4024677256) eGFR (test code = 101.3 mL/min/1.73m2 1140343757) GOYO (test code = GOYO) Association of Glomerular Filtration Rate (GFR) and Staging of Kidney Disease* + --+ --+ ------+| GFR (mL/min/1.73 m2) ?| With Kidney Damage ?| ?Without Kidney Damage+ --------+ --------+ +| ?>90 ?| ?Stage one ?| ? Normal ?+ ---+ ---+ -------+| ?60-89 ?| ?Stage two ?| ? Decreased GFR ? + --+ --+ ------+| ?30-59 ?| ?Stage three ?| ? Stage three ? + --+ --+ ------+| ?15-29 ?| ?Stage four ? | ? Stage four ?+ ---+ ---+ -------+| ?<15 (or dialysis) ? ?| ?Stage five ? | ? Stage five ?+ ---+ ---+ -------+ *Each stage assumes the associated GFR level has been in effect for at least three months. ?Stages 1 to 5, with or without kidney disease, indicate chronic kidney disease. Notes: Determination of stages one and two (with eGFR >59mL/min/1.73 m2) requires estimation of kidney damage for at least three months as defined by structural or functional abnormalities of the kidney, manifested by either:Pathological abnormalities or Markers of kidney damage (including abnormalities in the composition of the blood or urine or abnormalities in imaging tests). Lab Interpretation Abnormal (test code = 42105-4) [facility] WITH [id number] 08:53:03 Test Item Value Reference Range Interpretation Comments WBC (test code = 8.74 See_Comment [Automated 0290-2) message] The sy stem which generated this result transmitted reference range : 4.30 - 11.10 10*3/?L. The reference range was not used to interpret this result as normal/abnormal . RBC (test code = 4.16 See_Comment [Automated 789-8) message] The sy stem which generated this result transmitted reference range : 3.93 - 5.25 10*6/?L. The reference range was not used to interpret this result as normal/abnormal . HGB (test code = 12.6 g/dL 11.6-15.0 718-7) HCT (test code = 38.1 % 35.7-45.2 4544-3) MCV (test code = 91.6 fL 80.6-95.5 787-2) MCH (test code = 30.3 pg 25.9-32.8 785-6) MCHC (test code = 33.1 g/dL 31.6-35.1 786-4) RDW-SD (test code = 45.6 fL 39.0-49.9 74641-1) RDW-CV (test code = 13.5 % 12.0-15.5 788-0) PLT (test code = 211 See_Comment [Automated 777-3) message] The sy stem which generated this result transmitted reference range : 166 - 358 10*3/ ?L. The reference r skyler was not used to interpret this result as normal/abnormal . MPV (test code = 8.8 fL 9.5-12.9 L 91609-5) NRBC/100 WBC (test 0.0 See_Comment [Automat ed code = 5397685005) message] The system which generated this result transmitted reference range : 0.0 - 10.0 /100 WBCs. The refer ence range was not u sed to interpret th is result as normal/abnormal . NRBC x10^3 (test code See_Comment [Auto mated = 3455678801) message] The s ystem which generated this result transmitted reference range : 10*3/?L. The reference range was not used to interpret this result as normal/abnormal . GRAN MAT (NEUT) % 76.6 % (test code = 770-8) IMM GRAN % (test code 1.90 % = 2392421977) LYMPH % (test code = 17.2 % 736-9) MONO % (test code = 3.9 % 5905-5) EOS % (test code = 0.2 % 713-8) BASO % (test code = 0.2 % 706-2) GRAN MAT x10^3(ANC) 6.69 10*3/uL 1.88-7.09 (test code = 0593712138) IMM GRAN x10^3 (test 0.17 10*3/uL 0.00-0.06 H code = 4130040693) LYMPH x10^3 (test code 1.50 10*3/uL 1.32-3.29 = 731-0) MONO x10^3 (test code 0.34 10*3/uL 0.33-0.92 = 742-7) EOS x10^3 (test code = 0.03-0.39 L 711-2) BASO x10^3 (test code 0.01-0.07 = 704-7) Lab Interpretation Abnormal (test code = 68057-0) [facility] 05:20:21 Test Item Value Reference Range Interpretation Comments POCT GLU (test code = 1610331174) 87 mg/dL 70-110 Lab Interpretation (test code = Normal 78784-4) [facility] WITH [id number] 23:51:00 Test Item Value Reference Range Interpretation Comments WBC (test code = 7.32 See_Comment [Automated 8690-2) message] The sy stem which generated this result transmitted reference range : 4.30 - 11.10 10*3/?L. The reference range was not used to interpret this result as normal/abnormal . RBC (test code = 4.07 See_Comment [Automated 059-8) message] The sy stem which generated this result transmitted reference range : 3.93 - 5.25 10*6/?L. The reference range was not used to interpret this result as normal/abnormal . HGB (test code = 12.3 g/dL 11.6-15.0 718-7) HCT (test code = 37.4 % 35.7-45.2 4544-3) MCV (test code = 91.9 fL 80.6-95.5 787-2) MCH (test code = 30.2 pg 25.9-32.8 785-6) MCHC (test code = 32.9 g/dL 31.6-35.1 786-4) RDW-SD (test code = 45.9 fL 39.0-49.9 72848-7) RDW-CV (test code = 13.6 % 12.0-15.5 788-0) PLT (test code = 227 See_Comment [Automated 777-3) message] The sy stem which generated this result transmitted reference range : 166 - 358 10*3/ ?L. The reference r skyler was not used to interpret this result as normal/abnormal . MPV (test code = 9.2 fL 9.5-12.9 L 68387-7) NRBC/100 WBC (test 0.3 See_Comment [Automat ed code = 9271031378) message] The system which generated this result transmitted reference range : 0.0 - 10.0 /100 WBCs. The refer ence range was not u sed to interpret th is result as normal/abnormal . NRBC x10^3 (test code 0.02 See_Comment [Auto mated = 2574655290) message] The s ystem which generated this result transmitted reference range : 10*3/?L. The reference range was not used to interpret this result as normal/abnormal . GRAN MAT (NEUT) % 70.1 % (test code = 770-8) IMM GRAN % (test code 3.30 % = 6330045685) LYMPH % (test code = 21.0 % 736-9) MONO % (test code = 4.8 % 5905-5) EOS % (test code = 0.1 % 713-8) BASO % (test code = 0.7 % 706-2) GRAN MAT x10^3(ANC) 5.13 10*3/uL 1.88-7.09 (test code = 0583931682) IMM GRAN x10^3 (test 0.24 10*3/uL 0.00-0.06 H code = 7958620134) LYMPH x10^3 (test code 1.54 10*3/uL 1.32-3.29 = 731-0) MONO x10^3 (test code 0.35 10*3/uL 0.33-0.92 = 742-7) EOS x10^3 (test code = 0.03-0.39 L 711-2) BASO x10^3 (test code 0.05 10*3/uL 0.01-0.07 = 704-7) TOXIC CHANGES (test Present A code = 803-7) Lab Interpretation Abnormal (test code = 80867-2) [facility] Test Item Value Reference Range Interpretation Comments NA (test code = 2108888522) 134 mmol/L 135-145 L Lab Interpretation (test code = Abnormal 30476-9) [facility] METABOLIC PANEL (NA, K, CL, CO2, GLUCOSE, BUN, CREATININE, CA)2023-04-07 23:33:16 Test Item Value Reference Range Interpretation Comments NA (test code = 134 mmol/L 135-145 L 1355691577) K (test code = 4.5 mmol/L 3.5-5.0 7791929270) CL (test code = 104 mmol/L 98-108 8665791326) CO2 TOTAL (test code = 19 mmol/L 23-31 L 9622761592) AGAP (test code = 11 2-16 1098399023) BUN (test code = 14 mg/dL 7-23 7610637617) GLUCOSE (test code = 93 mg/dL 70-110 2419740313) CREATININE (test code = 0.51 mg/dL 0.50-1.04 5623164522) CALCIUM (test code = 6.6 mg/dL 8.6-10.6 L 1399405816) eGFR (test code = 131.6 mL/min/1.73m2 8918283992) GOYO (test code = GOYO) Association of Glomerular Filtration Rate (GFR) and Staging of Kidney Disease* + --+ --+ ------+| GFR (mL/min/1.73 m2) ?| With Kidney Damage ?| ?Without Kidney Damage+ --------+ --------+ +| ?>90 ?| ?Stage one ?| ? Normal ?+ ---+ ---+ -------+| ?60-89 ?| ?Stage two ?| ? Decreased GFR ? + --+ --+ ------+| ?30-59 ?| ?Stage three ?| ? Stage three ? + --+ --+ ------+| ?15-29 ?| ?Stage four ? | ? Stage four ?+ ---+ ---+ -------+| ?<15 (or dialysis) ? ?| ?Stage five ? | ? Stage five ?+ ---+ ---+ -------+ *Each stage assumes the associated GFR level has been in effect for at least three months. ?Stages 1 to 5, with or without kidney disease, indicate chronic kidney disease. Notes: Determination of stages one and two (with eGFR >59mL/min/1.73 m2) requires estimation of kidney damage for at least three months as defined by structural or functional abnormalities of the kidney, manifested by either:Pathological abnormalities or Markers of kidney damage (including abnormalities in the composition of the blood or urine or abnormalities in imaging tests). Lab Interpretation Abnormal (test code = 90317-9) [facility] GLUCOSE (AUTOMATED)2023-04-07 22:07:14 Test Item Value Reference Range Interpretation Comments POCT GLU (test code = 92 mg/dL 70-110 Notifi ed Provider [id number]) Lab Interpretation (test Normal code = 71388-8) [facility] GLUCOSE (AUTOMATED)2023-04-07 16:41:49 Test Item Value Reference Range Interpretation Comments POCT GLU (test code = 104 mg/dL 70-110 Notifi ed Provider [id number]) Lab Interpretation (test Normal code = 46846-7) [facility] GLUCOSE (AUTOMATED)2023-04-07 10:53:52 Test Item Value Reference Range Interpretation Comments POCT GLU (test code = 3370026863) 98 mg/dL 70-110 Lab Interpretation (test code = Normal 80182-6) [facility] GLUCOSE (AUTOMATED)2023-04-07 05:36:10 Test Item Value Reference Range Interpretation Comments POCT GLU (test code = 1023742796) 208 mg/dL 70-110 H Lab Interpretation (test code = Abnormal 79246-9) [facility] GLUCOSE (AUTOMATED)2023-04-06 22:21:43 Test Item Value Reference Range Interpretation Comments POCT GLU (test code = 123 mg/dL 70-110 H Notifi ed Provider [id number]) Lab Interpretation (test Abnormal code = 70365-3) [facility] [id number] 17:24:33 Test Item Value Reference Range Interpretation Comments Case Report (test code Surgical Pathology ? ? = 2148359625) ?Case: [id number] ? Authorizing Provider: ?Arturo Ibarra MD ? Collected: ? 04/03/2023 1216 ?Ordering Location: ? ? [facility] ? ? ? Received: ?04/03/2023 1221 ? Center [facility] ? Pathologist: ? Avril Velasquez MD ?Intraop: ? Avril Velasquez MD ?Specimens: ? A) - BRAIN, RIGHT CPA MASS ? B) - BRAIN, RIGHT CEREBELLOPONTINE ANGLE MASS ? Final Diagnosis (test n7yquCUkTRGki8zvNRZopLJ code = 5794371379) uZzEwMzNcZnRuYmpcdWMxIH vfmxClPMxcmEkpPEW9AKKhQ N9vnIuwmNa2bFtiGUPymwL9 nBOlPWnzf8gsVCL0j2lopoq lUVTeQJbiCq2rzLQyoBtyJu KwMQAkVYk6bR84JFNbiA4ih RBoVTo1YKFwbGMhwyMaWkJr ZQZieWCcdZL2PAFnXF4tnbt mVNcvBAcuVCYaekP3ZETbpC AiN8TqXOOwYW4ptaisDUV1A CwgKYHfHQO5ThMsDJHrv6Za oyv4IxAieIRmRTyzqCEgbdg asjIdMSNfqgCSSxweSx5sIs FOSS3bGFBHD3zWVBXKBlFTA ReOA3ADDzBHMzYgDW7PFOYc ITAQYcfrDrMNXHMHTL4SClz wYXIgICAgICAtIFNDSFdBTk 4DANXsUUFDRpBLTQ5sY0HQE ZVmIMvkZZEubw32JKX6FsOb m3O7QTJxGhYtVLRiKX0rkLh qCJAcIK8sBCPqG1amzU0tgb u9PvBdDLUsWgO8ZROanaG0T hc2KTYbRQjiv2wos4NbW9Ir iHYxzBn4f9heVRIxQyD8zMX zRHqwM1rlpsZqcQLpOIRaRM q4wRzoIjGpOZIxf8inocPaN mNoYXJzZXQwIENhbGlicmk7 kR03YAFysX4ljIEsKRdztaY oTtB5ASfiVUUaXyE2VOUgbD MrJZCtR3muKOScSDykQIHvQ JhtfAFdJVU2uLifc5U4nRRz jVWnsNjpXxNmGoEzXKBGt7H yKBh2vYatL8KaIKRqGnU3wN GyRUVbTTjrQVIwFMPrqiB4e M61HWrehvZ8fGAht0Hti45p s100rT9tqFMmJPC4FHCpCSU dbLDlWVBbKJI1VVGivYQqE2 oiIWVnMN2nldblRMtiJKatN RJyeDZ2DCApoQSoF0AvHMJz AQriYZXwliw8IzQpAg0oyEU zaJzmNPqyg0bbl9fqkJJvYv u3EDIlJmVcHmifHJvea2Fpf 5qtTODhvb4nQAO2jVGsmBkp d1Q0uYWxQENgoVOkdcPnNES sIiH0PGnjBX0lgi83QLGmGD O8ip9ctYWjdTjgkrYttJTkT LrmN7AyRVIjw951WIHvC1Ts UMRwb5D5wnElMoEdZIUrhID 0aaR4EIHkWZz9iUFraoU5sr UceUWcV4epnX8oWTEoHP7by ihyc6hpKVpxJFjeNWSzgRO4 ulS3ZTVsbCAjU0PvtM5vBYU aMQepRLFcddp4XlDhTc4bqC VyeTcyMFxzYmtwYWdlXHBnb mNvbnRccGduZGVjXHBsYWlu XHBsYWluXGYwXGZzMjRccWx nxMzdrB6qVuGrFcOwQLaxXY 8xUPLdK1wqgLAnYBHuNOXcK 4vrGeRdtT1nrOwhUJbsEsQw ZnMyMFxwYXIgSSBoYXZlIHB wbhGqoxIcrSimidN3fUR7KU PaDWxdHEMrTSNogMXxph6ay BohQWOwJZ0fWAYixaIuOGoq pAfkHXwoTXW1RHWsrQEimQV gbWFkZSBieSByZXNpZGVudH ZhVTJrkKdst3Nvf8FxxPQ9o E7nw0xzl5JzTAVcfAN1OK60 vwH2qR6pAAYnKU3kTQXuDT4 yjNOjuVGdHMNzd07nsUyasv ByZXBvcnQuXHBsYWluXGYyX GZzMjhcbGFuZzEwMzNcaGlj zCsqTjuvRsEmWTUkJJzmG7n lTpFyIqXgKXxgTVR7wC== Clinical Information RIGHT CEREBELLOPONTINE (test code = ANGLE MASS 9934406253) Gross Description m4ilyWBtJAXayYKeMROaQhn (test code = moyGhOEXlgFMoI9KkprgwRA 6674256905) ctVC5pZH0tlAvfpOIbpYEmE MSqYoMtx3gkt747sJSgk2jv MLGDinodgUv0ePbdS89cm8P 4ZrceE96tzSTkHET0WFJzUK FzbYKfNXIcZWB3CGBmhNNbI 3tcICEpDF9pcjkfQBlwDLxi IXGkbDP7NKBkiYHnP3EtCCX lILpdWFEppeh5ZhMvPv9naK OvjExjODzvRnqrsXeec5Cxx CBcXGlkIDUxMDAwIFxcZGIg W3CNITBfLKY8Eed6YXGkYnQ AJCZ0XfpqTVFlDKPCOFUxAN oxNDQwMjQyIiBMUlIgODAwM FGlYITuJLMuML2iFPlwrIGs CWxzKqvxLWvsD282WPkfYCZ oD9FbJ1MlNZvnONE7POZfNf PwRLBgOI0STqPpKGdnShJ8X CIvZOw3CDd1ER8AJiHbXZEl Wzw0WHF2IHThKAo8TQbyPE8 OBEQ3SEo5SLS7FkSfIRS4Nu OrRUn6NZZpXKjhdmNaKKopB estILhmA68cdUFtJMkneDZi blxmczIwIFNQRUNJTUVOIEF zpSPjHUSridLwp8AeWJxbxF ixAIXlZzQcdVqvmN0qHrWrJ SVIbRXxfT9nmfPKIIxaPKYf Z8GxgsDgOFIwKZNtEZEiegO mlsCcNW1xCAVrdEu6SXWqp3 1jlSk3NMGvu36lzHHoUVexW AJ5rGHwBDTiDHDnZQQtBM73 X4IfpsDxNDqfPDpcuxGsIqN lLZOsNgXxsU4yJSYmB2c1VY BYWCUiTYThCjmlHH2zCIMjr gLnh3WiLW9zINPfFVDdT0Ca W3I7UHDwZmL5GU8frCokiuF imhAuF3BgVHIqe13gxUL0cK DziKNsMrGgW71kfjUfHIbvS zWghBTkCznqwZCzItSnV49j jK3yKVwtykXaDLDxGB2zGAR vdWNoIHByZXBzIGFyZSBwZX Wfx0VoEZYvOQ8cFMWwhaUhx gEsJH35ARRhvsWyu1IhmIxw umClueOaaZDwkFB3JGBuMe5 rCPPtj7illpIrION0cT4kUw AgVGhlIHNwZWNpbWVuIGlzI HU2Xl4ezELoSQIuqzMtqfPy sBAjsxASSM3IOmsxwB7hzC6 rhGUmREJ0wUChVrWokfGwSC SuqH6urjGorO1sACAzSK7xI KAePPEdNF0gnE4pVOAez1Zi dGhlIHNwZWNpbWVuIGluIEE yLlxwYXJccGFyZFxzYTMwXG DwdRLKi4OpNAidRBQuB6IlC 9OaboR9WJDeyzxrPcqafBkm m5PufMHjBHdaGUEqRKJgLQo vFCLwL3MDNXAfXXU1Hke9OC MjXEi8QOxkZ9PMYZAzFCSrV GP7WYs8VkI7USg1QNYJBm3n AQd0UuYlXFR3LwU0AWt8YGF cXHQgMiBcXHNzIDMgXFxmbC DuUT3isHmnNEHlWDUuVFR4V PTgbEEAh6CbBSLzI0BDR2uD DM6xAtsvZEOkoCVhHXdmBkD bVHAuiZGXq4CrSUkroNKipx xmczIwIFNwZWNpbWVuIEIga VUlctFcXEo1BMEloX7eNg0o nJCgrV9txLVbXFaeWDR9nDV kLGYcYOVwGKQkMA07Y4Louc FtZSwgVUggbnVtYmVyICIgY eHjwL5uYJPdQ8f7NUXfhpWc TGyip1RwreXsflUbNE0nyZF yrXXiyuJuWTCcFOXbg29waR I5gdVcEoRlaYt8fXAbDXV1P B3yfXbwkuAtbAfriAYukMLm KS9ulrCfCMwoJrHmzvWhY1W mEWWvf71riCY0zETvgZAtSz NpZ93jbeJlLKjhCT1qoW4jT WBzx99qOU97VEFsPWNhYyYx bSBpbiBncmVhdGVzdCBkaW1 tfeOzj34lHSVtTUM5TAQnTM M8WYYnKAYimIOmtdRwC0rfT WdhdGUpLiAgVGhlIGxhcmdl ciBmcmFnbWVudHMgYXJlIHN wbaotuDe9FLDjO7Lxj95lCY V5oqOsPIWtIHeyqSRqRIXdc zwwnM7im2pcoh74ohTtqCQg h9NePtIeGBEgVWKMhMIst6S dF0dqVK4gmOWgg2FxvWm8bB MlPMUizXtbGDw5HWuiYTHlV UIzLlxwYXJccGFyZFxwYXJc d1JcJVegdNyrLLDoZbDmUIO feBZARDyyu5AcWFcoSZXvGF NWS5Bbt6zlaEukq8IhvHKoT Y19GBAaxKDqDLG7BQ4zbBbj YXJ9 Intraoperative u8ybnYUjRDDtlEDCILG4WTH Consultation (test vCZ7pgXqnlGb2tGjmYHMcfq code = 9520210751) N6xIWsDDhep5sdDCR8u1avf vDARgiqLWDmJA5oLGmmUISh BZ6iOxGrITGwLlSqAPIzkJR xlbUoDqCgDTAxaYObtSS4FN IwLO0wddqhRArtPBiaKYAvh fX9FXDryDSpB9DcOKQxFO0l frsaOBJ1KUMTSvlrBs1suXL ibHtcZjFcZmNoYXJzZXQwXG EjuHbxLSWkKWg8zN8IDnltN UX1PQZWLxcxMklqmGxod4Kn dCBcXHNnIFxcaWQgNTEwMDE fCOuqGiKQFwNhYkE2FBgnBh joLiI7ZNc4SNEWNQPjZrssN mH9GWC7XUw2YBHdWR0eXIsr kIVyYKrmLqohYOrkN837XLk jUZTqG6DvF7HyHUatVnJgBA ptWDQeMGPeQJbkZYKtL6VKP LOvEKO2Oht2EBTjRHb3FRpl D5RDUHHoXOQmHMNxGwdpNpK 6ZEz3EZVMDi9bXVv3Xao9Yf Q8WgZ2LEs0AaNnLTBoQcUnC NTdAEUhTQytcWBjZS9ymNvq OWXcGT4CCHClUPjdAUAkFpV hK3KAO5qAWD2wYPobrEAhuK xmczIyXHBhciANClxwYXJkI V5VNUFbDAqvWKw8aqIlUHDd BnRrCUKzP13kd5UJu5ZvRA2 JGHo0vzMrtlvohW6mOSZfsz AgDQpcZnMyMCBBMSwgQlJBS H1gXQRBH6qIDPZCFqLVFYyT K7TORfQUQzJlHE8RUFXaWVM TUywgQklPUFNZOlxwYXIgDQ fgcUp8YEHuEnfbTMQmPPalk dA8NGLTSgCuDFUtIVUAKFgM OPgTDOUIAYirJjPCUKhPD28 eUQRZIrFRJ9BJHmKcJ3kTXT EEN4rJYI2WP99YLKgBRCRIG nowIvYORqCBTEJOU1FRV40w XHBhciANClxsaTBcZmkwXGx flzNoMPsyrDTaDY5GTsXarZ z4kyQoCVMglsFcGAQ2hlPQl r8rS5ZeDPAvl75rAp2kWK6k OWXcFBI8QOSzSzM0QdLTy20 hgOQhMAMwz32af8DkrwIfQJ 9rNVNrXA6uZKBcy6UydSNrI U1mPBHafXewnwBahYMdpaCk IbnfGPYwb79ml8DoCEHgzqR cgs4eKN5gnTVzOW6CVG10nl XbxXTxRWTrhkDtxRQxkQ6vC 5YbMQIqELAbozO1uO8qSRSv snAodp4sWERsfHZUbPBequC PRSmkOPJckBP3xlPXs8QruB ChoXwqYsThNTDyb7Fxc69lE 4ZiNVT2ZCTQeUWcnoPVERuc SOSWGTr2WLi1OsTJcgFxlbD nBVGvxYqrmoCqMNJss3DoKO VoxjaqDLIdhD65IMS5ZGhnp UV2fK0zs5g0MVL6JLFXMAOw D3ObzoUiwU6pZMbir4XjeKB gVcNesNYvCC8TGHNzlbOYPh mgTAV6VYzzkDugQAEgYbQkn 2gxJKcki6sqlBn2PAJXMp7x E0ugbKnyFS6hOMVceeSGNAu gM8KclWGcZI8KHJqpVEQuYj EqLcBeHpq0OhOPIYEUTfjvx ZxbQrJlzXSeUkX8VNFkgRMj MFR1TR4jlNtaYHUuL0ZtT7U ffdO6TATnqvAQZmjcAQGrLV 5QGQVvAxJrAGh8 Microscopic b3lypPLbEDRipGMqIGQtEvd Description (test code ptcOyEXGayTEnT4LietxtPI = 2364719699) gfBD6wTJ8qbCzlmKAnsSVuR NMgCeWnn6suo563rBVhn6tz UDVWyxjujAt5nRnfL15ew6P 1BxbiS84dmNNdRND3NSUbTR KlmCJmOLWvADP1FQDciBFxW 9zjZSWlJK0tgevdTKnwTRoc VCMftKW0CMHahTGkA2MwYXT mCDuyKTRwklw2EdLyUj9uoV VyeTcyMFxwYXJkXHBsYWluX JUtMoWlH5BwbWzzsxPfo9su hiUvkHEfa3xsNNZfBGY1txE bWW1wVBNiaAfuop2rhDXlv2 a2qEYdprQrn79zciQnsXh1S KQogG5geUXRYSPpYXSbCRVf GVpyXO23o27aVEWdPRLoXEH eID4cBRGsmsHfnjNzmQFxay FxJVtps9ShCXNmWP3obT53g MFsKLF7aOEjdUmxhMGbuH0m s04dtGbkjL26rn0gHDXosh3 = Disclaimer (test code u2fybVNgWAVqa9ydNXJswMP = [id number]) uZzEwMzNcZnRuYmpcdWMxIH wmyrXkGMbmy2NiR6GjWxCoQ FxhbnNpXGRlZmxhbmcxMDMz ZBN2dpHpDNEeREftZTCmNLq yUy2juAAtvXnrUrFsQLFse5 fftrQYTEstNaLzA529ISZpU Pxpp6ctn3QcMPNoiRPgg8C9 XZNWqduijFw4yXwyR99yj8X 4JnzlM4pqBNKvQTQjV4BiDQ 3iRECjZps0NKU4SMZ1FDAiK SBtU0CaOX6dRYBnsCWhMHq4 t2bzrNlxZNWqDTP2e3unPDu flmIhVJ3wqr5nfVl4j3qara PgZEKeSCQylTILFSGdI7Iar WwwGl1gyRp1iBhdYrnzVWG4 Tyz4LB2ryi39fyv0wCdiOLW stfmyZfX3OIjhLJQpvnxqKE b7PLgxWVSjvKN2BJMvuDPkE 1TvIXOmYU5ilhl0WMX5UQpl BUVkWeF4PYOfgAAqFAXbeTc zOVtwg351PCV1WcGsWQ7dG8 Xat8P7mF4mgGIlDBHizSIwN yIhGQPifn7xtDEnGEgrk5Qh NHT0zvP0vEHtsPOsYELuLV3 1Qvipi4IdQmxau5KaF91iwG A5KSubq9arEL1zJeL4zyZqZ Mxyg9debH6kPpZ4POkvUJ6o YM9qMFEqfG2uhalhBOVaAuE zssduBUMiaPvylhVtMe6kjF xfQUD9TOpyM0bzyG9vIjP9N QbkM1bbuS4mGUa0XQhzsGL8 COHppG7sGW2ojpchu0xvBDc hFChoOVAudoS2lqR9AZFolD XpD3AikB5bUNLlDP8lhntoo 9ylSJN2EZfnEJTrSFC6DeZr TKCoz1Dthix9NeDqm0NrhRB mTDnxC22ax109RSDfusIgI5 xwbGFpblxwbGFpblxmMFxmc fE6LVUseeGje6NfQVVqVTP2 ZNngOScksJOaVCPccMhgx8m eO7VvfBRuNUYcIMmlCMWpRM ZzMjBcbGFuZzEwMzNcaGlja MmeBDjbBjIeKVBdKDhtE6du ExTyI5FjPCDqPpKmkYUcK7r kSAorszUoAIIrrjBldSG4KC ljK6z7ZDQrpoAbdMz7ucDhJ uTzKONfZGV2XTsvpIRiBUSc d8QhbczddMDxVy1cdGLhKKN nqP4qAEMpPVLrWUswVQ7jcS d7BHEKhZZmiYFdWqLGZFQjD G08bwCbXLZZqeekx9N3CJxo OTTju6VowPLiV8ayq4AvSIV ae85vPG5zy2G7v9cdLZK8ZG 6pv4BaIQBglEDoiOOxHWVed 8Xgpfzeh3OdTPWybfBfi0Rc ZCBhbmQgaXRzIHBlcmZvcm1 spuVmJUIcUOFgG2JttbkfmB lqbtOnKBWuvm7bqeMdECX3O RCHRSBvALGuo2ZeiE4psUOY YCS4nUCyrf7penFQoWGhKYV kdb29CGNgGF8wR2qmQEZkWI PtmvVjmUGyv9GqPCBedDH0f IVjGZ9PPcGQo18cEFGbEIOF fjLaIHFbpPkfkYL4rsM8mS5 uIChGREEpLlx+IFRoZSBGRE QbSL3pvcCpj5FgkjDmoHxdF HJqhQXtg9OmaPYln6HqbCox c5DslGFfrHGgID8pVKLkydz eJMZxTTEKDrKSUHIuieT4o9 NtWKYfBCXoNHY3qIqnhlv6K HLooL6pWIXgU2ioanwmXKlv DFGsl3LnmW0eoYWDfXJwd2R jqVGmuUDDeTDpFM3ybwViHE aARQwJAKJ1dvLiJVPkp5DqE GtnQ1qpQ72vvCsvaSj3aTP7 FWS5zC2yVkw+IFxwYXJccGF yIEFwcHJvcHJpYXRlbHkgcm EkL8DjenGdqV3cbSSveiUmU M3nBS4jK4R4eMMeWXTaztHu r1vpDIdwmlXsUmTiqiSeZFO nAWmcWMRdb6VlJBcbQTC7JU lucyBpbmNsdWRpbmcgSCZFL FCQxUWvnEQtPNF0MSljgmXf uzTvFG3nlO1zfWkomS7qvCE qfST5njeaUTKnXZChjVmrGD QyQP9wkRRoIOIfmfOWaYcfw WCilJ1gI8JyGVBqRVBfqw3h RNAanS7hGZubw6PkledwHUB lGMZqLLPoqzWhok2vJLWnrX RIPB8JNMqbfMPrw8ShiqIyE 1lDOIZ2HSJjEnNwOkajDGKs ySAvsIMwTTBwke41RRLkwL0 weQkdVRPwiT6wwH2lkBtruI 9fAkQlWgArAJqpOF8qDCLvO 7sooCFfDEDwQTXfT2avTxBi zT1boUckTLaoFlIlChWyEZo nGND8sN== Embedded Images (test code = 1004738965) [facility] GLUCOSE (AUTOMATED)2023-04-06 16:59:47 Test Item Value Reference Range Interpretation Comments POCT GLU (test code = 156 mg/dL 70-110 H Notifi ed Provider [id number]) Lab Interpretation (test Abnormal code = 32662-7) [facility] GLUCOSE (AUTOMATED)2023-04-06 10:49:39 Test Item Value Reference Range Interpretation Comments POCT GLU (test code = 8254408670) 133 mg/dL 70-110 H Lab Interpretation (test code = Abnormal 71421-3) [facility] GLUCOSE (AUTOMATED)2023-04-06 05:37:35 Test Item Value Reference Range Interpretation Comments POCT GLU (test code = 5286757395) 131 mg/dL 70-110 H Lab Interpretation (test code = Abnormal 63026-6) [facility] GLUCOSE (AUTOMATED)2023-04-05 22:48:18 Test Item Value Reference Range Interpretation Comments POCT GLU (test code = 6845131405) 137 mg/dL 70-110 H Lab Interpretation (test code = Abnormal 51251-0) [facility] GLUCOSE (AUTOMATED)2023-04-05 17:03:14 Test Item Value Reference Range Interpretation Comments POCT GLU (test code = 7051272419) 166 mg/dL 70-110 H Lab Interpretation (test code = Abnormal 36901-6) [facility] GLUCOSE (AUTOMATED)2023-04-05 17:03:14 Test Item Value Reference Range Interpretation Comments POCT GLU (test code = 5525954762) 166 mg/dL 70-110 H Lab Interpretation (test code = Abnormal 18646-9) [facility] METABOLIC PANEL (NA, K, CL, CO2, GLUCOSE, BUN, CREATININE, CA)2023-04-05 10:51:14 Test Item Value Reference Range Interpretation Comments NA (test code = 140 mmol/L 135-145 5442733960) K (test code = 3.9 mmol/L 3.5-5.0 1836499670) CL (test code = 107 mmol/L 98-108 5085115649) CO2 TOTAL (test code = 24 mmol/L 23-31 5395781526) AGAP (test code = 9 2-16 8429638804) BUN (test code = 15 mg/dL 7-23 6269718564) GLUCOSE (test code = 141 mg/dL 70-110 H 4186999998) CREATININE (test code = 0.56 mg/dL 0.50-1.04 6545940840) CALCIUM (test code = 6.1 mg/dL 8.6-10.6 L 6599482194) eGFR (test code = 118.2 mL/min/1.73m2 6382622492) GOYO (test code = GOYO) Association of Glomerular Filtration Rate (GFR) and Staging of Kidney Disease* + --+ --+ ------+| GFR (mL/min/1.73 m2) ?| With Kidney Damage ?| ?Without Kidney Damage+ --------+ --------+ +| ?>90 ?| ?Stage one ?| ? Normal ?+ ---+ ---+ -------+| ?60-89 ?| ?Stage two ?| ? Decreased GFR ? + --+ --+ ------+| ?30-59 ?| ?Stage three ?| ? Stage three ? + --+ --+ ------+| ?15-29 ?| ?Stage four ? | ? Stage four ?+ ---+ ---+ -------+| ?<15 (or dialysis) ? ?| ?Stage five ? | ? Stage five ?+ ---+ ---+ -------+ *Each stage assumes the associated GFR level has been in effect for at least three months. ?Stages 1 to 5, with or without kidney disease, indicate chronic kidney disease. Notes: Determination of stages one and two (with eGFR >59mL/min/1.73 m2) requires estimation of kidney damage for at least three months as defined by structural or functional abnormalities of the kidney, manifested by either:Pathological abnormalities or Markers of kidney damage (including abnormalities in the composition of the blood or urine or abnormalities in imaging tests). Lab Interpretation Abnormal (test code = 24921-4) [facility] Test Item Value Reference Range Interpretation Comments MAGNESIUM (test code = 8675113647) 1.8 mg/dL 1.7-2.4 Lab Interpretation (test code = Normal 41528-3) [facility] (NA, K, CL, CO2, GLUCOSE, BUN, CREATININE, CA)2023-04-05 10:51:14 Test Item Value Reference Range Interpretation Comments NA (test code = 140 mmol/L 135-145 0012527937) K (test code = 3.9 mmol/L 3.5-5.0 8376141664) CL (test code = 107 mmol/L 98-108 7635310854) CO2 TOTAL (test code = 24 mmol/L 23-31 0691043341) AGAP (test code = 9 2-16 2767491046) BUN (test code = 15 mg/dL 7-23 1656719519) GLUCOSE (test code = 141 mg/dL 70-110 H 9531096696) CREATININE (test code = 0.56 mg/dL 0.50-1.04 1142691461) CALCIUM (test code = 6.1 mg/dL 8.6-10.6 L 1208514553) eGFR (test code = 118.2 mL/min/1.73m2 2202425180) GOYO (test code = GOYO) Association of Glomerular Filtration Rate (GFR) and Staging of Kidney Disease* + --+ --+ ------+| GFR (mL/min/1.73 m2) ?| With Kidney Damage ?| ?Without Kidney Damage+ --------+ --------+ +| ?>90 ?| ?Stage one ?| ? Normal ?+ ---+ ---+ -------+| ?60-89 ?| ?Stage two ?| ? Decreased GFR ? + --+ --+ ------+| ?30-59 ?| ?Stage three ?| ? Stage three ? + --+ --+ ------+| ?15-29 ?| ?Stage four ? | ? Stage four ?+ ---+ ---+ -------+| ?<15 (or dialysis) ? ?| ?Stage five ? | ? Stage five ?+ ---+ ---+ -------+ *Each stage assumes the associated GFR level has been in effect for at least three months. ?Stages 1 to 5, with or without kidney disease, indicate chronic kidney disease. Notes: Determination of stages one and two (with eGFR >59mL/min/1.73 m2) requires estimation of kidney damage for at least three months as defined by structural or functional abnormalities of the kidney, manifested by either:Pathological abnormalities or Markers of kidney damage (including abnormalities in the composition of the blood or urine or abnormalities in imaging tests). Lab Interpretation Abnormal (test code = 85034-8) [facility]:51[facility]14 Test Item Value Reference Range Interpretation Comments MAGNESIUM (test code = 4591000723) 1.8 mg/dL 1.7-2.4 Lab Interpretation (test code = Normal 44764-4) [facility] WITH [id number] 10:40:52 Test Item Value Reference Range Interpretation Comments WBC (test code = 6.86 See_Comment [Automated 6690-2) message] The sy stem which generated this result transmitted reference range : 4.30 - 11.10 10*3/?L. The reference range was not used to interpret this result as normal/abnormal . RBC (test code = 2.95 See_Comment L [Automated 789-8) message] The sy stem which generated this result transmitted reference range : 3.93 - 5.25 10*6/?L. The reference range was not used to interpret this result as normal/abnormal . HGB (test code = 8.8 g/dL 11.6-15.0 L 718-7) HCT (test code = 28.0 % 35.7-45.2 L 4544-3) MCV (test code = 94.9 fL 80.6-95.5 787-2) MCH (test code = 29.8 pg 25.9-32.8 785-6) MCHC (test code = 31.4 g/dL 31.6-35.1 L 786-4) RDW-SD (test code = 48.0 fL 39.0-49.9 89310-9) RDW-CV (test code = 13.9 % 12.0-15.5 788-0) PLT (test code = 164 See_Comment L [Automated 777-3) message] The sy stem which generated this result transmitted reference range : 166 - 358 10*3/ ?L. The reference r skyler was not used to interpret this result as normal/abnormal . MPV (test code = 8.6 fL 9.5-12.9 L 62913-9) NRBC/100 WBC (test 0.0 See_Comment [Automat ed code = 4310588403) message] The system which generated this result transmitted reference range : 0.0 - 10.0 /100 WBCs. The refer ence range was not u sed to interpret th is result as normal/abnormal . NRBC x10^3 (test code See_Comment [Auto mated = 8583363837) message] The s ystem which generated this result transmitted reference range : 10*3/?L. The reference range was not used to interpret this result as normal/abnormal . GRAN MAT (NEUT) % 87.7 % (test code = 770-8) IMM GRAN % (test code 1.20 % = 0353764587) LYMPH % (test code = 8.3 % 736-9) MONO % (test code = 2.8 % 5905-5) EOS % (test code = 0.0 % 713-8) BASO % (test code = 0.0 % 706-2) GRAN MAT x10^3(ANC) 6.02 10*3/uL 1.88-7.09 (test code = 7712580980) IMM GRAN x10^3 (test 0.08 10*3/uL 0.00-0.06 H code = 8257638773) LYMPH x10^3 (test code 0.57 10*3/uL 1.32-3.29 L = 731-0) MONO x10^3 (test code 0.19 10*3/uL 0.33-0.92 L = 742-7) EOS x10^3 (test code = 0.03-0.39 L 711-2) BASO x10^3 (test code 0.01-0.07 = 704-7) Lab Interpretation Abnormal (test code = 92039-0) [facility] WITH [id number] 10:40:52 Test Item Value Reference Range Interpretation Comments WBC (test code = 6.86 See_Comment [Automated 6690-2) message] The sy stem which generated this result transmitted reference range : 4.30 - 11.10 10*3/?L. The reference range was not used to interpret this result as normal/abnormal . RBC (test code = 2.95 See_Comment L [Automated 789-8) message] The sy stem which generated this result transmitted reference range : 3.93 - 5.25 10*6/?L. The reference range was not used to interpret this result as normal/abnormal . HGB (test code = 8.8 g/dL 11.6-15.0 L 718-7) HCT (test code = 28.0 % 35.7-45.2 L 4544-3) MCV (test code = 94.9 fL 80.6-95.5 787-2) MCH (test code = 29.8 pg 25.9-32.8 785-6) MCHC (test code = 31.4 g/dL 31.6-35.1 L 786-4) RDW-SD (test code = 48.0 fL 39.0-49.9 45613-6) RDW-CV (test code = 13.9 % 12.0-15.5 788-0) PLT (test code = 164 See_Comment L [Automated 777-3) message] The sy stem which generated this result transmitted reference range : 166 - 358 10*3/ ?L. The reference r skyler was not used to interpret this result as normal/abnormal . MPV (test code = 8.6 fL 9.5-12.9 L 21558-3) NRBC/100 WBC (test 0.0 See_Comment [Automat ed code = 6285324239) message] The system which generated this result transmitted reference range : 0.0 - 10.0 /100 WBCs. The refer ence range was not u sed to interpret th is result as normal/abnormal . NRBC x10^3 (test code See_Comment [Auto mated = 6725893868) message] The s ystem which generated this result transmitted reference range : 10*3/?L. The reference range was not used to interpret this result as normal/abnormal . GRAN MAT (NEUT) % 87.7 % (test code = 770-8) IMM GRAN % (test code 1.20 % = 9481922176) LYMPH % (test code = 8.3 % 736-9) MONO % (test code = 2.8 % 5905-5) EOS % (test code = 0.0 % 713-8) BASO % (test code = 0.0 % 706-2) GRAN MAT x10^3(ANC) 6.02 10*3/uL 1.88-7.09 (test code = 0133117084) IMM GRAN x10^3 (test 0.08 10*3/uL 0.00-0.06 H code = 9982799309) LYMPH x10^3 (test code 0.57 10*3/uL 1.32-3.29 L = 731-0) MONO x10^3 (test code 0.19 10*3/uL 0.33-0.92 L = 742-7) EOS x10^3 (test code = 0.03-0.39 L 711-2) BASO x10^3 (test code 0.01-0.07 = 704-7) Lab Interpretation Abnormal (test code = 74042-3) [facility] GLUCOSE (AUTOMATED)2023-04-05 04:33:15 Test Item Value Reference Range Interpretation Comments POCT GLU (test code = 2269882574) 153 mg/dL 70-110 H Lab Interpretation (test code = Abnormal 39627-1) [facility] GLUCOSE (AUTOMATED)2023-04-05 04:33:15 Test Item Value Reference Range Interpretation Comments POCT GLU (test code = 5210854932) 153 mg/dL 70-110 H Lab Interpretation (test code = Abnormal 71954-7) [facility] GLUCOSE (AUTOMATED)2023-04-04 22:31:35 Test Item Value Reference Range Interpretation Comments POCT GLU (test code = 1090579200) 144 mg/dL 70-110 H Lab Interpretation (test code = Abnormal 16016-2) [facility] GLUCOSE (AUTOMATED)2023-04-04 22:31:35 Test Item Value Reference Range Interpretation Comments POCT GLU (test code = 8103500909) 144 mg/dL 70-110 H Lab Interpretation (test code = Abnormal 28258-3) [facility] GLUCOSE (AUTOMATED)2023-04-04 22:31:35 Test Item Value Reference Range Interpretation Comments POCT GLU (test code = 5876791047) 144 mg/dL 70-110 H Lab Interpretation (test code = Abnormal 31750-7) [facility] GLUCOSE (AUTOMATED)2023-04-04 16:42:30 Test Item Value Reference Range Interpretation Comments POCT GLU (test code = 5486533116) 156 mg/dL 70-110 H Lab Interpretation (test code = Abnormal 69378-2) [facility] GLUCOSE (AUTOMATED)2023-04-04 16:42:30 Test Item Value Reference Range Interpretation Comments POCT GLU (test code = 6212911844) 156 mg/dL 70-110 H Lab Interpretation (test code = Abnormal 49542-6) [facility] GLUCOSE (AUTOMATED)2023-04-04 16:42:30 Test Item Value Reference Range Interpretation Comments POCT GLU (test code = 8668597098) 156 mg/dL 70-110 H Lab Interpretation (test code = Abnormal 13534-9) [facility] METABOLIC PANEL (NA, K, CL, CO2, GLUCOSE, BUN, CREATININE, CA)2023-04-04 10:11:03 Test Item Value Reference Range Interpretation Comments NA (test code = 147 mmol/L 135-145 H 2716092885) K (test code = 3.2 mmol/L 3.5-5.0 L 9474659130) CL (test code = 117 mmol/L 98-108 H 1336985720) CO2 TOTAL (test code = 18 mmol/L 23-31 L 2972753887) AGAP (test code = 12 2-16 5282311033) BUN (test code = 12 mg/dL 7-23 2104693918) GLUCOSE (test code = 135 mg/dL 70-110 H 5378292624) CREATININE (test code = 0.68 mg/dL 0.50-1.04 1263685759) CALCIUM (test code = 6.2 mg/dL 8.6-10.6 L 7808653349) eGFR (test code = 94.4 mL/min/1.73m2 6814381559) GOYO (test code = GOYO) Association of Glomerular Filtration Rate (GFR) and Staging of Kidney Disease* + --+ --+ ------+| GFR (mL/min/1.73 m2) ?| With Kidney Damage ?| ?Without Kidney Damage+ --------+ --------+ +| ?>90 ?| ?Stage one ?| ? Normal ?+ ---+ ---+ -------+| ?60-89 ?| ?Stage two ?| ? Decreased GFR ? + --+ --+ ------+| ?30-59 ?| ?Stage three ?| ? Stage three ? + --+ --+ ------+| ?15-29 ?| ?Stage four ? | ? Stage four ?+ ---+ ---+ -------+| ?<15 (or dialysis) ? ?| ?Stage five ? | ? Stage five ?+ ---+ ---+ -------+ *Each stage assumes the associated GFR level has been in effect for at least three months. ?Stages 1 to 5, with or without kidney disease, indicate chronic kidney disease. Notes: Determination of stages one and two (with eGFR >59mL/min/1.73 m2) requires estimation of kidney damage for at least three months as defined by structural or functional abnormalities of the kidney, manifested by either:Pathological abnormalities or Markers of kidney damage (including abnormalities in the composition of the blood or urine or abnormalities in imaging tests). Lab Interpretation Abnormal (test code = 14617-4) [facility] METABOLIC PANEL (NA, K, CL, CO2, GLUCOSE, BUN, CREATININE, CA)2023-04-04 10:11:03 Test Item Value Reference Range Interpretation Comments NA (test code = 147 mmol/L 135-145 H 5558471913) K (test code = 3.2 mmol/L 3.5-5.0 L 6739560582) CL (test code = 117 mmol/L 98-108 H 2845611376) CO2 TOTAL (test code = 18 mmol/L 23-31 L 1555784565) AGAP (test code = 12 2-16 8463814867) BUN (test code = 12 mg/dL 7-23 9579898247) GLUCOSE (test code = 135 mg/dL 70-110 H 3444099051) CREATININE (test code = 0.68 mg/dL 0.50-1.04 3237125192) CALCIUM (test code = 6.2 mg/dL 8.6-10.6 L 7786775099) eGFR (test code = 94.4 mL/min/1.73m2 6603371650) GOYO (test code = GOYO) Association of Glomerular Filtration Rate (GFR) and Staging of Kidney Disease* + --+ --+ ------+| GFR (mL/min/1.73 m2) ?| With Kidney Damage ?| ?Without Kidney Damage+ --------+ --------+ +| ?>90 ?| ?Stage one ?| ? Normal ?+ ---+ ---+ -------+| ?60-89 ?| ?Stage two ?| ? Decreased GFR ? + --+ --+ ------+| ?30-59 ?| ?Stage three ?| ? Stage three ? + --+ --+ ------+| ?15-29 ?| ?Stage four ? | ? Stage four ?+ ---+ ---+ -------+| ?<15 (or dialysis) ? ?| ?Stage five ? | ? Stage five ?+ ---+ ---+ -------+ *Each stage assumes the associated GFR level has been in effect for at least three months. ?Stages 1 to 5, with or without kidney disease, indicate chronic kidney disease. Notes: Determination of stages one and two (with eGFR >59mL/min/1.73 m2) requires estimation of kidney damage for at least three months as defined by structural or functional abnormalities of the kidney, manifested by either:Pathological abnormalities or Markers of kidney damage (including abnormalities in the composition of the blood or urine or abnormalities in imaging tests). Lab Interpretation Abnormal (test code = 50070-4) [facility] METABOLIC PANEL (NA, K, CL, CO2, GLUCOSE, BUN, CREATININE, CA)2023-04-04 10:11:03 Test Item Value Reference Range Interpretation Comments NA (test code = 147 mmol/L 135-145 H 3697433681) K (test code = 3.2 mmol/L 3.5-5.0 L 8245914983) CL (test code = 117 mmol/L 98-108 H 0129910566) CO2 TOTAL (test code = 18 mmol/L 23-31 L 8803142123) AGAP (test code = 12 2-16 9203295247) BUN (test code = 12 mg/dL 7-23 1731055368) GLUCOSE (test code = 135 mg/dL 70-110 H 2743385528) CREATININE (test code = 0.68 mg/dL 0.50-1.04 8313890380) CALCIUM (test code = 6.2 mg/dL 8.6-10.6 L 7993950517) eGFR (test code = 94.4 mL/min/1.73m2 6923534644) GOYO (test code = GOYO) Association of Glomerular Filtration Rate (GFR) and Staging of Kidney Disease* + --+ --+ ------+| GFR (mL/min/1.73 m2) ?| With Kidney Damage ?| ?Without Kidney Damage+ --------+ --------+ +| ?>90 ?| ?Stage one ?| ? Normal ?+ ---+ ---+ -------+| ?60-89 ?| ?Stage two ?| ? Decreased GFR ? + --+ --+ ------+| ?30-59 ?| ?Stage three ?| ? Stage three ? + --+ --+ ------+| ?15-29 ?| ?Stage four ? | ? Stage four ?+ ---+ ---+ -------+| ?<15 (or dialysis) ? ?| ?Stage five ? | ? Stage five ?+ ---+ ---+ -------+ *Each stage assumes the associated GFR level has been in effect for at least three months. ?Stages 1 to 5, with or without kidney disease, indicate chronic kidney disease. Notes: Determination of stages one and two (with eGFR >59mL/min/1.73 m2) requires estimation of kidney damage for at least three months as defined by structural or functional abnormalities of the kidney, manifested by either:Pathological abnormalities or Markers of kidney damage (including abnormalities in the composition of the blood or urine or abnormalities in imaging tests). Lab Interpretation Abnormal (test code = 13499-0) [facility] WITH [id number] 09:46:19 Test Item Value Reference Range Interpretation Comments WBC (test code = 12.94 See_Comment H [Automated 2790-2) message] The system which generated this result transmit gabby reference range : 4.30 - 11.10 10*3/?L. The reference range was not used to interpret this result as normal/abnormal . RBC (test code = 3.17 See_Comment L [Automated 269-8) message] The system which generated this result transmit gabby reference range : 3.93 - 5.25 10*6/?L. The reference range was not used to interpret this result as normal/abnormal . HGB (test code = 9.8 g/dL 11.6-15.0 L 718-7) HCT (test code = 31.6 % 35.7-45.2 L 4544-3) MCV (test code = 99.7 fL 80.6-95.5 H 787-2) MCH (test code = 30.9 pg 25.9-32.8 785-6) MCHC (test code = 31.0 g/dL 31.6-35.1 L 786-4) RDW-SD (test code = 52.8 fL 39.0-49.9 H 84203-1) RDW-CV (test code = 14.3 % 12.0-15.5 788-0) PLT (test code = 207 See_Comment [Automated 777-3) message] The system which generated this result transmit gabby reference range : 166 - 358 10*3/ ?L. The reference range was not u sed to interpret th is result as normal/abnormal . MPV (test code = 8.9 fL 9.5-12.9 L 93302-7) NRBC/100 WBC (test 0.0 See_Comment [Automat ed code = 8906008028) message] The system which generated this result transmit gabby reference range : 0.0 - 10.0 /100 WBCs. The reference range was not used to interpret this result as normal/abnormal . NRBC x10^3 (test code See_Comment [Auto mated = 6329830982) message] The system which generated this result transmit gabby reference range : 10*3/?L. The reference range was not used to interpret this result as normal/abnormal . GRAN MAT (NEUT) % 87.8 % (test code = 770-8) IMM GRAN % (test code 1.20 % = 5139019499) LYMPH % (test code = 5.9 % 736-9) MONO % (test code = 4.9 % 5905-5) EOS % (test code = 0.0 % 713-8) BASO % (test code = 0.2 % 706-2) GRAN MAT x10^3(ANC) 11.38 10*3/uL 1.88-7.09 H (test code = 8678603041) IMM GRAN x10^3 (test 0.15 10*3/uL 0.00-0.06 H code = 7462470173) LYMPH x10^3 (test code 0.76 10*3/uL 1.32-3.29 L = 731-0) MONO x10^3 (test code 0.63 10*3/uL 0.33-0.92 = 742-7) EOS x10^3 (test code = 0.03-0.39 L 711-2) BASO x10^3 (test code 0.01-0.07 = 704-7) Lab Interpretation Abnormal (test code = 99470-3) [facility] WITH [id number] 09:46:19 Test Item Value Reference Range Interpretation Comments WBC (test code = 12.94 See_Comment H [Automated 6690-2) message] The system which generated this result transmit gabby reference range : 4.30 - 11.10 10*3/?L. The reference range was not used to interpret this result as normal/abnormal . RBC (test code = 3.17 See_Comment L [Automated 789-8) message] The system which generated this result transmit gabby reference range : 3.93 - 5.25 10*6/?L. The reference range was not used to interpret this result as normal/abnormal . HGB (test code = 9.8 g/dL 11.6-15.0 L 718-7) HCT (test code = 31.6 % 35.7-45.2 L 4544-3) MCV (test code = 99.7 fL 80.6-95.5 H 787-2) MCH (test code = 30.9 pg 25.9-32.8 785-6) MCHC (test code = 31.0 g/dL 31.6-35.1 L 786-4) RDW-SD (test code = 52.8 fL 39.0-49.9 H 99856-2) RDW-CV (test code = 14.3 % 12.0-15.5 788-0) PLT (test code = 207 See_Comment [Automated 777-3) message] The system which generated this result transmit gabby reference range : 166 - 358 10*3/ ?L. The reference range was not u sed to interpret th is result as normal/abnormal . MPV (test code = 8.9 fL 9.5-12.9 L 38444-2) NRBC/100 WBC (test 0.0 See_Comment [Automat ed code = 8019020499) message] The system which generated this result transmit gabby reference range : 0.0 - 10.0 /100 WBCs. The reference range was not used to interpret this result as normal/abnormal . NRBC x10^3 (test code See_Comment [Auto mated = 8895354668) message] The system which generated this result transmit gabby reference range : 10*3/?L. The reference range was not used to interpret this result as normal/abnormal . GRAN MAT (NEUT) % 87.8 % (test code = 770-8) IMM GRAN % (test code 1.20 % = 8089981257) LYMPH % (test code = 5.9 % 736-9) MONO % (test code = 4.9 % 5905-5) EOS % (test code = 0.0 % 713-8) BASO % (test code = 0.2 % 706-2) GRAN MAT x10^3(ANC) 11.38 10*3/uL 1.88-7.09 H (test code = 7133783453) IMM GRAN x10^3 (test 0.15 10*3/uL 0.00-0.06 H code = 9175270048) LYMPH x10^3 (test code 0.76 10*3/uL 1.32-3.29 L = 731-0) MONO x10^3 (test code 0.63 10*3/uL 0.33-0.92 = 742-7) EOS x10^3 (test code = 0.03-0.39 L 711-2) BASO x10^3 (test code 0.01-0.07 = 704-7) Lab Interpretation Abnormal (test code = 12459-1) [facility] WITH [id number] 09:46:19 Test Item Value Reference Range Interpretation Comments WBC (test code = 12.94 See_Comment H [Automated 6690-2) message] The system which generated this result transmit gabby reference range : 4.30 - 11.10 10*3/?L. The reference range was not used to interpret this result as normal/abnormal . RBC (test code = 3.17 See_Comment L [Automated 789-8) message] The system which generated this result transmit gabby reference range : 3.93 - 5.25 10*6/?L. The reference range was not used to interpret this result as normal/abnormal . HGB (test code = 9.8 g/dL 11.6-15.0 L 718-7) HCT (test code = 31.6 % 35.7-45.2 L 4544-3) MCV (test code = 99.7 fL 80.6-95.5 H 787-2) MCH (test code = 30.9 pg 25.9-32.8 785-6) MCHC (test code = 31.0 g/dL 31.6-35.1 L 786-4) RDW-SD (test code = 52.8 fL 39.0-49.9 H 83037-7) RDW-CV (test code = 14.3 % 12.0-15.5 788-0) PLT (test code = 207 See_Comment [Automated 777-3) message] The system which generated this result transmit gabby reference range : 166 - 358 10*3/ ?L. The reference range was not u sed to interpret th is result as normal/abnormal . MPV (test code = 8.9 fL 9.5-12.9 L 68960-4) NRBC/100 WBC (test 0.0 See_Comment [Automat ed code = 3823662581) message] The system which generated this result transmit gabby reference range : 0.0 - 10.0 /100 WBCs. The reference range was not used to interpret this result as normal/abnormal . NRBC x10^3 (test code See_Comment [Auto mated = 3676724882) message] The system which generated this result transmit gabby reference range : 10*3/?L. The reference range was not used to interpret this result as normal/abnormal . GRAN MAT (NEUT) % 87.8 % (test code = 770-8) IMM GRAN % (test code 1.20 % = 4338305526) LYMPH % (test code = 5.9 % 736-9) MONO % (test code = 4.9 % 5905-5) EOS % (test code = 0.0 % 713-8) BASO % (test code = 0.2 % 706-2) GRAN MAT x10^3(ANC) 11.38 10*3/uL 1.88-7.09 H (test code = 3118828012) IMM GRAN x10^3 (test 0.15 10*3/uL 0.00-0.06 H code = 3486291328) LYMPH x10^3 (test code 0.76 10*3/uL 1.32-3.29 L = 731-0) MONO x10^3 (test code 0.63 10*3/uL 0.33-0.92 = 742-7) EOS x10^3 (test code = 0.03-0.39 L 711-2) BASO x10^3 (test code 0.01-0.07 = 704-7) Lab Interpretation Abnormal (test code = 10083-7) [facility] ABG + LACTIC [id number] 08:34:26 Test Item Value Reference Range Interpretation Comments PH (test code = 2) 7.38 7.35-7.45 PCO2 (test code = 31 See_Comment L [Automate d 1295894586) message] The sy stem which generated this result transmitted reference range : 35 - 45 mmHg. The reference range was not used to interpret this result as normal/abnormal . PO2 (test code = 306 See_Comment H [Automated 1118351889) message] The sy stem which generated this result transmitted reference range : 80 - 100 mmHg. The reference range was not used to interpret this result as normal/abnormal . HCO3 (test code = 18 See_Comment L [Automate d 6993729562) message] The sy stem which generated this result transmitted reference range : 22 - 26 mEq/L. The reference range was not used to interpret this result as normal/abnormal . BE (test code = -6.0 See_Comment L [Automated 8569897965) message] The sy stem which generated this result transmitted reference range : -3.0 - 3.0 mEq/ L. The reference r skyler was not used to interpret this result as normal/abnormal . LACTIC ACID (test code 2.15 mmol/L 0.50-2.20 = 4356364382) Lab Interpretation Abnormal (test code = 28266-5) [facility] ABG + LACTIC [id number] 08:34:26 Test Item Value Reference Range Interpretation Comments PH (test code = 2) 7.38 7.35-7.45 PCO2 (test code = 31 See_Comment L [Automate d 6984082862) message] The sy stem which generated this result transmitted reference range : 35 - 45 mmHg. The reference range was not used to interpret this result as normal/abnormal . PO2 (test code = 306 See_Comment H [Automated 4943769219) message] The sy stem which generated this result transmitted reference range : 80 - 100 mmHg. The reference range was not used to interpret this result as normal/abnormal . HCO3 (test code = 18 See_Comment L [Automate d 4239501665) message] The sy stem which generated this result transmitted reference range : 22 - 26 mEq/L. The reference range was not used to interpret this result as normal/abnormal . BE (test code = -6.0 See_Comment L [Automated 5091676561) message] The sy stem which generated this result transmitted reference range : -3.0 - 3.0 mEq/ L. The reference r skyler was not used to interpret this result as normal/abnormal . LACTIC ACID (test code 2.15 mmol/L 0.50-2.20 = 1808051741) Lab Interpretation Abnormal (test code = 69530-1) [facility] ABG + LACTIC [id number] 08:34:26 Test Item Value Reference Range Interpretation Comments PH (test code = 2) 7.38 7.35-7.45 PCO2 (test code = 31 See_Comment L [Automate d 2263779264) message] The sy stem which generated this result transmitted reference range : 35 - 45 mmHg. The reference range was not used to interpret this result as normal/abnormal . PO2 (test code = 306 See_Comment H [Automated 4863685457) message] The sy stem which generated this result transmitted reference range : 80 - 100 mmHg. The reference range was not used to interpret this result as normal/abnormal . HCO3 (test code = 18 See_Comment L [Automate d 5406980555) message] The sy stem which generated this result transmitted reference range : 22 - 26 mEq/L. The reference range was not used to interpret this result as normal/abnormal . BE (test code = -6.0 See_Comment L [Automated 5309970909) message] The sy stem which generated this result transmitted reference range : -3.0 - 3.0 mEq/ L. The reference r skyler was not used to interpret this result as normal/abnormal . LACTIC ACID (test code 2.15 mmol/L 0.50-2.20 = 4351246047) Lab Interpretation Abnormal (test code = 08936-7) [facility] GLUCOSE (AUTOMATED)2023-04-04 06:42:06 Test Item Value Reference Range Interpretation Comments POCT GLU (test code = 6830215493) 124 mg/dL 70-110 H Lab Interpretation (test code = Abnormal 01188-8) [facility] GLUCOSE (AUTOMATED)2023-04-04 06:42:06 Test Item Value Reference Range Interpretation Comments POCT GLU (test code = 6074682971) 124 mg/dL 70-110 H Lab Interpretation (test code = Abnormal 10439-1) [facility] GLUCOSE (AUTOMATED)2023-04-04 06:42:06 Test Item Value Reference Range Interpretation Comments POCT GLU (test code = 6737080876) 124 mg/dL 70-110 H Lab Interpretation (test code = Abnormal 90546-6) [facility] ACUTE CARE [id number] 02:38:57 Test Item Value Reference Range Interpretation Comments PH (test code = 2) 7.41 7.35-7.45 PCO2 (test code = 32 See_Comment L [Automate d message] 4685483849) The system [employer] generated this result transmit gabby reference range : 35 - 45 mmHg. The reference range was not used to interpret this result as normal/abnormal . PO2 (test code = 116 See_Comment H [Automated message] 0368871757) The system [employer] generated this result transmit gabby reference range : 80 - 100 mmHg. The reference range was not used to interpret this result as normal/abnormal . BE (test code = -4.0 See_Comment L [Automated message] 3112676973) The system [employer] generated this result transmit gabby reference range : -3.0 - 3.0 mEq/ L. The reference r skyler was not used to interpret this result as normal/abnormal . HCO3 (test code = 20 See_Comment L [Automate d message] [id number]) The system [employer] generated this result transmit gabby reference range : 22 - 26 mEq/L. The reference range was not used to interpret this result as normal/abnormal . %O2HB (test code = 99.0 % 95.0-98.0 H 0667223125) NA (test code = 152 mmol/L 135-145 H 0905064727) K+ (test code = 3.8 mmol/L 3.5-5.0 1472497284) AC CA IONZ (test code = 4.00 mg/dL 4.50-5.30 L 0138275932) GLUCOSE (test code = 104 mg/dL 70-110 8087821587) AC Hematocrit (test 23 See_Comment LL [Automa gabby message] code = 4506180765) The syste m which generated this result transmit gabby reference range : 40 - 54 VOL %. The reference range was not used to interpret this result as normal/abnormal . THB (test code = 7.8 g/dL 12.0-16.0 LL 0146278395) AC TC02 (test code = 21 mmol/L See_Comment L [Autom ated message] 2924428473) The system [employer] generated this result transmit gabby reference range : 23-27 mmol/L. T he reference range was not used to interpret this result as normal/abnormal . Lab Interpretation Abnormal (test code = 15440-7) [facility] ACUTE CARE [id number] 02:38:57 Test Item Value Reference Range Interpretation Comments PH (test code = 2) 7.41 7.35-7.45 PCO2 (test code = 32 See_Comment L [Automate d message] 6698690648) The system [employer] generated this result transmit gabby reference range : 35 - 45 mmHg. The reference range was not used to interpret this result as normal/abnormal . PO2 (test code = 116 See_Comment H [Automated message] 0537860411) The system [employer] generated this result transmit gabby reference range : 80 - 100 mmHg. The reference range was not used to interpret this result as normal/abnormal . BE (test code = -4.0 See_Comment L [Automated message] [id number]) The system [employer] generated this result transmit gabby reference range : -3.0 - 3.0 mEq/ L. The reference r skyler was not used to interpret this result as normal/abnormal . HCO3 (test code = 20 See_Comment L [Automate d message] 5924107003) The system [employer] generated this result transmit gabby reference range : 22 - 26 mEq/L. The reference range was not used to interpret this result as normal/abnormal . %O2HB (test code = 99.0 % 95.0-98.0 H 1132380431) NA (test code = 152 mmol/L 135-145 H 1032902535) K+ (test code = 3.8 mmol/L 3.5-5.0 0114471051) AC CA IONZ (test code = 4.00 mg/dL 4.50-5.30 L 0820620519) GLUCOSE (test code = 104 mg/dL 70-110 2646197103) AC Hematocrit (test 23 See_Comment LL [Automa gabby message] code = 9938838526) The syste m which generated this result transmit gabby reference range : 40 - 54 VOL %. The reference range was not used to interpret this result as normal/abnormal . THB (test code = 7.8 g/dL 12.0-16.0 LL 2769311207) AC TC02 (test code = 21 mmol/L See_Comment L [Autom ated message] 1677318239) The system [employer] generated this result transmit gabby reference range : 23-27 mmol/L. T he reference range was not used to interpret this result as normal/abnormal . Lab Interpretation Abnormal (test code = 79004-0) [facility] ACUTE CARE [id number] 02:38:57 Test Item Value Reference Range Interpretation Comments PH (test code = 2) 7.41 7.35-7.45 PCO2 (test code = 32 See_Comment L [Automate d message] [id number]) The system [employer] generated this result transmit gabby reference range : 35 - 45 mmHg. The reference range was not used to interpret this result as normal/abnormal . PO2 (test code = 116 See_Comment H [Automated message] 8565545761) The system [employer] generated this result transmit gabby reference range : 80 - 100 mmHg. The reference range was not used to interpret this result as normal/abnormal . BE (test code = -4.0 See_Comment L [Automated message] 0919462309) The system [employer] generated this result transmit gabby reference range : -3.0 - 3.0 mEq/ L. The reference r skyler was not used to interpret this result as normal/abnormal . HCO3 (test code = 20 See_Comment L [Automate d message] 5450670474) The system [employer] generated this result transmit gabby reference range : 22 - 26 mEq/L. The reference range was not used to interpret this result as normal/abnormal . %O2HB (test code = 99.0 % 95.0-98.0 H 9401302708) NA (test code = 152 mmol/L 135-145 H 1165529788) K+ (test code = 3.8 mmol/L 3.5-5.0 5401987035) AC CA IONZ (test code = 4.00 mg/dL 4.50-5.30 L 7131683412) GLUCOSE (test code = 104 mg/dL 70-110 7062346727) AC Hematocrit (test 23 See_Comment LL [Automa gabby message] code = 1804154141) The syste m which generated this result transmit gabby reference range : 40 - 54 VOL %. The reference range was not used to interpret this result as normal/abnormal . THB (test code = 7.8 g/dL 12.0-16.0 LL 5097567089) AC TC02 (test code = 21 mmol/L See_Comment L [Autom ated message] 4991601633) The system [employer] generated this result transmit gabby reference range : 23-27 mmol/L. T he reference range was not used to interpret this result as normal/abnormal . Lab Interpretation Abnormal (test code = 23294-8) [facility] METABOLIC PANEL (NA, K, CL, CO2, GLUCOSE, BUN, CREATININE, CA)2023-04-03 23:22:47 Test Item Value Reference Range Interpretation Comments NA (test code = 148 mmol/L 135-145 H 1612772813) K (test code = 3.9 mmol/L 3.5-5.0 7753370470) CL (test code = 121 mmol/L 98-108 H 1539838162) CO2 TOTAL (test code = 20 mmol/L 23-31 L 7344965454) AGAP (test code = 7 2-16 0900292160) BUN (test code = 14 mg/dL 7-23 5753705937) GLUCOSE (test code = 116 mg/dL 70-110 H 6374826238) CREATININE (test code = 0.64 mg/dL 0.50-1.04 6251295561) CALCIUM (test code = 6.7 mg/dL 8.6-10.6 L 5773653135) eGFR (test code = 101.3 mL/min/1.73m2 1089464285) GOYO (test code = GOYO) Association of Glomerular Filtration Rate (GFR) and Staging of Kidney Disease* + --+ --+ ------+| GFR (mL/min/1.73 m2) ?| With Kidney Damage ?| ?Without Kidney Damage+ --------+ --------+ +| ?>90 ?| ?Stage one ?| ? Normal ?+ ---+ ---+ -------+| ?60-89 ?| ?Stage two ?| ? Decreased GFR ? + --+ --+ ------+| ?30-59 ?| ?Stage three ?| ? Stage three ? + --+ --+ ------+| ?15-29 ?| ?Stage four ? | ? Stage four ?+ ---+ ---+ -------+| ?<15 (or dialysis) ? ?| ?Stage five ? | ? Stage five ?+ ---+ ---+ -------+ *Each stage assumes the associated GFR level has been in effect for at least three months. ?Stages 1 to 5, with or without kidney disease, indicate chronic kidney disease. Notes: Determination of stages one and two (with eGFR >59mL/min/1.73 m2) requires estimation of kidney damage for at least three months as defined by structural or functional abnormalities of the kidney, manifested by either:Pathological abnormalities or Markers of kidney damage (including abnormalities in the composition of the blood or urine or abnormalities in imaging tests). Lab Interpretation Abnormal (test code = 26983-6) [facility] METABOLIC PANEL (NA, K, CL, CO2, GLUCOSE, BUN, CREATININE, CA)2023-04-03 23:22:47 Test Item Value Reference Range Interpretation Comments NA (test code = 148 mmol/L 135-145 H 5742465874) K (test code = 3.9 mmol/L 3.5-5.0 9021922965) CL (test code = 121 mmol/L 98-108 H 7928200940) CO2 TOTAL (test code = 20 mmol/L 23-31 L 7660694755) AGAP (test code = 7 2-16 9568310204) BUN (test code = 14 mg/dL 7- 7923731657) GLUCOSE (test code = 116 mg/dL 70-110 H 5578893457) CREATININE (test code = 0.64 mg/dL 0.50-1.04 4904688241) CALCIUM (test code = 6.7 mg/dL 8.6-10.6 L 8924920457) eGFR (test code = 101.3 mL/min/1.73m2 2104898838) GOYO (test code = GOYO) Association of Glomerular Filtration Rate (GFR) and Staging of Kidney Disease* + --+ --+ ------+| GFR (mL/min/1.73 m2) ?| With Kidney Damage ?| ?Without Kidney Damage+ --------+ --------+ +| ?>90 ?| ?Stage one ?| ? Normal ?+ ---+ ---+ -------+| ?60-89 ?| ?Stage two ?| ? Decreased GFR ? + --+ --+ ------+| ?30-59 ?| ?Stage three ?| ? Stage three ? + --+ --+ ------+| ?15-29 ?| ?Stage four ? | ? Stage four ?+ ---+ ---+ -------+| ?<15 (or dialysis) ? ?| ?Stage five ? | ? Stage five ?+ ---+ ---+ -------+ *Each stage assumes the associated GFR level has been in effect for at least three months. ?Stages 1 to 5, with or without kidney disease, indicate chronic kidney disease. Notes: Determination of stages one and two (with eGFR >59mL/min/1.73 m2) requires estimation of kidney damage for at least three months as defined by structural or functional abnormalities of the kidney, manifested by either:Pathological abnormalities or Markers of kidney damage (including abnormalities in the composition of the blood or urine or abnormalities in imaging tests). Lab Interpretation Abnormal (test code = 10579-2) [facility] METABOLIC PANEL (NA, K, CL, CO2, GLUCOSE, BUN, CREATININE, CA)2023-04-03 23:22:47 Test Item Value Reference Range Interpretation Comments NA (test code = 148 mmol/L 135-145 H 5336796850) K (test code = 3.9 mmol/L 3.5-5.0 5520157629) CL (test code = 121 mmol/L 98-108 H 5638994882) CO2 TOTAL (test code = 20 mmol/L 23-31 L 2083556041) AGAP (test code = 7 2-16 6854996138) BUN (test code = 14 mg/dL 7-23 8379505899) GLUCOSE (test code = 116 mg/dL 70-110 H 2239726894) CREATININE (test code = 0.64 mg/dL 0.50-1.04 6493811171) CALCIUM (test code = 6.7 mg/dL 8.6-10.6 L 5914616859) eGFR (test code = 101.3 mL/min/1.73m2 0925205217) GOYO (test code = GOYO) Association of Glomerular Filtration Rate (GFR) and Staging of Kidney Disease* + --+ --+ ------+| GFR (mL/min/1.73 m2) ?| With Kidney Damage ?| ?Without Kidney Damage+ --------+ --------+ +| ?>90 ?| ?Stage one ?| ? Normal ?+ ---+ ---+ -------+| ?60-89 ?| ?Stage two ?| ? Decreased GFR ? + --+ --+ ------+| ?30-59 ?| ?Stage three ?| ? Stage three ? + --+ --+ ------+| ?15-29 ?| ?Stage four ? | ? Stage four ?+ ---+ ---+ -------+| ?<15 (or dialysis) ? ?| ?Stage five ? | ? Stage five ?+ ---+ ---+ -------+ *Each stage assumes the associated GFR level has been in effect for at least three months. ?Stages 1 to 5, with or without kidney disease, indicate chronic kidney disease. Notes: Determination of stages one and two (with eGFR >59mL/min/1.73 m2) requires estimation of kidney damage for at least three months as defined by structural or functional abnormalities of the kidney, manifested by either:Pathological abnormalities or Markers of kidney damage (including abnormalities in the composition of the blood or urine or abnormalities in imaging tests). Lab Interpretation Abnormal (test code = 92870-6) [facility] WITHOUT [id number] 23:08:33 Test Item Value Reference Range Interpretation Comments WBC (test code = 6690-2) 6.85 See_Comment [A utomated message] The system [employer] generated this result transmit gabby reference range : 4.30 - 11.10 10*3/?L. The reference range was not used to interpret this result as normal/abnormal . RBC (test code = 789-8) 2.67 See_Comment L [Au tomated message] The system [employer] generated this result transmit gabby reference range : 3.93 - 5.25 10* 6/?L. The reference r skyler was not used to interpret this result as normal/abnormal . HGB (test code = 718-7) 8.2 g/dL 11.6-15.0 L HCT (test code = 4544-3) 26.3 % 35.7-45.2 L MCH (test code = 785-6) 30.7 pg 25.9-32.8 MCV (test code = 787-2) 98.5 fL 80.6-95.5 H MCHC (test code = 786-4) 31.2 g/dL 31.6-35.1 L PLT (test code = 777-3) 193 See_Comment [Au tomated message] The system [employer] generated this result transmit gabby reference range : 166 - 358 10*3/?L. The reference range was not used to interpret this result as normal/abnormal . MPV (test code = 9.1 fL 9.5-12.9 L 00496-2) RDW-CV (test code = 14.3 % 12.0-15.5 788-0) RDW-SD (test code = 51.3 fL 39.0-49.9 H 32218-4) NRBC x10^3 (test code = See_Comment [Au tomated message] 9564309272) The system [employer] generated this result transmit gabby reference range : 10*3/?L. The reference range was not used to interpret this result as normal/abnormal . NRBC/100 WBC (test code 0.0 See_Comment [Au tomated message] = 8899871897) The system [facility] generated this result transmit gabby reference range : 0.0 - 10.0 /100 WBC s. The reference r skyler was not used to interpret this result as normal/abnormal . IPF % (test code = 5173889326) Lab Interpretation (test Abnormal code = 84038-8) [facility] WITHOUT [id number] 23:08:33 Test Item Value Reference Range Interpretation Comments WBC (test code = 6690-2) 6.85 See_Comment [A utomated message] The system [employer] generated this result transmit gabby reference range : 4.30 - 11.10 10*3/?L. The reference range was not used to interpret this result as normal/abnormal . RBC (test code = 789-8) 2.67 See_Comment L [Au tomated message] The system [employer] generated this result transmit gabby reference range : 3.93 - 5.25 10* 6/?L. The reference r skyler was not used to interpret this result as normal/abnormal . HGB (test code = 718-7) 8.2 g/dL 11.6-15.0 L HCT (test code = 4544-3) 26.3 % 35.7-45.2 L MCH (test code = 785-6) 30.7 pg 25.9-32.8 MCV (test code = 787-2) 98.5 fL 80.6-95.5 H MCHC (test code = 786-4) 31.2 g/dL 31.6-35.1 L PLT (test code = 777-3) 193 See_Comment [Au tomated message] The system [employer] generated this result transmit gabby reference range : 166 - 358 10*3/?L. The reference range was not used to interpret this result as normal/abnormal . MPV (test code = 9.1 fL 9.5-12.9 L 60535-5) RDW-CV (test code = 14.3 % 12.0-15.5 788-0) RDW-SD (test code = 51.3 fL 39.0-49.9 H 28041-3) NRBC x10^3 (test code = See_Comment [Au tomated message] 5532779458) The system [employer] generated this result transmit gabby reference range : 10*3/?L. The reference range was not used to interpret this result as normal/abnormal . NRBC/100 WBC (test code 0.0 See_Comment [Au tomated message] = 0148461865) The system [facility] generated this result transmit gabby reference range : 0.0 - 10.0 /100 WBC s. The reference r skyler was not used to interpret this result as normal/abnormal . IPF % (test code = 1347485165) Lab Interpretation (test Abnormal code = 54443-9) [facility] WITHOUT [id number] 23:08:33 Test Item Value Reference Range Interpretation Comments WBC (test code = 6690-2) 6.85 See_Comment [A utomated message] The system [employer] generated this result transmit gabby reference range : 4.30 - 11.10 10*3/?L. The reference range was not used to interpret this result as normal/abnormal . RBC (test code = 789-8) 2.67 See_Comment L [Au tomated message] The system [employer] generated this result transmit gabby reference range : 3.93 - 5.25 10* 6/?L. The reference r skyler was not used to interpret this result as normal/abnormal . HGB (test code = 718-7) 8.2 g/dL 11.6-15.0 L HCT (test code = 4544-3) 26.3 % 35.7-45.2 L MCH (test code = 785-6) 30.7 pg 25.9-32.8 MCV (test code = 787-2) 98.5 fL 80.6-95.5 H MCHC (test code = 786-4) 31.2 g/dL 31.6-35.1 L PLT (test code = 777-3) 193 See_Comment [Au tomated message] [facility] this result transmit gabby reference range : 166 - 358 10*3/?L. The reference range was not used to interpret this result as normal/abnormal . MPV (test code = 9.1 fL 9.5-12.9 L 67887-2) RDW-CV (test code = 14.3 % 12.0-15.5 788-0) RDW-SD (test code = 51.3 fL 39.0-49.9 H 07778-8) NRBC x10^3 (test code = See_Comment [Au tomated message] 6710024409) The system [facility] generated this result transmit gabby reference range : 10*3/?L. The reference range was not used to interpret this result as normal/abnormal . NRBC/100 WBC (test code 0.0 See_Comment [Au tomated message] = 0498207941) The system [facility] generated this result transmit gabby reference range : 0.0 - 10.0 /100 WBC s. The reference r skyler was not used to interpret this result as normal/abnormal . IPF % (test code = 8198437924) Lab Interpretation (test Abnormal code = 20627-6) [facility] ACUTE CARE [id number] 23:07:02 Test Item Value Reference Range Interpretation Comments PH (test code = 2) 7.40 7.35-7.45 PCO2 (test code = 42 See_Comment [Automate d message] 3283486588) The system [employer] generated this result transmit gabby reference range : 35 - 45 mmHg. The reference range was not used to interpret this result as normal/abnormal . PO2 (test code = 268 See_Comment H [Automated message] 0925068356) The system [facility] generated this result transmit gabby reference range : 80 - 100 mmHg. The reference range was not used to interpret this result as normal/abnormal . BE (test code = 1.0 See_Comment [Automated message] 2510415311) The system [facility] generated this result transmit gabby reference range : -3.0 - 3.0 mEq/ L. The reference r skyler was not used to interpret this result as normal/abnormal . HCO3 (test code = 26 See_Comment [Automate d message] 0871685153) The system [facility] generated this result transmit gabby reference range : 22 - 26 mEq/L. The reference range was not used to interpret this result as normal/abnormal . %O2HB (test code = 100.0 % 95.0-98.0 H 0548941060) NA (test code = 141 mmol/L 135-145 6544840081) K+ (test code = 4.4 mmol/L 3.5-5.0 3763102798) AC CA IONZ (test code = 4.50 mg/dL 4.50-5.30 8041163148) GLUCOSE (test code = 109 mg/dL 70-110 1359362544) AC Hematocrit (test 30 See_Comment L [Automa gabby message] code = 9237724529) The syste m which generated this result transmit gabby reference range : 40 - 54 VOL %. The reference range was not used to interpret this result as normal/abnormal . THB (test code = 10.2 g/dL 12.0-16.0 L 2456504421) AC TC02 (test code = 27 mmol/L See_Comment [Autom ated message] 0846808289) The system [employer] generated this result transmit gabby reference range : 23-27 mmol/L. T he reference range was not used to interpret this result as normal/abnormal . Lab Interpretation Abnormal (test code = 30332-9) [facility] ACUTE CARE [id number] 23:07:02 Test Item Value Reference Range Interpretation Comments PH (test code = 2) 7.34 7.35-7.45 L PCO2 (test code = 41 See_Comment [Automate d message] 6806883887) The system [employer] generated this result transmit gabby reference range : 35 - 45 mmHg. The reference range was not used to interpret this result as normal/abnormal . PO2 (test code = 263 See_Comment H [Automated message] 8104402621) The system [employer] generated this result transmit gabby reference range : 80 - 100 mmHg. The reference range was not used to interpret this result as normal/abnormal . BE (test code = -4.0 See_Comment L [Automated message] 2708819051) The system [employer] generated this result transmit gabby reference range : -3.0 - 3.0 mEq/ L. The reference r skyler was not used to interpret this result as normal/abnormal . HCO3 (test code = 22 See_Comment [Automate d message] 7781656556) The system [employer] generated this result transmit gabby reference range : 22 - 26 mEq/L. The reference range was not used to interpret this result as normal/abnormal . %O2HB (test code = 100.0 % 95.0-98.0 H 9359934479) NA (test code = 152 mmol/L 135-145 H 6762698249) K+ (test code = 4.0 mmol/L 3.5-5.0 3322573256) AC CA IONZ (test code = 4.30 mg/dL 4.50-5.30 L 2641681828) GLUCOSE (test code = 130 mg/dL 70-110 H 0244433252) AC Hematocrit (test 26 See_Comment L [Automa gabby message] code = 1820581130) The syste m which generated this result transmit gabby reference range : 40 - 54 VOL %. The reference range was not used to interpret this result as normal/abnormal . THB (test code = 8.8 g/dL 12.0-16.0 L 5871568792) AC TC02 (test code = 23 mmol/L See_Comment [Autom ated message] 0324939316) The system [employer] generated this result transmit gabby reference range : 23-27 mmol/L. T he reference range was not used to interpret this result as normal/abnormal . Lab Interpretation Abnormal (test code = 99274-9) [facility] ACUTE CARE [id number] 23:07:02 Test Item Value Reference Range Interpretation Comments PH (test code = 7.37 7.32-7.42 6152520773) PCO2 KINGS (test code = 34 See_Comment L [Auto mated message] 4828337112) The system [employer] generated this result transmit gabby reference range : 41 - 51 mmHg. The reference range was not used to interpret this result as normal/abnormal . PO2 KINGS (test code = 95 See_Comment HH [Autom ated message] 7823572906) The system [employer] generated this result transmit gabby reference range : 25 - 40 mmHg. The reference range was not used to interpret this result as normal/abnormal . AC VBE(BEAKER) (test -6.0 See_Comment [Autom ated message] code = 7932075666) The syste m which generated this result transmit gabby reference range : -3.0 - 3.0 mEq/ L. The reference r skyler was not used to interpret this result as normal/abnormal . HCO3 KINGS (test code = 19 See_Comment L [Auto mated message] 6750855156) The system [employer] generated this result transmit gabby reference range : 24 - 28 mEq/L. The reference range was not used to interpret this result as normal/abnormal . %O2HB (test code = 97.0 % 95.0-98.0 5816545862) NA (test code = 152 mmol/L 135-145 H 1208494398) K+ (test code = 3.9 mmol/L 3.5-5.0 6692923004) AC CA IONZ (test code = 4.20 mg/dL 4.50-5.30 L 1806410791) GLUCOSE (test code = 114 mg/dL 70-110 H 3618201763) AC Hematocrit (test 24 See_Comment LL [Automa gabby message] code = 1114767121) The syste m which generated this result transmit gabby reference range : 40 - 54 VOL %. The reference range was not used to interpret this result as normal/abnormal . THB (test code = 8.2 g/dL 12.0-16.0 LL 4303697107) AC TCO2 KINGS (test code 20 mmol/L See_Comment L [Aut omated message] = 2393393268) The system [employer] generated this result transmit gabby reference range : 24-29 mmol/L. T he reference range was not used to interpret this result as normal/abnormal . Lab Interpretation Abnormal (test code = 67217-9) [facility] ACUTE CARE [id number] 23:07:02 Test Item Value Reference Range Interpretation Comments PH (test code = 2) 7.40 7.35-7.45 PCO2 (test code = 42 See_Comment [Automate d message] 8384436834) The system [employer] generated this result transmit gabby reference range : 35 - 45 mmHg. The reference range was not used to interpret this result as normal/abnormal . PO2 (test code = 268 See_Comment H [Automated message] 6963204761) The system [employer] generated this result transmit gabby reference range : 80 - 100 mmHg. The reference range was not used to interpret this result as normal/abnormal . BE (test code = 1.0 See_Comment [Automated message] 5458021079) The system [employer] generated this result transmit gabby reference range : -3.0 - 3.0 mEq/ L. The reference r skyler was not used to interpret this result as normal/abnormal . HCO3 (test code = 26 See_Comment [Automate d message] 5163798898) The system [employer] generated this result transmit gabby reference range : 22 - 26 mEq/L. The reference range was not used to interpret this result as normal/abnormal . %O2HB (test code = 100.0 % 95.0-98.0 H 4170807350) NA (test code = 141 mmol/L 135-145 8455545151) K+ (test code = 4.4 mmol/L 3.5-5.0 4396696326) AC CA IONZ (test code = 4.50 mg/dL 4.50-5.30 8262402330) GLUCOSE (test code = 109 mg/dL 70-110 6232355762) AC Hematocrit (test 30 See_Comment L [Automa gabby message] code = 0324353110) The syste m which generated this result transmit gabby reference range : 40 - 54 VOL %. The reference range was not used to interpret this result as normal/abnormal . THB (test code = 10.2 g/dL 12.0-16.0 L 6375182270) AC TC02 (test code = 27 mmol/L See_Comment [Autom ated message] 8978950759) The system [employer] generated this result transmit gabby reference range : 23-27 mmol/L. T he reference range was not used to interpret this result as normal/abnormal . Lab Interpretation Abnormal (test code = 93380-5) [facility] ACUTE CARE [id number] 23:07:02 Test Item Value Reference Range Interpretation Comments PH (test code = 2) 7.34 7.35-7.45 L PCO2 (test code = 41 See_Comment [Automate d message] 7929090215) The system [employer] generated this result transmit gabby reference range : 35 - 45 mmHg. The reference range was not used to interpret this result as normal/abnormal . PO2 (test code = 263 See_Comment H [Automated message] [id number]) The system [employer] generated this result transmit gabby reference range : 80 - 100 mmHg. The reference range was not used to interpret this result as normal/abnormal . BE (test code = -4.0 See_Comment L [Automated message] 2446294435) The system [employer] generated this result transmit gabby reference range : -3.0 - 3.0 mEq/ L. The reference r skyler was not used to interpret this result as normal/abnormal . HCO3 (test code = 22 See_Comment [Automate d message] 9331872524) The system [employer] generated this result transmit gabby reference range : 22 - 26 mEq/L. The reference range was not used to interpret this result as normal/abnormal . %O2HB (test code = 100.0 % 95.0-98.0 H 0906282540) NA (test code = 152 mmol/L 135-145 H 6720512310) K+ (test code = 4.0 mmol/L 3.5-5.0 7933429709) AC CA IONZ (test code = 4.30 mg/dL 4.50-5.30 L 8783501134) GLUCOSE (test code = 130 mg/dL 70-110 H 2244748674) AC Hematocrit (test 26 See_Comment L [Automa gabby message] code = 3862681902) The syste [employer] which generated this result transmit gabby reference range : 40 - 54 VOL %. The reference range was not used to interpret this result as normal/abnormal . THB (test code = 8.8 g/dL 12.0-16.0 L 8947970178) AC TC02 (test code = 23 mmol/L See_Comment [Autom ated message] 0850732880) The system [employer] generated this result transmit gabby reference range : 23-27 mmol/L. T he reference range was not used to interpret this result as normal/abnormal . Lab Interpretation Abnormal (test code = 42498-9) [facility] ACUTE CARE [id number] 23:07:02 Test Item Value Reference Range Interpretation Comments PH (test code = 7.37 7.32-7.42 7123932501) PCO2 KINGS (test code = 34 See_Comment L [Auto mated message] 5622051431) The system [employer] generated this result transmit gabby reference range : 41 - 51 mmHg. The reference range was not used to interpret this result as normal/abnormal . PO2 KINGS (test code = 95 See_Comment HH [Autom ated message] 1275777759) The system [employer] generated this result transmit gabby reference range : 25 - 40 mmHg. The reference range was not used to interpret this result as normal/abnormal . AC VBE(BEAKER) (test -6.0 See_Comment [Autom ated message] code = 6446257491) The syste m which generated this result transmit gabby reference range : -3.0 - 3.0 mEq/ L. The reference r skyler was not used to interpret this result as normal/abnormal . HCO3 KINGS (test code = 19 See_Comment L [Auto mated message] 2979446252) The system [employer] generated this result transmit gabby reference range : 24 - 28 mEq/L. The reference range was not used to interpret this result as normal/abnormal . %O2HB (test code = 97.0 % 95.0-98.0 4272386342) NA (test code = 152 mmol/L 135-145 H 8031685851) K+ (test code = 3.9 mmol/L 3.5-5.0 6954892843) AC CA IONZ (test code = 4.20 mg/dL 4.50-5.30 L 3136315838) GLUCOSE (test code = 114 mg/dL 70-110 H 1398316034) AC Hematocrit (test 24 See_Comment LL [Automa gabby message] code = 2594390419) The syste m which generated this result transmit gabby reference range : 40 - 54 VOL %. The reference range was not used to interpret this result as normal/abnormal . THB (test code = 8.2 g/dL 12.0-16.0 LL 1760721520) AC TCO2 KINGS (test code 20 mmol/L See_Comment L [Aut omated message] = 2358345379) The system [facility] generated this result transmit gabby reference range : 24-29 mmol/L. T he reference range was not used to interpret this result as normal/abnormal . Lab Interpretation Abnormal (test code = 09002-5) [facility] ACUTE CARE [id number] 23:07:02 Test Item Value Reference Range Interpretation Comments PH (test code = 2) 7.40 7.35-7.45 PCO2 (test code = 42 See_Comment [Automate d message] 4531921624) The system [facility] h generated this result transmit gabby reference range : 35 - 45 mmHg. The reference range was not used to interpret this result as normal/abnormal . PO2 (test code = 268 See_Comment H [Automated message] 3867190119) The system [employer] generated this result transmit gabby reference range : 80 - 100 mmHg. The reference range was not used to interpret this result as normal/abnormal . BE (test code = 1.0 See_Comment [Automated message] 3082913762) The system [employer] generated this result transmit gabby reference range : -3.0 - 3.0 mEq/ L. The reference r sklyer was not used to interpret this result as normal/abnormal . HCO3 (test code = 26 See_Comment [Automate d message] 5160483875) The system [employer] generated this result transmit gabby reference range : 22 - 26 mEq/L. The reference range was not used to interpret this result as normal/abnormal . %O2HB (test code = 100.0 % 95.0-98.0 H 9293259208) NA (test code = 141 mmol/L 135-145 0970938941) K+ (test code = 4.4 mmol/L 3.5-5.0 4439778364) AC CA IONZ (test code = 4.50 mg/dL 4.50-5.30 0578055479) GLUCOSE (test code = 109 mg/dL 70-110 6643482801) AC Hematocrit (test 30 See_Comment L [Automa gabby message] code = 8296109224) The syste m which generated this result transmit gabby reference range : 40 - 54 VOL %. The reference range was not used to interpret this result as normal/abnormal . THB (test code = 10.2 g/dL 12.0-16.0 L 1458602665) AC TC02 (test code = 27 mmol/L See_Comment [Autom ated message] 4767883946) The system [employer] generated this result transmit gabby reference range : 23-27 mmol/L. T he reference range was not used to interpret this result as normal/abnormal . Lab Interpretation Abnormal (test code = 77573-3) [facility] ACUTE CARE [id number] 23:07:02 Test Item Value Reference Range Interpretation Comments PH (test code = 2) 7.34 7.35-7.45 L PCO2 (test code = 41 See_Comment [Automate d message] 7294782188) The system [employer] generated this result transmit gabby reference range : 35 - 45 mmHg. The reference range was not used to interpret this result as normal/abnormal . PO2 (test code = 263 See_Comment H [Automated message] 0048028389) The system [employer] generated this result transmit gabby reference range : 80 - 100 mmHg. The reference range was not used to interpret this result as normal/abnormal . BE (test code = -4.0 See_Comment L [Automated message] 9517752651) The system [employer] generated this result transmit gabby reference range : -3.0 - 3.0 mEq/ L. The reference r skyler was not used to interpret this result as normal/abnormal . HCO3 (test code = 22 See_Comment [Automate d message] 7306420104) The system [employer] generated this result transmit gabby reference range : 22 - 26 mEq/L. The reference range was not used to interpret this result as normal/abnormal . %O2HB (test code = 100.0 % 95.0-98.0 H 6848551574) NA (test code = 152 mmol/L 135-145 H 2787212376) K+ (test code = 4.0 mmol/L 3.5-5.0 1079343528) AC CA IONZ (test code = 4.30 mg/dL 4.50-5.30 L 3342126657) GLUCOSE (test code = 130 mg/dL 70-110 H 4976842482) AC Hematocrit (test 26 See_Comment L [Automa gabby message] code = 6995494114) The syste m which generated this result transmit gabby reference range : 40 - 54 VOL %. The reference range was not used to interpret this result as normal/abnormal . THB (test code = 8.8 g/dL 12.0-16.0 L 8577189386) AC TC02 (test code = 23 mmol/L See_Comment [Autom ated message] 3361102124) The system [employer] generated this result transmit gabby reference range : 23-27 mmol/L. T he reference range was not used to interpret this result as normal/abnormal . Lab Interpretation Abnormal (test code = 03802-5) [facility] ACUTE [facility] [id number] 23:07:02 Test Item Value Reference Range Interpretation Comments PH (test code = 7.37 7.32-7.42 6544964470) PCO2 KINGS (test code = 34 See_Comment L [Auto mated message] 7552128905) The system [facility] [employer] generated this result transmit gabby reference range : 41 - 51 mmHg. The reference range was not used to interpret this result as normal/abnormal . PO2 KINGS (test code = 95 See_Comment HH [Autom ated message] 1120213679) The system [employer] generated this result transmit gabby reference range : 25 - 40 mmHg. The reference range was not used to interpret this result as normal/abnormal . AC VBE(BEAKER) (test -6.0 See_Comment [Autom ated message] code = 9917135199) The syste m which generated this result transmit gabby reference range : -3.0 - 3.0 mEq/ L. The reference r skyler was not used to interpret this result as normal/abnormal . HCO3 KINGS (test code = 19 See_Comment L [Auto mated message] 0810377985) The system [employer] generated this result transmit gabby reference range : 24 - 28 mEq/L. The reference range was not used to interpret this result as normal/abnormal . %O2HB (test code = 97.0 % 95.0-98.0 4778439929) NA (test code = 152 mmol/L 135-145 H 3070576886) K+ (test code = 3.9 mmol/L 3.5-5.0 1154581674) AC CA IONZ (test code = 4.20 mg/dL 4.50-5.30 L 9920145719) GLUCOSE (test code = 114 mg/dL 70-110 H 6078581022) AC Hematocrit (test 24 See_Comment LL [Automa gabby message] code = 1181838151) The syste m which generated this result transmit gabby reference range : 40 - 54 VOL %. The reference range was not used to interpret this result as normal/abnormal . THB (test code = 8.2 g/dL 12.0-16.0 LL 1382035074) AC TCO2 KINGS (test code 20 mmol/L See_Comment L [Aut omated message] = 0329279455) The system [employer] generated this result transmit gabby reference range : 24-29 mmol/L. T he reference range was not used to interpret this result as normal/abnormal . Lab Interpretation Abnormal (test code = 93446-3) [facility] GLUCOSE (AUTOMATED)2023-04-03 04:53:00 Test Item Value Reference Range Interpretation Comments POCT GLU (test code = 9521635192) 181 mg/dL 70-110 H Lab Interpretation (test code = Abnormal 13371-6) [facility] GLUCOSE (AUTOMATED)2023-04-03 04:53:00 Test Item Value Reference Range Interpretation Comments POCT GLU (test code = 3291664631) 181 mg/dL 70-110 H Lab Interpretation (test code = Abnormal 35288-8) [facility] GLUCOSE (AUTOMATED)2023-04-03 04:53:00 Test Item Value Reference Range Interpretation Comments POCT GLU (test code = 8236232751) 181 mg/dL 70-110 H Lab Interpretation (test code = Abnormal 15729-8) [facility] GLUCOSE (AUTOMATED)2023-04-02 22:38:41 Test Item Value Reference Range Interpretation Comments POCT GLU (test code = 150 mg/dL 70-110 H Notifi ed Provider [id number]) Lab Interpretation (test Abnormal code = 99606-6) [facility] GLUCOSE (AUTOMATED)2023-04-02 22:38:41 Test Item Value Reference Range Interpretation Comments POCT GLU (test code = 150 mg/dL 70-110 H Notifi ed Provider [id number]) Lab Interpretation (test Abnormal code = 35951-0) [facility] GLUCOSE (AUTOMATED)2023-04-02 22:38:41 Test Item Value Reference Range Interpretation Comments POCT GLU (test code = 150 mg/dL 70-110 H Notifi ed Provider [id number]) Lab Interpretation (test Abnormal code = 88076-3) [facility] GLUCOSE (AUTOMATED)2023-04-02 16:33:29 Test Item Value Reference Range Interpretation Comments POCT GLU (test code = 163 mg/dL 70-110 H Notifi ed Provider [id number]) Lab Interpretation (test Abnormal code = 80934-3) [facility] GLUCOSE (AUTOMATED)2023-04-02 16:33:29 Test Item Value Reference Range Interpretation Comments POCT GLU (test code = 163 mg/dL 70-110 H Notifi ed Provider [id number]) Lab Interpretation (test Abnormal code = 24572-2) [facility] GLUCOSE (AUTOMATED)2023-04-02 16:33:29 Test Item Value Reference Range Interpretation Comments POCT GLU (test code = 163 mg/dL 70-110 H Notifi ed Provider [id number]) Lab Interpretation (test Abnormal code = 26540-8) [facility] GLUCOSE (AUTOMATED)2023-04-02 05:21:25 Test Item Value Reference Range Interpretation Comments POCT GLU (test code = 6312728343) 186 mg/dL 70-110 H Lab Interpretation (test code = Abnormal 24653-3) [facility] GLUCOSE (AUTOMATED)2023-04-02 05:21:25 Test Item Value Reference Range Interpretation Comments POCT GLU (test code = 1778463863) 186 mg/dL 70-110 H Lab Interpretation (test code = Abnormal 30180-7) [facility] GLUCOSE (AUTOMATED)2023-04-02 05:21:25 Test Item Value Reference Range Interpretation Comments POCT GLU (test code = 3975275993) 186 mg/dL 70-110 H Lab Interpretation (test code = Abnormal 07169-4) [facility] [id number] 23:11:13 Test Item Value Reference Range Interpretation Comments ANTIGEN ID (test C Antigen Negative Perfo rmed at [facility] code = 1687) [facility] Blood Ban [address] s [address]Spks Free: [phone] A No. [id number] ANTIGEN ID (test E Antigen Negative Perfo rmed at [facility] code = 62) [facility] Blood Ban [address] s [address]Weoz Free: [phone] A No. [id number] ANTIGEN ID (test c Antigen Positive Perfo rmed at [facility] code = 63) [facility] Blood Ban [address] s [address]Ejpt Free: [phone] A No. [id number] [facility] [id number] 23:11:13 Test Item Value Reference Range Interpretation Comments ANTIGEN ID (test C Antigen Negative Perfo rmed at [facility] code = 1687) [facility] Blood Ban [address] [place] [address]Lapj Free: [phone] A No. [id number] ANTIGEN ID (test E Antigen Negative Perfo rmed at [facility] code = 62) Laboratory [facility] Blood [address] s [address]Qfgh Free: [phone] A No. [id number] ANTIGEN ID (test c Antigen Positive Perfo rmed at [facility] code = 63) Laboratory [facility] Blood [address] s [address]Crru Free: [phone] A No. [id number] [facility] Antigen [id number] 23:11:13 Test Item Value Reference Range Interpretation Comments ANTIGEN ID (test C Antigen Negative Perfo rmed at [facility] code = 1687) Laboratory [address] s [address]Ataq Free: [phone] A No. [id number] ANTIGEN ID (test E Antigen Negative Perfo rmed at [facility] code = 62) Laboratory [address] s [address]Njzx Free: [phone] A No. [id number] ANTIGEN ID (test c Antigen Positive Perfo rmed at [facility] code = 63) Laboratory [address] s [address]Ozbg Free: [phone] A No. [id number] [facility] [id number] 23:09:43 Test Item Value Reference Range Interpretation Comments ANTIBODY ID (test code Anti-E Perfo rmed at [facility] = 245) Laboratory [facility] Blood [facility] [place] [address] s [address]Pksd Free: [phone] A No. [id number] [facility] [id number] 23:09:43 Test Item Value Reference Range Interpretation Comments ANTIBODY ID (test code Anti-E Perfo rmed at [facility] = 245) Laboratory [facility] Blood [facility]3 [address] [facility] s [address]Kwhi Free: [phone] A No. [id number] [facility] [id number] 23:09:43 Test Item Value Reference Range Interpretation Comments ANTIBODY ID (test code Anti-E Perfo rmed at [facility] = 245) [facility] Blood Bank3 [address] [facility] s [address]Yjyi Free: [phone] A No. [id number] [facility] GLUCOSE (AUTOMATED)2023-04-01 22:25:27 Test Item Value Reference Range Interpretation Comments POCT GLU (test code = 9547815292) 160 mg/dL 70-110 H Lab Interpretation (test code = Abnormal 55596-9) [facility] GLUCOSE (AUTOMATED)2023-04-01 22:25:27 Test Item Value Reference Range Interpretation Comments POCT GLU (test code = 1356231840) 160 mg/dL 70-110 H Lab Interpretation (test code = Abnormal 86039-7) [facility] GLUCOSE (AUTOMATED)2023-04-01 22:25:27 Test Item Value Reference Range Interpretation Comments POCT GLU (test code = 1602633937) 160 mg/dL 70-110 H Lab Interpretation (test code = Abnormal 14636-5) [facility] GLUCOSE (AUTOMATED)2023-04-01 21:29:42 Test Item Value Reference Range Interpretation Comments POCT GLU (test code = 177 mg/dL 70-110 H Notifi ed Provider [id number]) Lab Interpretation (test Abnormal code = 97225-7) [facility] GLUCOSE (AUTOMATED)2023-04-01 21:29:42 Test Item Value Reference Range Interpretation Comments POCT GLU (test code = 177 mg/dL 70-110 H Notifi ed Provider [id number]) Lab Interpretation (test Abnormal code = 74274-0) [facility] GLUCOSE (AUTOMATED)2023-04-01 21:29:42 Test Item Value Reference Range Interpretation Comments POCT GLU (test code = 177 mg/dL 70-110 H Notifi ed Provider [id number]) Lab Interpretation (test Abnormal code = 50044-6) [facility] 16:14:10 Test Item Value Reference Range Interpretation Comments POCT GLU (test code = 5779974055) 116 mg/dL 70-110 H Lab Interpretation (test code = Abnormal 71084-1) [facility]23-03-17 12:49:32 Test Item Value Reference Range Interpretation Comments POCT GLU (test code = 5091188173) 81 mg/dL 70-110 Lab Interpretation (test code = Normal 29083-9) [facility] GLUCOSE (AUTOMATED)2023-03-17 01:50:52 Test Item Value Reference Range Interpretation Comments POCT GLU (test code = 4409464185) 228 mg/dL 70-110 H Lab Interpretation (test code = Abnormal 03013-6) [facility] GLUCOSE (AUTOMATED)2023-03-16 21:06:57 Test Item Value Reference Range Interpretation Comments POCT GLU (test code = 8627734800) 125 mg/dL 70-110 H Lab Interpretation (test code = Abnormal 30452-4) [facility] GLUCOSE (AUTOMATED)2023-03-16 16:44:39 Test Item Value Reference Range Interpretation Comments POCT GLU (test code = 2057292980) 87 mg/dL 70-110 Lab Interpretation (test code = Normal 11730-3) [facility] GLUCOSE (AUTOMATED)2023-03-16 12:27:46 Test Item Value Reference Range Interpretation Comments POCT GLU (test code = 3063382331) 106 mg/dL 70-110 Lab Interpretation (test code = Normal 44189-9) [facility] GLUCOSE (AUTOMATED)2023-03-16 01:28:49 Test Item Value Reference Range Interpretation Comments POCT GLU (test code = 1335677753) 129 mg/dL 70-110 H Lab Interpretation (test code = Abnormal 25542-4) [facility] GLUCOSE (AUTOMATED)2023-03-15 22:01:54 Test Item Value Reference Range Interpretation Comments POCT GLU (test code = 5933172301) 164 mg/dL 70-110 H Lab Interpretation (test code = Abnormal 01852-1) [facility] GLUCOSE (AUTOMATED)2023-03-15 16:44:30 Test Item Value Reference Range Interpretation Comments POCT GLU (test code = 5041753337) 211 mg/dL 70-110 H Lab Interpretation (test code = Abnormal 02275-6) [facility]15 13:40:59 Test Item Value Reference Range Interpretation Comments POCT GLU (test code = 5476767897) 122 mg/dL 70-110 H Lab Interpretation (test code = Abnormal 35146-5) [facility] Consult Notes Date/Time Note Provider Source 2023-04-10 [id number]:00:00Formatting of [facility] - Health 20:00:00 this note is different from the PHYSICIAN STAFF original. Medicine Admission History & Physical PCP: PATIENT DOES NOT HAVE A PCP Date of service 04/10/2023HIEF COMPLAINT: HeadacheHistory of Present Illnessyovana Cornejo is a 42 year old female with a PMH of right-sided vestibular schwannoma s/p right retrosigmoid craniotomy on 10/22/2018 (no radiation therapy received), small cell lung cancer s/p chemotherapy (EOT approximately 2 months ago), superficial venous thrombosis of the LUE on Xarelto who presented for worsening headaches and nausea over the past 2 weeks. Patient reports being discharged from the hospital on 03/17/2023; she was admitted then for similar issues. She reports taking a Decadron taper as prescribed, which ended on 03/24/2023, in order to alleviate some of her vasogenic edema. Patient's current headaches are generalized, are described as a pressure-like sensation, are associated with photophobia and phonophobia. No nuchal rigidity. She also reports nausea, which has been alleviated with Zofran, as well as emesis that started today in the ED. She reports subjective fevers/chills but denies recent sick contacts. She endorses chronic right-sided hearing loss (since her procedure in 2018) and imbalance but denies changes in vision, muscle strength, or sensation. CT head w/o contrast showed evidence of mild hydrocephalus, similar in degree to patient's MRI brain w/ w/o contrast dated 03/15/2023. PAST MEDICAL HISTORY History reviewed. No pertinent past medical history.Past Surgical History: Procedure Laterality Date ACOUSTIC NEUROMA EXCISION Right 04/03/2023 Surgeon: El Silva MD; Location: [facility] OR LOCATION CRANIOTOMY Right 10/22/2018 Surgeon: Praveen Basilio MD; Location: [facility] OR Location CRANIOTOMY RESECTION TUMOR WITH NAVIGATION (SHX) Right 04/03/2023 Surgeon: Arturo Ibarra MD; Location: [facility] OR LOCATION LUMBAR PUNCTURE N/A 10/22/2018 Surgeon: Praveen Basilio MD; Location: [facility] OR Location No family history on file.ALLERGIESAllergies Allergen Reactions Sulfamethoxazole Hives Morphine Hives Tramadol Hives HOME MEDICATIONSHome medication list reviewed Current Discharge Medication List STOP taking these medications butalb/acetaminophen/caffeine (FIORICET ORAL) Comments: Reason for Stopping: docusate sodium (COLACE ORAL) Comments: Reason for Stopping: FENBENDAZOLE, BULK, MISC Comments: Reason for Stopping: HYDROcodone-acetaminophen 5-325 mg tablet Comments: Reason for Stopping: rivaroxaban (XARELTO) 10 mg tablet Comments: Reason for Stopping: turmeric (CURCUMIN MISC) Comments: Reason for Stopping: VITAMIN E ACETATE ORAL Comments: Reason for Stopping: pantoprazole 40 mg EC tablet Comments: Reason for Stopping: SOCIAL HISTORYSocial History Socioeconomic History Marital status: Tobacco Use Smoking status: Former Types: Cigarettes Passive exposure: Past Smokeless tobacco: Never Social Determinants of Health Financial Resource Strain: Low Risk (04/04/2023) Overall Financial Resource Strain (CARDIA) Difficulty of Paying Living Expenses: Not very hard Food Insecurity: No Food Insecurity (04/04/2023) Hunger Vital Sign Worried About Running Out of Food in the Last Year: Never true Ran Out of Food in the Last Year: Never true Transportation Needs: No Transportation Needs (04/04/2023) PRAPARE - Transportation Lack of Transportation (Medical): No Lack of Transportation (Non-Medical): No Physical Activity: Inactive (04/04/2023) Exercise Vital Sign Days of Exercise per Week: 0 days Minutes of Exercise per Session: 0 min Social Connections: Unknown (04/04/2023) Social Connection and Isolation Panel [NHANES] Frequency of Communication with Friends and Family: More than three times a week Marital Status: Living with partner Housing Stability: Low Risk (04/04/2023) Housing Stability Vital Sign Unable to Pay for Housing in the Last Year: No Number of Places Lived in the Last Year: 1 Unstable Housing in the Last Year: No CODE STATUS:FULL CODEREVIEW OF SYSTEMSComplete review of systems done, pertinent positive are noted in HPI, otherwise rest of the review of systems are negative. PHYSICAL EXAMINATIONVitals: 04/10/23 1845 04/10/23203204/10/23 2337 04/11/23 0431 BP: 119/74 117/80 121/84 115/83 BP Location: Right arm Left arm Left arm Patient Position: Lying left side Supine Supine Pulse: 104 116 119 98 Resp: Temp: 36.7 ?C (98.1 ?F) 37.3 ?C (99.1 ?F) 36.8 ?C (98.2 ?F) TempSrc: SpO2: 96% 97% 99% 98% Weight: Height: General: alert and oriented x 4; no apparent distressHEENT: pupils equal, round, reactive to light; extraocular movements intact; oropharynx clear; moist mucous membranes, normocephalic atraumaticNeck: supple, no lymphadenopathy, no bruits, no JVD, full range of motionLungs: clear to auscultation bilaterallyCardio: S1, S2 normal; no murmurs, rubs or gallops, regular rate and rhythmAbdomen: soft; non-tender; non-distended; normoactive bowel soundsExtremities: no clubbing, cyanosis, or edemaSkin: no rashesNeuro: cranial nerves II through XII grossly intact; sensation grossly intact; muscle strength 5 out of 5 in all four extremitiesLABS - reviewed pertinent labs as below:CBC BMP PT/INR WBC x10^3 (/CMM) Date Value 11/15/2005 10.2 (H) WBC (10*3/?L) Date Value 04/10/2023 8.22 NA (mmol/L) Date Value 04/10/2023 133 (L) No results found for: "PT" RBC x10^6 (/CMM) Date Value 11/15/2005 4.67 RBC (10*6/?L) Date Value 04/10/2023 3.85 (L) K (mmol/L) Date Value 04/10/2023 4.6 INR (no units) Date Value 04/03/2023 0.9 PLT x10^3 (/CMM) Date Value 11/15/2005 278 PLT (10*3/?L) Date Value 04/10/2023 248 CALCIUM (mg/dL) Date Value 04/10/2023 8.5 (L) HGB Date Value 04/10/2023 11.6 g/dL 11/15/2005 14.3 G/DL CL (mmol/L) Date Value 04/10/2023 98 aPTT HCT (%) Date Value 04/10/2023 33.8 (L) 11/15/2005 44.0 BUN (mg/dL) Date Value 04/10/2023 19 APTT Patient (Seconds) Date Value 04/03/2023 27 CREATININE (mg/dL) Date Value 04/10/2023 0.53 IMAGING - reviewed, pertinent results as below: No final results containing an impression from the past 2 days were found.EKG: EKG showed sinus rhythmCHART REVIEW: pertinent information as below: [facility] reviewedASSESSMENT/[facility] Ernesto Cornejo is a 42 year old female with PMH as listed above, admitted to the hospital with: Acute intractable headache, unspecified headache type, schwannoma (right-sided vestibular schwannoma) status postcraniotomy, obstructive hydrocephalus EVD placed 3Plan:-shelter monitor, strict vital monitoring, strict I&O's-Strict vital monitoring, electrolyte monitoring-Fentanyl 25 mcg IV every 2 hours as needed severe pain-Hydralazine 10 mg IV every 2 hours as needed for accelerated hypertension, systolic blood pressure above 130-Dexamethasone 2 mg p.o. dose given-Aspiration precautions. Needs to be out of bed and upright in chair for all meals, right vocal cord paralysis. HOB above 30 degrees all time.-Check sodium every 12 hourly-Lovenox for DVT prophylaxis-PT OT Ligia Demarco MDClinical Robotic Weld Technician.Hospitalist service. [facility] ([facility]).Current Facility-Administered Medications: artificial tears(hypromellose) (ISOPTO-TEARS) 0.5 % ophthalmic drops 1 Drop, 1 Drop, Both Eyes, Q8H, Davi Vallecillo, JEWELRY BENCH MOLDER, 1 Drop at 04/11/23 0531 labetaloL (NORMODYNE) injection 20 mg, 20 mg, Slow IV Push, Q15MIN PRN, Davi Vallecillo CNP, 20 mg at 04/10/23 1355 ondansetron (ZOFRAN (PF)) injection 4 mg, 4 mg, Slow IV Push, Q6HPRN, Davi Vallecillo CNP pantoprazole (PROTONIX) 2 mg/mL oral suspension 40 mg, 40 mg, Enteral, DAILY, Davi Vallecillo CNP enoxaparin (LOVENOX) injection 40 mg, 40 mg, Subcutaneous, Q24H, Usama Jean-Baptiste MD, 40 mg at 04/10/23 2152 amLODIPine (NORVASC) tablet 10 mg, 10 mg, Oral, DAILY, Dino Durbin NP, 10 mg at 04/10/23 08 FENTanyl (DURAGESIC) 12 mcg/hr patch 1 Patch, 1 Patch, Transdermal (Apply To Skin), Q72H, Arturo Ibarra MD, 1 Patch at 04/10/23 175 hydralAZINE (APRESOLINE) injection 10 mg, 10 mg, Slow IV Push, Q2HPRN, Usama Jean-Baptiste MD, 10 mg at 04/10/23 175 HYDROcodone-acetaminophen (NORCO 5) 5-325 mg tablet 1 tablet, 1 tablet, Oral, Q6HPRN, Marquez Cheung MD, 1 tablet at 04/10/23 2203 benzonatate (TESSALON PERLES) capsule 100 mg, 100 mg, Oral, Q8HPRN, Wing Mccarthy MD, 100 mg at 04/03/23 0116 FENTanyl PF (SUBLIMAZE (PF)) injection 25 mcg, 25 mcg, Slow IV Push, Q2HPRN, Abbie Mora MD, 25 mcg at 04/09/23 0830 oxyCODONE immediate release tablet 10 mg, 10 mg, Oral, Q4HPRN, Abbie Mora MD, 10 mg at 04/10/23 1755 heparin lock flush (HEP-LOCK) 100 unit/mL injection 500 Units, 5 mL, Catheter Dwell, PRN - SEE INSTRUCTIONS, Davi Vallecillo CNP, 500 Units at 04/02/23 0847 sodium chloride (NS) injection 10 mL, 10 mL, Intravenous, PRN - SEE INSTRUCTIONS, Davi Vallecillo CNP chlorhexidine (PERIDEX) 0.12 % mouthwash 15 mL, 15 mL, Oral (Swish And Spit Out), Q6H, Davi Vallecillo CNP, 15 mL at 04/11/23 0531 dextrose 50 % in water (D50W) injection 25 mL, 25 mL, Slow IV Push, PRN, Steven Rolle MD glucagon (GLUCAGEN DIAGNOSTIC KIT) injection 1 mg, 1 mg, Intramuscular, PRN, Steven Rolle MD sennosides-docusate sodium (SENOKOT-S) 8.6-50 mg per tablet 1 tablet, 1 tablet, Enteral, DAILY, Davi Vallecillo CNP, 1 tablet at 04/10/23 0823 Sliding Scale Insulin - Lispro (HumaLOG), , Subcutaneous, Q6H, Davi Vallecillo CNP, 1 Units at 04/07/23 0050Orders Placed This Encounter Procedures CT HEAD WO CONTRAST XR CHEST 1 VW XR CHEST [address] HEAD WO CONTRAST MR BRAIN W WO CONTRAST XR CHEST [address] HEAD WO CONTRAST XR KUB FL MODIFIED BARIUM SWALLOW CT HEAD WO CONTRAST CBC WITH DIFF COMP. METABOLIC PANEL (85270) TEST, SERUM Prothrombin Time / INR aPTT Type and Screen - ONCE Routine MRSA / MSSA Screen by PCR, Nares POCT Glucose (Age >30 Days) MAGNESIUM ABORH Confirmation (Lab Only) POCT GLUCOSE (AUTOMATED) POCT GLUCOSE (AUTOMATED) PANEL IDENTIFICATION Patient Rh Antigen Typing POCT GLUCOSE (AUTOMATED) CBC WITH DIFF BASIC METABOLIC PANEL (NA, K, CL, CO2, GLUCOSE, BUN, CREATININE, CA) POCT GLUCOSE (AUTOMATED) CBC WITH DIFF BASIC METABOLIC PANEL (NA, K, CL, CO2, GLUCOSE, BUN, CREATININE, CA) Prothrombin Time / INR aPTT POCT TEST POCT GLUCOSE (AUTOMATED) POCT GLUCOSE (AUTOMATED) SURGICAL PATHOLOGY EXAM CBC WITH DIFF BASIC METABOLIC PANEL (NA, K, CL, CO2, GLUCOSE, BUN, CREATININE, CA) BASIC METABOLIC PANEL (NA, K, CL, CO2, GLUCOSE, BUN, CREATININE, CA) CBC WITHOUT DIFF ISTAT ACUTE CARE ARTERIAL ISTAT ACUTE CARE ARTERIAL ISTAT ACUTE CARE VENOUS ISTAT ACUTE CARE ARTERIAL POCT GLUCOSE (AUTOMATED) AC ABG + LACTIC ACID SODIUM POCT GLUCOSE (AUTOMATED) POCT GLUCOSE (AUTOMATED) POCT GLUCOSE (AUTOMATED) BASIC METABOLIC PANEL (NA, K, CL, CO2, GLUCOSE, BUN, CREATININE, CA) MAGNESIUM CBC WITH DIFF POCT GLUCOSE (AUTOMATED) POCT GLUCOSE (AUTOMATED) POCT GLUCOSE (AUTOMATED) CBC WITH DIFF BASIC METABOLIC PANEL (NA, K, CL, CO2, GLUCOSE, BUN, CREATININE, CA) MAGNESIUM IONIZED CALCIUM POCT GLUCOSE (AUTOMATED) POCT GLUCOSE (AUTOMATED) POCT GLUCOSE (AUTOMATED) POCT GLUCOSE (AUTOMATED) MAGNESIUM BASIC METABOLIC PANEL (NA, K, CL, CO2, GLUCOSE, BUN, CREATININE, CA) POCT GLUCOSE (AUTOMATED) POCT GLUCOSE (AUTOMATED) POCT GLUCOSE (AUTOMATED) CBC WITH DIFF BASIC METABOLIC PANEL (NA, K, CL, CO2, GLUCOSE, BUN, CREATININE, CA) CBC WITH DIFF POCT GLUCOSE (AUTOMATED) MAGNESIUM BASIC METABOLIC PANEL (NA, K, CL, CO2, GLUCOSE, BUN, CREATININE, CA) POCT GLUCOSE (AUTOMATED) POCT GLUCOSE (AUTOMATED) POCT GLUCOSE (AUTOMATED) CBC WITH DIFF BASIC METABOLIC PANEL (NA, K, CL, CO2, GLUCOSE, BUN, CREATININE, CA) POCT GLUCOSE (AUTOMATED) POCT GLUCOSE (AUTOMATED) POCT GLUCOSE (AUTOMATED) POCT GLUCOSE (AUTOMATED) BASIC METABOLIC PANEL (NA, K, CL, CO2, GLUCOSE, BUN, CREATININE, CA) CBC WITH DIFF POCT GLUCOSE (AUTOMATED) POCT GLUCOSE (AUTOMATED) POCT GLUCOSE (AUTOMATED) POCT GLUCOSE (AUTOMATED) POCT GLUCOSE (AUTOMATED) POCT GLUCOSE (AUTOMATED) POCT GLUCOSE (AUTOMATED) CONSULT NEUROSURGERY Consult Adult Occupational Therapy Consult Adult Physical Therapy Consult Adult Physical Therapy Consult Adult Occupational Therapy Consult PS Food and Nutrition - Adult Consult Pastoral Care O2 Per Protocol Ventilator Adult PRVC / AC Daily Spontaneous Breathing Trial (SBT) SUCTION EXTUBATE PATIENT .This note above has been created using a voice-recognition transcribing system. Therefore, incorrect phrases or words may have been missed during proofreading. Please interpret accordingly. [id number]:18:55Consult [id number] for patient careEMCARE EMERGENCY PHYSICIAN STAFFEMCARE EMERGENCY PHYSICIAN STAFF[address] Miranda [id number]: 18:551.2.840.046131.1.72.3.15|1.2.84 [id number] 2023-04-06 [id number]:13:48Associated Calixto Stoner [facility] 16:13:48 Order(s): CONSULT PASTORAL CARE The Church Supervisor responded to the consult request for pastoral support and met with the patient at the bedside. The patient expressed her feelings related to her medical condition. She said she has kept her Bible as the source of strength. She has family support. The patient appreciated the spiritual support. The Church Supervisor provided a supportive presence and empathic listening. Explored emotional and spiritual needs and offered encouraging words and blessings. The Church Supervisor provided pastoral care information and will follow up as needed.Calixto Haro, [facility]832 [phone]:[phone] [id number] [id number]:22:56Consult [id number] .[id number] for patient [id number] [id number]: 22:561.2.840.667486.1.72.3.15|1.2.84 [id number] 2023-04-05 [id number]:23:59Associated Aure Pena [facility] 14:23:59 Order(s): CONSULT PS FOOD AND RD NUTRITION - ADULT MEDICAL NUTRITION THERAPY ASSESSMENT NOTEREASON FOR CONSULT: Reason for Encounter: Physician Consult- ENNUTRITION ASSESSMENT:PMH/PSH: History reviewed. No pertinent past medical history.Past Surgical History: Procedure Laterality Date ACOUSTIC NEUROMA EXCISION Right 04/03/2023 Surgeon: El Silva MD; Location: [facility] OR LOCATION CRANIOTOMY Right 10/22/2018 Surgeon: Praveen Basilio MD; Location: [facility] OR Location CRANIOTOMY RESECTION TUMOR WITH NAVIGATION (SHX) Right 04/03/2023 Surgeon: Arturo Ibarra MD; Location: [facility] LUMBAR PUNCTURE N/A 10/22/2018 Surgeon: Praveen Basilio MD; Location: [facility] OR Location Current Medical Condition: Pt admitted for acute intractable headache. 04/03 s/p R crani for CPA lesion resection, +EVD.Subjective: EN ordered but not running per RN 2' DHT not in proper position. S/p AUDIT MGR eval, recommends minced and moist diet and recommends MBS. Per chart review, pt weighed 152# on 12/22/22, weight gain may be 2' edema.GI and Nutrition Related Findings: Symptoms: None; Last BM: ifficulty Chewing/Swallowing: SwallowingGI tract alteration: noneAlternative means of nutrition: DHT, not in proper position per RN (however KUB on 04/04 states proper position)Edema/Ascites: Yes- generalizedWounds: NonePertinent Medications: Mag sulfate, zofran, protonix, senokot, lispro, vancLab and Medical Test Results: CBC: Recent Labs 04/04/2304 WBC 6.85 12.94* 6.86 RBC 2.67* 3.17* 2.95* HGB 8.2* 9.8* 8.8* HCT 26.3* 31.6* 28.0* MCV 98.5* 99.7* 94.9 MCHC 31.2* 31.0* 31.4* BMP:Recent Labs 04/03/2321 NA 148* -- 147* 143 140 K 3.9 -- 3.2* -- 3.9 CL 121* -- 117* -- 107 TCO2 20* 21* 18* -- 24 AGAP 7 -- 12 -- 9 MG -- -- -- -- 1.8 GLU 116* -- 135* -- 141* BUN 14 -- 12 -- 15 CREAT 0.64 -- 0.68 -- 0.56 EGFR 101.3 -- 94.4 -- 118.2 CA 6.7* -- 6.2* -- 6.1* POC Glucose: 124-153 HAnthropometrics: 42 year old female Ht Readings from Last 1 Encounters: 04/01/23 1.575 m (5' 2") Weight History: Wt Readings from Last 3 Encounters: 04/05/23 76.7 kg (169 lb) 03/20/23 73.9 kg (163 lb) 03/16/23 73.9 kg (163 lb) Usual Body Weight: 68.9 kg (152 lb)Percent of weight change: Percent of Weight change: 11.18%Timeframe of weight change: 4 monthsBMI: Body mass index is 30.91 kg/m?. (Obesity (BMI 30-39.9)) IBW: 50 kg %IBW: 153.6%Estimated Energy NeedsCalories: 7538-4124 kcal/day; [place] x AF1.2-1.6 Current WeightProtein: 60-100 g/day, 1.2-2 g/kg IBW Using 50 kgFluid: per MD/Medical TeamCurrent Dietary Order(s): Jevity 1.2 Carmen (1.2 kcal/mL, protein 18.5% of kcal) not runningRegular Diet; Diet Texture: Minced and Moist (Chopped) 5 Food Allergies/Cultural or Islam Preferences: Allergies Allergen Reactions Sulfamethoxazole Hives Morphine Hives Tramadol Hives NUTRITION DIAGNOSIS:Nutrition Dx 1: Inadequate oral intake Related to: post op As Evidenced by: recent diet advancement. (New nutrition diagnosis)NUTRITION INTERVENTION:1. Continue with current medical nutrition therapy. 2. Recommend adding Ensure Plus High Protein 1 can bidNUTRITION MONITORING AND EVALUATION: A registered dietitian will f/u in as indicated and review patients progress towards nutrition goals, report nutrition related information and to revise the nutrition recommendations and interventions.Goals:1. Patient will consume >50% of meals within 5 days (New Goal Identified)Discharge Needs: Undetermined at this timeAure Pena RDClinical DietitianOffice Uwvtkylhmoddyn signed by Aure Pena RD at 04/05/2023 2:30 PM [id number] [id number]:30:52Consult [id number] .[id number] for patient [id number] E Hammonds [place] [id number]: 30:521.2.840.435465.1.72.3.15|1.2.84 [id number] 2023-04-05 [id number]:45:00Associated [facility] 11:45:00 Order(s): CONSULT ADULT PHYSICAL THERAPY I was present and participated throughout the session and agree with the documentation as written by the student therapist on the encounter dated 04/05/23.Yesica Coronel PT DPTUnBaylor Scott & White Medical Center – HillcrestDepartment of Rehabilitation Services Patient agreeable to working with physical therapy. Patient met semi reclined in bed with mother at bedside.Recommend nursing staff utilize Max Assist x2 to safely assist patient with mobility out of the bed or chair.PHYSICAL THERAPY EVALUATIONConsult received, chart reviewed and evaluation complete this date. Patient is referred to PT for evaluation and treatment. Patient is a 42 year old female who presents to hospital for Acute intractable headache, unspecified headache type [R51.9] . Evaluation and treatment performed in conjunction with Donna Dempsey OT secondary to anticipated of level of care, limited activity tolerance, weakness, pain and to maximize safety during functional task. Patient agreeable to participate. Discharge Recommendations: Therapy Needs and Potential:Patient would benefit from continued physical therapy services to address: decline in bed mobility decline in transfers decline in gait and/or balance decline in stair/step negotiation decreased strength decreased enduranceChallenges to Home Transition: increased risk of fallsdecreased caregiver availabilitydecreased safety awarenessenvironmental barriersEquipment recommendations:rolling walker and Tub BenchRolling Walker and Tub Bench:I certify that Yovana Cornejo is under my care and that I had a qbiv-gs-oxpe encounter with this patient on: 04/05/2023 .The primary reason for the durable medical equipment: gait instability and safetyI am ordering and certify that, based on my findings, the following is medically necessary durable medical equipment: Rolling Walker and Tub Bench. Patient has a mobility limitation that significantly impairs his/her ability to participate in one or more mobility-related activities of daily living (MRADL) in the home and the patient is able to safely use the walker and the functional mobility deficit can be sufficiently resolved with use of a walker and tub bench. Height: Ht Readings from Last 1 Encounters: 04/01/23 5' 2" (1.575 m) Weight: Wt Readings from Last 1 Encounters: 04/01/23 169 lb (76.7 kg) Duration of need: 99 months. Current Functional Status and/or Treatment: AM-PAC 6 Clicks (Raw Score 0=Dependent, 24=Independent; Low function Raw Score 0= Dependent, 32=Independent):Raw Score - Basic Mobility : 9T-Scale Score - Basic Mobility : 25.8 Bed Mobility:Reclined to sitting: Maximum AssistanceSitting balance Fair+Scooting to edge of bed: Maximum Assistance Maintain HOB at 30degrees elevation with increased elevation and multi vital checks Patient presents with some difficulty scooting to EOB, tactile cues provided to encourage patients hip and LE to shift together in order to scoot forwardTactile and verbal cues provided to preposition right UE weightbearing on bed and push self into upright position Min assistance provided at BLE's and trunk with tactile cues and scapulas to transition in sitting eob Provided touching assistance for safety due to sitting balance at EOB Placed patient in seated chair position with hospital bed to promote upright sittingVital Sign Check: Between transitions patient noted with increase in blood pressure, vital signs being monitored during all mobilities with systolic > 130, current BP precaution < 130 systolicTransfers: defer due to patient systolic blood pressure at EOB noted 139/ 85 Ambulation: defer due to patient systolic blood pressure at EOB noted 139/ 85 Therapeutic exercise: patient educated in Energy conservation, Fall prevention, Positioning, Relaxation/breathing techniques, Safety awareness, and precautions for systolic blood pressure parameters. and instructed patient in the following: ankle pumps, toe flexion/extension, quad sets, glut sets, heel slides, hip abduction/adduction, straight leg raises, short arc quadsPatient able to perform all therex with AROM, encouraged to perform mult times a day within safe parameters After session, patient semi reclined in bed. Call button provided. Mothers at bedside. RN aware and notified to remove clamp. PLAN OF CARE: While in the hospital, PT will follow patient at least 3 times per week,once or twice a day, per patient's tolerance and needs.See below for complete details. Admit Date: 04/01/2023 Hospital Diagnosis:Acute intractable headache, unspecified headache type [R51.9] PT Diagnosis: Difficulty walking, Weakness, Pain, and Abnormality of gait and balanceWeight Bearing Precaution: NA General Precautions: PPE used:Gloves and Surgical mask, General, Fall, Lines/Tubes, Head of bed 30?, Systolic Blood Pressure 110-130. Purewick catheter, IV Right UE, oxygen: Nasal canula, 2LBracing/Cast present or required:N/APMH: History reviewed. No pertinent past medical history.PSH: Past Surgical History: Procedure Laterality Date ACOUSTIC NEUROMA EXCISION Right 04/03/2023 Surgeon: El Silva MD; Location: [facility] OR LOCATION CRANIOTOMY Right 10/22/2018 Surgeon: Praveen Basilio MD; Location: [facility] OR Location CRANIOTOMY RESECTION TUMOR WITH NAVIGATION (SHX) Right 04/03/2023 Surgeon: Arturo Ibarra MD; Location: [facility] OR LOCATION LUMBAR PUNCTURE N/A 10/22/2018 Surgeon: Praveen Basilio MD; Location: [facility] Prior Living Situation: in a house with her boyfriend, Able to negotiate: YesNeeds assistance: NoDME: No devicePrior level of Mobility: Driving, community ambulation without an assistive device Suspected ischemic or hemorraghic stroke:NoSubjective: Patient/Family Goals: Figure out where she is going to be placedPatient/Family verbalizes understanding of condition: Yes PAIN: denies pain before and after sessionCOMMUNICATIONPrimary Language: Cymro Able to Verbalize needs: Yes Vision:good; no issues reported Hearing: deaf R ear ORIENTATION/COGNITION:Oriented to: person, place, date/time, and situation Awake: Yes Alert: Yes Dizzy: No Follows Commands: Yes 1-Step Yes Multi-Step Yes Inconsistent: Yes NEUROLOGICALLight Touch: within functional limits bilateral LE BALANCE:Sitting: Static: Fair+ Dynamic: Fair+Standing: Static: NT Dynamic: NTRANGE OF MOTION: within functional limits bilateral LE STRENGTH: 3/5 (F), bilateral LE, systolic increasing with effort from OT ENDURANCE: Fair, Nasal canula SKIN INTEGRITY: intact PROBLEM LIST: Decline in bed mobility, Decline in gait, Decline in transfers, Decreased strength, Decreased endurance, Decreased balance, and Safety awareness deficitsASSESSMENT: Patient is a 42 year old female seen secondary to the above listed diagnosis. Patient is maximum assistance with all bed mobility. Attempt transfer activity with inability to transfer from EOB to seated upright in chair due to continuous monitoring of systolic blood pressure noted at above >130. Patient would benefit from continued PT to address the above listed deficits to maximize independence and safety with functional mobility.Rehabilitation Potential: good Goals: The following goals are to maximize independence and safety with functional mobility to eventually return to prior living situation and prior functional status. Upon discharge, patient and/or family will demonstrate the followin. Reclined to sitting: SupervisionSitting balance Fair+Scooting to edge of bed: SupervisionSit to supine: Supervision2. Sit to stand: Supervision using Rolling WalkerStand to sit: Supervision using Rolling Walker3. Supervision with ambulation, Feet: 100 using least assistive device. Treatment Plan: Gait training, Therapeutic exercise, Transfer training, Balance training, Bed mobility training, Safety education, patient/caregiver education, and Functional Motor TrainingPATIENT EDUCATION: Patient and mother provided with preferred teaching of verbal information and demonstration on role of PT, plan of care, safety awareness, fall prevention. Shows readiness to learn. Verbal instruction and Demonstration teaching provided. Individual is able to read and needs reinforcement of teaching and Indicates understanding of teaching provided.Total Time Tx Codes in Minutes: 53 minTotal Treatment Time in Minutes: 55 minTaCIARA Burns [id number] [id number]:43:10Consult [id number] .[id number] for patient [address] [id number]: 43:101.2.840.371681.1.72.3.15|1.2.84 [id number] 2023-04-05 [id number]:20:00Associated Donna Lewis Lupe [facility] 11:20:00 Order(s): CONSULT ADULT OCCUPATIONAL Ross OT THERAPY OT GENERAL EVALUATIONConsult received via miacosa, EMR reviewed and evaluation completed 04/05/23. Patient referred to occupational therapy for evaluation and treatment secondary to Acute intractable headache. Patient agreeable to participate in occupational therapy. Co-evaluation with Physical Therapy in anticipation of level of care and patient's ability to tolerate activity. Patient's mother present for evaluation.Discharge Recommendations:Therapy Needs and Potential:- Patient would benefit from continued skilled occupational therapy services to address: Decline in basic activities of daily living, Decline in instrumental activities of daily living, Decreased strength, Decreased endurance, Decreased coordination, and Caregiver training - Patient demonstrates good potential to improve and meet therapy goals with further skilled occupational therapy services.- Patient appears motivated to improve their B/IADLs and return to their previous level of function.- Patient demonstrates ability to tolerate at least 30-60 minutes of active participation in occupational therapy.- Patient able to follow commands: 1-step Yes, Multi-step No, Inconsistencies NoChallenges to Home Transition:- Requires physical assistance for BADLS- Requires physical assistance for IADLS- No caregiver support- Increased risk of fallsEquipment Recommendations:None Patient has access to necessary equipmentPLAN OF CARE: At least 2x/week Precautions: Weight bearing status: Restrict bending forwardGeneral: PPE Utilized: Gloves and FallBracing: N/ACurrent Occupational Performance and/or Treatment:AM-PAC 6 Clicks (Raw Score 0=Dependent, 24=Independent; Low function Raw Score 0= Dependent, 32=Independent):Raw Score - Daily Activity: 10T-Scale Score - Daily Activity: 27.31 Feeding: SupervisionGrooming: Supervision, washed her face and cleaned her mouth with a toothette.Functional Mobility: Maximum Assistance reclined to sit and scoot to edge of bed. Multiple vital sign checks during treatment. Systolic >130 with the restriction being <130. Further advancement to edge of bed and ambulation was deferred and she was returned to the HOB up position with 30 degrees elevation.Patient/caregiver educated on:Adaptive equipment , ADL training, Compensatory techniques/adaptive strategies, Fall prevention, General strengthening, Positioning, Role of OT, Safety awareness, and Movement restrictionsPatient left in semichair position in bed with call medellin in reach. Mother present. Please, see full evaluation below for more detail. OT EVALUATION:42 year old female Admit date: 04/01/2023 Date of onset: 3Admit Diagnosis: Acute intractable headache, unspecified headache type [R51.9]OT Diagnosis: Impaired BADL independence, Impaired IADL independence, Weakness, Activity intolerance, Decreased endurance, Impaired self-care mobility, and Decreased UE Function BILPMH: History reviewed. No pertinent past medical history.PSH: Past Surgical History: Procedure Laterality Date ACOUSTIC NEUROMA EXCISION Right 04/03/2023 Surgeon: El Silva MD; Location: [facility] OR LOCATION CRANIOTOMY Right 10/22/2018 Surgeon: Praveen Basilio MD; [facility]: [facility] CRANIOTOMY RESECTION TUMOR WITH NAVIGATION (SHX) Right 04/03/2023 Surgeon: Arturo Ibarra MD; Location: [facility] OR LOCATION LUMBAR PUNCTURE N/A 10/22/2018 Surgeon: Praveen Basilio MD; Location: [facility] PAIN: Denies pain before and after session. OCCUPATIONAL ROLES/HOME ENVIRONMENT:Home environment: Lives with significant other in a single story home with 2 steps in. 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, other MMT not tested due to restrictionsHand dominance: right Dexterity/Coordination: bilateral Fine motor skills Impaired Endurance - Sitting: NT Standing: NTSitting Balance - Static: NT Dynamic: NTStanding: Balance - Static NT Dynamic: NTDizziness: NoSkin Integrity: defer full skin assessment to nursingSensation: bilateral Intact to light touch Oral Motor: WFLCommunication: Able to verbalize needs Yes Other: N/AVision: WFL Yes Other: N/AHearing: Deaf in Right earCOGNITION: Orientation: person, place, date/time, and situationFollows Commands: 1-step Yes Multi-step No Inconsistencies NoSafety Awareness/Judgment: GoodPROBLEM LIST: Decreased independence with ADL and Decreased strength/endurance for functional activityREHAB POTENTIAL/PROGNOSIS: goodPATIENT/FAMILY GOALS: Patient has been living with a significant other but he works and cannot be there to care for her. He father is in ill health and her mother lives in [place]. She is unsure of her D/C destination.TREATMENT/INTERVENTION PLAN: Functional motor treatment, Patient/Caregiver Education, Equipment recommendations, Daily living activities, Therapeutic exercises, and Neuromuscular Re-EducationGOAL(S): By discharge, patient will increase independence in daily living skills as follows: 1 Patient will perform UB dressing with independence.2 Patient will perform LB dressing with independence. 3 Patient will complete grooming tasks with independence while standing at the sink.4 Patient will complete toileting hygiene, including clothing management, with independence.5 Patient will increase endurance for functional activity as evidenced by ability to sustain 30 minutes of active participation. 6 Patient/caregiver will verbalize/demonstrate understanding/proficiency in the following home programs: Adaptive equipment , Compensatory techniques/adaptive strategies, Fall prevention, General strengthening, Positioning, and Movement RestrictionsPATIENT-FAMILY TEACHINGPatient and Family member provided with preferred teaching of verbal information and demonstration on Adaptive equipment , ADL training, Compensatory techniques/adaptive strategies, Fall prevention, General strengthening, Positioning, Role of OT, Safety awareness, and Movement restrictions. Shows readiness to learn. Verbal instruction and Demonstration teaching provided. Individual is able to read and verbalizes understanding of teaching provided.Donna Singletary OTR MATotal Timed Treatment Codes: 24 MinTotal Treatment Time: 28 MinPatient Complexity Level High - An occupational therapy evaluation of high complexity was completed using the above tests and measures. The following information was obtained: An occupational profile and medical and therapy history, including review of medical and/or therapy records and extensive additional review of physical, cognitive, or psychosocial history related to current functional performance and Various standardized and non-standardized assessments were used to identify at least 5 or more performance deficits related to physical, cognitive, or psychosocial skills that result in activity limitations and/or participation restrictions 44027-6Mpleory uyxxAU9753-85-10T47:13:01Consult noteTXT1.2.840.267207.1.13.104.2.7.2 .205924|[id number] for patient [id number] G Hamil Ross [address] Fg[id number] JPNJODVKSEDDUHQGJGWWEC7228-83-39R87: 13:011.2.840.570355.1.72.3.15|1.2.84 0.655571.1.13.104.2.7.2.727879_18487 [id number] 2023-04-02 9185-14-11N36:09:00Associated Carter Hernandez [facility] 10:09:00 Order(s): CONSULT ADULT PHYSICAL THERAPY Patient agreeable to working with physical therapy. Patient met semi reclined in bed.Recommend nursing staff utilize no AD to safely assist patient with mobility out of the bed or chair.PHYSICAL THERAPY EVALUATIONConsult received, chart reviewed and evaluation complete this date. Patient is referred to PT for evaluation and treatment. Patient is a 42 year old female who presents to hospital for Acute intractable headache, unspecified headache type [R51.9] . 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 As per Neurology record, patient being discharged from the hospital on 03/17/2023; she was admitted then for similar issues. She reports taking a Decadron taper as prescribed, which ended on 03/24/2023, in order to alleviate some of her vasogenic edema. Patient's current headaches are generalized, are described as a pressure-like sensation, are associated with photophobia and phonophobia. No nuchal rigidity.She endorses chronic right-sided hearing loss (since her procedure in 2018), numbness on right side of lips and imbalance but denies changes in vision, muscle strength, or sensation. CT head w/o contrast showed evidence of mild hydrocephalus. Plan for EVD placement 04/02/23AM and right sided CPA mass reduction on 04/03/23. On arrival to MICU, patient is awake, alert and oriented X 4, BP stable, Tachycardic. Patient reports headache 04/03 . Neurology already discussed about EVD and surgery plan. Denies tingling, numbness on extremities, changes in strength, vision or sensation. Discharge Recommendations: Therapy Needs and Potential:Patient without any skilled PT needs at this time.Challenges to Home Transition: noneEquipment recommendations:no deviceCurrent Functional Status and/or Treatment: AM-PAC 6 Clicks (Raw Score 0=Dependent, 24=Independent; Low function Raw Score 0= Dependent, 32=Independent):Raw Score - Basic Mobility : 24T-Scale Score - Basic Mobility : 57.68 Bed Mobility:Supine-sit: IndependentSitting balance Excellent Transfers: sit-stand: IndependentStatic/dynamic standing balance: Excellent Ambulation: Assisted patient with ambulation as follows: 300 feet using no device and Independent.Patient presenting with Swing-Through gait pattern. Instructed patient in directional changes and head movements in all planes during gait trial resulting in no instability and no LOB. Therapeutic exercise: patient educated in Fall prevention and Safety awareness. and patient/caregiver verbalizes understanding of instructions.PATIENT TEACHING:Functional Mobility and the importance/benefits of active and safe performance to help prevent BLE DVT's, PNA, overall decrease in mobility, strength, and endurance, skin breakdownBLE Strengthening ExercisesSafety and Transfer training Weight shifting in supine with correct frequency and duration to help prevent any possible skin breakdown-- All topics reviewed in great detail stressing the importance of continuing safe performance of all functional activities as Independently as possible and providing assistance when/if needed-- Stressed the importance of continuing with safe performance of BLE exercises to help with maintaining and increasing overall strength, endurance, flexibility, and ROM, B LE -- Stressed the importance of being safe with all functional activities and household/community gait to help reduce risk of LOB, fall, or injuryFunctional Outcome Measures: (Values within the past 12 hours)PT Functional OutcomesStops While Walking Test: No4-item Dynamic Gait Index (DGI) - # / 12: 12Tinetti Gait Score- # / 12Initiation of gait: No hesitancyStep length: On both sides, swing foot passes stance footFoot clearance: Both feet completely clear floorStep Symmetry: Step lengths equalStep continuity: Steps appear continuousPath: Straight without ADTrunk: No sway, no flexion, no use of arms, no use of ADWalking: Heels almost touchingTinetti Gait Score: 12Tinetti Gait Score Interpretation: >= 7 - Low risk for falls After session, patient semi reclined in bed. Call button provided. PLAN OF CARE: PT signs off.See below for complete details. Admit Date: 04/01/2023 Hospital Diagnosis:Acute intractable headache, unspecified headache type [R51.9] PT Diagnosis: PainWeight Bearing Precaution: WBAT General Precautions: PPE used:Gloves, General, Fall, .Bracing/Cast present or required:N/APMH: History reviewed. No pertinent past medical history.PSH: Past Surgical History: Procedure Laterality Date CRANIOTOMY Right 10/22/2018 Surgeon: Praveen Basilio MD; Location: [facility] OR Location LUMBAR PUNCTURE N/A 10/22/2018 Surgeon: Praveen Basilio MD; Location: [facility] Prior Living Situation: in a house with 3 steps from the porch, with boyfriendDME: No devicePrior level of Mobility: community ambulation, house hold ambulation, ambulates with no device Suspected ischemic or hemorraghic stroke:NoSubjective: patient agreeable to PT. Patient denies pain at this time.Patient/Family Goals: "To feel better after my surgery"Patient/Family verbalizes understanding of condition: Yes PAIN: denies pain before and after sessionCOMMUNICATIONPrimary Language: Cymro Able to Verbalize needs: Yes Vision:Blurry Hearing:R ear deafness ORIENTATION/COGNITION:Oriented to: person, place, date/time, and situation Awake: Yes Alert: Yes Dizzy: No Follows Commands: Yes 1-Step Yes Multi-Step Yes Inconsistent: No NEUROLOGICALLight Touch: within functional limits bilateral LE,Heel to ramos: NormalTone: Normal BALANCE:Sitting: Static: Excellent Dynamic: Excellent Standing: Static: Excellent Dynamic: Excellent RANGE OF MOTION: within functional limits bilateral LE STRENGTH: 5/5 (Normal), bilateral LE ENDURANCE: Excellent , Room air SKIN INTEGRITY: intact PROBLEM LIST: PainASSESSMENT: Patient is a 42 year old female seen secondary to the above listed diagnosis. Patient presents with headache resulting to impaired mobility. No further inpatient PT needs identified at this time. Rehabilitation Potential: NA as no further therapy needs Goals: The following goals are to maximize independence and safety with functional mobility to eventually return to prior living situation and prior functional status. Defer as no PT needs.Treatment Plan: Evaluation only and Discharge from PT PATIENT EDUCATION: Patient provided with preferred teaching of verbal information and demonstration on role of PT, plan of care, HEP. Shows readiness to learn. Verbal instruction teaching provided. Individual verbalizes understanding of teaching provided.Total Time Tx Codes in Minutes: 8 minTotal Treatment Time in Minutes: 14 min Carter Hernandez PT, DPT, C/Alvarado # [id number] Medical Center of [facility] ServicesK[facility] 43691-2Lmzbwgk fwngXX8797-25-61J97:08:09Consult noteTXT1.2.840.598640.1.13.104.2.7.2 .977127|[id number] for patient [id number] Gregorio PT[address] Po[id number] XQIOCQYOEMRYWYFIVYNVBT4580-57-25S81: 08:091.2.840.380148.1.72.3.15|1.2.84 0.103280.1.13.104.2.7.2.727879_18462 [id number] 2023-04-02 8101-91-63K50:08:00Associated Dre Marcum [facility] 10:08:00 Order(s): CONSULT ADULT OCCUPATIONAL OT THERAPY OT GENERAL EVALUATIONConsult received via miacosa, EMR reviewed and evaluation completed 04/02/23. Patient referred to occupational therapy for evaluation and treatment secondary to Right-sided CPA mass, N/V, headaches. PMH of right-sided vestibular schwannoma s/p resection in September 2018 who presents for worsening headaches, N/V in the context of a known tumor recurrence. Patient agreeable to participate in occupational therapy.Discharge Recommendations:Therapy Needs and Potential:Not applicable as no further skilled acute care OT needs at this time. Challenges to Home Transition:NoneEquipment Recommendations:NonePLAN OF CARE: Discharge from OT services *Pt pending OR for EVD placement and craniotomy for right-sided CPA mass resection. Please reconsult OT postop, as appropriate, for reevaluation of service*Precautions: Weight bearing status: NAGeneral: PPE Utilized: Gloves and Surgical mask, Fall, and ICU lines/monitoringBracing: N/ACurrent Occupational Performance and/or Treatment:AM-PAC 6 Clicks (Raw Score 0=Dependent, 24=Independent; Low function Raw Score 0= Dependent, 32=Independent):Raw Score - Daily Activity: 24 T-Scale Score - Daily Activity: 57.54 Feeding: IndependentGrooming: IndependentUB Dressing: IndependentLB Dressing: IndependentToilet Transfer: IndependentToileting Hygiene: IndependentFunctional Mobility: supine <> sit independent, sit <> stand independent without AD, pt performs functional ambulation within room and curran without ADPatient/caregiver educated on:General strengthening and Role of OTPatient left sitting upright in bedside chair with call meedllin in reach. Mother present and Nursing present. Please, see full evaluation below for more detail. OT EVALUATION:42 year old female Admit date: 04/01/2023 Date of onset: 04/01/23Admit Diagnosis: Acute intractable headache, unspecified headache type [R51.9]OT Diagnosis: Sensory deficitsPMH: History reviewed. No pertinent past medical history.PSH: Past Surgical History: Procedure Laterality Date CRANIOTOMY Right 10/22/2018 Surgeon: Praveen Basilio MD; [facility] LUMBAR PUNCTURE N/A 10/22/2018 Surgeon: Praveen Basilio MD; [facility]: [facility] PAIN: Denies pain before and after session. OCCUPATIONAL ROLES/HOME ENVIRONMENT:Home environment: Lives with boyfriend and Single story home. Boyfriend works daily, therefore pt is home alone.Bathroom access: YesBathroom setup: ComboOccupation(s): Not currently working, enjoys riding horses, going to the beach, anabaptist projectsFunction prior to admission: Household ambulation, Community ambulation, Independent with BADLs, and Independent with IADLs Suspected ischemic or hemorraghic stroke patient: NoEquipment prior to admission: 4 wheeled walker, Bedside commode, Shower stoolPERFORMANCE SKILLS/FACTORS: UE Muscle Tone: bilateral WNLUE ROM: bilateral AROM WFL UE Strength: FADUMO UE WFLHand dominance: right Dexterity/Coordination: bilateral IntactEndurance - Sitting: Good Standing: GoodSitting Balance - Static: Good Dynamic: GoodStanding: Balance - Static Good Dynamic: GoodDizziness: NoSkin Integrity: No breakdown notedSensation: left Intact to light touch and right Impaired - pt reports sensation decreased compared to LUEOral Motor: WFLCommunication: Able to verbalize needs Yes Other: N/AVision: WFL Yes Other: N/AHearing: R hearing loss, L intactCOGNITION: Orientation: person, place, date/time, and situationFollows Commands: 1-step Yes Multi-step Yes Inconsistencies NoSafety Awareness/Judgment: GoodPROBLEM LIST: Sensory deficitsREHAB POTENTIAL/PROGNOSIS: NA as no further therapy needsPATIENT/FAMILY GOALS: to have surgery and return homeTREATMENT/INTERVENTION PLAN: Discharge from OTPATIENT-FAMILY TEACHINGPatient and Family member provided with preferred teaching of verbal information on Role of OT. Shows readiness to learn. Verbal instruction teaching provided. Individual verbalizes understanding of teaching provided.Savana Marcum OTR/L, CNSTotal Timed Treatment Codes: 0 MinTotal Treatment Time: 12 MinPatient Complexity Level Moderate - An occupational therapy evaluation of moderate complexity was completed using the above tests and measures. The following information was obtained: An occupational profile and medical and therapy history, including an expanded review of medical and/or therapy records and additional review of physical, cognitive, or psychosocial history related to current functional performance, Various standardized and non-standardized assessments were used to identify at least 3-5 performance deficits related to physical, cognitive, or psychosocial skills that result in activity limitations and/or participation restrictions, and Clinical decision making of moderate analytic complexity, which includes an analysis of the occupational profile, analysis of data from detailed assessment(s), and consideration of several treatment options. Patient may present with comorbidities that affect occupational performance. Minimal to moderate modification of tasks or assistance (e.g., physical or verbal) with assessment(s) is necessary to enable patient to complete evaluation component. 57984-8Izcmuhy cpjlUP6349-49-48E00:52:26Consult noteTXT1.2.840.060623.1.13.104.2.7.2 .511926|[id number] for patient [id number] K Flaherty [address] Us[id number] VBOHQYSCCGUZQYJCAYSWVQ6408-17-42P57: 52:261.2.840.101642.1.72.3.15|1.2.84 0.528788.1.13.104.2.7.2.727879_18462 [id number] 2023-04-01 4439-15-52V81:36:53Associated [facility] 11:36:53 Order(s): CONSULT NEUROSURGERY NEUROSURGERY CONSULTATION HISTORY AND PHYSICALAttending Neurosurgeon: Dr. 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 Patient reports being discharged from the hospital on 03/17/2023; she was admitted then for similar issues. She reports taking a Decadron taper as prescribed, which ended on 03/24/2023, in order to alleviate some of her vasogenic edema. Patient's current headaches are generalized, are described as a pressure-like sensation, are associated with photophobia and phonophobia. No nuchal rigidity. She also reports nausea, which has been alleviated with Zofran, as well as emesis that started today in the ED. She reports subjective fevers/chills but denies recent sick contacts. She endorses chronic right-sided hearing loss (since her procedure in 2018) and imbalance but denies changes in vision, muscle strength, or sensation.CT head w/o contrast showed evidence of mild hydrocephalus, similar in degree to patient's MRI brain w/ w/o contrast dated 03/15/2023.MedicationsNo current facility-administered medications on file prior to encounter. Current Outpatient Medications on File Prior to Encounter Medication Sig Dispense Refill butalb/acetaminophen/caffeine (FIORICET ORAL) Take by mouth. docusate sodium (COLACE ORAL) Take by mouth. FENBENDAZOLE, BULK, MISC HYDROcodone-acetaminophen 5-325 mg tablet Take 1 tablet by mouth every 6 (six) hours as needed. rivaroxaban (XARELTO) 10 mg tablet Take by mouth daily. turmeric (CURCUMIN MISC) VITAMIN E ACETATE ORAL Take by mouth. pantoprazole 40 mg EC tablet Take 1 tablet by mouth in the morning. (Patient taking differently: Take 1 tablet by mouth in the morning and 1 tablet in the evening.) 30 tablet 0 Past Medical History:History reviewed. No pertinent past medical history.Past Surgical History: Past Surgical History: Procedure Laterality Date CRANIOTOMY Right 10/22/2018 Surgeon: Praveen Basilio MD; Location: [facility] LUMBAR PUNCTURE N/A 10/22/2018 Surgeon: Praveen Basilio MD; Location: [facility] OR [facility] Social History: Social History Tobacco Use Smoking status: Former Types: Cigarettes Passive exposure: Past Smokeless tobacco: Never Family History:No family history on file.ROS (BOLDED IF POSITIVE - otherwise negative)Constitutional: Nausea, Vomiting, Fevers, ChillsEyes: Diplopia, Amaurosis Fugax, Blurred VisionEars, nose, mouth, and throat: NegativeEndocrine: NegativeHematologic: NegativeCard: Chest pain, PalpitationsPulm: Cough, Shortness of breathGI: Diarrhea, Constipation, Incontinence : Incontinence, Retention, Hematuria, DysuriaInteg: Masses, Rashes, LesionsMsk: Weakness, PainNeuro: Headache, Vision changes, Dizziness, Weakness, Discoordination, Changes in sensation, Speech difficulty, Memory disturbancesPEVitals: Vitals: 04/01/23 1035 BP: 126/90 Pulse: 94 Resp: 18 Temp: 36.9 ?C (98.4 ?F) TempSrc: Oral SpO2: 99% Weight: 72.6 kg (160 lb) Height: 1.575 m (5' 2") Awake, alert, oriented [id number] bilaterally at 3mmEOMI bilaterallyFace symmetric and sensation intact throughout V1-H6PBHVD EXTREMITY STRENGTH EXAM: R 5/5 5/5 5/5 5/5 5/5 D(C5) B(C6) T(C7) [employer]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 Will plan on tumor resection on 04/03/2023.Recommendations:Admit to the ICUQ1 neuro checksCoagulation labs; please hold Xarelto and other anti-coagulationWill likely place EVD tomorrow AM (04/02/2023) - patient consented at this timePatient to be scheduled for OR on 04/03/2023 for right-sided CPA mass resectionLovenox 40mg once nowDecadron 7A72Eizr of bed >30 degreesSBP goal <140 mmHgRest per primaryPlan of care discussed with Neurosurgery faculty.Steven Rolle MDNeurosurgery ServiceFor inquiries please page [phone] signed by Valdez Becker MD at 04/01/2023 10:37 PM CDTAssociated attestation - Valdez Becker MD - 04/01/2023 10:37 PM CDT I personally evaluated and am primary in decision making on, Yovana Cornejo, and I agree with the documentation by Neurosurgery resident, Steven Dodge MD.97837-8Suwtxaj [id number], Rudy P1.2.840.500887.1.13.104.2.7.2.95449 5YjjqdpMvudFNB9889-88-74V12:37:36Con sult noteTXT1.2.840.223717.1.13.104.2.7.2 .785264|[id number] for patient careUT[address] Qi[id number] AIMTUCIOVETMFDXJOOFKYY2028-05-71X50: 37:361.2.840.591113.1.72.3.15|1.2.84 0.051048.1.13.104.2.7.2.727879_18460 [id number] History and Physical Notes Date/Time Note Provider Source 2023-04-03 07:18:02 [id number]:18:02Formatting of [facility] this note is different from the original.Department of Otolaryngology H&PDate of Service: 3CC: right CPA mass, obtructive hydrocephalusHistory of Present IllnessYovana Cornejo is a 42 year old female with a PMH of right-sided vestibular schwannoma s/p resection in September 2018, small cell lung cancer s/p chemotherapy (EOT approximately 2 months ago), superficial venous thrombosis of the LUE on Xarelto admitted from ED with severe head ache and nausea over the past two weeks getting worse now, and dizziness and vomiting started in ED. As per Neurology record, patient being discharged from the hospital on 03/17/2023; she was admitted then for similar issues. She reports taking a Decadron taper as prescribed, which ended on 03/24/2023, in order to alleviate some of her vasogenic edema. Patient's current headaches are generalized, are described as a pressure-like sensation, are associated with photophobia and phonophobia. She endorses chronic right-sided hearing loss (since her procedure in 2018). She reports she has not had an audiogram since her procedure however reports that she cant hear anything out of that ear. EVD placed 04/02/2023 due to concern for obstructive hydrocephalus. PMHHistory reviewed. No pertinent past medical history.PSHPast Surgical History: Procedure Laterality Date CRANIOTOMY Right 10/22/2018 Surgeon: Praveen Basilio MD; Location[facility] Location LUMBAR PUNCTURE N/A 10/22/2018 Surgeon: Praveen Basilio MD; [facility] MedsCurrent Facility-Administered Medications Medication Dose Route Frequency Last Rate Last Admin benzonatate (TESSALON PERLES) capsule 100 mg 100 mg Oral Q8HPRN 100 mg at 04/03/23 0116 ceFAZolin (ANCEF) 1,000 mg in NaCl 0.9% (NS) 100 mL MINI-BAG 1,000 mg IV Piggyback Q8H ABX Stopped at 04/03/23 0016 heparin lock flush (HEP-LOCK) 100 unit/mL injection 500 Units 5 mL Catheter Dwell PRN - SEE INSTRUCTIONS 500 Units at 04/02/23 0847 NaCl 0.9% (NS) IV infusion 1,000 mL 1,000 mL IV Infusion CONTINUOUS 42 mL/hr at 04/03/23 0638 Rate Verify at 04/03/23 0638 sodium chloride (NS) injection 10 mL 10 mL Intravenous PRN - SEE INSTRUCTIONS gkffynlvhi-quescoridxoxc-uoer (ESGIC) 50-325-40 mg tablet 1 tablet 1 tablet Oral Q4HPRN 1 tablet at 04/03/23 0333 chlorhexidine (PERIDEX) 0.12 % mouthwash 15 mL 15 mL Oral (Swish And Spit Out) Q6H 15 mL at 04/03/23 0624 dexamethasone sod phos PF injection 8 mg 8 mg Intravenous Q12H 8 mg at 04/02/23 2040 dextrose 50 % in water (D50W) injection 25 mL 25 mL Slow IV Push PRN glucagon (GLUCAGEN DIAGNOSTIC KIT) injection 1 mg 1 mg Intramuscular PRN HYDROcodone-acetaminophen (NORCO) 10-325 mg tablet 1 tablet 1 tablet Oral Q6HPRN 1 tablet at 04/03/23 0640 labetaloL (NORMODYNE) injection 20 mg 20 mg Slow IV Push Q15MIN PRN ondansetron (ZOFRAN (PF)) injection 4 mg 4 mg Slow IV Push Q6HPRN pantoprazole (PROTONIX) injection 40 mg 40 mg Slow IV Push Q24H 40 mg at 04/02/23 1446 sennosides-docusate sodium (SENOKOT-S) 8.6-50 mg per tablet 1 tablet 1 tablet Enteral DAILY 1 tablet at 04/02/23 0815 Sliding Scale Insulin - Lispro (HumaLOG) Subcutaneous Q6H 1 Units at 04/02/23 2353 Social HistorySocial History Socioeconomic History Marital status: Tobacco Use Smoking status: Former Types: Cigarettes Passive exposure: Past Smokeless tobacco: Never Social Determinants of Health Financial Resource Strain: Low Risk (03/15/2023) Overall Financial Resource Strain (CARDIA) Difficulty of Paying Living Expenses: Not hard at all Food Insecurity: No Food Insecurity (03/15/2023) Hunger Vital Sign Worried About Running Out of Food in the Last Year: Never true Ran Out of Food in the Last Year: Never true Transportation Needs: No Transportation Needs (03/15/2023) PRAPARE - Transportation Lack of Transportation (Medical): No Lack of Transportation (Non-Medical): No Physical Activity: Inactive (03/15/2023) Exercise Vital Sign Days of Exercise per Week: 0 days Minutes of Exercise per Session: 0 min Social Connections: Unknown (03/15/2023) Social Connection and Isolation Panel [NHANES] Frequency of Communication with Friends and Family: More than three times a week Marital Status: Living with partner Housing Stability: Low Risk (03/15/2023) Housing Stability Vital Sign Unable to Pay for Housing in the Last Year: No Number of Places Lived in the Last Year: 1 Unstable Housing in the Last Year: No Family HistoryNo family history on file.AllergiesAllergies Allergen Reactions Sulfamethoxazole Hives Morphine Hives Tramadol Hives ROS: Constitutional: Negative; Eyes: Negative; ENT: See HPI; CV: negative; Resp:negative; GI: Negative; : negative; MSK: negative; Integumentary: negative; Neuro: negative; Psych: negative; Endoc: negative; Heme: negative; Allergy/Immunology: negativePhysical Exam:Vitals: BP 127/77 | Pulse 88 | Temp 36.2 ?C (97.2 ?F) (Oral) | Resp 30 | Ht 1.575 m (5' 2") | Wt 76.7 kg (169 lb) | SpO2 97% | BMI 30.91 kg/m? Gen: NAD, alert, voice normal without hoarsenessEyes: EOMI, no irritationEars: Bilateral external ears normal in shape and appearance, no mastoid swellingNose: No septal deviation, no polyps/purulence; inferior turbinates wnl; no bleedingOral cavity: No trismus, normal dentitionOropharynx: no bleeding noted, mucosa regularFace/Neck: No facial lesions or evidence of fracture, no neck masses or adenopathyLymph: as abovePulmonary: No distress, normal WOB, no stridorCardio: RRRNeuro: grossly intact, face symmetrical, cranial nerves bilaterally intact, no subjective hearing on rightSkin: no significant facial lesionsPsych: appropriate affectLabs: HemogramRecent Labs 04/02/2305 WBC 7.50 5.91 10.23 HGB 11.5* 10.2* 10.3* HCT 35.6* 31.3* 32.4* PLT 191 209 219 ChemistryRecent Labs 04/02/2305 NA 133* 136 140 K 4.0 4.4 4.1 CL 98 104 110* TCO2 27 23 24 BUN 12 16 20 CREAT 0.72 0.59 0.71 GLU 100 166* 134* MG 1.8 -- -- CA 8.5* 7.9* 8.1* Imaging: CT HEAD WO CONTRASTResult Date: 04/02/2023Interval placement of right frontal approach EVD with its tip terminating at the foramen of Monro. The ventricles are relatively unchanged in caliber. Stable appearance of right retrosigmoid cranioplasty, CP angle mass and associated mass effect. Preliminary Report Dictated by Resident: Jesus Sylvester I, Dorinda Jackson MD., have reviewed this study and agree with the above report.XR CHEST 1 VWResult Date: 04/02/2023Impression: No acute abnormalities. XR CHEST 1 VWResult Date: 04/01/2023Mediport overlies the mid SVC. HS: Y END OF REPORT CT HEAD WO CONTRASTResult Date: . No intracranial hemorrhage. 2. Stable postoperative changes involving the right posterior cerebellar region. There is overlying craniotomy defect with underlying encephalomalacia. Residual mass is suspected in this area, there is mass effect with effacement of the fourth ventricle and mild hydrocephalus. Overall findings are similar to the patient's recent MRI. HS: Y RL: 7802 AFC: [id number] End of report Procedure:noneAssessment and Plan/RecommendationsYovana Cornejo is a 42 year old female with a PMH of right-sided vestibular schwannoma s/p resection in September 2018 who presents for worsening headaches, N/V in the context of a known tumor recurrence. EVD placed 04/02/2023 due to concern for obstructive hydrocephalus. OR for right-sided craniotomy for tumor resection on 04/03/2023 combined case with NSGY. -Written consent obtained for combo case with NSGY, retrosigmoid approach to right CPA mass, IAC drill out-EVD per NSGY- Please call with questionsLesia Shields MDOtolaryngology-Head and Neck Surgery ssociated attestation - El Silva MD - 04/03/2023 7:59 AM CDT H&P updateI personally interviewed and examined the patient in holding today. There have been no interval changes in the history or physical exam since the last clinic within 30 days.Allergies Allergen Reactions Sulfamethoxazole Hives Morphine Hives Tramadol Hives BP 139/75 | Pulse 69 | Temp 36.2 ?C (97.2 ?F) (Oral) | Resp 14 | Ht 5' 2" (1.575 m) | Wt 169 lb (76.7 kg) | SpO2 98% | BMI 30.91 kg/m? Yovana Cornejo is a 42 year old female right VS- Consent in chart- R/B/A previously discussed and reviewed today- Take to OR for revision resection right VS- No unanswered questionsEl Silva MD, BETTY, MPH, FACSAssociate Professor, Neurotology/OtologyDepartment of Otolaryngology-Head and Neck SurgeryGerald Ville [id number] and physical [id number], Brian1.2.840.518402.1.13.104.2.7 .2.307689KmPujgohDabeqSZ1961-66- 10T07:59:58History and physical [id number] .7.2.900162|[id number] e for patient nacqNNM-AFRTBILQHLUYHQIDF-IFRFCT YNGOLOGYUT[address] [id number] 04-03T07:59:581.2.840.118135.1.72 .3.15|1.2.840.988701.1.13.104.2. 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 As per Neurology record, patient being discharged from the hospital on 03/17/2023; she was admitted then for similar issues. She reports taking a Decadron taper as prescribed, which ended on 03/24/2023, in order to alleviate some of her vasogenic edema. Patient's current headaches are generalized, are described as a pressure-like sensation, are associated with photophobia and phonophobia. No nuchal rigidity.She endorses chronic right-sided hearing loss (since her procedure in 2018), numbness on right side of lips and imbalance but denies changes in vision, muscle strength, or sensation. CT head w/o contrast showed evidence of mild hydrocephalus. Plan for EVD placement 04/02/23AM and right sided CPA mass reduction on 04/03/23. On arrival to MICU, patient is awake, alert and oriented X 4, BP stable, Tachycardic. Patient reports headache 7/10 now, getting better. Walked to the restroom. Neurology already discussed about EVD and surgery plan. Denies tingling, numbness on extremities, changes in strength, vision or sensation. Hospital Course:PAST MEDICAL HISTORY History reviewed. No pertinent past medical history.PAST SURGICAL HISTORYPast Surgical History: Procedure Laterality Date CRANIOTOMY Right 10/22/2018 Surgeon: Praveen Basilio MD; Location: [facility] OR Location LUMBAR PUNCTURE N/A 10/22/2018 Surgeon: Praveen Basilio MD; Location: [facility] OR [facility] FAMILY HISTORYNo family history on file.SOCIAL HISTORYSocial History Socioeconomic History Marital status: Tobacco Use Smoking status: Former Types: Cigarettes Passive exposure: Past Smokeless tobacco: Never Social Determinants of Health Financial Resource Strain: Low Risk Difficulty of Paying Living Expenses: Not hard at all Food Insecurity: No Food Insecuri ty Worried About Running Out of Food in the Last Year: Never true Ran Out of Food in the Last Year: Never true Transportation Needs: No Transportation Nee ds Lack of Transportation (Medical): No Lack of Transportation (Non-Medical): No Physical Activity: Inactive Days of Exercise per Week: 0 days Minutes of Exercise per Session: 0 min Social Connections: Unknown Frequency of Communication with Friends and Family: More than three times a week Marital Status: Living with partner Housing Stability: Low Risk Unable to Pay for Housing in the Last Year: No Number of Places Lived in the Last Year: 1 Unstable Housing in the Last Year: No ALLERGIESAllergies Allergen Reactions Sulfamethoxazole Hives Morphine Hives Tramadol Hives REVIEW OF SYSTEMSReview of Systems HENT: Positive for hearing loss. Gastrointestinal: Positive for nausea and vomiting. Neurological: Positive for dizziness and headaches. OBJECTIVE: PHYSICAL EXAMINATIONVitals: 04/01/23 1035 04/01/23 1145 04/01/23 1156 BP: 126/90 124/73 Pulse: 94 106 106 Resp: 18 18 18 Temp: 36.9 ?C (98.4 ?F) TempSrc: Oral SpO2: 99% 100% 100% Weight: 160 lb (72.6 kg) Height: 5' 2" (1.575 m) Physical ExamHENT: Mouth/Throat: Mouth: Mucous membranes are dry. Eyes: Pupils: Pupils are equal, round, and reactive to light. Cardiovascular: Rate and Rhythm: Regular rhythm. Tachycardia present. Pulses: Normal pulses. Heart sounds: Normal heart sounds. Pulmonary: Effort: Pulmonary effort is normal. Breath sounds: Normal breath sounds. Abdominal: Palpations: Abdomen is soft. Musculoskeletal: General: No swelling. Right lower leg: No edema. Left lower leg: No edema. Skin: General: Skin is warm and dry. Capillary Refill: Capillary refill takes less than 2 seconds. Neurological: General: No focal deficit present. Mental Status: She is alert and oriented to person, place, and time. Psychiatric: Mood and Affect: Mood normal. Behavior: Behavior normal. REVIEW OF DATALABS - reviewed pertinent labs as below:Recent Results (from the past 24 hour(s)) CBC WITH DIFF Collection Time: 04/01/23 11:27 AM Result Value Ref Range WBC 7.50 4.30 - 11.10 10*3/?L RBC 3.77 (L) 3.93 - 5.25 10*6/?L HGB 11.5 (L) 11.6 - 15.0 g/dL HCT 35.6 (L) 35.7 - 45.2 % MCV 94.4 80.6 - 95.5 fL MCH 30.5 25.9 - 32.8 pg MCHC 32.3 31.6 - 35.1 g/dL RDW-SD 50.3 (H) 39.0 - 49.9 fL RDW-CV 14.4 12.0 - 15.5 % PLT 191 166 - 358 10*3/?L MPV 9.1 (L) 9.5 - 12.9 fL NRBC/100 WBC 0.0 0.0 - 10.0 /100 WBCs NRBC x10^3 <0.01 10*3/?L GRAN MAT (NEUT) % 88.2 % IMM GRAN % 0.30 % LYMPH % 4.9 % MONO % 5.7 % EOS % 0.5 % BASO % 0.4 % GRAN MAT x10^3(ANC) 6.61 1.88 - 7.09 10*3/uL IMM GRAN x10^3 <0.03 0.00 - 0.06 10*3/uL LYMPH x10^3 0.37 (L) 1.32 - 3.29 10*3/uL MONO x10^3 0.43 0.33 - 0.92 10*3/uL EOS x10^3 0.04 0.03 - 0.39 10*3/uL BASO x10^3 0.03 0.01 - 0.07 10*3/uL COMP. METABOLIC PANEL (10739) Collection Time: 04/01/23 11:27 AM Result Value Ref Range NA 133 (L) 135 - 145 mmol/L K 4.0 3.5 - 5.0 mmol/L CL 98 98 - 108 mmol/L CO2 TOTAL 27 23 - 31 mmol/L AGAP 8 2 - 16 BUN 12 7 - 23 mg/dL GLUCOSE 100 70 - 110 mg/dL CREATININE 0.72 0.50 - 1.04 mg/dL TOTAL BILI 0.5 0.1 - 1.1 mg/dL CALCIUM 8.5 (L) 8.6 - 10.6 mg/dL T PROTEIN 7.1 6.3 - 8.2 g/dL ALBUMIN 4.1 3.5 - 5.0 g/dL ALK PHOS 79 34 - 122 U/L ALTv 49 (H) 5 - 35 U/L AST(SGOT) 34 13 - 40 U/L eGFR 88.4 mL/min/1.73m2 IMAGING - reviewed, pertinent results as below: Hospital Encounter on 04/01/23 CT HEAD WO CONTRAST Narrative ORDERING CLINICIAN: RIANA BANKS: Axial scanning of the brain was performed without IV contrast.CT scan was performed according to the ALARA (as low as reasonablyachievable) principal.STUDY QUALITY: AdequateINDICATION: MRI 03/15/2023OMPARISON: NoneDISCUSSION:There is a right temporal/occipital craniotomy defect with adjacentencephalomalacia. Findings are consistent with partial resection ofcerebellopontine angle mass. Residual mass is suspected, there is masseffect with effacement of the fourth ventricle and mild hydrocephalus.Findings are similar to recent MRI.There is no intracranial hemorrhage or midline shift.No new mass lesions are identified. Impression 1. No intracranial hemorrhage.2. Stable postoperative changes involving the right posterior cerebellarregion. There is overlying craniotomy defect with underlyingencephalomalacia. Residual mass is suspected in this area, there is masseffect with effacement of the fourth ventricle and mild hydrocephalus.Overall findings are similar to the patient's recent MRI.HS: YRL: [id number]: [id number] of report OLOGYCT HEAD WO CONTRASTResult Date: . No intracranial hemorrhage. 2. Stable postoperative changes involving the right posterior cerebellar region. There is overlying craniotomy defect with underlying encephalomalacia. Residual mass is suspected in this area, there is mass effect with effacement of the fourth ventricle and mild hydrocephalus. Overall findings are similar to the patient's recent MRI. 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 Marked interval increase in the size of the right CP angle mass measures up to 4.3 cm with significant mass effect on the right side of the ranjeet, middle cerebellar peduncle and pontomedullary junction and resulting in partial effacement of the fourth ventricle. Mild edema of the right inferior cerebellar hemisphere posterior to the. Mild interval increase in the size of the lateral ventricles with mild FLAIR hyperintense signal about the occipital horns of the lateral ventricles suggestive of obstructive hydrocephalus. Preliminary Report Dictated by Resident: Kyaw Chong I, Dorinda Jackson MD., have reviewed this study and agree with the above report. 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 *HydrocephalusCPA tumor Acute intractable headacheNausea, vomiting and dizzinessPlan/intervention-Admit to the ICU-Q1H neuro checks-EVD placement ny NS tomorrow AM (04/02/2023)- Right-sided CPA mass resection on 04/03/23- Lovenox 40mg once now- Decadron 8mg Q12H- Head of bed >30 degrees- SBP goal <140 mmHg- Fall precaution - Regular diet- Hold Xeralto- Monitor BS closelyDVT prophylaxis: Lovenox X 1 doseFamily Updated: Mother, Elizabeth FinnDispo: MICUPrognosis: Era spent a total of 20 minutes on the floor or unit without overlapping minutes. The time spent for patient care includes: performing activities that directly relate to the treatment and management of this critically ill patient to include: Reviewing test results or imaging studies, Discussing the patient's care with other medical staff, Documenting critical care services in the medical record, Review of patient's condition, obtaining medical history, treatment, limitations of treatment or prognosis with family or surrogate decision makers, and Reviewing the patient's condition or prognosisThe overlapping time with the physician was 10minLISA Garza ssociated attestation - Jonathan Morton MD - 04/01/2023 3:49 PM CDT The patient was seen and examined with the ACNP. The clinical data was reviewed and discussed. I agree with the plan documented by the ACNP unless otherwise documented by me. Problem list:Mild obstructive hydrocephalusCPA tumorAcute intractable headacheHistory of small cell lung cancerHistory of DVTPlan:- Neuro check Q1H- Neurosurgery is on board and planning for EVD placement tomorrow and crani on Monday- Hold Xarelto for now and one dose of Lovenox today- NPO from midnight- SBP goal < 140 mmHg- Pain and nausea management- Patient updated about the plan Jonathan Morton MDPulmonary & Critical Care Medicine,[facility].Due to a high probability of clinically significant deterioration, the patient required my highest level of preparedness to intervene emergently and I personally spent 40 minutes of critical care time (which includes overlapping time with the SHAJI) directly and personally managing the patient. This critical care time included obtaining a history; examining the patient; pulse oximetry; ordering and review of studies; arranging urgent treatment with development of a management plan; evaluation of patient's response to treatment; frequent reassessment; and, discussions with other providers. I provided a substantive portion of the care of this patient. I personally provided more than half of the total time dedicated to the treatment of this patient.99046-4Vzoywlp and physical [id number], Atul1.2.840.122282.1.13.104.2.7. 2.391665BbgozQvoeYE8516-90-34V91 :49:34History and physical noteTXT1.2.840.187677.1.13.104.2 .7.2.762488|[id number] e for patient [address] A[id number]I3917-9 :49:341.2.840.814801.1.72 .3.15|1.2.840.046702.1.13.104.2. [id number] Procedure Notes Date/Time Note Provider Source 2023-04-03 21:02:51 [id number]:02:51Formatting of this note [facility] might be different from the original.Date of Operation: 04/03/23 Patient Name: Yovana Cornejo MR#: [id number] Preoperative Diagnosis: RIGHT vestibular schwannoma Postoperative Diagnosis: RIGHT vestibular schwannoma Procedures: 1. 70736 Right Retrosigmoid Petrous Apicectomy (Skull-based approach-62)2. 36235 Resection of Right Acoustic Neuroma (Modifier 62)3. 36089 Percutaneous needle electrode electromyography of unilateral cranial nerve supplied muscle (Right Facial Nerve) for calibration of the facial nerve monitor 8. 57625 Continuous Right facial nerve monitoring. 9. 69302 Operative Microscopy Surgeon: El Silva M.D. Resident Surgeon: Lesia Shields M.D.; Sandi Ruiz MD Anesthesia: General Endotracheal Anesthesia Estimated Blood Loss: 5 mL Specimens: See Neurosurgery Note Complications: None Findings: 1. Significantly expanded IAC with tumor expanding into the basal cistern2. Tumor was densely impacted into the porus3. Exposure was difficult. The facial nerve was not initially identified in the IAC however was identified at the brain stem and traced forward from an inferior to superior direction, carefully protecting it. It took an early deep turn the traveled superiorly along the ventral border of the tumor, before finally diving inferiorly to join the brainstem. Following, the facial nerve was identified in the IAC with appropriate stimulation 4. Some tumor residual was left in place adjacent to the petrous dura where it turned into the porus. 5. The cochlear nerve did not stimulate at the beginning (or throughout the case), and was left intact 6. The vestibular nerves were sacrificed.7. The facial nerve responded to low amperage stimulation at the end of the case. Description of Procedure: After the neurosurgical team had completed a retrosigmoid craniotomy and exposed the petrous apex, the otologic portion of the case began. The dura was reflected off the posterior face of the petrous temporal bone, and the petrous apex was taken down with cutting and polishing burs, operative magnification, and facial nerve monitoring. The internal auditory canal was exposed in a 180-degree semi-circumferential fashion, from the porus acousticus to the fundus/ endolymphatic duct. Bone overlying the canal was taken down to an eggshell thickness and then removed. The underlying dura was incised and reflected to expose the tumor. The tumor was gently elevated from lateral to medial and from cranial to caudal. Exposure was difficult. The facial nerve was not initially identified in the IAC however was identified at the brain stem and traced forward from an inferior to superior direction, carefully protecting it. It took an early deep turn the traveled superiorly along the ventral border of the tumor, before finally diving inferiorly to join the brainstem. The facial nerve was identified and a plane was developed between the facial nerve and the tumor. After extending the dissection back into the basal cistern, the origin of the tumor, from the vestibular nerve could be more fully appreciated, then the proximal end of the vestibular nerve could be divided. The cochlear nerve was preserved. The majority of the tumor was removed except for the above portions, as the risk of removing all of the tumor capsule outweighed the benefit of gross total resection. The facial nerve was preserved. The basal cistern was irrigated. The brain was allowed to re-expand, then the neurosurgical team returned for further tumor excision and closure. There were no intraoperative complications. Dr. Silva was scrubbed for the entire portion of this case, and performed critical procedures in this case. Lesia Shields MDOtolaryngology-Head and Neck Surgery ssociated attestation - El Silva MD - 04/04/2023 11:55 AM CDT I have reviewed and agree with the operative note, and actively participated in all decision making processes and the entire procedure. See operative note for full details.El Silva MD, BETTY, MPH, FACSAssociate Professor, Neurotology/OtologyDepartment of Otolaryngology-Head and Neck SurgeryCommunity Memorial [id number] [id number], [id number] [id number] [id number] for patient care[address] A[id number] [id number] .[id number]. [id number]
[2023-07-22 03:53] LABS: Absolute Lymphocytes (CBC) 0.4 K/uL (0.7-4.9); Hematocrit 36.2 % (36.0-45.0); Lymphocytes % 2.6 % (15.3-44.8); MCV 81.7 fL (80-100); MPV 6.8 fL (7.6-11.3); Platelets 196 thou/uL (152-406); RBC Red Blood Cell Count 4.44 M/uL (3.86-4.86)
[2023-07-22 03:59] LABS: Protime INR 0.85
[2023-07-22] MEDS ORDERED: LIDOCAINE 1% 20 ML MDV ONE (04:09)
[2023-07-22] MEDS ORDERED: HYDROMORPHONE HCL 1 MG/ML INJ ONE (04:09)
[2023-07-22 04:13] LABS: Albumin 2.6 g/dL (3.4-5.0); Bilirubin Total 0.1 mg/dL (0.2-1.0); Potassium 3.9 mEq/L (3.5-5.1); Protein, Total 5.8 g/dL (6.4-8.2)
[2023-07-22 04:20] LABS: Blood Morphology Comment NOTED (NOT SEEN); Platelet Estimate ADEQ; Poikilocytosis 1+; White Blood Cell Scan OK (OK)
--- NOTE | 2023-07-22 05:00 | ER ---
Nurse's Notes [facility] Name: Mike Cornejo Age: 42 yrs Sex: Female : 1980 Arrival Date: 07/22/2023 Time: 02:43 Bed 8 Private MD: Diagnosis: Labial Abscess;Cellulitis, unspecified;Sepsis, unspecified organism Presentation: 07/22 02:47 Chief complaint: Patient states: finished radiation therapy on Monday, having pain pf1 and swelling on the genital area. denies drainage. Coronavirus screen: At this time, the client does not indicate any symptoms associated with coronavirus-19. Ebola Screen: No symptoms or risks identified at this time. Initial Sepsis Screen: Does the patient meet any 2 criteria? No. Patient's initial sepsis screen is negative. Does the patient have a suspected source of infection? No. Patient's initial sepsis screen is negative. Risk Assessment: Do you want to hurt yourself or someone else? Patient reports no desire to harm self or others. Onset of symptoms was July 22, 2023. 02:47 Method Of Arrival: Ambulatory pf1 02:47 Acuity: YING 3 pf1 Triage Assessment: 02:50 General: Appears uncomfortable, Behavior is calm, cooperative. Pain: Complains of pain pf1 in groin. Neuro: Level of Consciousness is awake, alert, obeys commands, Oriented to person, place, time, situation. Cardiovascular: Capillary refill Patient's skin is warm and dry. Respiratory: Airway is patent Respiratory effort is even, unlabored. : Reports pain labia. Historical: - Allergies: 02:49 Bactrim; pf1 02:49 Morphine; pf1 02:49 tramadol; pf1 - PMHx: 02:49 BRAIN TUMOR; Lung mass; pf1 - PSHx: 02:49 Appendectomy; Cholecystectomy; Brain tumor surgery; Tonsillectomy; pf1 - Immunization history:: Adult Immunizations up to date. - Social history:: Smoking status: unknown. - Family history:: not pertinent. - Hospitalizations: : No recent hospitalization is reported. Screenin:51 [facility] ED Fall Risk Assessment (Adult) History of falling in the last 3 months, pf1 including since admission No falls in past 3 months (0 pts) Score/Fall Risk Level 0 - 2 = Low Risk Oriented to surroundings, Maintained a safe environment, Educated pt \T\ family on fall prevention, incl call for assistance when getting out of bed, Assessed \T\ reinforced patient's understanding of fall precautions, Provided non-skid footwear, Hourly rounding (assess needs \T\ fall precautionary measures) done, Used ambulatory aids as needed (educated on \T\ assisted with), Used gait belt as appropriate. Abuse screen: Denies threats or abuse. Denies injuries from another. Nutritional screening: No deficits noted. Tuberculosis screening: No symptoms or risk factors identified. Assessment: 02:50 Reassessment: see triage assessment. jb4 04:00 Reassessment: Patient appears in no apparent distress at this time. Patient and/or jb4 family updated on plan of care and expected duration. Pain level reassessed. Patient is alert, oriented x 3, equal unlabored respirations, skin warm/dry/pink. 05:00 Reassessment: Patient appears in no apparent distress at this time. Patient and/or jb4 family updated on plan of care and expected duration. Pain level reassessed. Patient is alert, oriented x 3, equal unlabored respirations, skin warm/dry/pink. 06:00 Reassessment: Patient appears in no apparent distress at this time. Patient and/or jb4 family updated on plan of care and expected duration. Pain level reassessed. Patient is alert, oriented x 3, equal unlabored respirations, skin warm/dry/pink. 06:05 Reassessment: [facility] ETA 2-3 hours. pf1 Vital Signs: 02:47 BP 142 / 109; Pulse 120; Resp 19; Temp 98.5; Pulse Ox 99% on R/A; Weight 78.02 kg; pf1 Height 5 ft. 2 in. ; 04:00 BP 140 / 94; Pulse 94; Resp 16; Pulse Ox 98% on R/A; jb4 05:00 BP 136 / 99; Pulse 92; Resp 18; Pulse Ox 98% on R/A; jb4 06:00 BP 149 / 105; Pulse 85; Resp 16; Pulse Ox 96% on R/A; jb4 02:47 Body Mass Index 31.46 (78.02 kg, 157.48 cm) pf1 ED Course: 02:44 Patient arrived in ED. mr 02:45 John Neal MD is Attending Physician. rn 02:49 Triage completed. pf1 02:50 Arm band placed on right wrist. pf1 02:51 Patient has correct armband on for positive identification. Client placed on continuous pf1 cardiac and pulse oximetry monitoring. NIBP monitoring applied. shelter monitor on. 03:15 Inserted saline lock: 20 gauge in right forearm, using aseptic technique. Blood rv collected. 03:15 No provider procedures requiring assistance completed. rv 04:40 Initiated transfer to [facility], spoke with Ria. 05:35 Pt accepted for transfer to [facility] by Dr. Dean \T\ [phone] per wm Ria Mratins. 06:04 Yannick Samuel, JAE is Primary Nurse. jb4 06:23 per Minesh from [facility] they will be here in 45 minutes. eb Administered Medications: 04:05 Drug: HYDROmorphone IVP 1 mg IVP once Route: IVP; Site: right forearm; jb4 05:09 Drug: Piperacillin-Tazobactam IVPB 3.375 grams IVPB once over 60 mins; (mix in NS 100 jb4 mL) Route: IVPB; Infused Over: 60 mins; Site: right forearm; 05:24 Drug: HYDROmorphone IVP 0.5 mg IVP once Route: IVP; Site: right forearm; jb4 06:04 Drug: HYDROmorphone IVP 0.5 mg IVP once Route: IVP; Site: right forearm; jb4 06:30 Drug: vancoMYCIN IVPB 1 grams IVPB once over 2 hrs Route: IVPB; Infused Over: 2 hrs; jb4 Site: right forearm; 06:46 Drug: Lidocaine Infiltration (1 %) 1 vials 20 ml Infiltration once; to bedside {Note: jb4 Admin by ER provider.} Volume: 20 ml; Route: Infiltration; Outcome: 04:59 ER care complete, transfer ordered by . rn 07:43 Patient left the ED. Addendum: 07/24/2023 05:48 Addendum: Culture Results: Positive blood culture. called [facility] spoke to Ralph singh updated on results report faxed to [facility]. Signatures: Salina Dyson RN RN kl Rivera, Mary, Reg Reg John Kenny MD MD rn Baxter, Heather, RN RN hb Bryson, Yannick, RN RN jb4 Pam Salazar Ronaldo, JAE RN Nancy Gamboa Pamala, RN RN pf1 Corrections: (The following items were deleted from the chart) 07/22 02:50 02:47 Acuity: YING 4 pf1 pf1 02:50 02:49 PMHx: lung cancer (Tonsillectomy); pf1 pf1 02:50 02:49 PMHx: lung cancer (Tonsillectomy); pf1 pf1
--- NOTE | 2023-07-22 05:00 | EDPHYS ---
Physician Documentation [facility] Name: Mike Cornejo Age: 42 yrs Sex: Female : 1980 Arrival Date: 07/22/2023 Time: 02:43 Bed 8 Private MD: ED Physician John Neal HPI: 07/22 02:58 This 42 yrs old Female presents to ER via Ambulatory with complaints of Vaginal problem.rn 02:58 The patient presents with pelvic pain. Onset: The symptoms/episode began/occurred 3 rn day(s) ago. Modifying factors: The symptoms are alleviated by nothing, the symptoms are aggravated by movement. Associated signs and symptoms: Pertinent negatives: fever, vaginal discharge. Severity of symptoms: At their worst the symptoms were moderate, in the emergency department the symptoms are unchanged. The patient has not experienced similar symptoms in the past. The patient has not recently seen a physician. Patient reports 3 days of left vaginal/labial swelling and redness. Patient is concerned of infection. No fever. No vaginal discharge.. Historical: - Allergies: 02:49 Bactrim; pf1 02:49 Morphine; pf1 02:49 tramadol; pf1 - PMHx: 02:49 BRAIN TUMOR; Lung mass; pf1 - PSHx: 02:49 Appendectomy; Cholecystectomy; Brain tumor surgery; Tonsillectomy; pf1 - Immunization history:: Adult Immunizations up to date. - Social history:: Smoking status: unknown. - Family history:: not pertinent. - Hospitalizations: : No recent hospitalization is reported. ROS: 02:58 Constitutional: Negative for fever, chills, and weight loss, Cardiovascular: Negative rn for chest pain, palpitations, and edema, Respiratory: Negative for shortness of breath, cough, wheezing, and pleuritic chest pain, Abdomen/GI: Negative for abdominal pain, nausea, vomiting, diarrhea, and constipation, : Positive for left labial swelling and pain Exam: 02:58 Constitutional: This is a well developed, well nourished patient who is awake, alert, rn appears uncomfortable Cardiovascular: Tachycardic, regular. Female : Left mid and lower labia with erythema, warmth and obvious fluctuance that is approximately 1 inch in diameter. No necrosis but does exhibit some ulceration on the medial side. No extension towards perineal region 04:20 ECG was reviewed by the Attending Physician. rn Vital Signs: 02:47 BP 142 / 109; Pulse 120; Resp 19; Temp 98.5; Pulse Ox 99% on R/A; Weight 78.02 kg; pf1 Height 5 ft. 2 in. ; 04:00 BP 140 / 94; Pulse 94; Resp 16; Pulse Ox 98% on R/A; jb4 05:00 BP 136 / 99; Pulse 92; Resp 18; Pulse Ox 98% on R/A; jb4 06:00 BP 149 / 105; Pulse 85; Resp 16; Pulse Ox 96% on R/A; jb4 02:47 Body Mass Index 31.46 (78.02 kg, 157.48 cm) pf1 Procedures: 06:00 I \T\ D: Incision and drainage was performed for an abscess of the left labia Prepped rn with Betadine, Anesthetized with 3 ml's 1% Lidocaine. Incised with #11 blade. Drained moderate amount serosanguinous fluid. bloody fluid. Packed with iodoform gauze, Dressing: sterile 4x4 gauze, non-Adherent dressing, the patient tolerated the procedure well. MDM: 02:45 Patient medically screened. rn 04:55 Differential diagnosis: cellulitis, labial abscess, sepsis. Data reviewed: vital signs, rn nurses notes, lab test result(s), and as a result, I will admit patient. Counseling: I had a detailed discussion with the patient and/or guardian regarding the historical points, exam findings, and any diagnostic results supporting the discharge/admit diagnosis, lab results, the need for further work-up and treatment in the hospital, the need to transfer to another facility, [facility] does not immediately have the required specialist. Response to treatment: the patient's symptoms have mildly improved after treatment, and as a result, I will admit patient. ED course: Patient with 17,000 white count and elevated lactate, would like to admit for IV antibiotics but no THREAD WEAVER at this facility, initiated transfer and accepted for transfer to [facility] per patient's request as she has been there before.. 07/22 02:54 Order name: Blood Culture Adult (2) rn 07/22 02:54 Order name: CBC with Diff; Complete Time: 04:21 rn 07/22 02:54 Order name: CMP; Complete Time: 04:21 rn 07/22 02:54 Order name: Lactate w/ 2H reflex if indic.; Complete Time: 04:21 rn 07/22 02:54 Order name: Protime (+inr); Complete Time: 04:21 rn 07/22 02:54 Order name: Ptt, Activated; Complete Time: 04:21 rn 07/22 03:56 Order name: CBC Smear Scan; Complete Time: 04:21 EDMS 07/22 06:54 Order name: Lactate Sepsis 2 HR Follow-up; Complete Time: 06:55 EDMS 07/22 02:54 Order name: EKG; Complete Time: 02:55 rn 07/22 02:54 Order name: Accucheck; Complete Time: 03:44 rn 07/22 02:54 Order name: Cardiac monitoring; Complete Time: 03:44 rn 07/22 02:54 Order name: EKG - Nurse/Tech; Complete Time: 04:40 rn 07/22 02:54 Order name: IV Saline Lock - Large Bore; Complete Time: 03:44 rn 07/22 02:54 Order name: Labs collected and sent; Complete Time: 03:44 rn 07/22 02:54 Order name: O2 Per Protocol; Complete Time: 03:29 rn 07/22 02:54 Order name: O2 Sat Monitoring; Complete Time: 03:29 rn 07/22 02:54 Order name: Vital Signs; Complete Time: 03:29 rn EC:20 Rate is 83 beats/min. Rhythm is regular. QRS [place] is Normal. OK interval is normal. QRS rn interval is normal. QT interval is normal. No Q waves. T waves are Normal. No ST changes noted. Clinical impression: Normal ECG. Interpreted by me. Reviewed by me. Administered Medications: 04:05 Drug: HYDROmorphone IVP 1 mg IVP once Route: IVP; Site: right forearm; jb4 05:09 Drug: Piperacillin-Tazobactam IVPB 3.375 grams IVPB once over 60 mins; (mix in NS 100 jb4 mL) Route: IVPB; Infused Over: 60 mins; Site: right forearm; 05:24 Drug: HYDROmorphone IVP 0.5 mg IVP once Route: IVP; Site: right forearm; jb4 06:04 Drug: HYDROmorphone IVP 0.5 mg IVP once Route: IVP; Site: right forearm; jb4 06:30 Drug: vancoMYCIN IVPB 1 grams IVPB once over 2 hrs Route: IVPB; Infused Over: 2 hrs; jb4 Site: right forearm; 06:46 Drug: Lidocaine Infiltration (1 %) 1 vials 20 ml Infiltration once; to bedside {Note: jb4 Admin by ER provider.} Volume: 20 ml; Route: Infiltration; Disposition Summary: 07/22/23 04:59 Transfer Ordered Notes: Transfer Location: [facility] rn Reason: Higher level of care rn Condition: Stable rn Problem: new rn Symptoms: have improved rn Accepting Physician: (07/22/23 07:43) lisa Diagnosis - Labial Abscess rn - Cellulitis, unspecified rn - Sepsis, unspecified organism rn Forms: - Medication Reconciliation Form rn - SBAR form rn Signatures: Dispatcher [employer] EDJohn Dill MD MD rn Baxter, Heather, RN RN hb Bryson, James, RN RN jbMami Armendariz RN RN pf1 Corrections: (The following items were deleted from the chart) 02:50 02:49 PMHx: lung cancer (Tonsillectomy); pf1 pf1 02:50 02:49 PMHx: lung cancer (Tonsillectomy); pf1 pf1 03:45 02:58 Constitutional: This is a well developed, well nourished patient who is awake, rn alert, appears uncomfortable Cardiovascular: Tachycardic, regular. rn 03:49 02:55 Pelvis W/Cont+CT.RAD.BRZ ordered. EDVA EDVA 05:46 02:58 Constitutional: This is a well developed, well nourished patient who is awake, rn alert, appears uncomfortable Cardiovascular: Tachycardic, regular. Female : Left mid and lower labia with erythema, warmth and obvious fluctuance that is approximately 1 inch in diameter. No necrosis. No extension towards perineal region rn 07:43 04:59 Dr. flor hb
[2023-07-22] MEDS ORDERED: VANCOMYCIN 1 GM/VIAL ONE (05:09)
[2023-07-22] MEDS ORDERED: NA CHLORIDE 0.9% 250 ML ONE (05:09)
[2023-07-22] MEDS ORDERED: PIPERACIL/TAZO 3.375 GM VIAL IV ONE (05:10)
[2023-07-22] MEDS ORDERED: NA CHLORIDE 0.9% 100 ML ONE (05:10)
[2023-07-22] MEDS ORDERED: HYDROMORPHONE HCL 0.5 MG/0.5 ML INJ ONE ×2 (05:34→06:15)
[2023-07-22 07:52] VITALS: TEMP 98.5
[2023-07-22 08:10] VITALS: BP 149/105; O2SAT 96
--- NOTE | 2023-07-25 08:00 | EKG ---
Test Date: 2023-07-22 Test Time: 03:52:44 Lead Carpenter: PETAR MEASUREMENT RESULTS: Intervals: Rate: 83 MD: 112 QRSD: 84 QT: 354 QTc: 415 [place]: P: 67 MD: 112 QRS: 45 T: 44 INTERPRETIVE STATEMENTS: Normal sinus rhythm Normal ECG Compared to ECG 02/21/2023 10:48:18 Short MD interval no longer present Electronically Signed On 07-25-23 07:53:33 CDT by Rell Roman
== END 2023-07-22 07:43 | disposition short-term general hospital (02) ==
LOC: ER 02:43
PROC: 0H9AXZZ Drainage of Inguinal Skin, External Approach (ICD-10-PCS; principal; 2023-07-22)
DX: N76.4 Abscess of vulva (principal); A41.9 Sepsis, unspecified organism; N76.2 Acute vulvitis; Z88.1 Allergy status to other antibiotic agents; Z88.5 Allergy status to narcotic agent
CPT/HCPCS: 93005; 87040 ×2; 85025; 36415; 87205 ×4; 85610; 83605 ×2; 85730; 87077 ×2; 87186 ×2; 80053; 96375; 96374; 99285; 56405; J2001; J2543; J2250; J1170 ×3; J7050

== ENCOUNTER 2023-09-08 07:37 | Inpatient (IN) | payer OTHER ==
--- OUTSIDE RECORDS SUMMARY | 2023-09-08 07:41 | XMS REPORT | Clinical Summary ---
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 Ancillary Procedure [facility] [address] [place] [id number] Cancer 07/24/2023 9:45 PM CDT Ancillary Procedure [facility] [address] [place] [id number] Trevor Vallecillo, [facility] Cancer 07/24/2023 9:40 PM CDT Ancillary Procedure [facility] [address] [place] [address] [id number] Trevor Vallecillo, [facility] Cancer 07/24/2023 9:35 PM CDT Ancillary Procedure Image [facility] [address] [place] [address] [id number] Trevor Vallecillo, [facility] Cancer 07/24/2023 9:30 PM CDT Ancillary Procedure Image [facility] [address] [place] [address] [id number] Trevor Vallecillo, [facility] 07/24/2023 9:25 PM CDT Ancillary Procedure Image [facility] [address] [place] [address] [id number] Trevor Vallecillo, [facility] Cancer 07/24/2023 9:20 PM CDT Ancillary Procedure Image [facility] [address] [place] [address] [id number] Trevor Vallecillo, [facility] Cancer 07/24/2023 9:15 PM CDT Ancillary Procedure Image Library [address] [place] [address] [id number] Trevor Vallecillo, [facility] Cancer 07/24/2023 9:10 PM CDT Ancillary Procedure Image Library [address] [place] [address] [id number] Trevor Vallecillo, [facility] 07/24/2023 9:05 PM CDT Ancillary Procedure Image Library [address] [place] [address] [id number] Trevor Vallecillo, [facility] Cancer 07/24/2023 9:00 PM CDT Ancillary Procedure Image Library [address] [place] [address] [id number] Trevor Vallecillo, [facility] 07/24/2023 8:55 PM CDT Ancillary Procedure Image Library [address] [place] [address] [id number] Trevor Vallecillo, [facility] Cancer 07/24/2023 8:50 PM CDT Ancillary Procedure Image Library [address] [place] [address] [id number] Trevor Vallecillo, [facility] 07/24/2023 8:45 PM CDT Ancillary Procedure Image Library [address] [place] [address] [id number] Trevor Vallecillo, [facility] Cancer 07/24/2023 8:40 PM CDT Ancillary Procedure Image Library [address] [place] [address] [id number] Trevor Vallecillo, [facility] 07/24/2023 8:35 PM CDT Ancillary Procedure Image Library [address] [place] [address] [id number] Trevor Vallecillo, [facility] Cancer after 09/08/2022 Social History Tobacco Use Types Packs/Day Years Used Date Smoking Tobacco: Never Assessed Sex and Gender Information Value Date Recorded Sex Assigned at Female 07/10/2023 9:22 AM CDT Gender Identity Female 07/10/2023 9:22 AM CDT Sexual Orientation Straight 07/10/2023 9: 22 AM CDT Job Start Date Occupation Industry Not on file Not on file Not on file Plan of Treatment Not on file Procedures Procedure Name Priority Date/Time Associated Diagnosis Comments OSI MRI HEAD Routine 06/28/2023 2:11 PM CDT Cancer OSI CT BRAIN Routine 04/08/2023 9:24 PM CDT Cancer OSI BARIUM SWALLOW Routine 04/06/2023 9: 24 PM CDT Cancer OSI CHEST Routine 04/04/2023 9:25 PM CDT Cancer OSI CT BRAIN Routine 04/04/2023 9:25 PM CDT Cancer OSI MRI HEAD Routine 04/04/2023 9:25 PM CDT Cancer OSI ABDOMEN Routine 04/04/2023 9:25 PM CDT Cancer OSI CHEST Routine 04/02/2023 9:26 PM CDT Cancer OSI CT BRAIN Routine 04/02/2023 9:25 PM CDT Cancer OSI CT BRAIN Routine 04/01/2023 9:26 PM CDT Cancer OSI CHEST Routine 04/01/2023 9:26 PM CDT Cancer OSI MRI HEAD Routine 03/15/2023 9:26 PM CDT Cancer after 09/08/2022 Results * OSI MRI Head (06/28/2023 2:11 PM CDT) Only the most recent of3 resultswithin the time period is included. Narrative Systemgenerated, Documentation - 08/09/2023 2:11 PM FILLER MACHINE OPERATOR Study acquired at another institution. For comparison only. No [facility] originated interpretation requested or available. Juan Davila IMG OUTSIDE IMAGE OR DERABLES * OSI CT Brain (04/08/2023 9:24 PM CDT) Only the most recent of4 resultswithin the time period is included. Narrative Systemgenerated, Documentation - 07/24/2023 9:24 PM CDT Study acquired at another institution. For comparison only. No MD Robby originated interpretation requested or available. Trevor Vallecillo [facility] IMG OUTSIDE IMAGE O RDERABLES * OSI Barium Swallow (04/06/2023 9:24 PM CDT) Narrative Systemgenerated, Documentation - 07/24/2023 9:24 PM CDT Study acquired at another institution. For comparison only. No MD Robby originated interpretation requested or available. Trevor Vallecillo [facility] IMG OUTSIDE IMAGE O RDERABLES * OSI Chest (04/04/2023 9:25 PM CDT) Only the most recent of3 resultswithin the time period is included. Narrative Systemgenerated, Documentation - 07/24/2023 9:25 PM CDT Study acquired at another institution. For comparison only. No MD Robby originated interpretation requested or available. Trevor Vallecillo [facility] IMG OUTSIDE IMAGE O RDERABLES * OSI Abdomen (04/04/2023 9:25 PM CDT) Narrative Systemgenerated, Documentation - 07/24/2023 9:25 PM CDT Study acquired at another institution. For comparison only. No MD Robby originated interpretation requested or available. Trevor Vallecillo [facility] IMG OUTSIDE IMAGE O RDERABLES after 09/08/2022
--- NOTE | 2023-09-08 08:47 | RAD REPORT ---
EXAM DESCRIPTION: RAD - Chest Single View - 09/08/2023 8:40 am CLINICAL HISTORY: COUGH Chest pain. COMPARISON: Chest Single View dated 02/21/2023; ABDOMEN 1 VIEW KUB dated 03/12/2014; CHEST PA AND LAT 2 VIEW dated 12/16/2011 FINDINGS: Portable technique limits examination quality. There is a small opacity in the medial left lung base which could be an early infiltrate. Lungs other ontiveros clear. Right-sided venous catheter tip in the SVC. The heart is normal in size. No displaced fra ctures. IMPRESSION: Small, early infiltrate is possible in the left base medially.
[2023-09-08 09:06] LABS: Specific Gravity > 1.030 (1.005-1.030); Urine Bacteria 20-50 /HPF (<20); Urine Bilirubin NEGATIVE (Negative); Urine Blood Negative (Negative); Urine Clarity Turbid (Clear); Urine Color Yellow (Yellow); Urine Glucose NEGATIVE (Negative); Urine Mucus 1+ /HPF (None Seen); Urine Protein 1+ (Negative); Urine RBC <5 /HPF (None Seen); Urine Urobilinogen 1+ (Normal)
[2023-09-08 09:27] LABS: Protime INR 1.05
[2023-09-08] MEDS ORDERED: CEFEPIME 2 GM VIAL ONE (09:27)
[2023-09-08] MEDS ORDERED: NA CHLORIDE 0.9% 1,000 ML ONE (09:27)
[2023-09-08 09:30] LABS: SARS-CoV-2 Antigen Rapid Res Negative (Negative)
[2023-09-08 11:20] LABS: Absolute Lymphocytes (CBC) 0.3 K/uL (0.7-4.9); Hematocrit 24.4 % (36.0-45.0); Lymphocytes % 23.5 % (15.3-44.8); MCV 81.6 fL (80-100); MPV 7.2 fL (7.6-11.3); Platelets 104 thou/uL (152-406); RBC Red Blood Cell Count 2.99 M/uL (3.86-4.86)
[2023-09-08 11:31] LABS: Albumin 3.2 g/dL (3.4-5.0); Bilirubin Total 0.5 mg/dL (0.2-1.0); Potassium 3.6 mEq/L (3.5-5.1); Protein, Total 6.8 g/dL (6.4-8.2); Troponin High Sensitivity 5.4 pg/mL (<58.9)
[2023-09-08] MEDS ORDERED: VANCOMYCIN 1 GM/VIAL ONE (11:58)
[2023-09-08] MEDS ORDERED: NA CHLORIDE 0.9% 250 ML ONE (11:59)
[2023-09-08] MEDS ORDERED: FENTANYL CITR 100 MCG/2 ML ONE (12:00)
--- NOTE | 2023-09-08 12:02 | ER ---
Nurse's Notes [facility] Name: Mike Cornejo Age: 43 yrs Sex: Female : 1980 Arrival Date: 09/08/2023 Time: 07:37 Bed 7 Private MD: Diagnosis: Pneumonia, unspecified organism;Sepsis, unspecified organism Presentation: 09/08 08:03 Chief complaint: Patient states: fever up to 101.8*F that began yesterday, reports aa5 cough, and chest congestion. Pt reports she is currently receiving chemotherapy for lung cancer. Coronavirus screen: congestion, cough unrelated to allergies. Ebola Screen: Patient denies travel to an Ebola-affected area in the 21 days before illness onset. Initial Sepsis Screen: Does the patient meet any 2 criteria? Temp <36.0*C (96.8*F)) or > 38.3*C (100.9*F). HR > 90 bpm. Yes Does the patient have a suspected source of infection? Yes:. Risk Assessment: Do you want to hurt yourself or someone else? Patient reports no desire to harm self or others. Onset of symptoms was August 2023. 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 - Social history:: Smoking status: Patient/guardian denies using tobacco. - Family history:: not pertinent. Screenin:30 [facility] ED Fall Risk Assessment (Adult) History of falling in the last 3 months, ko1 including since admission No falls in past 3 months (0 pts) Confusion or Disorientation No (0 pts) Intoxicated or Sedated No (0 pts) Impaired Gait No (0 pts) Mobility Assist Device Used No (0 pt) Altered Elimination No (0 pt) Score/Fall Risk Level 0 - 2 = Low Risk Oriented to surroundings, Maintained a safe environment, Educated pt \T\ family on fall prevention, incl call for assistance when getting out of bed, Assessed \T\ reinforced patient's understanding of fall precautions, Provided non-skid footwear, Hourly rounding (assess needs \T\ fall precautionary measures) done, Used ambulatory aids as needed (educated on \T\ assisted with), Used gait belt as appropriate. Abuse screen: Denies threats or abuse. Denies injuries from another. Nutritional screening: No deficits noted. Tuberculosis screening: No symptoms or risk factors identified. Assessment: 08:30 Pain: Denies pain. Neuro: No deficits noted. Cardiovascular: Patient's skin is warm and ko1 dry. Rhythm is sinus tachycardia patient states her heart rate stays in the 120-130's. Respiratory: Reports shortness of breath cough that is non-productive, Airway is patent Breath sounds are clear bilaterally. GI: No deficits noted. : No deficits noted. EENT: No deficits noted. Derm: No deficits noted. Musculoskeletal: No deficits noted. 10:35 Reassessment: labs delayed due to patient being a difficult stick. She has a port but ko1 refuses to have it accessed unless we numb it. Vital Signs: 08:03 BP 131 / 73; Pulse 131; Resp 18 S; Temp 99.5(O); Pulse Ox 95% on R/A; Weight 80.97 kg aa5 (R); Height 5 ft. 2 in. (R); 08:30 BP 98 / 67; Pulse 111; Resp 16; Pulse Ox 99% ; ko1 10:37 BP 107 / 62; Pulse 115; Resp 19; Temp 99.5(O); Pulse Ox 99% ; ko1 13:27 BP 122 / 81; Pulse 118; Resp 15; Pulse Ox 97% ; ko1 14:05 Temp 101.4(O); ko1 17:35 BP 103 / 79; Pulse 110; Resp 15; Temp 100.4; Pulse Ox 98% ; ko1 08:03 Body Mass Index 32.65 (80.97 kg, 157.48 cm) aa5 ED Course: 07:39 Patient arrived in ED. rg4 08:03 Arm band placed on. aa5 08:05 Triage completed. aa5 08:17 Barrera Rodrigues MD is Attending Physician. rt 08:29 Brittney Shelton, RN is Primary Nurse. ko1 08:30 Patient has correct armband on for positive identification. Bed in low position. Call ko1 light in reach. Side rails up X2. Provided Education on: na. Pulse ox on. NIBP on. Door closed. Noise minimized. Lights dimmed. Warm blanket given. 08:42 Chest Single View XRAY In Process Unspecified. EDMS 08:47 Urinalysis w/ reflexes Sent. ko1 08:49 SARS RAPID Sent. ko1 08:49 Influenza Screen (a \T\ B) Sent. ko1 09:11 Troponin High Sensitivity Sent. ko1 09:11 BNP Sent. ko1 09:12 CBC with Diff Sent. ko1 09:12 CMP Sent. ko1 09:12 Lactate w/ 2H reflex if indic. Sent. ko1 09:12 Protime (+inr) Sent. ko1 09:12 Ptt, Activated Sent. ko1 09:30 EKG done, by ED staff. aw1 10:55 Inserted saline lock: 24 gauge in right forearm, using aseptic technique. aa5 11:00 Lab(s) recollected, by me, sent to lab. CBC, basic recollect sent to lab. aa5 11:00 First set of blood cultures drawn by me. aa5 12:01 Wilberto Pino MD is Hospitalizing Provider. rt 13:18 initiated a transfer with JERROD Reyes from the [facility] transfer center at the request eb of administration due to the facility being at capacity. 13:29 per JERROD [facility] will have to decline the patient in transfer due to being at eb capacity/ they can't take patient to the other [facility] facilities due to here chemo history/. 13:40 initiated a transfer with Radha from the [facility] transfer center. eb 17:35 No provider procedures requiring assistance completed. Patient admitted, IV remains in ko1 place. Administered Medications: 11:30 Drug: Cefepime IVPB 2 grams IVPB at 200 ml/hr once over 30 mins; (mix in NS 100 mL) ko1 Route: IVPB; Rate: 200 ml/hr; Infused Over: 30 mins; Site: right forearm; 11:30 Drug: NS 0.9% IV 1000 ml IV at 1 bolus Per protocol; 1000 mL bolus Route: IV; Rate: 1 ko1 bolus; Site: right forearm; 12:01 Drug: fentaNYL (PF) IVP 50 mcg IVP once Route: IVP; Site: right forearm; ko1 12:09 Drug: vancoMYCIN IVPB 1 grams IVPB once over 2 hrs Route: IVPB; Infused Over: 2 hrs; ko1 Site: right forearm; 14:13 Drug: Ondansetron IVP 4 mg IVP once; over 2 minutes Route: IVP; Site: right forearm; ko1 14:23 Drug: HYDROmorphone IVP 1 mg IVP once Route: IVP; Site: right forearm; ko1 14:23 Drug: Acetaminophen PO 1000 mg PO once Route: PO; ko1 Medication: 17:35 VIS not applicable for this client. ko1 Outcome: 12:01 Decision to Hospitalize by Provider. rt 17:35 Admitted to Med/surg accompanied by nurse, via wheelchair, room 419, with chart, Report ko1 called to JAE Churchill 17:35 Condition: stable 17:35 Instructed on the need for admit, 17:49 Patient left the ED. ko1 Signatures: Dispatcher [employer] EDMS Nahomy Reinoso, RN RN Wendi Baez4 Pam Salazar Kathy, RN RN ko1 Barrera Rodrigues MD MD rt Emely Hoffman aw1
--- NOTE | 2023-09-08 12:02 | EDPHYS ---
Physician Documentation [facility] Name: Mike Cornejo Age: 43 yrs Sex: Female : 1980 Arrival Date: 09/08/2023 Time: 07:37 Bed 7 Private MD: ED Physician Barrera Rodrigues HPI: 09/08 10:09 This 43 yrs old Female presents to ER via Ambulatory with complaints of Fever, rt Congestion, Nausea. 10:09 Patient with history of lung cancer on chemotherapy presents to the ED with fever, rt cough, congestion, shortness of breath. Started few days ago. Denies other acute complaints, symptoms are moderate in severity, no other aggravating or alleviating factors.. 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 - Social history:: Smoking status: Patient/guardian denies using tobacco. - Family history:: not pertinent. ROS: 10:09 Cardiovascular: Negative for chest pain, palpitations, and edema, MS/Extremity: rt Negative for injury and deformity, Skin: Negative for injury, rash, and discoloration, Neuro: Negative for headache, weakness, numbness, tingling, and seizure, 10:09 Constitutional: Positive for fever, malaise, 10:09 ENT: Positive for rhinorrhea, Negative for sore throat, 10:09 Respiratory: Positive for cough, shortness of breath, 10:09 Abdomen/GI: Positive for nausea, Negative for abdominal pain, Exam: 10:09 Constitutional: This is a well developed, well nourished patient who is awake, alert, rt and in no acute distress. Head/Face: Normocephalic, atraumatic. Chest/axilla: Normal chest wall appearance and motion. Nontender with no deformity. No lesions are appreciated. Cardiovascular: Regular rate and rhythm with a normal S1 and S2. No gallops, murmurs, or rubs. Normal PMI, no JVD. No pulse deficits. Respiratory: Lungs have equal breath sounds bilaterally, clear to auscultation and percussion. No rales, rhonchi or wheezes noted. No increased work of breathing, no retractions or nasal flaring. Abdomen/GI: Soft, non-tender, with normal bowel sounds. No distension or tympany. No guarding or rebound. No evidence of tenderness throughout. Skin: Warm, dry with normal turgor. Normal color with no rashes, no lesions, and no evidence of cellulitis. MS/ Extremity: Pulses equal, no cyanosis. Neurovascular intact. Full, normal range of motion. Neuro: Awake and alert, GCS 15, oriented to person, place, time, and situation. Cranial nerves II-XII grossly intact. Motor strength 5/5 in all extremities. Sensory grossly intact. Cerebellar exam normal. Normal gait. Psych: Awake, alert, with orientation to person, place and time. Behavior, mood, and affect are within normal limits. 10:09 ECG was reviewed by the Attending Physician. Vital Signs: 08:03 BP 131 / 73; Pulse 131; Resp 18 S; Temp 99.5(O); Pulse Ox 95% on R/A; Weight 80.97 kg aa5 (R); Height 5 ft. 2 in. (R); 08:30 BP 98 / 67; Pulse 111; Resp 16; Pulse Ox 99% ; ko1 10:37 BP 107 / 62; Pulse 115; Resp 19; Temp 99.5(O); Pulse Ox 99% ; ko1 13:27 BP 122 / 81; Pulse 118; Resp 15; Pulse Ox 97% ; ko1 14:05 Temp 101.4(O); ko1 17:35 BP 103 / 79; Pulse 110; Resp 15; Temp 100.4; Pulse Ox 98% ; ko1 08:03 Body Mass Index 32.65 (80.97 kg, 157.48 cm) aa5 MDM: 08:20 Patient medically screened. rt 15:23 Differential diagnosis: Flu, COVID, pneumonia, sepsis. Data reviewed: vital signs, rt nurses notes, lab test result(s), EKG, radiologic studies. Consideration of Admission/Observation Patient was admitted/placed on observation. I considered the following discharge prescriptions or medication management in the emergency department Medications were administered in the Emergency Department. See MAR. Independent interpretation of the following test(s) in the Emergency Department X-Ray: My interpretation is Pneumonia seen on interpretation of x-ray images. Test considered but Not performed: CT: Lower suspicion for pulmonary embolism, CT angiogram not indicated. Care significantly affected by the following chronic conditions: Lung cancer on chemotherapy. Counseling: I had a detailed discussion with the patient and/or guardian regarding the historical points, exam findings, and any diagnostic results supporting the discharge/admit diagnosis, lab results, radiology results, the need for further work-up and treatment in the hospital. Response to treatment: the patient's symptoms have markedly improved after treatment. 09/08 08:28 Order name: Blood Culture Adult (2) rt 09/08 08:28 Order name: CBC with Diff; Complete Time: 14:09 rt 09/08 08:28 Order name: CMP; Complete Time: 11:43 rt 09/08 08:28 Order name: Lactate w/ 2H reflex if indic.; Complete Time: 11:30 rt 09/08 08:28 Order name: Protime (+inr); Complete Time: 11:30 rt 09/08 08:28 Order name: Ptt, Activated; Complete Time: 11:30 rt 09/08 08:28 Order name: Urinalysis w/ reflexes; Complete Time: 11:30 rt 09/08 08:28 Order name: BNP; Complete Time: 11:43 rt 09/08 08:28 Order name: Troponin High Sensitivity; Complete Time: 11:43 rt 09/08 08:28 Order name: Influenza Screen (a \T\ B); Complete Time: 11:30 rt 09/08 08:28 Order name: SARS RAPID; Complete Time: 11:30 rt 09/08 09:10 Order name: Urine Culture EDMS 09/08 11:27 Order name: Manual Differential; Complete Time: 14:09 EDMS 09/08 08:28 Order name: Chest Single View XRAY; Complete Time: 08:54 rt 09/08 08:28 Order name: EKG; Complete Time: 08:29 rt 09/08 08:28 Order name: Cardiac monitoring; Complete Time: 08:30 rt 09/08 08:28 Order name: EKG - Nurse/Tech; Complete Time: 09:45 rt 09/08 08:28 Order name: IV Saline Lock - Large Bore; Complete Time: 11:05 rt 09/08 08:28 Order name: Labs collected and sent; Complete Time: 11:05 rt 09/08 08:28 Order name: O2 Per Protocol; Complete Time: 08:30 rt 09/08 08:28 Order name: O2 Sat Monitoring; Complete Time: 08:30 rt 09/08 08:28 Order name: Vital Signs; Complete Time: 08:30 rt 09/08 09:24 Order name: Labs - recollect needed: recollect light green hemolyzed; Complete Time: eb 11:09/08 09:29 Order name: Labs - recollect needed: recollect lavender; Complete Time: 11:04 eb EC:09 Rate is 109 beats/min. Rhythm is regular, Sinus tachycardia with No ectopy. QRS [place] is rt Normal. ND interval is normal. QRS interval is normal. QT interval is normal. No Q waves. T waves are Normal. No ST changes noted. Interpreted by me. Administered Medications: 11:30 Drug: Cefepime IVPB 2 grams IVPB at 200 ml/hr once over 30 mins; (mix in NS 100 mL) ko1 Route: IVPB; Rate: 200 ml/hr; Infused Over: 30 mins; Site: right forearm; 11:30 Drug: NS 0.9% IV 1000 ml IV at 1 bolus Per protocol; 1000 mL bolus Route: IV; Rate: 1 ko1 bolus; Site: right forearm; 12:01 Drug: fentaNYL (PF) IVP 50 mcg IVP once Route: IVP; Site: right forearm; ko1 12:09 Drug: vancoMYCIN IVPB 1 grams IVPB once over 2 hrs Route: IVPB; Infused Over: 2 hrs; ko1 Site: right forearm; 14:13 Drug: Ondansetron IVP 4 mg IVP once; over 2 minutes Route: IVP; Site: right forearm; ko1 14:23 Drug: HYDROmorphone IVP 1 mg IVP once Route: IVP; Site: right forearm; ko1 14:23 Drug: Acetaminophen PO 1000 mg PO once Route: PO; ko1 Disposition Summary: 09/08/23 12:01 Hospitalization Ordered Notes: Hospitalization Status: Inpatient Admission rt Provider: Wilberto Pino rt Condition: Fair rt Problem: new rt Symptoms: have improved rt Bed/Room Type: Standard rt Location: Telemetry/MedSurg (Inpatient)(09/08/23 16:56) aa5 Room Assignment: 419(09/08/23 16:56) aa5 Diagnosis - Pneumonia, unspecified organism rt - Sepsis, unspecified organism rt Forms: - Medication Reconciliation Form rt - SBAR form rt - Leadership Thank You Letter rt Signatures: Dispatcher [employer] Nahomy Dominguez RN RN aa5 Sage Alegria RN RN jl7 Pam Salazar Kathy RN RN ko1 Barrera Rodrigues MD MD rt Corrections: (The following items were deleted from the chart) 14:58 12:01 Telemetry/MedSurg (Inpatient) rt jl7 14:58 12:01 rt 7 16:56 14:58 [facility] ER HOLD jl7 aa 16:56 14:58 ERHOLD- jl7 aa5
[2023-09-08 12:31] LABS: Anisocytosis 1+; Blood Morphology Comment NOTED (NOT SEEN); Hypochromasia 1+; Platelet Estimate DECR
[2023-09-08] MEDS ORDERED: ONDANSETRON 4 MG/2 ML VIAL ONE (14:11)
[2023-09-08] MEDS ORDERED: ACETAMINOPHEN 500 MG TAB ONE (14:15)
[2023-09-08] MEDS ORDERED: HYDROMORPHONE HCL 1 MG/ML INJ ONE (14:15)
--- NOTE | 2023-09-08 15:48 | P.HP ---
Certification for Inpatient Patient admitted to: Inpatient With expected LOS: <2 Midnights Patient will require the following post-hospital care: None Practitioner: I am a practitioner with admitting privileges, knowledge of patient current condition, hospital course, and medical plan of care. Services: Services provided to patient in accordance with Admission requirements found in Title 42 Section 412.3 of the Code of Federal Regulations Patient History Date of Service: 09/08/23 Reason for admission: Pneumonia History of Present Illness: 43-year-old female with a past medical history BRAIN TUMOR; Lung mass; Lung Cancer, presents to the emergency room for fever, cough, She reports symtpoms started 2-3 days ago. She reports seeing mitchel Rojas every 3 weeks. She reports having lung radiation prior to chemotherapy. She denies chest pain, shortness of breath. edema, dizziness. Plan to admit for sepsis without shock secondary to Pneumonia, unspecified organism, Sepsis, unspecified organism, leukopenia, metastatic lung CA on chemotherapy. ER course : 10:09 Rate is 109 beats/min. Rhythm is regular, Sinus tachycardia with No ectopy. QRS [place] is Normal. RI interval is normal. QRS interval is normal. QT interval is normal. No Q waves. T waves are Normal. No ST changes noted. Lab evaluation WBCs 1.20, microcytic anemia 8.220 4.2 thrombocytopenia 104, hypoalbuminemia 3.2, UA 75 leukoesterase, SARS negative. Chest x-ray IMPRESSION: Small, early infiltrate is possible in the left base medially. Allergies sulfamethoxazole [From Bactrim] Allergy (Mild, Verified 02/21/23 10:35) Hives/Rash trimethoprim [From Bactrim] Allergy (Mild, Verified 02/21/23 10:35) Hives/Rash morphine Allergy (Verified 02/21/23 15:11) Itching/Hives/Rash tramadol Allergy (Verified 02/21/23 10:35) Hives/Rash Home Medications: Hydrocodone 10/APAP 325 [[place] 10/325*] 1 tab PO Q8H PRN 10 Days #30 tab 11/27 Ondansetron [Zofran] 4 mg PO Q8H PRN #30 tab 11/27/22 fentaNYL [Fentanyl] 25 mcg TD Q3D 30 Days #10 patch 11/27/22 Famotidine [Pepcid] 20 mg PO BID 02/21/23 OLANZapine [Olanzapine] 5 mg PO DAILY 02/21/23 Rivaroxaban [Xarelto] 2.5 mg PO DAILY 02/21/23 Sertraline [Zoloft] 25 mg PO DAILY 02/21/23 dexAMETHasone [Dexamethasone] 4 mg PO BID 02/21/23 - Past Medical/Surgical History Diabetic: No -: ovarian cyst -: uterine fibroids -: endometriosis -: Brain massbenign -: appy -: tiot -: tonsillectomy -: D&C -: right knee sx -: Brain massbenign Psychosocial/ Personal History: Patient is employed at a [employer], lives at home with her boyfriend. - Family History Mother Notes: COPD - Social History Alcohol use: No CD- Drugs: No Caffeine use: No Review of Systems per HPI (Pneumonia, sepsis) Physical Examination - Physical Exam General: Alert, In no apparent distress, Oriented x3 HEENT: Atraumatic, Normocephalic Neck: Supple, 2+ carotid pulse no bruit Respiratory: Clear to auscultation bilaterally, Normal air movement Cardiovascular: No edema, Normal pulses Capillary refill: <2 Seconds Gastrointestinal: Normal bowel sounds, Soft and benign Musculoskeletal: No clubbing, No swelling Integumentary: No rashes, No breakdown Neurological: Normal speech, Normal strength at 5/5 x4 extr - Studies Laboratory Data (last 24 hrs) 09/08/23 09/08/23 09/08/23 11:00 11:00 09:10 WBC 1.20 L Hgb 8.2 L Hct 24.4 L Plt Count 104 L PT 11.5 INR 1.05 APTT 21.9 L Sodium 137 Potassium 3.6 BUN 12 Creatinine 0.89 Glucose 89 Total Bilirubin 0.5 AST 37 ALT 62 H Alkaline Phosphatase 86 Microbiology Data (last 24 hrs): 09/08/23 08:45 Nasopharnyx Influenza Type A Antigen Screen - Final 09/08/23 08:45 Nasopharnyx Influenza Type B Antigen Screen - Final Assessment and Plan - Plan Assessment plan sepsis without shock secondary to Pneumonia, unspecified organism, Sepsis, unspecified organism Pancytopenia metastatic lung CA on chemotherapy. BRAIN TUMOR, history lung mass; metastatic lung Cancer, presents to the emergency room for fever, cough, She reports symtpoms started 2- 3 days ago. She reports seeing mitchel Rojas every 3 weeks. She reports having lung radiation prior to chemotherapy. She denies chest pain, shortness of breath. edema, dizziness. Plan to admit for Rate is 109 beats/min. Rhythm is regular, Sinus tachycardia with No ectopy. QRS [place] is Normal. RI interval is normal. QRS interval is normal. QT interval is normal. No Q waves. T waves are Normal. No ST changes noted. Lab evaluation WBCs 1.20, microcytic anemia 8.220 4.2 thrombocytopenia 104, UA 75 leukoesterase, SARS negative. Chest x-ray IMPRESSION: Small, early infiltrate is possible in the left base medially. IV cefepime, IV azithromycin, IV fluids, Resume home as needed analgesics, as needed IV Dilaudid for breakthrough pain, Trend WBCs, platelets, H&H, neutropenic precautions hypoalbuminemia Albumin 3.2 Encourage adequate nutrition Cardiac diet Full code DVT SCDs Plan to discharge home, independent Discharge Plan: Home Plan to discharge in: 48 Hours - Advance Directives Does patient have a Living Will: No Does patient have a Durable POA for Healthcare: No - Code Status/Comfort Care Code Status: Full Code Physician Review: Patient Assessed, Agree with Above Assessment and Plan Critical Care: No Time Spent Managing Pts Care (In Minutes): 55
[2023-09-08 18:20] VITALS: BMI 32.5
[2023-09-08] MEDS ORDERED: ALBUTEROL 2.5 MG/3 ML NEB SOL NEB PRN (19:22)
[2023-09-08] MEDS ORDERED: ACETAMINOPHEN 500 MG TAB PO PRN (19:22)
[2023-09-08] MEDS: HYDROCODONE/APAP 10/325 TAB PO PRN (19:48)
[2023-09-08] MEDS: METHYLPREDNISOLONE 125 MG INJ IV SCH (21:34)
[2023-09-08] MEDS: NA CHLORIDE 0.9% 1,000 ML IV SCH (21:34)
[2023-09-08] MEDS: HYDROMORPHONE HCL 0.5 MG/0.5 ML INJ IV PRN (21:36)
[2023-09-09] MEDS: HYDROMORPHONE HCL 0.5 MG/0.5 ML INJ IV PRN ×4 (03:18→21:16)
[2023-09-09] MEDS: METHYLPREDNISOLONE 125 MG INJ IV SCH ×3 (03:18→11:55)
[2023-09-09] MEDS: HYDROCODONE/APAP 10/325 TAB PO PRN ×2 (06:03→22:48)
[2023-09-09 06:28] LABS: Potassium 4.1 mEq/L (3.5-5.1)
[2023-09-09 06:52] LABS: Absolute Lymphocytes (CBC) 0.2 K/uL (0.7-4.9); Hematocrit 23.1 % (36.0-45.0); Lymphocytes % 19.6 % (15.3-44.8); MCV 80.2 fL (80-100); MPV 7.5 fL (7.6-11.3); Platelets 86 thou/uL (152-406); RBC Red Blood Cell Count 2.88 M/uL (3.86-4.86)
[2023-09-09] MEDS: METOPROLOL TAR 50 MG TAB PO SCH ×3 (07:16→21:15)
[2023-09-09 07:31] LABS: Blood Morphology Comment NOT SEEN (NOT SEEN); Platelet Estimate DECR; White Blood Cell Scan OK (OK)
[2023-09-09 07:52] LABS: Specific Gravity 1.017 (1.005-1.030); Urine Bilirubin NEGATIVE (Negative); Urine Blood Negative (Negative); Urine Clarity Clear (Clear); Urine Color Light-Yellow (Yellow); Urine Glucose NEGATIVE (Negative); Urine Protein NEGATIVE (Negative); Urine Urobilinogen Normal (Normal); Urine pH 6.5 (5.0-7.0)
[2023-09-09] MEDS ORDERED: AZITHROMYCIN IV 500 MG in NA CHLORIDE 0.9% 250 ML IVPB SCH ×6 (09:00→11:00)
[2023-09-09] MEDS: CEFEPIME 2 GM in NA CHLORIDE 0.9% 100 ML IV SCH (09:39)
[2023-09-09] MEDS: NA CHLORIDE 0.9% 1,000 ML IV SCH (09:39)
[2023-09-09] MEDS: AZITHROMYCIN IV 500 MG in NA CHLORIDE 0.9% 250 ML IVPB SCH (11:55)
[2023-09-09] MEDS ORDERED: TBO-FILGRASTIM 300 MCG/0.5 ML SYR SQ SCH (16:44)
[2023-09-09] MEDS ORDERED: TBO-FILGRASTIM 300 MCG/0.5 ML SYR SQ PRN (16:44)
[2023-09-09] MEDS: HYDROCODONE/CHLORPHEN 5 ML/OSYR PO PRN (19:02)
[2023-09-10] MEDS: ONDANSETRON 4 MG/2 ML VIAL IV PRN ×2 (03:24→22:07)
[2023-09-10] MEDS: HYDROMORPHONE HCL 0.5 MG/0.5 ML INJ IV PRN ×4 (03:25→22:03)
[2023-09-10] MEDS: HYDROCODONE/CHLORPHEN 5 ML/OSYR PO PRN ×2 (06:28→22:06)
[2023-09-10] MEDS: HYDROCODONE/APAP 10/325 TAB PO PRN ×2 (06:28→17:11)
--- NOTE | 2023-09-10 08:25 | RAD REPORT ---
EXAM DESCRIPTION: RADChest Single View09/10/2023 5:27 am CLINICAL HISTORY: pneumonia COMPARISON: Chest Single View dated 09/08/2023; Chest Single View dated 02/21/2023; ABDOMEN 1 VIEW KU B dated 03/12/2014; CHEST PA AND LAT 2 VIEW dated 12/16/2011; Chest Abdomen W Con dated 06/21/2023 TECHNIQUE: Portable AP view of the chest. FINDINGS: Small nodule in the medial left basilar region is stable, as are areas of left hilar/ dominic hilar soft tissue prominence. Elevation of the left hemidiaphragm and streaky left basilar atelectasi s, stable. Right chest wall medication port with axis needle in place. No pneumothorax or effusion. The cardiomediastinal contours are unremarkable. IMPRESSION: Stable findings as above, some of which relate to no suspected lung malignancy. No new f indings to suggest acute pneumonia.
[2023-09-10] MEDS: METOPROLOL TAR 50 MG TAB PO SCH ×2 (08:33→22:06)
[2023-09-10] MEDS ORDERED: TBO-FILGRASTIM 300 MCG/0.5 ML SYR SQ SCH ×2 (09:00)
[2023-09-10] MEDS: CEFEPIME 2 GM in NA CHLORIDE 0.9% 100 ML IV SCH ×2 (09:17→21:57)
[2023-09-10] MEDS: METHYLPREDNISOLONE 40 MG INJ IV SCH ×2 (09:17→22:06)
[2023-09-10] MEDS: AZITHROMYCIN IV 500 MG in NA CHLORIDE 0.9% 250 ML IVPB SCH (09:17)
--- NOTE | 2023-09-10 09:29 | P.PN ---
Subjective Date of Service: 09/10/23 Chief Complaint: Pneumonia Physical Examination - Vital Signs Temperature: 97.9 F Blood Pressure: 99/55 Pulse: 79 Respirations: 16 Pulse Ox (%): 98 Assessment And Plan - Plan Assessment plan sepsis without shock secondary to Pneumonia, unspecified organism, Sepsis, unspecified organism Pancytopenia WBCs 1.20, repeat 0.80, Granx ordered hrombocytopenia Platelet count 104, repeat 86 metastatic lung CA on chemotherapy. BRAIN TUMOR, history lung mass; metastatic lung Cancer, presents to the emergency room for fever, cough, She reports symtpoms started 2- 3 days ago. She reports seeing mitchel Rojas every 3 weeks. She reports having lung radiation prior to chemotherapy. She denies chest pain, shortness of breath. edema, dizziness. Plan to admit for Rate is 109 beats/min. Rhythm is regular, Sinus tachycardia with No ectopy. QRS [place] is Normal. CT interval is normal. QRS interval is normal. QT interval is normal. No Q waves. T waves are Normal. No ST changes noted. Lab evaluation WBCs 1.20, microcytic anemia 8.220 4.2 thrombocytopenia 104, UA 75 leukoesterase, SARS negative. Chest x-ray IMPRESSION: Small, early infiltrate is possible in the left base medially. IV cefepime, IV azithromycin, IV fluids, nebs Resume home as needed analgesics, as needed IV Dilaudid for breakthrough pain, Trend WBCs, platelets, H&H, neutropenic precautions UA 75 leukoesterase, bilirubin 2+ nitrite microcytic anemia Hemoglobin 8.2, repeat 8.0, hypoalbuminemia Albumin 3.2 Encourage adequate nutrition Cardiac diet Full code DVT SCDs Plan to discharge home, independent Discharge Plan: Home Plan to discharge in: 48 Hours Physician Review: Patient Assessed, Agree with Above Assessment and Plan Critical Care: No Time Spent Managing PTS Care (In Minutes): 35
[2023-09-10 10:03] VITALS: O2SAT 98
[2023-09-10 10:15] LABS: Absolute Lymphocytes (CBC) 0.3 K/uL (0.7-4.9); Hematocrit 23.7 % (36.0-45.0); Lymphocytes % 28.9 % (15.3-44.8); MCV 81.9 fL (80-100); MPV 7.7 fL (7.6-11.3); Platelets 102 thou/uL (152-406)
[2023-09-10 10:33] LABS: Albumin 2.6 g/dL (3.4-5.0); Bilirubin Total 0.2 mg/dL (0.2-1.0); Magnesium 2.1 mg/dL (1.6-2.4); Phosphorus 1.6 mg/dL (2.5-4.9); Potassium 3.5 mEq/L (3.5-5.1); Protein, Total 6.3 g/dL (6.4-8.2)
--- NOTE | 2023-09-10 11:37 | P.PN ---
Subjective Date of Service: 09/10/23 Chief Complaint: Pneumonia Subjective: Improving Review of Systems 10-point ROS is otherwise unremarkable Physical Examination - Vital Signs Temperature: 97.9 F Blood Pressure: 99/55 Pulse: 79 Respirations: 16 Pulse Ox (%): 98 - Physical Exam General: Alert, In no apparent distress, Oriented x3 HEENT: Atraumatic, Normocephalic Neck: Supple, 2+ carotid pulse no bruit Respiratory: Clear to auscultation bilaterally, Normal air movement, Diminished Cardiovascular: No edema, Normal pulses Capillary refill: <2 Seconds Gastrointestinal: Normal bowel sounds, Hypoactive, Soft and benign Musculoskeletal: No clubbing, No swelling Integumentary: No rashes, No breakdown Neurological: Normal speech, Normal strength at 5/5 x4 extr Assessment And Plan - Plan Assessment plan sepsis without shock secondary to Pneumonia, unspecified organism, Sepsis, unspecified organism Pancytopenia WBCs 1.20, repeat 0.80, Granx ordered, tend neutrophils hrombocytopenia Platelet count 104, repeat 86 metastatic lung CA on chemotherapy. BRAIN TUMOR, history lung mass; metastatic lung Cancer, presents to the emergency room for fever, cough, She reports symtpoms started 2- 3 days ago. She reports seeing mitchel Rojas every 3 weeks. She reports having lung radiation prior to chemotherapy. She denies chest pain, shortness of breath. edema, dizziness. Plan to admit for Rate is 109 beats/min. Rhythm is regular, Sinus tachycardia with No ectopy. QRS [place] is Normal. NH interval is normal. QRS interval is normal. QT interval is normal. No Q waves. T waves are Normal. No ST changes noted. Lab evaluation WBCs 1.20, microcytic anemia 8.220 4.2 thrombocytopenia 104, UA 75 leukoesterase, SARS negative. Chest x-ray IMPRESSION: Small, early infiltrate is possible in the left base medially. IV cefepime, IV azithromycin, IV fluids, nebs Resume home as needed analgesics, as needed IV Dilaudid for breakthrough pain, Trend WBCs, platelets, H&H, neutropenic precautions UA 75 leukoesterase, bilirubin 2+ nitrite microcytic anemia Hemoglobin 8.2, repeat 8.0, hypoalbuminemia Albumin 3.2 Encourage adequate nutrition Cardiac diet Full code DVT SCDs Plan to discharge home, independent Discharge Plan: Home - Code Status/Comfort Care Code Status: Full Code Physician Review: Patient Assessed, Agree with Above Assessment and Plan Critical Care: No Time Spent Managing PTS Care (In Minutes): 35
[2023-09-10] MEDS ORDERED: ONDANSETRON 4 MG (ODT) TAB PO PRN (17:42)
[2023-09-10] MEDS: FAMOTIDINE 20 MG TAB PO SCH (22:07)
[2023-09-11] MEDS: HYDROCODONE/APAP 10/325 TAB PO PRN ×2 (02:21→16:38)
[2023-09-11] MEDS: HYDROMORPHONE HCL 0.5 MG/0.5 ML INJ IV PRN ×2 (04:17→10:24)
[2023-09-11 04:50] LABS: Absolute Lymphocytes (CBC) 0.5 K/uL (0.7-4.9); Hematocrit 22.2 % (36.0-45.0); Lymphocytes % 19.2 % (15.3-44.8); MCV 81.9 fL (80-100); MPV 7.8 fL (7.6-11.3); Platelets 96 thou/uL (152-406); RBC Red Blood Cell Count 2.71 M/uL (3.86-4.86)
[2023-09-11 04:55] LABS: Magnesium 2.1 mg/dL (1.6-2.4); Potassium 4.1 mEq/L (3.5-5.1)
[2023-09-11] MEDS: METOPROLOL TAR 50 MG TAB PO SCH (09:00)
[2023-09-11] MEDS ORDERED: PANTOPRAZOLE 40MG TABLET PO SCH (09:00)
[2023-09-11] MEDS ORDERED: OLANZapine 2.5 MG TAB PO SCH (09:00)
[2023-09-11] MEDS: AZITHROMYCIN IV 500 MG in NA CHLORIDE 0.9% 250 ML IVPB SCH (09:22)
[2023-09-11] MEDS: CEFEPIME 2 GM in NA CHLORIDE 0.9% 100 ML IV SCH (09:22)
[2023-09-11] MEDS: METHYLPREDNISOLONE 40 MG INJ IV SCH (09:23)
[2023-09-11] MEDS: FAMOTIDINE 20 MG TAB PO SCH (09:24)
[2023-09-11] MEDS ORDERED: HEPARIN 500 UNIT/5 ML SYR IV ONE (11:15)
[2023-09-11] MEDS: ONDANSETRON 4 MG/2 ML VIAL IV PRN (11:26)
--- NOTE | 2023-09-11 12:34 | EKG ---
Test Date: 2023-09-08 Test Time: 09:30:04 Hazmat Cdl A Driver: EVETTE MEASUREMENT RESULTS: Intervals: Rate: 109 MO: 112 QRSD: 80 QT: 326 QTc: 439 Robbins: P: 65 MO: 112 QRS: 58 T: 77 INTERPRETIVE STATEMENTS: Sinus tachycardia Otherwise normal ECG Compared to ECG 07/22/2023 03:52:44 Sinus rhythm no longer present Electronically Signed On 09-11-23 12:27:53 CASE FINISHER by Rell Roman
[2023-09-11 16:19] VITALS: BP 134/85; TEMP 97
== END 2023-09-11 17:29 | disposition home or self-care (01) | DRG 871 ==
LOC: ER 07:37 → ERHOLD 16:17 → 4TH 17:37
PROVIDERS: ADMIT Hospitalist; ATTEND Hospitalist
DX: A41.9 Sepsis, unspecified organism (principal); J18.9 Pneumonia, unspecified organism; C34.90 Malignant neoplasm of unspecified part of unspecified bronchus or lung; D61.818 Other pancytopenia; C79.31 Secondary malignant neoplasm of brain; R00.0 Tachycardia, unspecified; N83.209 Unspecified ovarian cyst, unspecified side; E88.09 Other disorders of plasma-protein metabolism, not elsewhere classified; D50.9 Iron deficiency anemia, unspecified; N28.89 Other specified disorders of kidney and ureter
CPT/HCPCS: 36415; 71045; 80048; 80053; 81001; 81003; 83605; 83735; 83880; 84100; 84145; 84484; 85025; 85610; 85730; 87040; 87077; 87086; 87088; 87186; 87804; 87811; 93005; 96374; 96375; 99285; J0692; J1170; J1447; J1642; J2405; J2920; J2930; J3010; J7030; J7050; J7613

== ENCOUNTER → 2023-10-15 | Emergency (ER) | payer OTHER ==
[~2023-10-15] MED LIST changes: +CYCLOBENZAPRINE 10 MG TAB ONE; +GABAPENTIN 300 MG CAP ONE; +KETOROLAC 30 MG/ML INJ ONE; +LIDOCAINE 4% PATCH ONE; -MIDAZOLAM HCL 2 MG/2 ML INJ ONE; +dexAMETHasone 10 MG/ML VIAL ONE
--- OUTSIDE RECORDS SUMMARY | 2023-10-15 11:36 | XMS REPORT | Clinical Summary ---
Author Name Unknown Organization [facility] Address [address] [place] [address] Care Team Providers Care Field Automobile Adjuster Name Role Phone Unavailable Primary Care Provider Unavailabl e Encounters Date Type Department Care Team Description 08/09/2023 8:00 PM MAKING MACHINE CATCHER Ancillary Procedure [facility] [address] [place] [id number] Cancer 07/24/2023 9:45 PM CDT Ancillary Procedure [facility] [address] [place] [id number] Trevor Vallecillo, QUALITATIVE EXECUTIVE RESEARCHER Cancer 07/24/2023 9:40 PM CDT Ancillary Procedure [facility] [address] [place] [id number] Trevor Vallecillo, QUALITATIVE EXECUTIVE RESEARCHER Cancer 07/24/2023 9:35 PM CDT Ancillary Procedure [facility] [address] [place] [address] [id number] Trevor Vallecillo, QUALITATIVE EXECUTIVE RESEARCHER Cancer 07/24/2023 9:30 PM CDT Ancillary Procedure [facility] [address] [place] [id number] Trevor Vallecillo, QUALITATIVE EXECUTIVE RESEARCHER Cancer 07/24/2023 9:25 PM CDT Ancillary Procedure Image [facility] [address] [place] [address] [id number] Trevor Vallecillo, QUALITATIVE EXECUTIVE RESEARCHER Cancer 07/24/2023 9:20 PM CDT Ancillary Procedure [facility] [address] [place] [id number] Trevor Vallecillo, QUALITATIVE EXECUTIVE RESEARCHER Cancer 07/24/2023 9:15 PM CDT Ancillary Procedure [facility] [address] [place] [address] [id number] Trevor Vallecillo, QUALITATIVE EXECUTIVE RESEARCHER Cancer 07/24/2023 9:10 PM CDT Ancillary Procedure [facility] [address] [place] [id number] Trevor Vallecillo, QUALITATIVE EXECUTIVE RESEARCHER Cancer 07/24/2023 9:05 PM CDT Ancillary Procedure [facility] [address] [place] [id number] Trevor Vallecillo, QUALITATIVE EXECUTIVE RESEARCHER Cancer 07/24/2023 9:00 PM CDT Ancillary Procedure Image [facility] [address] [place] [address] [id number] Trevor Vallecillo, QUALITATIVE EXECUTIVE RESEARCHER Cancer 07/24/2023 8:55 PM CDT Ancillary Procedure Image [facility] [address] [place] [address] [id number] Trevor Vallecillo, QUALITATIVE EXECUTIVE RESEARCHER Cancer 07/24/2023 8:50 PM CDT Ancillary Procedure Image [facility] [address] [place] [id number] Trevor Vallecillo, QUALITATIVE EXECUTIVE RESEARCHER Cancer 07/24/2023 8:45 PM CDT Ancillary Procedure Image [facility] [address] [place] [id number] Trevor Vallecillo, QUALITATIVE EXECUTIVE RESEARCHER Cancer 07/24/2023 8:40 PM CDT Ancillary Procedure Image [facility] [address] [place] [address] [id number] Trevor Vallecillo, QUALITATIVE EXECUTIVE RESEARCHER Cancer 07/24/2023 8:35 PM CDT Ancillary Procedure Image [facility] [address] [place] [id number] Trevor Vallecillo, QUALITATIVE EXECUTIVE RESEARCHER Cancer after 10/15/2022 Social History Tobacco Use Types Packs/Day Years [...] Routine 03/15/2023 9:26 PM CDT Cancer after 10/15/2022 Results * OSI MRI Head (06/28/2023 2:11 PM CDT) Only the most recent of3 resultswithin the time period is included. Narrative Systemgenerated, Documentation - 08/09/2023 2:11 PM MAKING MACHINE CATCHER Study acquired at another institution. For comparison only. No [facility] originated interpretation requested or available. Juan Davila IMG OUTSIDE IMAGE OR DERABLES * OSI CT Brain (04/08/2023 9:24 PM CDT) Only the most recent of4 resultswithin the time period is included. Narrative Systemgenerated, Documentation - 07/24/2023 9:24 PM CDT Study acquired at another institution. For comparison only. No MD Robby originated interpretation requested or available. Trevor Vallecillo QUALITATIVE EXECUTIVE RESEARCHER IMG OUTSIDE IMAGE O RDERABLES * OSI Barium Swallow (04/06/2023 9:24 PM CDT) Narrative Systemgenerated, Documentation - 07/24/2023 9:24 PM CDT Study acquired at another institution. For comparison only. No MD Robby originated interpretation requested or available. Trevor Vallecillo QUALITATIVE EXECUTIVE RESEARCHER IMG OUTSIDE IMAGE O RDERABLES * OSI Chest (04/04/2023 9:25 PM CDT) Only the most recent of3 resultswithin the time period is included. Narrative Systemgenerated, Documentation - 07/24/2023 9:25 PM CDT Study acquired at another institution. For comparison only. No MD Robby originated interpretation requested or available. Trevor Vallecillo QUALITATIVE EXECUTIVE RESEARCHER IMG OUTSIDE IMAGE O RDERABLES * OSI Abdomen (04/04/2023 9:25 PM CDT) Narrative Systemgenerated, Documentation - 07/24/2023 9:25 PM CDT Study acquired at another institution. For comparison only. No MD Robby originated interpretation requested or available. Trevor Vallecillo QUALITATIVE EXECUTIVE RESEARCHER IMG OUTSIDE IMAGE O RDERABLES after 10/15/2022
--- NOTE | 2023-10-15 13:36 | EDPHYS ---
Physician Documentation [facility] Name: Mike Cornejo Age: 43 yrs Sex: Female : 1980 Arrival Date: 10/15/2023 Time: 11:34 Bed 16 Private MD: ED Physician John Neal HPI: 10/15 12:13 This 43 yrs old Female presents to ER via Ambulatory with complaints of Neck and Upper sb4 Back Pain - Shoulder. 12:15 The patient or guardian complains of an injury, pain, that is acute, tenderness. The sb4 symptoms are located on the left trapezius. Onset: The symptoms/episode began/occurred 2 day(s) ago. Context: The problem was sustained at home, The neck injury/problem resulted from lifting. Associated signs and symptoms: Pertinent negatives: numbness, tingling. The pain radiates to the neck. Modifying factors: The symptoms are alleviated by nothing. the symptoms are aggravated by movement. The patient has not experienced similar symptoms in the past. 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 - Social history:: Smoking status: Patient/guardian denies using tobacco. ROS: 12:15 Constitutional: Negative for fever, chills, and weight loss, sb4 12:15 Neck: Positive for injury or acute deformity, pain with movement, pain at rest, stiffness, of the left trapezius, 12:15 All other systems are negative, Exam: 12:15 Constitutional: This is a well developed, well nourished patient who is awake, alert, sb4 and in no acute distress. Head/Face: Normocephalic, atraumatic. Eyes: Extra-ocular motions intact. Periorbital areas with no swelling, redness, or edema. ENT: Mucous membranes moist. Cardiovascular: Regular rate and rhythm with a normal S1 and S2. Respiratory: Lungs have equal breath sounds bilaterally, clear to auscultation and percussion. No rales, rhonchi or wheezes noted. No increased work of breathing, no retractions or nasal flaring. Abdomen/GI: Soft, non-tender, no distension. Skin: Warm, dry with normal turgor. Normal color with no rashes, no lesions, and no evidence of cellulitis. MS/ Extremity: Pulses equal, no cyanosis. Neurovascular intact. Full, normal range of motion. Neuro: Awake and alert, GCS 15, oriented to person, place, time, and situation. Motor strength 5/5 in all extremities. Sensory grossly intact. 12:15 Neck: External neck: tenderness, that is mild, ROM/movement: pain, that is moderate, with any movement, Vital Signs: 11:51 BP 127 / 82; Pulse 112; Resp 16; Temp 98.6; Pulse Ox 100% ; ko1 12:14 BP 127 / 96; Pulse 104; Resp 18; Pulse Ox 98% on R/A; Pain 10/10; tl4 14:33 BP 129 / 91; Pulse 110; Resp 18; Pulse Ox 96% on R/A; cm10 12:14 Pain Scale: Adult tl4 Lopez Coma Score: 12:14 Eye Response: spontaneous(4). Motor Response: obeys commands(6). Verbal Response: tl4 oriented(5). Total: 15. MDM: 11:45 Patient medically screened. sb4 12:15 Differential diagnosis: muscle strain, muscle spasm, pinched nerve. sb4 13:35 Data reviewed: vital signs, nurses notes, and as a result, I will discharge patient. sb4 Test considered but Not performed: X-ray: not indicated, pain is muscular. Care significantly affected by the following chronic conditions: Cancer. Counseling: I had a detailed discussion with the patient and/or guardian regarding the historical points, exam findings, and any diagnostic results supporting the discharge/admit diagnosis, to return to the emergency department if symptoms worsen or persist or if there are any questions or concerns that arise at home. Administered Medications: 12:27 Drug: Cyclobenzaprine PO 10 mg PO once Route: PO; tl4 13:01 Follow up: Response: Pain is decreased tl4 12:27 Drug: Ketorolac IM 30 mg IM once Route: IM; Site: right ventrogluteal; tl4 13:01 Follow up: Response: Pain is decreased tl4 12:27 Drug: Dexamethasone IM 10 mg IM once Route: IM; Site: left ventrogluteal; tl4 13:00 Follow up: Response: Pain is decreased tl4 12:27 Drug: Gabapentin PO 300 mg PO once Route: PO; tl4 13:00 Follow up: Response: Pain is decreased tl4 13:00 Drug: Lidoderm Topical Patch 5 % (700 mg/patch) 1 patches Topical once; leave on for 12 tl4 hours; cover most painful area; may cut into smaller pieces {Note: applied to left shoulder.} Route: Topical; Site: affected area; Disposition: 17:00 Co-signature as Attending Physician, John Neal MD I reviewed the patient's care rn provided by the Advanced Practice Provider and agree with the diagnosis and treatment plan. Disposition Summary: 10/15/23 13:35 Discharge Ordered Notes: Location: Home sb4 Problem: new sb4 Symptoms: have improved sb4 Condition: Stable sb4 Diagnosis - muscle strain - left trapezius sb4 Followup: sb4 - With: Jacob Trevino MD - When: As needed - Reason: Further diagnostic work-up, Recheck today's complaints, Re-evaluation by your physician Discharge Instructions: - Discharge Summary Sheet sb4 - Muscle Strain, [id number] sb4 Forms: - Work release form eb - Medication Reconciliation Form sb4 - Thank You Letter sb4 - Antibiotic Education sb4 - Prescription Opioid Use sb4 - Patient Portal Instructions sb4 - Leadership Thank You Letter sb4 Prescriptions: - Cyclobenzaprine 10 mg Oral Tablet - take 1 tablet ORAL route every 8 hours As needed; 30 tablet; Refills: 0, sb4 Product Selection Permitted - Diclofenac Sodium 75 mg Oral Tablet Sustained Release - take 1 tablet ORAL route 2 times per day; 30 tablet; Refills: 0, Product sb4 Selection Permitted Signatures: John Neal MD MD rn Oliver, Kathy, RN RN Naya Vega PA-C PA-C sb4 Logdahl, Hira tl4
--- NOTE | 2023-10-15 13:36 | ER ---
Nurse's Notes [facility] Name: Mike Cornejo Age: 43 yrs Sex: Female : 1980 Arrival Date: 10/15/2023 Time: 11:34 Bed 16 Private MD: Diagnosis: muscle strain - left trapezius Presentation: 10/15 11:51 Chief complaint: Patient states: pain and stiffness in neck and mainly on left side of ko1 neck down into back. I think I picked up something too heavy to put in the truck. Coronavirus screen: At this time, the client does not indicate any symptoms associated with coronavirus-19. Ebola Screen: No symptoms or risks identified at this time. Initial Sepsis Screen: Does the patient meet any 2 criteria? No. Patient's initial sepsis screen is negative. Does the patient have a suspected source of infection? No. Patient's initial sepsis screen is negative. Risk Assessment: Do you want to hurt yourself or someone else? Patient reports no desire to harm self or others. Onset of symptoms was October 15, 2023. 11:51 Method Of Arrival: Ambulatory ko1 11:51 Acuity: YING 4 ko1 Triage Assessment: 11:56 General: Appears in no apparent distress. uncomfortable, Behavior is calm, cooperative, ko1 appropriate for age. Pain: Complains of pain in left trapezius and right trapezius. 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 - Social history:: Smoking status: Patient/guardian denies using tobacco. Screenin:14 [facility] ED Fall Risk Assessment (Adult) History of falling in the last 3 months, tl4 including since admission No falls in past 3 months (0 pts) Confusion or Disorientation No (0 pts) Intoxicated or Sedated No (0 pts) Impaired Gait No (0 pts) Mobility Assist Device Used No (0 pt) Altered Elimination No (0 pt) Score/Fall Risk Level 0 - 2 = Low Risk Oriented to surroundings, Maintained a safe environment, Educated pt \T\ family on fall prevention, incl call for assistance when getting out of bed, Assessed \T\ reinforced patient's understanding of fall precautions. Abuse screen: Denies threats or abuse. Denies injuries from another. Nutritional screening: No deficits noted. Tuberculosis screening: No symptoms or risk factors identified. Assessment: 12:09 General: Appears uncomfortable, Behavior is calm, cooperative. Pain: Complains of pain tl4 in back. Neuro: Level of Consciousness is awake, alert, obeys commands, Oriented to person, place, time, situation, Gait is steady. Cardiovascular: No deficits noted. Denies diaphoresis, lightheadedness, palpitations. Respiratory: No deficits noted. Denies shortness of breath. GI: No deficits noted. No signs and/or symptoms were reported involving the gastrointestinal system. : No deficits noted. No signs and/or symptoms were reported regarding the genitourinary system. EENT: No deficits noted. No signs and/or symptoms were reported regarding the EENT system. Musculoskeletal: Reports pain in back and right trapezius and left trapezius. 13:01 Reassessment: Patient and/or family updated on plan of care and expected duration. Pain tl4 level reassessed. Patient is alert, oriented x 3, equal unlabored respirations, skin warm/dry/pink. Patient states feeling better. Vital Signs: 11:51 BP 127 / 82; Pulse 112; Resp 16; Temp 98.6; Pulse Ox 100% ; ko1 12:14 BP 127 / 96; Pulse 104; Resp 18; Pulse Ox 98% on R/A; Pain 10/10; tl4 14:33 BP 129 / 91; Pulse 110; Resp 18; Pulse Ox 96% on R/A; cm10 12:14 Pain Scale: Adult tl4 Vitals: 12:14 Cardiac Rhythm Assessment Regular. tl4 Lopez Coma Score: 12:14 Eye Response: spontaneous(4). Motor Response: obeys commands(6). Verbal Response: tl4 oriented(5). Total: 15. ED Course: 11:37 Patient arrived in ED. mg5 11:38 Naya Mart PA-C is [facility]. sb4 11:38 John Neal MD is Attending Physician. sb4 11:56 Triage completed. ko1 11:56 Arm band placed on right wrist. Patient placed in an exam room, on a stretcher, on ko1 pulse oximetry, Patient notified of wait time. 11:59 Hira Lira is Primary Nurse. tl4 12:15 Patient has correct armband on for positive identification. Placed in gown. Bed in low tl4 position. Call light in reach. Side rails up X2. Provided Education on: ED process. Client placed on continuous cardiac and pulse oximetry monitoring. NIBP monitoring applied. Door closed. Noise minimized. Moved to private room. Warm blanket given. Pillow given. 12:15 No provider procedures requiring assistance completed. tl4 12:29 Patient did not have IV access during this emergency room visit. tl4 13:35 Jacob Trevino MD is Referral Physician. sb4 Administered Medications: 12:27 Drug: Cyclobenzaprine PO 10 mg PO once Route: PO; tl4 13:01 Follow up: Response: Pain is decreased tl4 12:27 Drug: Ketorolac IM 30 mg IM once Route: IM; Site: right ventrogluteal; tl4 13:01 Follow up: Response: Pain is decreased tl4 12:27 Drug: Dexamethasone IM 10 mg IM once Route: IM; Site: left ventrogluteal; tl4 13:00 Follow up: Response: Pain is decreased tl4 12:27 Drug: Gabapentin PO 300 mg PO once Route: PO; tl4 13:00 Follow up: Response: Pain is decreased tl4 13:00 Drug: Lidoderm Topical Patch 5 % (700 mg/patch) 1 patches Topical once; leave on for 12 tl4 hours; cover most painful area; may cut into smaller pieces {Note: applied to left shoulder.} Route: Topical; Site: affected area; Medication: 12:14 VIS not applicable for this client. tl4 Outcome: 13:35 Discharge ordered by . sb4 14:33 Discharged to home ambulatory, with family, cm10 14:33 Condition: good 14:33 Discharge instructions given to patient, Instructed on discharge instructions, follow up and referral plans. medication usage, Demonstrated understanding of instructions, follow-up care, medications, Prescriptions given X 2, 14:33 Patient left the ED. cm10 Signatures: Brittney Shelton RN RN ko1 Naya Mart BRIELLE [email or web address] Miri Tucker, RN RN cm10 Raiza Og mg5 Hira Lira4
[2023-10-15 14:46] VITALS: TEMP 98.6
[2023-10-15 15:04] VITALS: BP 129/91; O2SAT 96
== END ==
LOC: ER 11:34
DX: S46.812A Strain of other muscles, fascia and tendons at shoulder and upper arm level, left arm, initial encounter (principal); Z88.1 Allergy status to other antibiotic agents; Z88.5 Allergy status to narcotic agent
CPT/HCPCS: 96372; 99284; J2001; J1100

== ENCOUNTER → 2023-11-09 | Emergency (ER) | payer OTHER ==
[~2023-11-09] MED LIST changes: -CYCLOBENZAPRINE 10 MG TAB ONE; +FENTANYL CITR 100 MCG/2 ML ONE; -GABAPENTIN 300 MG CAP ONE; -KETOROLAC 30 MG/ML INJ ONE; -LIDOCAINE 4% PATCH ONE; +METOCLOPRAMIDE 10 MG/2mL INJ ONE; +NA CHLORIDE 0.9% 1,000 ML ONE; +PROMETHAZINE INJ 25 MG/ML AMP ONE; -dexAMETHasone 10 MG/ML VIAL ONE
--- OUTSIDE RECORDS SUMMARY | 2023-11-09 13:13 | XMS REPORT | Clinical Summary ---
Author Name Unknown Organization [facility] Address [address] [place] [address] Care Team Providers Care Pediatric Licensed Practical Nurse Name Role Phone Gabby Prince MD Unavailable Kiet Encinas RN Unavailable Encounters Date Type Department Care Team Description 10/31/2023 Telephone [facility] [address] 9th [place] [address] Kiet Encinas, RN 10/24/2023 Telephone [facility] [address] 9th [place] [address] Kiet Encinas, RN 10/24/2023 Travel 08/09/2023 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 Ancillary Procedure Image Library [address] [place] [address] Cancer 07/24/2023 9:45 PM CDT Ancillary Procedure Image Library [address] [place] [address] 08190 Trevor Vallecillo, LEORA Cancer 07/24/2023 9:40 PM CDT Ancillary Procedure Image Library [address] [place] [address] 43871 Trevor Vallecillo, LEORA Cancer 07/24/2023 9:35 PM CDT Ancillary Procedure Image Library [address] [place] [address] [id number] Trevor Vallecillo, SPEECH PATHOLOGY ASSISTANT Cancer 07/24/2023 9:30 PM CDT Ancillary Procedure Image Library [address] [place] [address] [id number] Trevor Vallecillo, SPEECH PATHOLOGY ASSISTANT Cancer 07/24/2023 9:25 PM CDT Ancillary Procedure Image Library [address] [place] [address] 39738 Trevor Vallecillo, SPEECH PATHOLOGY ASSISTANT Cancer 07/24/2023 9:20 PM CDT Ancillary Procedure Image Library [address] [place] [address] 25578 Trevor Vallecillo, SPEECH PATHOLOGY ASSISTANT Cancer 07/24/2023 9:15 PM CDT Ancillary Procedure Image Library [address] [place] [address] [id number] Trevor Vallecillo, SPEECH PATHOLOGY ASSISTANT Cancer 07/24/2023 9:10 PM CDT Ancillary Procedure Image Library [address] [place] [address] [id number] Trevor Vallecillo, SPEECH PATHOLOGY ASSISTANT Cancer 07/24/2023 9:05 PM CDT Ancillary Procedure Image Library [address] [place] [address] 24645 Trevor Vallecillo, SPEECH PATHOLOGY ASSISTANT Cancer 07/24/2023 9:00 PM CDT Ancillary Procedure Image Library [address] [place] [address] [id number] Trevor Vallecillo, SPEECH PATHOLOGY ASSISTANT Cancer 07/24/2023 8:55 PM CDT Ancillary Procedure Image Library [address] [place] [address] [id number] Trevor Vallecillo, SPEECH PATHOLOGY ASSISTANT Cancer 07/24/2023 8:50 PM CDT Ancillary Procedure Image Library [address] [place] [address] 06396 Trevor Vallecillo, SPEECH PATHOLOGY ASSISTANT Cancer 07/24/2023 8:45 PM CDT Ancillary Procedure Image Library [address] [place] [address] [id number] Trevor Vallecillo, SPEECH PATHOLOGY ASSISTANT Cancer 07/24/2023 8:40 PM CDT Ancillary Procedure Image Library [address] [place] [address] Trevor Vallecillo, LEORA Cancer 07/24/2023 8:35 PM CDT Ancillary Procedure Image Library [address] [place] [address] Trevor Vallecillo, LEORA Cancer after 11/09/2022 Social History Tobacco Use Types Packs/Day Years Used Date Smoking Tobacco: Never Assessed Sex and Gender Information Value Date Recorded Sex Assigned at Female 07/10/2023 9:22 AM CDT Gender Identity Female 07/10/2023 9:22 AM CDT Sexual Orientation Straight 07/10/2023 9: 22 AM CDT Job Start Date Occupation Industry Not on file Not on file Not on file Plan of Treatment Health Maintenance Due Date Last Done Comments COVID-19 Vaccination (#1) 01/31/1980 Procedures Procedure Name Priority Date/Time Associated Diagnosis [...] Routine 03/15/2023 9:26 PM CDT Cancer after 11/09/2022 Results * OSI MRI Head (06/28/2023 2:11 PM CDT) Only the most recent of3 resultswithin the time period is included. 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 For comparison only. No MD Robby originated interpretation requested or available. Juan Davila IMG OUTSIDE IMAGE OR DERABLES * OSI CT Brain (04/08/2023 9:24 PM CDT) Only the most recent of4 resultswithin the time period is included. Narrative Systemgenerated, Documentation - 07/24/2023 9:24 PM CDT Study acquired at another institution. For comparison only. No MD Robby originated interpretation requested or available. Trevor Vallecillo SPEECH PATHOLOGY ASSISTANT IMG OUTSIDE IMAGE O RDERABLES * OSI Barium Swallow (04/06/2023 9:24 PM CDT) Narrative Systemgenerated, Documentation - 07/24/2023 9:24 PM CDT Study acquired at another institution. For comparison only. No MD Robby originated interpretation requested or available. Trevor Vallecillo SPEECH PATHOLOGY ASSISTANT IMG OUTSIDE IMAGE O RDERABLES * OSI Chest (04/04/2023 9:25 PM CDT) Only the most recent of3 resultswithin the time period is included. Narrative Systemgenerated, Documentation - 07/24/2023 9:25 PM CDT Study acquired at another institution. For comparison only. No MD Robby originated interpretation requested or available. Trevor Eldges SPEECH PATHOLOGY ASSISTANT IMG OUTSIDE IMAGE O RDERABLES * OSI Abdomen (04/04/2023 9:25 PM CDT) Narrative Systemgenerated, Documentation - 07/24/2023 9:25 PM CDT Study acquired at another institution. For comparison only. No MD Bustamante originated interpretation requested or available. Trevor Vallecillo SPEECH PATHOLOGY ASSISTANT IMG OUTSIDE IMAGE O RDERABLES after 11/09/2022 Care Teams Pediatric Licensed Practical Nurse Relationship Specialty Start Date End Date Gabby Prince MD [address] [place] [id number] PCP - External Referring Family Practice 10/23/23 Kiet Encinas, RN [address] [place] [address] Intake Nurse Navigator Nursing 10/23/23 4
[2023-11-09 15:43] LABS: Absolute Lymphocytes (CBC) 0.6 K/uL (0.7-4.9); Hematocrit 31.9 % (36.0-45.0); Lymphocytes % 13.1 % (15.3-44.8); MCV 90.4 fL (80-100); MPV 7.5 fL (7.6-11.3); Platelets 260 thou/uL (152-406); RBC Red Blood Cell Count 3.53 M/uL (3.86-4.86)
[2023-11-09 16:00] LABS: Albumin 3.5 g/dL (3.4-5.0); Bilirubin Total 0.6 mg/dL (0.2-1.0); Protein, Total 7.2 g/dL (6.4-8.2)
[2023-11-09 16:25] LABS: SARS-CoV-2 Antigen Rapid Res Negative (Negative)
--- NOTE | 2023-11-09 16:41 | RAD REPORT ---
EXAM DESCRIPTION: CT - Abdomen Pelvis Wo Contrast - 11/09/2023 4:34 pm CLINICAL HISTORY: Abdominal pain. ABD PAIN COMPARISON: Abdomen Pelvis W Contrast dated 01/20/2023 TECHNIQUE: CT imaging of the abdomen and pelvis was performed without contrast. Solid organ, bowel a nd vascular assessment is limited due to lack of IV and oral contrast. All CT scans are performed using dose optimization technique as appropriate and may include automated exposure control or mA/KV adjustment according to patient size. FINDINGS: Calcification is present in a posterior left base. Small left pleural effusion.Cholecystec rodolfo clips. The liver, spleen, pancreas, adrenal glands and kidneys are within normal limits for a limited non-co ntrast examination. No bowel obstruction, free air, free fluid or abscess. Absent appendix. The osseous structures are within normal limits. IMPRESSION: No acute intra-abdominal or pelvic findings. Small left pleural effusion. A limited non-contrast examination was performed as detailed.
--- NOTE | 2023-11-09 17:39 | ER ---
Nurse's Notes [facility] Name: Mike Cornejo Age: 43 yrs Sex: Female : 1980 Arrival Date: 11/09/2023 Time: 13:10 Bed 16 Private MD: Diagnosis: Noninfective gastroenteritis and colitis, unspecified Presentation: 11/09 13:45 Chief complaint: Patient states: N/V/D for 2-3 days. Coronavirus screen: Client denies ll1 travel out of the [place] in the last 14 days. At this time, the client does not indicate any symptoms associated with coronavirus-19. Ebola Screen: Patient denies travel to an Ebola-affected area in the 21 days before illness onset. Initial Sepsis Screen: Does the patient meet any 2 criteria? No. Patient's initial sepsis screen is negative. Does the patient have a suspected source of infection? No. Patient's initial sepsis screen is negative. Risk Assessment: Do you want to hurt yourself or someone else? Patient reports no desire to harm self or others. Onset of symptoms was November 07, 2023. 13:45 Method Of Arrival: Wheelchair ll1 13:45 Acuity: YING 3 ll1 Historical: - Allergies: 13:36 Morphine; ll1 13:36 Bactrim; ll1 13:36 tramadol; ll1 - PMHx: 13:36 BRAIN TUMOR; chemotherapy (Tonsillectomy); Lung Cancer (Tonsillectomy); Lung mass; ll1 - PSHx: 13:36 Appendectomy; Brain tumor surgery; Tonsillectomy; Cholecystectomy; ll1 - Immunization history:: Adult Immunizations up to date. - Social history:: Smoking status: Patient/guardian denies using tobacco. Screenin:45 [facility] ED Fall Risk Assessment (Adult) History of falling in the last 3 months, rs5 including since admission No falls in past 3 months (0 pts) Confusion or Disorientation No (0 pts) Intoxicated or Sedated No (0 pts) Impaired Gait No (0 pts) Mobility Assist Device Used No (0 pt) Altered Elimination No (0 pt) Score/Fall Risk Level 0 - 2 = Low Risk Oriented to surroundings, Maintained a safe environment. Abuse screen: Denies threats or abuse. Nutritional screening: No deficits noted. Tuberculosis screening: No symptoms or risk factors identified. Assessment: 13:45 General: Appears in no apparent distress. uncomfortable, Behavior is cooperative. Pain: rs5 Complains of pain in abdomen Pain does not radiate. Pain currently is 7 out of 10 on a pain scale. Quality of pain is described as aching, Is continuous. Neuro: Level of Consciousness is awake, alert, obeys commands, Oriented to person, place, time, situation. Cardiovascular: Patient's skin is warm and dry. Rhythm is regular. Respiratory: Airway is patent Respiratory effort is even, unlabored, Respiratory pattern is regular, symmetrical. GI: Abdomen is round non-distended, Bowel sounds present X 4 quads. Abd is soft and non tender X 4 quads. Reports nausea, vomiting. : No signs and/or symptoms were reported regarding the genitourinary system. EENT: No signs and/or symptoms were reported regarding the EENT system. Derm: Skin is intact, Skin is pink, warm \T\ dry. Musculoskeletal: Circulation, motion, and sensation intact. Range of motion: intact in all extremities. 14:59 Reassessment: Patient and/or family updated on plan of care and expected duration. Pain rs5 level reassessed. Patient is alert, oriented x 3, equal unlabored respirations, skin warm/dry/pink. Patient denies pain at this time. Patient states feeling better. Patient states symptoms have improved. 15:30 Reassessment: To bedside, port a cath on pt's right upper chest accessed per md order rs5 for blood draw and fluid adm. 16:21 Reassessment: No changes from previously documented assessment. rs5 17:45 Reassessment: Patient and/or family updated on plan of care and expected duration. Pain rs5 level reassessed. Patient is alert, oriented x 3, equal unlabored respirations, skin warm/dry/pink. Patient denies pain at this time. 17:55 Reassessment: Port a cath flushed with heparin and 20cc and access removed prior to rs5 discharge. Vital Signs: 13:45 BP 127 / 100; Pulse 104; Resp 18; Temp 97.1; Pulse Ox 98% ; Weight 75.3 kg; Height 5 ll1 ft. 2 in. ; Pain 7/10; 15:01 BP 130 / 82; Pulse 90; Resp 18; Pulse Ox 99% on R/A; rs5 17:35 BP 125 / 81; Pulse 88; Resp 18; Temp 97.5(O); Pulse Ox 99% ; rs5 13:45 Body Mass Index 30.36 (75.30 kg, 157.48 cm) ll1 13:45 Pain Scale: Adult ll1 ED Course: 13:11 Patient arrived in ED. rg4 13:17 Naya Mart PA-C is PHCP. sb4 13:17 Candelario Bustamante MD is Attending Physician. sb4 13:36 Arm band placed on. ll1 13:45 Patient has correct armband on for positive identification. Placed in gown. Bed in low rs5 position. Call light in reach. Side rails up X2. 13:45 No provider procedures requiring assistance completed. rs5 13:46 Triage completed. ll1 14:01 Owen Payne, RN is Primary Nurse. rs5 15:28 Accessed Port-a-Cath. using accessed w/ # 20 Carlton needle, ,sterile technique, per as hospital protocol. Clean \T\ dry. Dressing intact. Good blood return. Flushes easily. 15:28 Lipase Sent. as6 15:28 CMP Sent. as6 15:28 CBC with Diff Sent. as6 16:34 Abdomen In Process Unspecified. EDMS 17:55 IV discontinued, intact, bleeding controlled, No redness/swelling at site. Pressure rs5 dressing applied. Administered Medications: 15:30 Drug: NS 0.9% IV 1000 ml IV at 1 bolus Per protocol; 1000 mL bolus Route: IV; Rate: 1 rs5 bolus; Site: Port-a-cath; 15:30 Drug: Promethazine IVP 12.5 mg IVP once Route: IVP; Site: Port-a-cath; rs5 16:01 Follow up: Response: No adverse reaction rs5 17:25 Drug: NS 0.9% IV 1000 ml IV at 1 bolus Per protocol; 1000 mL bolus Route: IV; Rate: 1 rs5 bolus; Site: left antecubital; 18:01 Follow up: Response: No adverse reaction rs5 17:25 Drug: metoCLOPramide IVP 10 mg IVP once; over 1 to 2 minutes Route: IVP; Site: left rs5 antecubital; 18:01 Follow up: Response: No adverse reaction rs5 17:59 Not Given (Patient Refused): fentanyl (pf)25 mcg IVP once rs5 18:00 Drug: HEParin Flush IVP 500 units IVP once; for Port-a-cath packing Route: IVP; Site: rs5 Port-a-cath; Medication: 14:20 VIS not applicable for this client. rs5 Outcome: 17:38 Discharge ordered by . sb4 18:01 Discharged to home ambulatory, rs5 18:01 Condition: stable 18:01 Discharge instructions given to patient, family, Instructed on discharge instructions, follow up and referral plans. medication usage, Demonstrated understanding of instructions, follow-up care, medications, Prescriptions given X 2, 18:05 Patient left the ED. rs5 Signatures: Dispatcher [employer] EDWendi Mcneil rg4 Suzy Dyson, JAE RN ll1 Vicente Diamond RN RN as6 Naya Mart PABrenda PA-C sb4 Owen Payne, RN RN rs5 Corrections: (The following items were deleted from the chart) 19:38 18:23 Patient left the ED. rs5 rs5
--- NOTE | 2023-11-09 17:39 | EDPHYS ---
Physician Documentation [facility] Name: Mike Cornejo Age: 43 yrs Sex: Female : 1980 Arrival Date: 11/09/2023 Time: 13:10 Bed 16 Private MD: ED Physician Candelario Bustamante HPI: 11/09 13:53 This 43 yrs old Female presents to ER via Wheelchair with complaints of Vomiting. sb4 13:53 The patient presents to the emergency department with nausea, vomiting. Onset: The sb4 symptoms/episode began/occurred 3 day(s) ago. Possible causes: unknown. 13:54 was seen here 4 days ago, transferred to [facility] for ischemic stroke. discharged 3 days sb4 ago. has had nausea and vomiting since. reports some diarrhea and some abdominal pain. has been taking zofran and some other unknown antiemetic without significant relief. Historical: - Allergies: 13:36 Morphine; ll1 13:36 Bactrim; ll1 13:36 tramadol; ll1 - PMHx: 13:36 BRAIN TUMOR; chemotherapy (Tonsillectomy); Lung Cancer (Tonsillectomy); Lung mass; ll1 - PSHx: 13:36 Appendectomy; Brain tumor surgery; Tonsillectomy; Cholecystectomy; ll1 - Immunization history:: Adult Immunizations up to date. - Social history:: Smoking status: Patient/guardian denies using tobacco. ROS: 13:54 Constitutional: Negative for fever, chills, and weight loss, sb4 13:54 Abdomen/GI: Positive for nausea and vomiting, 13:54 All other systems are negative, Exam: 13:54 Head/Face: Normocephalic, atraumatic. Eyes: Extra-ocular motions intact. Periorbital sb4 areas with no swelling, redness, or edema. ENT: Mucous membranes moist. Cardiovascular: Regular rate and rhythm with a normal S1 and S2. Respiratory: Lungs have equal breath sounds bilaterally, clear to auscultation and percussion. No rales, rhonchi or wheezes noted. No increased work of breathing, no retractions or nasal flaring. Abdomen/GI: Soft, non-tender, no distension. Skin: Warm, dry with normal turgor. Normal color with no rashes, no lesions, and no evidence of cellulitis. MS/ Extremity: Pulses equal, no cyanosis. Neurovascular intact. Full, normal range of motion. Neuro: Awake and alert, GCS 15, oriented to person, place, time, and situation. Motor strength 5/5 in all extremities. Sensory grossly intact. 13:54 Constitutional: The patient appears in no acute distress, alert, awake, Vital Signs: 13:45 BP 127 / 100; Pulse 104; Resp 18; Temp 97.1; Pulse Ox 98% ; Weight 75.3 kg; Height 5 ll1 ft. 2 in. ; Pain 7/10; 15:01 BP 130 / 82; Pulse 90; Resp 18; Pulse Ox 99% on R/A; rs5 17:35 BP 125 / 81; Pulse 88; Resp 18; Temp 97.5(O); Pulse Ox 99% ; rs5 13:45 Body Mass Index 30.36 (75.30 kg, 157.48 cm) ll1 13:45 Pain Scale: Adult ll1 MDM: 13:47 Patient medically screened. sb4 13:54 Differential diagnosis: gastroenteritis, covid, flu, medication reaction. sb4 17:38 Data reviewed: vital signs, nurses notes, lab test result(s), radiologic studies, and sb4 as a result, I will discharge patient. Consideration of Admission/Observation Escalation of care including admission/observation considered. Care significantly affected by the following chronic conditions: Cancer. Counseling: I had a detailed discussion with the patient and/or guardian regarding the historical points, exam findings, and any diagnostic results supporting the discharge/admit diagnosis, lab results, radiology results, to return to the emergency department if symptoms worsen or persist or if there are any questions or concerns that arise at home. 11/09 13:52 Order name: CBC with Diff; Complete Time: 15:48 sb4 11/09 13:52 Order name: CMP; Complete Time: 16:01 sb4 11/09 13:52 Order name: Lipase; Complete Time: 16:01 sb4 11/09 13:52 Order name: SARS RAPID; Complete Time: 16:32 sb4 11/09 13:52 Order name: Flu; Complete Time: 16:54 sb4 11/09 16:34 Order name: Abdomen ; Complete Time: 16:41 EDMS 11/09 13:52 Order name: IV Saline Lock; Complete Time: 15:28 sb4 11/09 13:52 Order name: Labs collected and sent; Complete Time: 15:28 sb4 Administered Medications: 15:30 Drug: NS 0.9% IV 1000 ml IV at 1 bolus Per protocol; 1000 mL bolus Route: IV; Rate: 1 rs5 bolus; Site: Port-a-cath; 15:30 Drug: Promethazine IVP 12.5 mg IVP once Route: IVP; Site: Port-a-cath; rs5 16:01 Follow up: Response: No adverse reaction rs5 17:25 Drug: NS 0.9% IV 1000 ml IV at 1 bolus Per protocol; 1000 mL bolus Route: IV; Rate: 1 rs5 bolus; Site: left antecubital; 18:01 Follow up: Response: No adverse reaction rs5 17:25 Drug: metoCLOPramide IVP 10 mg IVP once; over 1 to 2 minutes Route: IVP; Site: left rs5 antecubital; 18:01 Follow up: Response: No adverse reaction rs5 17:59 Not Given (Patient Refused): fentanyl (pf)25 mcg IVP once rs5 18:00 Drug: HEParin Flush IVP 500 units IVP once; for Port-a-cath packing Route: IVP; Site: rs5 Port-a-cath; Disposition Summary: 11/09/23 17:38 Discharge Ordered Notes: Location: Home sb4 Problem: an ongoing problem sb4 Symptoms: have improved sb4 Condition: Stable sb4 Diagnosis - Noninfective gastroenteritis and colitis, unspecified sb4 Followup: sb4 - With: Emergency Department - When: As needed - Reason: Trouble breathing, Worsening of condition Discharge Instructions: - Discharge Summary Sheet sb4 - Viral Gastroenteritis, Adult sb4 Forms: - Thank You Letter sb4 - Patient Portal Instructions sb4 - Leadership Thank You Letter sb4 Prescriptions: - promethazine 25 mg Oral tablet - take 1 tablet ORAL route every 6 hours As needed; 20 tablet; Refills: 0, sb4 Product Selection Permitted Signatures: Dispatcher [employer] Suzy Patino RN RN ll1 Vicente Diamond RN RN as6 Naya Mart PA-C PABrenda sb4 Owen Payne RN RN rs5 Corrections: (The following items were deleted from the chart) 16:34 13:53 Abdomen Pelvis W [id number] ordered. EDMS EDMS
[2023-11-09 18:35] VITALS: BP 127/100; TEMP 97.1; O2SAT 98
== END ==
LOC: ER 13:10
DX: K52.9 Noninfective gastroenteritis and colitis, unspecified (principal); Z11.52 Encounter for screening for COVID-19; Z88.1 Allergy status to other antibiotic agents; Z88.5 Allergy status to narcotic agent
CPT/HCPCS: 85025; 36415; 83690; 80053; 87804 ×2; 74176; 99284; 87811; J2550; J2765; J1644; J7030 ×2; J3010

== ENCOUNTER → 2023-11-10 | Emergency (ER) | payer OTHER ==
[~2023-11-10] MED LIST changes: +CEFAZOLIN SODIUM 1 GM/VIAL ONE; +NA CHLORIDE 0.9% 100 ML ONE
--- OUTSIDE RECORDS SUMMARY | 2023-11-10 18:28 | XMS REPORT | Clinical Summary ---
Author Name Unknown Organization [facility] Address [address] [place] [address] Care Team Providers Care Ballroom Dance Instructor Name Role Phone Gabby Prince MD Unavailable [phone] Kiet Encinas RN Unavailable Encounters Date Type Department Care Team Description 10/31/2023 Telephone [facility] - Medical Oncology [address] [place] [address] Kiet Encinas, RN 10/24/2023 Telephone [facility]cology [address] [place] [address] Kiet Encinas, RN 10/24/2023 Travel 08/09/2023 8:00 PM 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 Ancillary Procedure Image Library [address] [place] [address] Cancer 07/24/2023 9:45 PM CDT Ancillary Procedure Image Library [address] [place] [address] 20087 Trevor Vallecillo, LEORA Cancer 07/24/2023 9:40 PM CDT Ancillary Procedure Image Library [address] [place] [address] 87157 Trevor Vallecillo, LEORA Cancer 07/24/2023 9:35 PM CDT Ancillary Procedure Image Library [address] [place] [address] [id number] Trevor Vallecillo, ATHLETIC TEAM PHYSICIAN Cancer 07/24/2023 9:30 PM CDT Ancillary Procedure Image Library [address] [place] [address] [id number] Trevor Vallecillo, ATHLETIC TEAM PHYSICIAN Cancer 07/24/2023 9:25 PM CDT Ancillary Procedure Image Library [address] [place] [address] [id number] Trevor Vallecillo, ATHLETIC TEAM PHYSICIAN Cancer 07/24/2023 9:20 PM CDT Ancillary Procedure Image Library [address] [place] [address] [id number] Trevor Vallecillo, ATHLETIC TEAM PHYSICIAN Cancer 07/24/2023 9:15 PM CDT Ancillary Procedure Image Library [address] [place] [address] 23823 Trevor Vallecillo, ATHLETIC TEAM PHYSICIAN Cancer 07/24/2023 9:10 PM CDT Ancillary Procedure Image Library [address] [place] [address] [id number] Trevor Vallecillo, ATHLETIC TEAM PHYSICIAN Cancer 07/24/2023 9:05 PM CDT Ancillary Procedure Image Library [address] [place] [address] [id number] Trevor Vallecillo, ATHLETIC TEAM PHYSICIAN Cancer 07/24/2023 9:00 PM CDT Ancillary Procedure Image Library [address] [place] [address] [id number] Trevor Vallecillo, ATHLETIC TEAM PHYSICIAN Cancer 07/24/2023 8:55 PM CDT Ancillary Procedure Image Library [address] [place] [address] [id number] Trevor Vallecillo, ATHLETIC TEAM PHYSICIAN Cancer 07/24/2023 8:50 PM CDT Ancillary Procedure Image Library [address] [place] [address] [id number] Trevor Vallecillo, ATHLETIC TEAM PHYSICIAN Cancer 07/24/2023 8:45 PM CDT Ancillary Procedure Image Library [address] [place] [address] 48740 Trevor Vallecillo, ATHLETIC TEAM PHYSICIAN Cancer 07/24/2023 8:40 PM CDT Ancillary Procedure Image Library [address] [place] [address] Trevor Vallecillo, LEORA Cancer 07/24/2023 8:35 PM CDT Ancillary Procedure Image Library [address] [place] [address] Trevor Vallecillo, LEORA Cancer after 11/10/2022 Social History Tobacco Use Types Packs/Day Years [...] Routine 03/15/2023 9:26 PM CDT Cancer after 11/10/2022 Results * OSI MRI Head (06/28/2023 2:11 PM CDT) Only the most recent of3 resultswithin the time period is included. Narrative Systemgenerated, Documentation - 08/09/2023 2:11 PM 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 Study acquired at another institution. For comparison [...] originated interpretation requested or available. Trevor Vallecillo ATHLETIC TEAM PHYSICIAN IMG OUTSIDE IMAGE O RDERABLES * OSI Barium Swallow (04/06/2023 9:24 PM CDT) Narrative Systemgenerated, Documentation - 07/24/2023 9:24 PM CDT Study acquired at another institution. For comparison only. No MD Robby originated interpretation requested or available. Trevor Vallecillo ATHLETIC TEAM PHYSICIAN IMG OUTSIDE IMAGE O RDERABLES * OSI Chest (04/04/2023 9:25 PM CDT) Only the most recent of3 resultswithin the time period is included. Narrative Systemgenerated, Documentation - 07/24/2023 9:25 PM CDT Study acquired at another institution. For comparison only. No MD Robby originated interpretation requested or available. Trevor Eldges ATHLETIC TEAM PHYSICIAN IMG OUTSIDE IMAGE O RDERABLES * OSI Abdomen (04/04/2023 9:25 PM CDT) Narrative Systemgenerated, Documentation - 07/24/2023 9:25 PM CDT Study acquired at another institution. For comparison only. No MD Bustamante originated interpretation requested or available. Trevor Vallecillo ATHLETIC TEAM PHYSICIAN IMG OUTSIDE IMAGE O RDERABLES after 11/10/2022 Care Teams Ballroom Dance Instructor Relationship Specialty Start Date End Date Gabby Prince MD [address] [place] [id number] PCP - External Referring Family Practice 10/23/23 Kiet Encinas, RN [address] [place] [address] Intake Nurse Navigator Nursing 10/23/23 4
--- NOTE | 2023-11-10 18:56 | RAD REPORT ---
EXAM DESCRIPTION: RAD - Chest Single View - 11/10/2023 6:49 pm CLINICAL HISTORY: syncope COMPARISON: Chest Single View dated 11/05/2023; Chest Single View dated 09/10/2023; Chest Single View dated 09/08/2023; Chest Single View dated 02/21/2023; Abdomen Pelvis Wo Contrast dated 11/09/2023 FINDINGS: Lines: Port-A-Cath with tip overlying the SVC. Lungs: Linear scarring at the left lung base. Similar elevated left hemidiaphragm. Pleural: No significant pleural effusions or pneumothorax. Cardiac: The heart size is within normal limits. Mediastinum: Within normal limits. Bones: No acute fractures. Other: None IMPRESSION: No acute cardiopulmonary disease. Similar scarring and left hemidiaphragm elevation at t he left lung base.
[2023-11-10 19:15] LABS: Protime INR 1.23
[2023-11-10 19:18] LABS: Absolute Lymphocytes (CBC) 0.6 K/uL (0.7-4.9); Hematocrit 33.9 % (36.0-45.0); MPV 7.4 fL (7.6-11.3); Platelets 295 thou/uL (152-406); RBC Red Blood Cell Count 3.81 M/uL (3.86-4.86)
--- NOTE | 2023-11-10 19:26 | RAD REPORT ---
EXAM DESCRIPTION: CT - CTHCSPWOC - 11/10/2023 7:12 pm CLINICAL HISTORY: Trauma, head and neck injury. SYNCOPE COMPARISON: Neck Angio dated 11/05/2023; Head angio dated 11/05/2023; Ct Stroke Brain Wo Cont dated 07/2024 TECHNIQUE: Axial 5 mm thick images of the head were obtained. Axial 2 mm thick images of the cervical spine were obtained with sagittal and coronal reconstruction images generated and reviewed. All CT scans are performed using dose optimization technique as appropriate and may include automated exposure control or mA/KV adjustment according to patient size. FINDINGS: CT HEAD WITHOUT CONTRAST: No acute hemorrhage, hydrocephalus or extra-axial collection is identified.No areas of brain edema or midline shift. Chronic small vessel ischemic changes and cerebral atrophy. Surgical changes from jeanette or right suboccipital craniectomy. Encephalomalacia at the right cerebellar hemisphere. Comminuted fr acture involving the bilateral nasal bones with significant deformity. There is a fracture as well of the bony nasal septum. Right mastoid effusion.New fracture involving the right frontal calvarium which involves the anterior wall of the right frontal sinus. This is not extend to the inner table of the skull. CT CERVICAL SPINE WITHOUT CONTRAST: No fracture or subluxation.No prevertebral soft tissues swelling is identified. IMPRESSION: 1. Right frontal calvarial fracture involving the anterior wall of the right frontal sin us. No acute intracranial hemorrhage. 2. Bilateral nasal bone fractures with comminution at the right nasal bone with significant deformity as well as fracture at the bony nasal septum. 3. No acute fracture traumatic malalignment cervical spine
--- NOTE | 2023-11-10 19:42 | ER ---
Nurse's Notes [facility] Name: Mike Cornejo Age: 43 yrs Sex: Female : 1980 Arrival Date: 11/10/2023 Time: 18:25 Bed 5 Private MD: Diagnosis: right frontal calvarial fracture with anterior frontal sinus involvement;bilateral nasal bone fractures;syncope;Nausea with vomiting, unspecified Presentation: 11/10 18:43 Chief complaint: Patient states: she was here yesterday for n/v and was d/c home with [facility] medicine. pt reports coming back to the ED because she is not feeling better. pt was found to have had a syncopal episode by registration. pt brought back to bed 5 via stretcher. pt is awake A\T\O x4. Coronavirus screen: At this time, the client does not indicate any symptoms associated with coronavirus-19. Ebola Screen: No symptoms or risks identified at this time. Initial Sepsis Screen: Does the patient meet any 2 criteria? No. Patient's initial sepsis screen is negative. Does the patient have a suspected source of infection? No. Patient's initial sepsis screen is negative. Risk Assessment: Do you want to hurt yourself or someone else? Patient reports no desire to harm self or others. Onset of symptoms was November 10, 2023. 18:43 Method Of Arrival: Stretcher [facility] 18:43 Acuity: YING 2 kc Triage Assessment: 18:45 General: Appears in no apparent distress. comfortable, well groomed, well developed, kc6 Behavior is calm, cooperative, appropriate for age. Pain: Denies pain. EENT: Reports nasal discharge that is bloody. Neuro: Level of Consciousness is awake, alert, obeys commands, Oriented to person, place, time, situation, Appropriate for age. Cardiovascular: Capillary refill < 3 seconds. Respiratory: Airway is patent Trachea midline Respiratory effort is even, unlabored, Respiratory pattern is regular, symmetrical. GI: Reports nausea, vomiting, Patient currently denies abdominal pain, diarrhea. : No signs and/or symptoms were reported regarding the genitourinary system. Derm: No signs and/or symptoms reported regarding the dermatologic system. Skin is intact, is healthy with good turgor, Skin is dry, Skin is pale, Skin temperature is warm. Musculoskeletal: No signs and/or symptoms reported regarding the musculoskeletal system. Circulation, motion, and sensation intact. Capillary refill < 3 seconds, Range of motion: intact in all extremities. Historical: - Allergies: 18:45 Bactrim; kc6 18:45 Morphine; kc6 18:45 tramadol; kc6 - PMHx: 18:45 BRAIN TUMOR; chemotherapy (Tonsillectomy); Lung Cancer (Tonsillectomy); Lung mass; kc6 - PSHx: 18:45 Appendectomy; Brain tumor surgery; Cholecystectomy; Tonsillectomy; kc6 - Immunization history:: Adult Immunizations unknown. - Social history:: Smoking status: unknown. Screenin:47 [facility] ED Fall Risk Assessment (Adult) History of falling in the last 3 months, kc6 including since admission No falls in past 3 months (0 pts) Confusion or Disorientation No (0 pts) Intoxicated or Sedated No (0 pts) Impaired Gait No (0 pts) Mobility Assist Device Used No (0 pt) Altered Elimination No (0 pt) Score/Fall Risk Level 0 - 2 = Low Risk. Abuse screen: Denies threats or abuse. Denies injuries from another. Nutritional screening: No deficits noted. Tuberculosis screening: No symptoms or risk factors identified. Assessment: 18:47 Reassessment: please see triage assessment. kc6 19:45 General: Appears uncomfortable, Behavior is calm, cooperative. Pain: Denies pain. ha1 Neuro: Level of Consciousness is awake, alert, obeys commands, Oriented to person, place, time, situation. Neuro: Reports dizziness. Cardiovascular: Capillary refill < 3 seconds Patient's skin is warm and dry. Respiratory: Airway is patent Respiratory effort is even, unlabored, Respiratory pattern is regular, symmetrical. GI: Abdomen is flat, non-distended, Bowel sounds present X 4 quads. Reports nausea, vomiting. Derm: Skin is pale. Musculoskeletal: Circulation, motion, and sensation intact. 19:45 : No signs and/or symptoms were reported regarding the genitourinary system. ha1 20:40 Reassessment: patient reports headache pain 8/10. Notified care provided. ha1 21:13 Reassessment: Patient and/or family updated on plan of care and expected duration. Pain ha1 level reassessed. Patient is alert, oriented x 3, equal unlabored respirations, skin warm/dry/pink. pain 4/10 Patient states feeling better. Patient states symptoms have improved. 22:05 Reassessment: Patient and/or family updated on plan of care and expected duration. Pain ha1 level reassessed. Patient is alert, oriented x 3, equal unlabored respirations, skin warm/dry/pink. 22:20 Reassessment: report given to receiving nurse JAE Hernandez. ha1 Vital Signs: 18:43 BP 133 / 97; Pulse 101; Resp 16 S; Pulse Ox 94% on R/A; kc6 19:45 BP 115 / 85; Pulse 99; Resp 17 S; Pulse Ox 100% on R/A; ha1 20:40 BP 145 / 98; Pulse 111; Resp 17 S; Pulse Ox 97% on R/A; ha1 21:00 BP 125 / 100; Pulse 106; Resp 18 S; Pulse Ox 97% on R/A; ha1 22:00 BP 130 / 100; Pulse 102; Resp 18 S; Temp 97.6; Pulse Ox 100% on R/A; ha1 ED Course: 18:32 Patient arrived in ED. im 18:36 Naya Mart PA-C is PHCP. sb4 18:36 John Neal MD is Attending Physician. sb4 18:45 Triage completed. kc6 18:45 Arm band placed on. kc6 18:47 Arm band placed on. hb 18:47 Patient has correct armband on for positive identification. Bed in low position. Call [facility] light in reach. Side rails up X2. Adult w/ patient. Client placed on continuous cardiac and pulse oximetry monitoring. NIBP monitoring applied. corporate quality engineer on. 18:47 Patient maintains SpO2 saturation greater than 95% on room air. 6 18:51 Chest Single View XRAY In Process Unspecified. EDMS 19:04 Accessed Port-a-Cath. using accessed w/ # 20 Carlton needle, ,sterile technique, per [facility] hospital protocol. Clean \T\ dry. Dressing intact. Good blood return. Flushes easily. 19:14 CT Head C Spine In Process Unspecified. EDMS 20:[address] [facility]. declined due to cap. kmf 20:43 initiated transfer to [facility]. trauma declined pt. kmf 20:45 Attending Physician role handed off by John Neal MD sb4 20:45 Altaf Young MD is Attending Physician. sb4 21:54 PT ACCEPTED TO [facility]. ADMIN YUE, M \T\ [id number]. DR MALAGON WILL CONTINUE CARE. PT kmf WILL GO TO ROOM 10D 1062. 22:21 No provider procedures requiring assistance completed. Patient transferred, IV remains ha1 in place. 22:23 Provided Education on: need for transfer . ha1 Administered Medications: 19:50 Drug: NS 0.9% IV 1000 ml IV at 1 bolus Per protocol; 1000 mL bolus Route: IV; Rate: 1 ha1 bolus; Site: Port-a-cath; 21:28 Follow up: Response: No adverse reaction; IV Status: Completed infusion; IV Intake: ha1 1000ml 19:50 Drug: metoCLOPramide IVP 10 mg IVP once; over 1 to 2 minutes Route: IVP; Site: [facility] Port-a-cath; 20:20 Follow up: Response: No adverse reaction; Marked relief of symptoms ha1 20:08 Drug: ceFAZolin IVPB 1 grams IVPB once Route: IVPB; Site: Port-a-cath; ha1 20:40 Follow up: Response: No adverse reaction ha1 20:50 Drug: Promethazine IVP 12.5 mg IVP once Route: IVP; Site: Port-a-cath; ha1 21:14 Follow up: Response: No adverse reaction; Marked relief of symptoms ha1 20:52 Drug: fentaNYL (PF) IVP 50 mcg IVP once Route: IVP; Site: Port-a-cath; ha1 21:14 Follow up: Response: No adverse reaction; Marked relief of symptoms; Pain is decreased; ha1 RASS: Alert and Calm (0) Medication: 22:22 VIS not applicable for this client. ha1 Intake: 21:28 IV: 1000ml; Total: 1000ml. ha1 Outcome: 19:41 ER care complete, transfer ordered by . sb4 22:22 Transferred by ground EMS to [facility], Transfer form ha1 completed. X-rays sent w/ patient. 22:22 Condition: stable 22:22 Instructed on the need for transfer, Demonstrated understanding of instructions, 22:38 Patient left the ED. ha1 Signatures: Dispatcher [employer] EDSarah Riley RN RN Rashmi Campbell RN RN ha1 Shanice Mcdonough, RN RN kc6 Naya Mart, BRIELLE PABrenda sb4 Delia Spencer Kelsey Maroul [facility]
--- NOTE | 2023-11-10 19:42 | EDPHYS ---
Physician Documentation [facility] Name: Mike Cornejo Age: 43 yrs Sex: Female : 1980 Arrival Date: 11/10/2023 Time: 18:25 Bed 5 Private MD: ED Physician Altaf Young HPI: 11/10 19:35 This 43 yrs old Female presents to ER via Stretcher with complaints of Nausea/Vomiting, sb4 Syncope. 19:35 patient with history of stage 4 small cell lung cancer with mets to the liver, spine, sb4 and brain presented initially with complaints of intractable nausea and vomiting. while she was checking in the lobby, she had a syncopal episode and fell flat onto her face causing epistaxis. she was seen here yesterday for nausea and vomiting and discharged after a negative workup. Historical: - Allergies: 18:45 Bactrim; kc6 18:45 Morphine; kc6 18:45 tramadol; kc6 - PMHx: 18:45 BRAIN TUMOR; chemotherapy (Tonsillectomy); Lung Cancer (Tonsillectomy); Lung mass; kc6 - PSHx: 18:45 Appendectomy; Brain tumor surgery; Cholecystectomy; Tonsillectomy; kc6 - Immunization history:: Adult Immunizations unknown. - Social history:: Smoking status: unknown. ROS: 19:35 Constitutional: Negative for fever, chills, and weight loss, sb4 19:35 ENT: Positive for nose bleed, 19:35 Abdomen/GI: Positive for nausea and vomiting, 19:35 Neuro: Positive for syncope, 19:35 All other systems are negative, Exam: 19:35 Cardiovascular: Regular rate and rhythm with a normal S1 and S2. Respiratory: Lungs sb4 have equal breath sounds bilaterally, clear to auscultation and percussion. No rales, rhonchi or wheezes noted. No increased work of breathing, no retractions or nasal flaring. Abdomen/GI: Soft, non-tender, no distension. Skin: Warm, dry with normal turgor. Normal color with no rashes, no lesions, and no evidence of cellulitis. MS/ Extremity: Pulses equal, no cyanosis. Neurovascular intact. Full, normal range of motion. Neuro: Awake and alert, GCS 15, oriented to person, place, time, and situation. Motor strength 5/5 in all extremities. Sensory grossly intact. 19:35 Constitutional: The patient appears in no acute distress, alert, awake, 19:35 Head/face: 19:35 Eyes: Periorbital structures: appear normal, no acute changes, Pupils: equal, round, and reactive to light and accomodation, Extraocular movements: no acute changes, 19:35 ENT: Nose: External nose: deformity is noted, laceration is present, approximately 1 cm(s), bridge of nose, bleeding, is seen from the left nare, and is moderate, Vital Signs: 18:43 BP 133 / 97; Pulse 101; Resp 16 S; Pulse Ox 94% on R/A; kc6 19:45 BP 115 / 85; Pulse 99; Resp 17 S; Pulse Ox 100% on R/A; ha1 20:40 BP 145 / 98; Pulse 111; Resp 17 S; Pulse Ox 97% on R/A; ha1 21:00 BP 125 / 100; Pulse 106; Resp 18 S; Pulse Ox 97% on R/A; ha1 22:00 BP 130 / 100; Pulse 102; Resp 18 S; Temp 97.6; Pulse Ox 100% on R/A; ha1 MDM: 18:36 Patient medically screened. sb4 19:35 Data reviewed: vital signs, nurses notes, lab test result(s), EKG, radiologic studies, sb4 I have discussed the patient's presentation/case with the attending Emergency Department Physician; and as a result, I will. Consideration of Admission/Observation Patient was admitted/placed on observation. Historians other than the Patient: Spouse/Significant Other: boyfriend and mother. Care significantly affected by the following chronic conditions: Cancer. Counseling: I had a detailed discussion with the patient and/or guardian regarding the historical points, exam findings, and any diagnostic results supporting the discharge/admit diagnosis, the presence of at least one elevated blood pressure reading (>120/80) during this emergency department visit, lab results, radiology results, the need to transfer to another facility, for higher level of care, [facility] does not immediately have the required specialist. 19:42 Management of patient was discussed with the following: Program Manager Slp: patient's sb4 oncologist, states last chemo was greater than 3 weeks ago, does not believe this to be related. ED course: family very upset about the entire situation. they are under the impression that she received no assistance when she syncopized in the lobby. however, I personally witnessed multiple staff members slowly assist her up and onto a stretcher. they are additionally upset that a head CT was not obtained yesterday. her complaint yesterday was only of nausea and vomiting. family states that she had ataxic gait and could not remember things, but they were not present during any of my encounters with the patient and did not express this at any time nor did the patient. she did not have any episodes of vomitus throughout her entire stay in the ED. 21:38 ED course: [facility] declined due to capacity. ED course: [facility] sb4 plastics declined therefore trauma surgery also declined. 22:23 ED course: [facility] trauma surgeon agreed to consult, hospitalist accepts. ED sb4 course: did not transfer to [facility] due to trauma capability. 11/10 18:37 Order name: Basic Metabolic Panel; Complete Time: 20:27 sb4 11/10 18:37 Order name: CBC with Diff; Complete Time: 19:23 sb4 11/10 18:37 Order name: Hepatic Function; Complete Time: 20:27 sb4 11/10 18:37 Order name: Magnesium; Complete Time: 20:27 sb4 11/10 18:37 Order name: Protime (+inr); Complete Time: 19:17 sb4 11/10 18:37 Order name: Ptt, Activated; Complete Time: 19:17 sb4 11/10 18:37 Order name: Troponin High Sensitivity; Complete Time: 20:27 sb4 11/10 18:37 Order name: CT Head C Spine; Complete Time: 19:28 sb4 11/10 18:37 Order name: Chest Single View XRAY; Complete Time: 18:57 sb4 11/10 18:37 Order name: EKG; Complete Time: 18:38 sb4 11/10 18:37 Order name: Cardiac monitoring; Complete Time: 19:03 sb4 11/10 18:37 Order name: EKG - Nurse/Tech; Complete Time: 18:50 sb4 11/10 18:37 Order name: IV Saline Lock; Complete Time: 19:03 sb4 11/10 18:37 Order name: Labs collected and sent; Complete Time: 19:03 sb4 11/10 18:37 Order name: NPO; Complete Time: 18:41 sb4 11/10 18:37 Order name: O2 Per Protocol; Complete Time: 18:41 sb4 11/10 18:37 Order name: O2 Sat Monitoring; Complete Time: 18:41 sb4 EC:56 Rate is 109 beats/min. Rhythm is irregular, Sinus tachycardia. CA interval is normal at sb4 114 msec. QRS interval is normal at 78 msec. No Q waves. No ST changes noted. Clinical impression: Sinus tachycardia. Interpreted by me. Reviewed by me. Administered Medications: 19:50 Drug: NS 0.9% IV 1000 ml IV at 1 bolus Per protocol; 1000 mL bolus Route: IV; Rate: 1 ha1 bolus; Site: Port-a-cath; 21:28 Follow up: Response: No adverse reaction; IV Status: Completed infusion; IV Intake: ha1 1000ml 19:50 Drug: metoCLOPramide IVP 10 mg IVP once; over 1 to 2 minutes Route: IVP; Site: [facility] Port-a-cath; 20:20 Follow up: Response: No adverse reaction; Marked relief of symptoms ha1 20:08 Drug: ceFAZolin IVPB 1 grams IVPB once Route: IVPB; Site: Port-a-cath; ha1 20:40 Follow up: Response: No adverse reaction ha1 20:50 Drug: Promethazine IVP 12.5 mg IVP once Route: IVP; Site: Port-a-cath; ha1 21:14 Follow up: Response: No adverse reaction; Marked relief of symptoms ha1 20:52 Drug: fentaNYL (PF) IVP 50 mcg IVP once Route: IVP; Site: Port-a-cath; ha1 21:14 Follow up: Response: No adverse reaction; Marked relief of symptoms; Pain is decreased; ha1 RASS: Alert and Calm (0) Disposition Summary: 11/10/23 19:41 Transfer Ordered Notes: Reason: Higher level of care sb4 Condition: Fair sb4 Problem: new sb4 Symptoms: are unchanged sb4 Transfer Location: [facility](11/10/23 21:55) sb4 Accepting Physician: Dr. Silva(11/10/23 22:38) ha1 Diagnosis - right frontal calvarial fracture with anterior frontal sinus involvement sb4 - bilateral nasal bone fractures sb4 - syncope sb4 - Nausea with vomiting, unspecified sb4 Forms: - Medication Reconciliation Form sb4 - SBAR form sb4 Signatures: Dispatcher [employer] Rashmi Sanon RN RN ha1 Shanice Mcdonough RN RN kc6 Naya Mart, BRIELLE PABrenda sb4 Corrections: (The following items were deleted from the chart) 21: 19:41 trauma sb4 sb4 :55 19:41 [facility] sb4 sb4 22:38 21:55 Dr. Silva sb4 ha1
[2023-11-10 19:57] LABS: ALT/SGPT 20 U/L (13-56); AST/SGOT 12 U/L (15-37); Albumin 3.8 g/dL (3.4-5.0); BUN Blood Urea Nitrogen 14 mg/dL (7-18); Bicarbonate 24 mEq/L (21-32); Bilirubin Direct 0.3 mg/dL (0-0.2); Bilirubin Indirect, Calculated 0.4 mg/dL (0.2-0.8); Bilirubin Total 0.7 mg/dL (0.2-1.0); Glomerular Filtration Rate 93 ml/min (=/>90); Glucose Level 105 mg/dL (74-106); Magnesium 2.2 mg/dL (1.6-2.4); Potassium 3.6 mEq/L (3.5-5.1); Protein, Total 7.4 g/dL (6.4-8.2); Sodium Level 139 mEq/L (136-145)
[2023-11-10 20:19] LABS: Alkaline Phosphatase 74 U/L (45-117)
[2023-11-10 20:25] LABS: Troponin High Sensitivity < 3.0 pg/mL (<58.9)
[2023-11-10 23:04] VITALS: BP 130/100; TEMP 97.6; O2SAT 100
--- NOTE | 2023-11-13 11:02 | EKG ---
Test Date: 2023-11-10 Test Time: 18:43:20 Marketing Services Coordinator: EVETTE MEASUREMENT RESULTS: Intervals: Rate: 109 ME: 114 QRSD: 78 QT: 330 QTc: 444 Rosman: P: 67 ME: 114 QRS: 57 T: 99 INTERPRETIVE STATEMENTS: Sinus tachycardia Nonspecific T wave abnormality Abnormal ECG Compared to ECG 11/05/2023 19:27:23 T-wave abnormality now present Sinus rhythm no longer present Ventricular premature complex(es) no longer present Electronically Signed On 11-13-23 10:58:38 MIDDLEWARE SYSTEMS ARCHITECT by Brady La
== END ==
LOC: ER 18:25
DX: S02.81XA Fracture of other specified skull and facial bones, right side, initial encounter for closed fracture (principal); S02.2XXA Fracture of nasal bones, initial encounter for closed fracture; R11.2 Nausea with vomiting, unspecified; Z85.118 Personal history of other malignant neoplasm of bronchus and lung; Z88.1 Allergy status to other antibiotic agents; Z88.5 Allergy status to narcotic agent
CPT/HCPCS: 96361; 85025; 80048; 36415; 83735; 85610; 80076; 85730; 84484; 70450; 72125; 71045; 96375; 96374; 99285; J2550; J2765; J3010; J7030; J0690; 93005

== ENCOUNTER → 2023-11-13 | Emergency (ER) | payer OTHER ==
[~2023-11-13] MED LIST changes: -CEFAZOLIN SODIUM 1 GM/VIAL ONE; +HYDROMORPHONE HCL 0.5 MG/0.5 ML INJ ONE; +MANNITOL 25% 0 ML IV ONE; +MANNITOL 25% 100 ML IV ONE; +ONDANSETRON 4 MG (ODT) TAB ONE; +ONDANSETRON 4 MG/2 ML VIAL ONE; -PROMETHAZINE INJ 25 MG/ML AMP ONE
--- OUTSIDE RECORDS SUMMARY | 2023-11-13 22:27 | XMS REPORT | Clinical Summary ---
Author Name Unknown Organization [facility] Address [address] [place] [address] Care Team Providers Care Warehouse Order Selector Name Role Phone Gabby Prince MD Unavailable Kiet Encinas RN Unavailable Encounters Date Type Department Care Team Description 10/31/2023 Telephone [facility]cology [address] [place] [address] Kiet Encinas, RN 10/24/2023 Telephone [facility] [address] [place] [address] Kiet Encinas, RN 10/24/2023 Travel 08/09/2023 8:[address] EQUIPMENT OPERATOR Ancillary Procedure Image [facility] [address] [place] [id number] Cancer 07/24/2023 9:45 PM CDT Ancillary Procedure [facility] [address] [place] [address] Trevor Vallecillo, LEORA Cancer 07/24/2023 9:40 PM CDT Ancillary Procedure [facility] [address] [place] [id number] Trevor Vallecillo, LEORA Cancer 07/24/2023 9:35 PM CDT Ancillary Procedure [facility] [address] [place] [address] Trevor Vallecillo, SEARCH ENGINEER Cancer 07/24/2023 9:30 PM CDT Ancillary Procedure [facility] [address] [place] [address] 36[address] Trevor Vallecillo, SEARCH ENGINEER Cancer 07/24/2023 9:25 PM CDT Ancillary Procedure [facility] [address] [place] [address] 52475 Trevor Vallecillo, SEARCH ENGINEER Cancer 07/24/2023 9:20 PM CDT Ancillary Procedure [facility] [address] [place] [address] Trevor Vallecillo, SEARCH ENGINEER Cancer 07/24/2023 9:15 PM CDT Ancillary Procedure [facility] [address] [place] [address] 08359 Trevor Vallecillo, SEARCH ENGINEER Cancer 07/24/2023 9:10 PM CDT Ancillary Procedure [facility] [address] [place] [address] Trevor Vallecillo, SEARCH ENGINEER Cancer 07/24/2023 9:05 PM CDT Ancillary Procedure [facility] [address] [place] [address] 58273 Trevor Vallecillo, SEARCH ENGINEER Cancer 07/24/2023 9:00 PM CDT Ancillary Procedure [facility] [address] [place] [address] 20152 Trevor Vallecillo, SEARCH ENGINEER Cancer 07/24/2023 8:55 PM CDT Ancillary Procedure [facility] [address] [place] [address] 43867 Trevor Vallecillo, SEARCH ENGINEER Cancer 07/24/2023 8:50 PM CDT Ancillary Procedure [facility] [address] [place] [address] 560[address] Trevor Vallecillo, SEARCH ENGINEER Cancer 07/24/2023 8:45 PM CDT Ancillary Procedure Image [facility] [address] [place] [address] [id number] Trevor Vallecillo, SEARCH ENGINEER Cancer 07/24/2023 8:40 PM CDT Ancillary Procedure Image [facility] [address] [place] [address] Trevor Vallecillo, LEORA Cancer 07/24/2023 8:35 PM CDT Ancillary Procedure Image Library [address] [place] [address] Trevor Vallecillo, LEORA Cancer after 11/13/2022 Social History Tobacco Use Types Packs/Day Years [...] Routine 03/15/2023 9:26 PM CDT Cancer after 11/13/2022 Results * OSI MRI Head (06/28/2023 2:11 PM CDT) Only the most recent of3 resultswithin the time period is included. Narrative Systemgenerated, Documentation - 08/09/2023 2:[address] EQUIPMENT OPERATOR Study acquired at another institution. For [...] originated interpretation requested or available. Trevor Vallecillo SEARCH ENGINEER IMG OUTSIDE IMAGE O RDERABLES * OSI Barium Swallow (04/06/2023 9:24 PM CDT) Narrative Systemgenerated, Documentation - 07/24/2023 9:24 PM CDT Study acquired at another institution. For comparison only. No MD Robby originated interpretation requested or available. Trevor Vallecillo SEARCH ENGINEER IMG OUTSIDE IMAGE O RDERABLES * OSI Chest (04/04/2023 9:25 PM CDT) Only the most recent of3 resultswithin the time period is included. Narrative Systemgenerated, Documentation - 07/24/2023 9:25 PM CDT Study acquired at another institution. For comparison only. No MD Robby originated interpretation requested or available. Trevor Eldges SEARCH ENGINEER IMG OUTSIDE IMAGE O RDERABLES * OSI Abdomen (04/04/2023 9:25 PM CDT) Narrative Systemgenerated, Documentation - 07/24/2023 9:25 PM CDT Study acquired at another institution. For comparison only. No MD Bustamante originated interpretation requested or available. Trevor Vallecillo SEARCH ENGINEER IMG OUTSIDE IMAGE O RDERABLES after 11/13/2022 Care Teams Warehouse Order Selector Relationship Specialty Start Date End Date Gabby Prince MD [address] [place] [id number] PCP - External Referring Family Practice 10/23/23 Kiet Encinas, RN [address] [place] [address] Intake Nurse Navigator Nursing 10/23/23 4
[2023-11-14 01:19] LABS: Absolute Lymphocytes (CBC) 0.5 K/uL (0.7-4.9); Lymphocytes % 6.7 % (15.3-44.8); MCV 89.8 fL (80-100); MPV 7.6 fL (7.6-11.3); Platelets 329 thou/uL (152-406); RBC Red Blood Cell Count 3.89 M/uL (3.86-4.86)
[2023-11-14 01:36] LABS: ALT/SGPT 14 U/L (13-56); AST/SGOT 11 U/L (15-37); Albumin 3.6 g/dL (3.4-5.0); Alkaline Phosphatase 66 U/L (45-117); BUN Blood Urea Nitrogen 13 mg/dL (7-18); Bicarbonate 29 mEq/L (21-32); Bilirubin Total 0.5 mg/dL (0.2-1.0); C-Reactive Protein 9.93 mg/L (<3.00); Glomerular Filtration Rate 110 ml/min (=/>90); Glucose Level 106 mg/dL (74-106); Lipase 19 U/L (13-75); Potassium 3.7 mEq/L (3.5-5.1); Protein, Total 7.3 g/dL (6.4-8.2); Sodium Level 140 mEq/L (136-145)
[2023-11-14 01:53] LABS: SARS-CoV-2 Antigen Rapid Res Negative (Negative)
--- NOTE | 2023-11-14 01:54 | ER ---
Nurse's Notes [facility] Name: Mike Cornejo Age: 43 yrs Sex: Female : 1980 Arrival Date: 11/13/2023 Time: 22:24 Bed 17 Private MD: Diagnosis: Cerebral edema;Ventriculomegaly, hydrocephalus, cerebral edema, stage IV lung cancer, multiple facial fractures Presentation: 11/13 22:43 Chief complaint: Parent and/or Guardian states: She was released yesterday from [facility] she has been vomiting all day. It started yellow and now it is black. Around 5 or 6 she started getting confused. She didn't know who we were or where she was. Coronavirus screen:. 22:43 Method Of Arrival: Wheelchair vc1 22:59 Ebola Screen: Patient negative for fever greater than or equal to 101.5 degrees vc1 Fahrenheit, and additional compatible Ebola Virus Disease symptoms Patient denies exposure to infectious person. Patient denies travel to an Ebola-affected area in the 21 days before illness onset. No symptoms or risks identified at this time. Initial Sepsis Screen: Does the patient meet any 2 criteria? No. Patient's initial sepsis screen is negative. Does the patient have a suspected source of infection? No. Patient's initial sepsis screen is negative. Risk Assessment: Do you want to hurt yourself or someone else? Patient reports no desire to harm self or others. Onset of symptoms was November 13, 2023. 22:59 Acuity: YING 3 vc1 Triage Assessment: 22:56 General: Appears uncomfortable, ill, Behavior is flat, quiet. Pain: Denies pain. EENT: vc1 bruising under eyes and across nose. Neuro: Level of Consciousness is awake, obeys commands, lethargic, Oriented to person. Cardiovascular: No deficits noted. Rhythm is sinus tachycardia. Respiratory: Airway is patent Respiratory effort is even, unlabored, Respiratory pattern is regular, symmetrical. GI: Reports nausea, vomiting. : No deficits noted. No signs and/or symptoms were reported regarding the genitourinary system. Derm: Bruising that is dark purple, brown, yellow, on right cheek, nose and left cheek. Musculoskeletal: Reports weakness in right leg and left leg. Historical: - Allergies: 22:55 Bactrim; vc1 22:55 Morphine; vc1 22:55 tramadol; vc1 - PMHx: 22:55 BRAIN TUMOR; chemotherapy (Tonsillectomy); Lung Cancer (Tonsillectomy); Lung mass; vc1 - PSHx: 22:55 Appendectomy; Brain tumor surgery; Cholecystectomy; Tonsillectomy; vc1 - Immunization history:: Flu vaccine status is unknown. - Social history:: Smoking status: unknown. - Family history:: not pertinent. Screenin:56 [facility] ED Fall Risk Assessment (Adult) History of falling in the last 3 months, vc1 including since admission Yes- fall prone (multiple falls) (3 pts) Confusion or Disorientation Yes (5 pts) Intoxicated or Sedated No (0 pts) Impaired Gait Yes (1 pt) Mobility Assist Device Used Yes (1 pt) Altered Elimination No (0 pt) Score/Fall Risk Level 3 or more points = High Risk Oriented to surroundings, Maintained a safe environment, Educated pt \T\ family on fall prevention, incl call for assistance when getting out of bed, Assessed \T\ reinforced patient's understanding of fall precautions, Hourly rounding (assess needs \T\ fall precautionary measures) done, Apply high fall risk patient identification: yellow non skid footwear/ fall signage. Abuse screen: Denies threats or abuse. Nutritional screening: No deficits noted. Tuberculosis screening: No symptoms or risk factors identified. Assessment: 23:00 Derm: Bruising that is bright red, dark purple, yellow, on right eye and mouth. jj7 23:00 Neuro: Level of Consciousness is awake, alert, obeys commands, confused, Oriented to [facility] person, [employer] Supervisor are. 23:50 Reassessment: 4 VISITORS IN THE ROOM. INFORMED THEM WE CAN HAVE 2 AT A TIME. INFORMED mark CHARGE NURSE. 11/14 00:00 Reassessment: FRIEND STATES THEY WANT HER TRANSFERRED TO [place] IN AN EMS. INFORMED mark FRIEND THEY HAVE TO WAIT FOR ALL RESULTS TO COME BACK AND IF NEEDED A TRANSFER WILL BE INITIATED. STATES SHE JUST WANTS TO LEAVE AN TAKE HER TO [place] THEMSELVES. STATES THEY WILL SIGN AN AMA PAPER. 00:10 Reassessment: AMA PAPER SIGNED. jj7 00:13 Reassessment: CT RESULTS ARE BACK. PT AND FRIEND ENCOURAGED TO STAY AND WAIT TO SPEAK jj7 TO THE DR. STATES THEY WILL WAIT. 01:00 Reassessment: AT BEDSIDE BEING RUDE STATING NO ONE KNOWS WHAT THEY ARE DOING HE mark WAS TOLD SHE CAN ONLY HAVE ASA AND TRAMADOL AT ANOTHER HOSPITAL AND NOT [facility]. THAT EVERYONE IS JUST GUESSING WHAT TO DO WITH HER. HE WANTS TO GET HER TO A PLACE THAT KNOWS WHAT TO DO. INFORMED CHARGE NURSE AND MD. THERE ARE 3 VISITORS IN THE ROOM AT THIS TIME. 02:14 Reassessment: REPORT GIVEN TO DELANO ROWE AT [facility]. GI: N/V HAS RESOLVED. jj7 02:16 Reassessment: [facility] AT BEDSIDE TO TRANSFER PT. jj7 Vital Signs: 11/13 22:59 BP 138 / 89; Pulse 104; Resp 15; Temp 97.6; Pulse Ox 96% ; vc1 23:45 BP 144 / 102; Pulse 96; Resp 18; Pulse Ox 94% ; jj7 11/14 00:45 BP 126 / 101; Pulse 103; Resp 16; Pulse Ox 98% ; jj7 01:45 BP 124 / 103; Pulse 90; Resp 16; Pulse Ox 97% ; Pain 0/10; jj7 01:58 Temp 99.5; jj7 02:15 BP 119 / 87; Pulse 90; Resp 16; Pulse Ox 96% ; Pain 0/10; jj7 01:45 Pain Scale: Adult jj7 02:15 Pain Scale: Adult jj7 Lopez Coma Score: 01:43 Eye Response: spontaneous(4). Motor Response: obeys commands(6). Verbal Response: sp4 oriented(5). Total: 15. NIH Stroke Scale Scores: 01:43 NIHSS Score: 0 sp4 ED Course: 11/13 22:26 Patient arrived in ED. jj6 22:49 Ovidio Sandoval MD is Attending Physician. sp4 22:54 Mark Marshall RN is Primary Nurse. jj7 22:56 Arm band placed on right wrist. vc1 23:00 Triage completed. vc1 23:01 Patient has correct armband on for positive identification. Bed in low position. Call vc1 light in reach. Side rails up X2. Pulse ox on. NIBP on. 23:23 CT Traumagram (Head C Spine CAP wo con) In Process Unspecified. EDMS 23:23 CT Facial Bones W/O Con In Process Unspecified. EDMS 23:31 Missed attempt(s): 22 gauge in left forearm. Bleeding controlled, band aid applied, ty catheter tip intact. 02 00:35 Accessed Port-a-Cath. using accessed w/ # 20 Carlton needle, ,sterile technique, per [facility] hospital protocol. Clean \T\ dry. Dressing intact. Good blood return. Flushes easily. INSERTED BY DR SANDOVAL. 00:49 Influenza Screen (a \T\ B) Sent. jj7 00:49 SARS RAPID Sent. jj7 00:50 Procalcitonin Sent. jj7 00:50 Salicylate Sent. jj7 00:50 Alcohol Level Sent. jj7 00:50 AMMONIA Sent. jj7 00:50 CBC with Diff Sent. jj7 00:50 CMP Sent. jj7 00:50 Lipase Sent. jj7 01:06 Initiated transfer to [facility], spoke with Ria Martins. wm 01:20 [facility] transfer center called back to deny due to capacity at [place], [place] was wm immediately initiated after. 01:42 Pt accepted for transfer to [facility] by Dr. Brunson per Ria Martins. wm 01:48 [facility] called and accepted for transport with an ETA \T\ 0200. wm 01:55 Alonzo cath inserted, using sterile technique, 16 Fr., by ak, by ED staff, balloon jj7 inflated, to gravity drainage, urine specimen collected. returned morgan urine. Patient tolerated well. 02:23 No provider procedures requiring assistance completed. Patient transferred, IV remains j7 in place. Administered Medications: 00:14 CANCELLED (Duplicate Order): ondansetron 4 mg IVP once; over 2 minutes jj7 00:14 Drug: Ondansetron Oral Disintegrating Tablet Oral Disintegrating Tablet 4 mg PO once jj7 Route: PO; 01:00 Follow up: Response: Nausea unchanged jj7 00:50 Drug: Ondansetron IVP 4 mg IVP once; over 2 minutes Route: IVP; Site: Port-a-cath; jj7 01:00 Drug: NS 0.9% IV 1000 ml IV at 1 bolus Per protocol; 1000 mL bolus Route: IV; Rate: 1 jj7 bolus; Site: Port-a-cath; 02:20 Follow up: IV Status: Completed infusion j 01:00 Drug: metoCLOPramide IVP 10 mg IVP once; over 1 to 2 minutes Route: IVP; Site: [facility] Port-a-cath; 01:00 Drug: fentaNYL (PF) IVP 25 mcg IVP once Route: IVP; Site: Port-a-cath; [facility] 01:15 Follow up: Response: Pain is unchanged, physician notified j 01:31 Drug: HYDROmorphone IVP 0.5 mg IVP once Route: IVP; Site: Port-a-cath; [facility] 02:19 Follow up: Response: Marked relief of symptoms; Pain is decreased j 01:42 Drug: Mannitol IV 25% 20 grams IV at per protocol once; Administer over 2-6 hours [facility] Route: IV; Rate: per protocol; Site: Port-a-cath; 02:20 Follow up: IV Status: Infusion continued upon transfer [facility] 02:37 Not Given (PT TRANSFERRED): ns 0.9% 1000 ml IV at 125 ml/hr continuous [facility] Medication: 11/13 23:00 VIS not applicable for this client. vc1 Outcome: 11/14 01:52 ER care complete, transfer ordered by sp4 02:23 Transferred by helicopter [facility]. to [address], Transfer form completed. X-rays sent w/ patient. 02:23 Condition: stable 02:38 Patient left the ED. [facility] NIH Stroke Scale - NIH Stroke Score Date: 11/14/2023 Time: 01:43 Total Score = 0 10. Dysarthria (speech clarity - read or repeat words) - 0(Normal) 11. Extinction and Inattention (visual/tactile/auditory/spatial/personal) - 0(No abnormality) 1a. Level of Consciousness (LOC) - 0(Alert) 1b. Level of Consciousness (LOC) (Month \T\ Age) - 0(Both) 1c. LOC Commands (Open \T\ Closes Eyes/Athletic Director) - 0(Both) 2. Best Gaze (Lateral Gaze Paresis) - 0(Normal) 3. Visual Field Loss - 0(No visual loss) 4. Facial Palsy - 0(Normal) 5a. Left Arm: Motor (10-second hold) - 0(No drift) 5b. Right Arm: Motor (10-second hold) - 0(No drift) 6a. Left Leg: Motor (5-second hold - always test supine) - 0(No drift) 6b. Right Leg: Motor (5-second hold - always test supine) - 0(No drift) 7. Limb Ataxia (finger/nose \T\ heel/ramos - test with eyes open) - 0(Absent) 8. Sensory Loss (pinprick arms/legs/face) - 0(Normal) 9. Best Language: Aphasia (description/naming/reading) - 0(No aphasia) Initials: sp4 Signatures: Dispatcher [employer] EDMS Nancy Pat Jennifer jj6 Christa Chen, RN RN vc1 Mark Marshall RN RN jj7 Ovidio Sandoval MD MD sp4 Kenneth Simental Corrections: (The following items were deleted from the chart) 01:04 00:50 C-REACTIVE PROTEIN+C.LAB.BRZ drawn and sent. jj7 EDMS 01:04 00:50 ACETAMINOPHEN+C.LAB.BRZ drawn and sent. jj7 EDMS 02:23 01:00 Reassessment: AT BEDSIDE BEING RUDE STATING NO ONE KNOWS WHAT jj7 THEY ARE DOING HE WAS TOLD SHE CAN ONLY HAVE ASA AND TRAMADOL AT ANOTHER HOSPITAL AND NOT [facility]. THAT EVERYONE IS JUST GUESSING WHAT TO DO WITH HER. HE WANTS TO GET HER TO A PLACE THAT KNOWS WHAT TO DO. INFORMED CHARGE NURSE AND MD. jj7 02:26 01:49 [facility] transfer center called back to deny due to capacity at [place], wm [place] was immediately initiated after. wm
--- NOTE | 2023-11-14 01:54 | EDPHYS ---
Physician Documentation [facility] Name: Mike Cornejo Age: 43 yrs Sex: Female : 1980 Arrival Date: 11/13/2023 Time: 22:24 Bed 17 Private MD: ED Physician Ovidio Sandoval HPI: 11/13 22:50 This 43 yrs old Black Female presents to ER via Wheelchair with complaints of Vomiting. sp4 11/14 01:03 Review from Recent Record - CT - EXAM DESCRIPTION: CT - CTHCSPWOC - 11/10/2023 7:12 pm sp4 CLINICAL HISTORY: Trauma, head and neck injury. SYNCOPE FINDINGS: CT HEAD WITHOUT CONTRAST: No acute hemorrhage, hydrocephalus or extra-axial collection is identified.No areas of brain edema or midline shift. Chronic small vessel ischemic changes and cerebral atrophy. Surgical changes from prior right suboccipital craniectomy. Encephalomalacia at the right cerebellar hemisphere. Comminuted fracture involving the bilateral nasal bones with significant deformity. There is a fracture as well of the bony nasal septum. Right mastoid effusion.New fracture involving the right frontal calvarium which involves the anterior wall of the right frontal sinus. This is not extend to the inner table of the skull. CT CERVICAL SPINE WITHOUT CONTRAST: No fracture or subluxation.No prevertebral soft tissues swelling is identified. IMPRESSION: 1. Right frontal calvarial fracture involving the anterior wall of the right frontal sinus. No acute intracranial hemorrhage. 2. Bilateral nasal bone fractures with comminution at the right nasal bone with significant deformity as well as fracture at the bony nasal septum. 3. No acute fracture traumatic malalignment cervical spine. 01:08 Patient is 43-year-old female who presents with persistent vomiting and worsening sp4 confusion starting yesterday.. Since yesterday patient vomited 5 times and had sudden bilious emesis. Patient was here on 11/10/2023 after syncopal episode and fall. On the CAT scan report patient has developed right frontal calvarial fracture right frontal sinus fracture without intracranial hemorrhage. Bilateral nasal bone fracture with comminution of the right nasal bone with fracture of the bony nasal septum. No cervical spine fractures. Patient was transferred to [facility]. Patient has a history of left hilar mass stage IV non-small cell lung cancer she is currently on chemotherapy last chemo session 2 weeks ago. . Based on the record patient was transferred to [facility] for trauma management in [place]. Of note patient has a chemotherapy port right chest wall that can be accessed for medication administration. . 01:20 Historical: - Allergies: 18:45 Bactrim; 18:45 Morphine; 18:45 tramadol; - PMHx: 18:45 sp4 BRAIN TUMOR; chemotherapy (Tonsillectomy); Lung Cancer (Tonsillectomy); Lung mass; - PSHx: 18:45 Appendectomy; Brain tumor surgery; Cholecystectomy; Tonsillectomy. Historical: - Allergies: 11/13 22:55 Bactrim; vc1 22:55 Morphine; vc1 22:55 tramadol; vc1 - PMHx: 22:55 BRAIN TUMOR; chemotherapy (Tonsillectomy); Lung Cancer (Tonsillectomy); Lung mass; vc1 - PSHx: 22:55 Appendectomy; Brain tumor surgery; Cholecystectomy; Tonsillectomy; vc1 - Immunization history:: Flu vaccine status is unknown. - Social history:: Smoking status: unknown. - Family history:: not pertinent. ROS: 11/14 01:20 Constitutional: Negative for fever, chills, and weight loss, positive headache, sp4 positive nausea, positive vomiting. All other systems are negative, Exam: 01:20 Constitutional: This is a well developed, well nourished patient who is awake, alert, sp4 and in no acute distress. 01:43 Head/Face: Normocephalic, Right periorbital contusion appears old. Eyes: Pupils sp4 equal round and reactive to light, extra-ocular motions intact. Lids and lashes normal. Conjunctiva and sclera are not injected. Cornea within normal limits. Periorbital areas with no swelling, redness, or edema. ENT: Nares patent. No nasal discharge, no septal abnormalities noted. Tympanic membranes are normal and external auditory canals are clear. Oropharynx with no redness, swelling, or masses, exudates, or evidence of obstruction, uvula midline. Mucous membranes moist. Neck: Trachea midline, no thyromegaly or masses palpated, and no cervical lymphadenopathy. Supple, full range of motion without nuchal rigidity, or vertebral point tenderness. Chest/axilla: Normal chest wall appearance and motion. Nontender with no deformity. No lesions are appreciated. Cardiovascular: Regular rate and rhythm with a normal S1 and S2. No gallops, murmurs, or rubs. Normal PMI, no JVD. No pulse deficits. Respiratory: Lungs have equal breath sounds bilaterally, clear to auscultation and percussion. No rales, rhonchi or wheezes noted. No increased work of breathing, no retractions or nasal flaring. Abdomen/GI: Soft, with normal bowel sounds. No distension or tympany. No guarding or rebound. No evidence of tenderness throughout. Back: No spinal tenderness. No costovertebral tenderness. Skin: Warm, dry with normal turgor. Normal color with no rashes, no lesions, and no evidence of cellulitis. MS/ Extremity: Pulses equal, no cyanosis. Neurovascular intact. Full, normal range of motion. Neuro: Awake and alert, GCS 15, oriented to person, place, time, and situation. Cranial nerves II-XII grossly intact. Motor strength 5/5 in all extremities. Sensory grossly intact. Psych: Awake, alert, with orientation to person, place Behavior, mood, and affect are within normal limits, Some sings of mental slowing. Vital Signs: 11/13 22:59 BP 138 / 89; Pulse 104; Resp 15; Temp 97.6; Pulse Ox 96% ; vc1 23:45 BP 144 / 102; Pulse 96; Resp 18; Pulse Ox 94% ; jj7 11/14 00:45 BP 126 / 101; Pulse 103; Resp 16; Pulse Ox 98% ; jj7 01:45 BP 124 / 103; Pulse 90; Resp 16; Pulse Ox 97% ; Pain 0/10; jj7 01:58 Temp 99.5; jj7 02:15 BP 119 / 87; Pulse 90; Resp 16; Pulse Ox 96% ; Pain 0/10; jj7 01:45 Pain Scale: Adult jj7 02:15 Pain Scale: Adult jj7 NIH Stroke Scale Scores: 01:43 NIHSS Score: 0 sp4 Lopez Coma Score: 01:43 Eye Response: spontaneous(4). Motor Response: obeys commands(6). Verbal Response: sp4 oriented(5). Total: 15. MDM: 11/13 22:49 Patient medically screened. sp4 11/14 00:58 ED course: EXAM: CT Head and Cervical Spine Without Intravenous Contrast CLINICAL sp4 HISTORY: The patient is 43 years old and is Female; facial injuries TECHNIQUE: Axial computed tomography images of the head/brain and cervical spine without intravenous contrast. Sagittal and coronal reformatted images were created and reviewed. This CT exam was performed using one or more of the following dose reduction techniques: automated exposure control, adjustment of the mA and/or kV according to patient size, and/or use of iterative reconstruction technique. COMPARISON: CT November 10, 2023, CT of the head November 10 2023 FINDINGS: BRAIN: No intracranial hemorrhage is noted. Encephalomalacia of the right cerebellar hemisphere is noted. Effacement of the sulci is noted. There is no midline shift. No significant white matter disease. VENTRICLES: Worsening hydrocephalus with transependymal flow is present . SKULL: Evidence of a right occipital craniectomy is noted. No acute fracture. SINUSES: Unremarkable as visualized. No acute sinusitis. MASTOID AIR CELLS: Unremarkable as visualized. No mastoid effusion. VERTEBRAE: The vertebral body heights and alignment are maintained. No acute fracture. DISCS/SPINAL CANAL/NEURAL FORAMINA: The intervertebral disc spaces are maintained. No spinal canal stenosis. SOFT TISSUES: The soft tissues are normal. LUNG APICES: The lung apices are clear. IMPRESSION: 1. No acute intracranial hemorrhage. 2. Findings consistent with worsening/progressing hydrocephalus with cortical effacement concerning for edema. 3. No fracture or malalignment of the cervical spine. THIS REPORT CONTAINS FINDINGS THAT MAYBE CRITICAL TO PATIENT CARE: The findings were verbally discussed via telephone conference with Dr. Ovidio Sandoval MD by Dr. Alma Olivera on 11/14/2023 12:14 AM ACCOUNTING ADMINISTRATIVE ASSISTANT .The results were acknowledged and understood. EXAM: CT Chest, Abdomen and Pelvis Without Intravenous Contrast CLINICAL HISTORY: The patient is 43 years old and is Female; facial injuries, malignancy TECHNIQUE: Axial computed tomography images of the chest, abdomen and pelvis without intravenous contrast. Sagittal and coronal reformatted images were created and reviewed. This CT exam was performed using one or more of the following dose reduction techniques: automated exposure control, adjustment of the mA and/or kV according to patient size, and/or use of iterative reconstruction technique. COMPARISON: No relevant prior studies available. FINDINGS: CHEST: LUNGS: Calcified granuloma within left lower lobe is present. A heterogeneous mass within the left hilar region measuring approximately 4.3 cm is present. Associated atelectasis within the left lower lobe is noted. PLEURAL SPACE: Unremarkable. No significant effusion. No pneumothorax. HEART: No cardiomegaly. No pericardial effusion. ABDOMEN: LIVER: Homogeneous without focal mass. GALLBLADDER AND BILE DUCTS: No calcified stones. No ductal dilation. PANCREAS: Unremarkable. No ductal dilation. SPLEEN: Unremarkable. ADRENALS: Unremarkable. No mass. KIDNEYS AND URETERS: No obstructing stones. No hydronephrosis. No perinephric fluid. STOMACH AND BOWEL: The stomach is minimally distended with fluid. The small bowel is normal in caliber. Stool is present throughout the colon. There is no mucosal thickening or evidence of obstruction. PELVIS: APPENDIX: No findings to suggest acute appendicitis. BLADDER: The bladder is well distended. No stones. REPRODUCTIVE: Unremarkable as visualized. CHEST, ABDOMEN and PELVIS: INTRAPERITONEAL SPACE: Unremarkable. No significant fluid collection. No free air. BONES/JOINTS: No acute fracture. Sclerosis within the sternum and scattered throughout the vertebral bodies is noted. The vertebral body heights and alignment are maintained. SOFT TISSUES: The soft tissues are normal. VASCULATURE: Minimal atherosclerosis of the vasculature is present. No aortic aneurysm. LYMPH NODES: Calcified left hilar lymph nodes are present. A few prominent mediastinal and AP window lymph nodes are also present. TUBES, LINES AND DEVICES: A right chest port is present with the tip in the SVC. IMPRESSION: 1. No evidence of solid organ injury or traumatic bony findings on this noncontrasted CT of the chest. 2. Left hilar mass with resultant atelectasis in left lower lobe with associated left pleural effusion. Correlation with prior imaging to assess progression versus stability is recommended. 3. Findings suggest diffuse osseous metastasis. . ED course: EXAM: Facial Bones W/ Mpr CLINICAL INDICATION: 43-year-old female with facial injury. COMPARISON: 11/10/2023. TECHNIQUE: Maxillofacial CT without contrast. This exam was performed according to our departmental dose optimization program which includes use of automated exposure control, adjustment of the mA and/or kV according to patient size and/or use of iterative reconstruction technique. FINDINGS: Limited intracranial images demonstrate prominent ventricles with transependymal flow CSF concerning for worsening ventriculomegaly concerning for acute hydrocephalus, cerebral edema is not excluded. The frontal sinuses, frontal-ethmoid recesses, anterior/posterior ethmoids, sphenoid sinuses, and maxillary sinuses are well developed and clear. The osteomeatal complexes are patent. The nasal turbinates are within normal limits. The nasal septum is normal. The cribriform plate and lamina papyraceae within normal limits. The osseous structures demonstrate depressed fracture of the outer table of the calvarium at the level of the right frontal sinus. Fracture fragments extend into the right frontal sinus cavity by approximately 5 mm. There is associated trace fluid and bony fracture fragments within the right frontal sinus. No clear fracture identified through the inner table of the calvarium at the level of the frontal bones. Severely comminuted fracture of the bilateral nasal bones right greater than left with multipart fracture of the bony nasal septum. The orbits are unremarkable. The optic nerves and globes appear intact. The periorbital soft tissues are within normal limits. IMPRESSION: 1. Severely comminuted fracture of the bilateral nasal bones right greater than left with multipart fracture of the bony nasal septum. 2. Depressed fracture of the outer table of the calvarium at the level of the right frontal sinus. Fracture fragments extend into the right frontal sinus cavity by approximately 5 mm. There is associated trace fluid and bony fracture fragments within the right frontal sinus. No clear fracture identified through the inner table of the calvarium at the level of the frontal bones. 3. Above findings concerning for worsening ventriculomegaly, cerebral edema in the excluded. Electronically signed by: Enid Hernandez MD 11/14/2023 12:06 AM. 01:43 Differential diagnosis: gastroenteritis, Intracranial hemorrhages, subdural hematoma, sp4 cerebral edema. Data reviewed: vital signs, nurses notes, lab test result(s), radiologic studies, CT scan. ED course: Patient CT has revealed no acute intracranial hemorrhage, however it revealed findings consistent with worsening hydrocephalus with cortical effacement concerning for cerebral edema. CT abdomen and pelvis revealed no acute findings. No evidence of solid organ injury, left hilar mass with resultant atelectasis in the left lower lobe associated with left pleural effusion. This is correlated with prior history of pulmonary malignancy. Findings suggesting diffuse osseous metastatic disease, versus consistent with patient's history of stage IV lung cancer. Also severely comminuted fracture of bilateral nasal bones right greater than left with multipart fracture of the bony nasal septum. Depressed fracture of the outer table of the calvarium at the level of the frontal right sinus. Fracture fragments extending to the right frontal sinus cavity, bony fracture fragments within the right frontal sinus. Also findings concerning for ventriculomegaly cerebral edema as well.. ED course: Patient was discussed with neurosurgeon and ER physician at [facility]. Patient was accepted to [facility] we are planning for aeromedical transport. . 11/13 22:50 Order name: CBC with Diff 4 11/13 22:50 Order name: CMP 4 11/13 22:50 Order name: Lipase 4 11/13 22:50 Order name: Test, Urine [facility] 11/13 22:50 Order name: Urinalysis w/ reflexes [facility] 11/13 22:50 Order name: Urine Drug Screen [facility] 11/13 23:29 Order name: AMMONIA [facility] 11/13 23:29 Order name: Alcohol Level [facility] 11/13 23:29 Order name: Salicylate [facility] 11/13 23:30 Order name: Procalcitonin [facility] 11/13 23:31 Order name: SARS RAPID [facility] 11/13 23:31 Order name: Influenza Screen (a \T\ B) [facility] 11/14 01:05 Order name: C-Reactive Protein [facility] 11/14 01:05 Order name: Acetaminophen Level [facility] 11/14 01:24 Order name: Manual Differential [facility] 11/14 02:24 Order name: Urine Culture [facility] 11/13 22:51 Order name: CT Traumagram (Head C Spine CAP wo con) [facility] 11/13 22:51 Order name: CT Facial Bones W/O Con [facility] 11/13 22:50 Order name: IV Saline Lock; Complete Time: 00:50 4 11/13 22:50 Order name: Labs collected and sent; Complete Time: 00:50 sp4 Administered Medications: 00:14 CANCELLED (Duplicate Order): ondansetron 4 mg IVP once; over 2 minutes j7 00:14 Drug: Ondansetron Oral Disintegrating Tablet Oral Disintegrating Tablet 4 mg PO once jj7 Route: PO; 01:00 Follow up: Response: Nausea unchanged jj7 00:50 Drug: Ondansetron IVP 4 mg IVP once; over 2 minutes Route: IVP; Site: Port-a-cath; jj7 01:00 Drug: NS 0.9% IV 1000 ml IV at 1 bolus Per protocol; 1000 mL bolus Route: IV; Rate: 1 jj7 bolus; Site: Port-a-cath; 02:20 Follow up: IV Status: Completed infusion j7 01:00 Drug: metoCLOPramide IVP 10 mg IVP once; over 1 to 2 minutes Route: IVP; Site: [facility]; 01:00 Drug: fentaNYL (PF) IVP 25 mcg IVP once Route: IVP; Site: Port-a-[facility]; jj7 01:15 Follow up: Response: Pain is unchanged, physician notified jj7 01:31 Drug: HYDROmorphone IVP 0.5 mg IVP once Route: IVP; Site: Port-a-c[facility]; jj7 02:19 Follow up: Response: Marked relief of symptoms; Pain is decreased j7 01:42 Drug: Mannitol IV 25% 20 grams IV at per protocol once; Administer over 2-6 hours jj7 Route: IV; Rate: per protocol; Site: [facility]; 02:20 Follow up: IV Status: Infusion continued upon transfer j 02:37 Not Given (PT TRANSFERRED): ns 0.9% 1000 ml IV at 125 ml/hr continuous jj7 Disposition Summary: 11/14/23 01:52 Transfer Ordered Notes: Transfer Location: [facility]System sp4 Reason: Higher level of care sp4 Condition: Stable sp4 Problem: new sp4 Symptoms: have improved sp4 Accepting Physician: Accepting neurosurgeon at [facility]. (11/14/23 02:38) jj7 Diagnosis - Cerebral edema sp4 - Ventriculomegaly, hydrocephalus, cerebral edema, stage IV lung cancer, multiple sp4 facial fractures Forms: - Medication Reconciliation Form sp4 - SBAR form sp4 NIH Stroke Scale - NIH Stroke Score Date: 11/14/2023 Time: 01:43 Total Score = 0 10. Dysarthria (speech clarity - read or repeat words) - 0(Normal) 11. Extinction and Inattention (visual/tactile/auditory/spatial/personal) - 0(No abnormality) 1a. Level of Consciousness (LOC) - 0(Alert) 1b. Level of Consciousness (LOC) (Month \T\ Age) - 0(Both) 1c. LOC Commands (Open \T\ Closes Eyes/Security Systems Administrator) - 0(Both) 2. Best Gaze (Lateral Gaze Paresis) - 0(Normal) 3. Visual Field Loss - 0(No visual loss) 4. Facial Palsy - 0(Normal) 5a. Left Arm: Motor (10-second hold) - 0(No drift) 5b. Right Arm: Motor (10-second hold) - 0(No drift) 6a. Left Leg: Motor (5-second hold - always test supine) - 0(No drift) 6b. Right Leg: Motor (5-second hold - always test supine) - 0(No drift) 7. Limb Ataxia (finger/nose \T\ heel/ramos - test with eyes open) - 0(Absent) 8. Sensory Loss (pinprick arms/legs/face) - 0(Normal) 9. Best Language: Aphasia (description/naming/reading) - 0(No aphasia) Initials: sp4 Signatures: Dispatcher [employer] [facility] Christa Chen RN RN vc1 Mark Marshall RN RN jj7 Ovidio Sandoval MD MD sp4 Corrections: (The following items were deleted from the chart) 00:14 00:11 Ondansetron IVP 4 mg IVP once; over 2 minutes ordered. 1 jj7 01:04 11/13 23:30 ACETAMINOPHEN+C.LAB.BRZ ordered. [facility] 11/14 01:04 11/13 23:30 C-REACTIVE PROTEIN+C.LAB.BRZ ordered. [facility] 11/14 01:20 01:03 Review from Recent Record - CT - EXAM DESCRIPTION: CT - CTHCSPWOC - sp4 11/10/2023 7:12 pm CLINICAL HISTORY: Trauma, head and neck injury. SYNCOPE COMPARISON: Neck Angio dated 11/05/2023; Head angio dated 11/05/2023; Ct Stroke Brain Wo Cont dated 11/05/2023 TECHNIQUE: Axial 5 mm thick images of the head were obtained. Axial 2 mm thick images of the cervical spine were obtained with sagittal and coronal reconstruction images generated and reviewed. All CT scans are performed using dose optimization technique as appropriate and may include automated exposure control or mA/KV adjustment according to patient size. FINDINGS: CT HEAD WITHOUT CONTRAST: No acute hemorrhage, hydrocephalus or extra-axial collection is identified.No areas of brain edema or midline shift. Chronic small vessel ischemic changes and cerebral atrophy. Surgical changes from prior right suboccipital craniectomy. Encephalomalacia at the right cerebellar hemisphere. Comminuted fracture involving the bilateral nasal bones with significant deformity. There is a fracture as well of the bony nasal septum. Right mastoid effusion.New fracture involving the right frontal calvarium which involves the anterior wall of the right frontal sinus. This is not extend to the inner table of the skull. CT CERVICAL SPINE WITHOUT CONTRAST: No fracture or subluxation.No prevertebral soft tissues swelling is identified. IMPRESSION: 1. Right frontal calvarial fracture involving the anterior wall of the right frontal sinus. No acute intracranial hemorrhage. 2. Bilateral nasal bone fractures with comminution at the right nasal bone with significant deformity as well as fracture at the bony nasal septum. 3. No acute fracture traumatic malalignment cervical spine. sp4 02:38 01:52 Accepting neurosurgeon at [facility]. sp4 jj7
[2023-11-14 01:57] LABS: Blood Morphology Comment NOTED (NOT SEEN); Platelet Estimate ADEQ; Teardrop Cell 2+
[2023-11-14 02:16] LABS: Specific Gravity 1.021 (1.005-1.030)
[2023-11-14 02:18] LABS: Specific Gravity 1.021 (1.005-1.030); Urine Bacteria 20-50 /HPF (<20); Urine Bilirubin NEGATIVE (Negative); Urine Blood Negative (Negative); Urine Clarity Extremely Turbid (Clear); Urine Color Yellow (Yellow); Urine Glucose NEGATIVE (Negative); Urine Mucus Slight /HPF (None Seen); Urine Protein TRACE (Negative); Urine RBC None Seen /HPF (None Seen); Urine Urobilinogen Normal (Normal)
[2023-11-14 02:26] LABS: Barbiturates NEGATIVE (NEGATIVE); Benzodiazepines NEGATIVE (NEGATIVE); Cocaine NEGATIVE (NEGATIVE); METHAMPHETAM NEGATIVE (NEGATIVE); Methadone NEGATIVE (NEGATIVE); Opiates POSITIVE (NEGATIVE); Phencyclidine NEGATIVE (NEGATIVE); THC Cannibis NEGATIVE (NEGATIVE)
[2023-11-14 02:54] VITALS: BP 119/87; TEMP 99.5; O2SAT 96
--- NOTE | 2023-11-14 11:40 | RAD REPORT ---
EXAM DESCRIPTION: CT Head and Cervical Spine Without Intravenous Contrast CLINICAL HISTORY: The patient is 43 years old and is Female; facial injuries TECHNIQUE: Axial computed tomography images of the head/brain and cervical spine without intravenous contrast. Sagittal and coronal reformatted images were created and reviewed. This CT exam was pe rformed using one or more of the following dose reduction techniques: automated exposure control, a djustment of the mA and/or kV according to patient size, and/or use of iterative reconstruction techn ique. COMPARISON: CT November 10, 2023, CT of the head November 10 2023 FINDINGS: BRAIN: No intracranial hemorrhage is noted. Encephalomalacia of the right cerebellar hem isphere is noted. Effacement of the sulci is noted. There is no midline shift. No significant white matter disease. VENTRICLES: Worsening hydrocephalus with transependymal flow is present . SKULL: Evidence of a right occipital craniectomy is noted. No acute fracture. SINUSES: Unremarkable as visualized. No acute sinusitis. MASTOID AIR CELLS: Unremarkable as visualized. No mastoid effusion. VERTEBRAE: The vertebral body heights and alignment are maintained. No acute fracture. DISCS/SPINAL CANAL/NEURAL FORAMINA: The intervertebral disc spaces are maintained. No spinal arya l stenosis. SOFT TISSUES: The soft tissues are normal. LUNG APICES: The lung apices are clear. IMPRESSION: 1. No acute intracranial hemorrhage. 2. Findings consistent with worsening/progressing hydrocephalus with cortical effacement concerning for edema. 3. No fracture or malalignment of the cervical spine. THIS REPORT CONTAINS FINDINGS THAT MAY BE CRITICAL TO PATIENT CARE: The findings were verbally discussed via telephone conference with Dr. Ovidio Sandoval MD by Dr. Alma Juarez tti on 11/14/2023 12:14 AM CRUSHER FOREMAN .The results were acknowledged and understood. EXAM DESCRIPTION: CT Chest, Abdomen and Pelvis Without Intravenous Contrast CLINICAL HISTORY: The patient is 43 years old and is Female; facial injuries, malignancy TECHNIQUE: Axial computed tomography images of the chest, abdomen and pelvis without intravenous con trast. Sagittal and coronal reformatted images were created and reviewed. This CT exam was perfor med using one or more of the following dose reduction techniques: automated exposure control, adjus tment of the mA and/or kV according to patient size, and/or use of iterative reconstruction technique . COMPARISON: No relevant prior studies available. FINDINGS: CHEST: LUNGS: Calcified granuloma within left lower lobe is present. A heterogeneous mass within the lef t hilar region measuring approximately 4.3 cm is present. Associated atelectasis within the left lowe r lobe is noted. PLEURAL SPACE: Unremarkable. No significant effusion. No pneumothorax. HEART: No cardiomegaly. No pericardial effusion. ABDOMEN: LIVER: Homogeneous without focal mass. GALLBLADDER AND BILE DUCTS: No calcified stones. No ductal dilation. PANCREAS: Unremarkable. No ductal dilation. SPLEEN: Unremarkable. ADRENALS: Unremarkable. No mass. KIDNEYS AND URETERS: No obstructing stones. No hydronephrosis. No perinephric fluid. STOMACH AND BOWEL: The stomach is minimally distended with fluid. The small bowel is normal in ca liber. Stool is present throughout the colon. There is no mucosal thickening or evidence of obstructi on. PELVIS: APPENDIX: No findings to suggest acute appendicitis. BLADDER: The bladder is well distended. No stones. REPRODUCTIVE: Unremarkable as visualized. CHEST, ABDOMEN and PELVIS: INTRAPERITONEAL SPACE: Unremarkable. No significant fluid collection. No free air. BONES/JOINTS: No acute fracture. Sclerosis within the sternum and scattered throughout the verteb ral bodies is noted. The vertebral body heights and alignment are maintained. SOFT TISSUES: The soft tissues are normal. VASCULATURE: Minimal atherosclerosis of the vasculature is present. No aortic aneurysm. LYMPH NODES: Calcified left hilar lymph nodes are present. A few prominent mediastinal and AP win lewis lymph nodes are also present. TUBES, LINES AND DEVICES: A right chest port is present with the tip in the SVC. IMPRESSION: 1. No evidence of solid organ injury or traumatic bony findings on this noncontrasted CT of the chest. 2. Left hilar mass with resultant atelectasis in left lower lobe with associated left pleural effusio n. Correlation with prior imaging to assess progression versus stability is recommended. 3. Findings suggest diffuse osseous metastasis. Electronically signed by: Alison Olivera MD 11/14/2023 12:46 AM [employer]EMAN Due to temporary technical issues with the PACS/Fluency reporting system, reports are being signed by the in house radiologists without review as a courtesy to insure prompt reporting. The interpreting radiologist is fully responsible for the content of the report.
--- NOTE | 2023-11-14 11:42 | RAD REPORT ---
EXAM DESCRIPTION: EXAM: Facial Bones W/ Mpr CLINICAL HISTORY: 43-year-old female with facial injury. COMPARISON 11/10/2023. TECHNIQUE: Maxillofacial CT without contrast. This exam was performed according to our departmental dose optimization program which includes use of automated exposure control, adjustment of the mA and/ or kV according to patient size and/or use of iterative reconstruction technique. FINDINGS: Limited intracranial images demonstrate prominent ventricles with transependymal flow CSF concerning for worsening ventriculomegaly concerning for acute hydrocephalus, cerebral edema is not e xcluded. The frontal sinuses, frontal-ethmoid recesses, anterior/posterior ethmoids, sphenoid sinuses, and max illary sinuses are well developed and clear. The osteomeatal complexes are patent. The nasal turbinates are within normal limits. The nasal septum is normal. The cribriform plate and lamina papyraceae within normal limits. The osseous structures demonstrate depressed fracture of the outer table of the calvarium at the leve l of the right frontal sinus. Fracture fragments extend into the right frontal sinus cavity by approx imately 5 mm. There is associated trace fluid and bony fracture fragments within the right frontal si nus. No clear fracture identified through the inner table of the calvarium at the level of the fronta l bones. Severely comminuted fracture of the bilateral nasal bones right greater than left with multipart frac ture of the bony nasal septum. The orbits are unremarkable. The optic nerves and globes appear intact. The periorbital soft tissues are within normal limits. IMPRESSION: 1. Severely comminuted fracture of the bilateral nasal bones right greater than left w ith multipart fracture of the bony nasal septum. 2. Depressed fracture of the outer table of the calvarium at the level of the right frontal sinus. Fracture fragments extend into the right frontal sinus cavity by approximately 5 mm. There is associa gabby trace fluid and bony fracture fragments within the right frontal sinus. No clear fracture identif ied through the inner table of the calvarium at the level of the frontal bones. 3. Above findings concerning for worsening ventriculomegaly, cerebral edema in the excluded. Electronically signed by: Enid Hernandez MD 11/14/2023 12:06 AM SPA ATTENDANT Due to temporary technical issues with the PACS/Fluency reporting system, reports are being signed by the in house radiologists without review as a courtesy to insure prompt reporting. The interpreting radiologist is fully responsible for the content of the report.
== END ==
LOC: ER 22:24
DX: G93.6 Cerebral edema (principal); G91.9 Hydrocephalus, unspecified; S02.2XXA Fracture of nasal bones, initial encounter for closed fracture; G93.89 Other specified disorders of brain; Z88.1 Allergy status to other antibiotic agents; Z88.5 Allergy status to narcotic agent; Z11.52 Encounter for screening for COVID-19
CPT/HCPCS: 81001; 36415; 70450; 71250; 72125; 70486; 76377; J2405